=== PATIENT | male | born 1965 | race Caucasian/White ===

== ENCOUNTER 2018-01-17 07:55 | Day surgery (SDC) | payer BC ==
[2018-01-17 08:28] LABS: Absolute Lymphocytes (CBC) 1.5 K/uL (0.7-4.9); Absolute Monocytes 0.4 K/uL (0.1-1.3); Absolute Neutrophil 3.7 K/uL (1.8-8.0); Basophils % 1.4 % (0-1.3); Eosinophils % 5.2 % (0-4.4); Hematocrit 40.2 % (39.6-49.0); Lymphocytes % 24.9 % (15.3-44.8); MCH 29.8 pg (27.0-35.0); MCV 87.5 fL (80-100); Monocytes % 7.2 % (3.3-12.3); RBC Red Blood Cell Count 4.59 M/uL (4.33-5.43)
[2018-01-17 08:30] LABS: Potassium 4.3 mEq/L (3.6-5.0)
[2018-01-17] MEDS ORDERED: CIPROFLOXACIN 400mg IV 400 MG/200 ML BAG IV ONE (08:48)
[2018-01-17] MEDS ORDERED: NA CHLORIDE 0.9% 1,000 ML ONE (08:48)
[2018-01-17] MEDS ORDERED: PROPOFOL 200 MG/20 ML VIAL IV ONE (09:29)
[2018-01-17] MEDS ORDERED: ONDANSETRON 4 MG/2 ML VIAL ONE (09:30)
[2018-01-17] MEDS ORDERED: LIDOCAINE 2% MPF 5 ML VIAL ONE (09:30)
[2018-01-17] MEDS ORDERED: MIDAZOLAM HCL 2 MG/2 ML INJ ONE (09:30)
[2018-01-17] MEDS ORDERED: FENTANYL CITR 100 MCG/2 ML ONE (09:30)
--- NOTE | 2018-01-17 09:52 | EKG ---
Test Date: 2018-01-17 Test Time: 08:23:33 Manager Of Corporate: LUCY MEASUREMENT RESULTS: Intervals: Rate: 86 MA: 136 QRSD: 74 QT: 344 QTc: 411 [place]: P: 65 MA: 136 QRS: 40 T: 56 INTERPRETIVE STATEMENTS: Normal sinus rhythm Normal ECG No previous ECG available for comparison Electronically Signed On 01-17-18 09:51:32 CDT by Maverick Arias
--- NOTE | 2018-01-17 10:07 | P.BOP ---
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
--- NOTE | 2018-01-17 10:14 | RAD REPORT ---
EXAM DESCRIPTION: RAD - Chest Pa And Lat (2 Views) - 01/17/2018 8:21 am CLINICAL HISTORY: Chest pain, osteomyelitis. COMPARISON: None. FINDINGS: The lungs are clear. The heart is normal in size. No displaced fractures. IMPRESSION: No acute or concerning finding suspected.
--- NOTE | 2018-01-23 04:11 | DS ---
Date of Discharge: 01/17/2018 Diagnoses: Left second toe osteomyelitis, nonhealing diabetic ulcer. Disposition: Home. Activity: As tolerated. No heavy lifting. Followup: Follow up in my office in 1 week. Call for appointment at [phone]. The patient was expl ained importance also of the antibiotics treatment, diabetes control, glucose control, diet, and prop er shoes, he understood. DANE/CHINMAY Voice ID: [id number] Report ID: [id number]
--- NOTE | 2018-01-23 05:34 | OP ---
Date of Procedure: 01/17/2018 Surgeon: Jevon Ramírez MD Preoperative Diagnoses: Left second toe destructive osteomyelitis with nonhealing diabetic ulcer. 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 Procedure: Left second toe amputation. Estimated Blood Loss: Less than 5 cc. Specimen: Toe. Finding: As above. Demineralized bone, very friable. Anesthesia: General plus local. Indications: This is the case of a male, who comes to us with a left second toe destructive osteomye litis with a nonhealing diabetic ulcer in that region with infection. The patient has the option of long-term antibiotics, although he realized the bone is destroying. You can see the bone from the si te of the ulcer with destruction already coming from it. The patient wants the toe amputated even un derstanding options also of long-term antibiotics and wound care. He understood the benefits, altern atives, and risks which include, but are not limited to infection, bleeding, damage to adjacent struc tures, anesthesia complication, nonhealing wound, IA, and even . He also understands this may n ot relieve any symptoms. He might need more than one surgical intervention. He understood and qian d a consent. Description Of Procedure: The area of concern was marked by me and the patient in the holding room. The patient was brought to the operating room, placed in supine position. Anesthesia was done witho ut complication. Left second toe was prepped and draped in usual sterile fashion. Left foot was pre pped and draped in a sterile fashion. The amputation site was selected. Incision was made, carried down with the knife. The incision was carried down to the metatarsophalangeal joint. The toe was am putated. The tendon was pulled, cut and allowed to retract. Cartilage was excoriated. The area was profusely irrigated and then approximated with a mattress suture after profuse irrigation. Local an esthetic was applied in that area. The patient tolerated the procedure well. The patient was sent t o recovery in stable condition. DANE/CHINMAY Voice ID: [id number] Report ID: [id number]
== END 2018-01-17 11:38 | disposition home or self-care (01) ==
LOC: OR 07:55
PROVIDERS: ATTEND Surgery
PROC: 0Y6S0Z0 Detachment at Left 2nd Toe, Complete, Open Approach (ICD-10-PCS; principal; 2018-01-17 10:15)
DX: E11.69 Type 2 diabetes mellitus with other specified complication (principal); M86.8X7 Other osteomyelitis, ankle and foot; E11.621 Type 2 diabetes mellitus with foot ulcer; L97.529 Non-pressure chronic ulcer of other part of left foot with unspecified severity; I10 Essential (primary) hypertension; F17.220 Nicotine dependence, chewing tobacco, uncomplicated
CPT/HCPCS: 36415; 71046; 80048; 82962; 85025; 88305; 88311; 93005; J0744; J2250; J2405; J3010; J7030

== ENCOUNTER 2020-03-29 15:44 | Inpatient (IN) | payer BC ==
[2020-03-29] MEDS ORDERED: VANCOMYCIN/NS 1 gm 1 GM/250 ML BAG IV ONE (17:15)
--- NOTE | 2020-03-29 17:17 | RAD REPORT ---
EXAM DESCRIPTION: RAD - Foot Right 3 View - 03/29/2020 4:55 pm CLINICAL HISTORY: examin for osteo;Pain COMPARISON: No comparisons FINDINGS: No fracture, dislocation or periosteal reaction. Patient has moderately advanced degenerat ramesh change at the first metatarsal head. Valgus deformity is present. Mild tarsal metatarsal joint de generative changes are present. Moderate-sized plantar spur present. There are mild spurring changes at the Achilles attachment. Soft tissue swelling is present at the second toe. No air in the soft tissues confirmed. Second proxi mal phalanx head is relatively small. Early bone loss changes are not entirely excluded in the settin g of a soft tissue infection. . IMPRESSION: Second toe soft tissue swelling with questionable early bone loss changes in the second proximal phalanx head. Degenerative change at the first MTP joint and first metatarsal head. Plantar spur.
--- NOTE | 2020-03-29 17:20 | ER ---
Nurse's Notes [facility] Name: Anders Balderas Age: 54 yrs Sex: Male : 1965 Arrival Date: 03/29/2020 Time: 15:46 Bed 2 Private MD: Mikey Kline H Diagnosis: Cellulitis of right toe;Lymphangitis;Other sepsis;Osteomyelitis Presentation: 03/29 16:15 Chief complaint: Patient states: fever intermittent X 2 days, 2nd toe on right foot has iw ulcer on it , has gotten worse over past two days. Coronavirus screen: Proceed with normal triage. Patient denies a cough. Patient denies shortness of breath or difficulty breathing. Patient denies measured and/or subjective temperature greater than 100.4F prior to today's visit. Patient denies travel on a cruise ship or to a country the [facility] currently lists as an affected area. Patient denies contact with known and/or suspected case of COVID-19. Ebola Screen: Patient negative for fever greater than or equal to 101.5 degrees Fahrenheit, and additional compatible Ebola Virus Disease symptoms Patient denies exposure to infectious person. Patient denies travel to an Ebola-affected area in the 21 days before illness onset. No symptoms or risks identified at this time. Initial Sepsis Screen: Does the patient meet any 2 criteria? No. Patient's initial sepsis screen is negative. Does the patient have a suspected source of infection? No. Patient's initial sepsis screen is negative. Risk Assessment: Do you want to hurt yourself or someone else? Patient reports no desire to harm self or others. Onset of symptoms was March 26, 2020. 16:15 Method Of Arrival: Ambulatory iw 16:15 Acuity: CAYETANO 3 iw 16:21 Note had ibuprofen at 1400 today. iw Triage Assessment: 16:20 General: Appears in no apparent distress. comfortable, Behavior is cooperative, bp appropriate for age, anxious. Pain: Complains of pain in right foot. EENT: No deficits noted. Neuro: No deficits noted. Cardiovascular: No deficits noted. Respiratory: Reports. GI: No signs and/or symptoms were reported involving the gastrointestinal system. : No signs and/or symptoms were reported regarding the genitourinary system. Derm: No deficits noted. Wound noted Wound is R 2ND TOE NON-HEALING WOUND. Musculoskeletal: No signs and/or symptoms reported regarding the musculoskeletal system. Historical: - Allergies: 16:19 No Known Allergies; iw - Home Meds: 16:19 glyburide 5 mg Oral tab 1 tab once daily [Active]; metformin 500 mg Oral Tb24 2 times iw per day [Active]; losartan 50 mg oral tab 1 tab 2 times per day [Active]; Lovastatin Oral once daily [Active]; - PMHx: 16:19 Diabetes - NIDDM; Hyperlipidemia; Hypertension; bone cancer-right arm as child; iw - PSHx: 16:19 left toe amputation; right arm; iw - Immunization history:: Adult Immunizations Adult Immunizations not up to date. - Social history:: Smoking status: Patient denies any tobacco usage or history of. Smoking status: Patient reports use of chewing tobacco. Screenin:32 Abuse screen: Denies threats or abuse. Denies injuries from another. Nutritional bp screening: No deficits noted. Tuberculosis screening: No symptoms or risk factors identified. Fall Risk None identified. Exposure risk/Travel Screening: Recent exposure to Intervention for positive screen:. Assessment: 16:30 General: SEE TRIAGE NOTE. General: Behavior is calm, cooperative, appropriate for age, bp Smells of. 17:30 Reassessment: ADMIT INITIATED. PT REMAINS ST ON MONITOR. bp 18:27 Reassessment: ADMIT COMPLETE. PT GAGE WITH PCT. bp Vital Signs: 16:15 BP 108 / 93; Pulse 124; Resp 18 S; Temp 100.1(O); Pulse Ox 100% on R/A; Weight 91.17 iw kg; Height 5 ft. 8 in. (172.72 cm); Pain 0/10; 17:30 BP 123 / 94; Pulse 109; Resp 17; Pulse Ox 100% ; bp 18:25 BP 97 / 68; Pulse 101; Resp 16; Pulse Ox 94% ; bp 16:15 Body Mass Index 30.56 (91.17 kg, 172.72 cm) iw ED Course: 15:46 Patient arrived in ED. ag5 15:46 Mikey Kline DO is Private Physician. ag5 16:17 Triage completed. iw 16:19 Arm band placed on. iw 16:22 Cooper Araujo PA is PHCP. jr8 16:22 Sal Johnson MD is Attending Physician. jr8 16:24 Bird, German, RN is Primary Nurse. bp 16:32 Patient has correct armband on for positive identification. Placed in gown. Bed in low bp position. Call light in reach. Side rails up X2. 16:57 XRAY Foot RIGHT 3 View In Process Unspecified. EDMS 17:15 Inserted saline lock: 20 gauge in left forearm, using aseptic technique. Blood bp collected. 17:18 Jian Brooke MD is Hospitalizing Provider. 8 17:27 Warm blanket given. monitor technician on. Pulse ox on. NIBP on. 5 17:27 EKG done, by ED staff, reviewed by Cooper LARSON. [facility] 18:28 No provider procedures requiring assistance completed. Patient admitted, IV remains in bp place. Administered Medications: 17:15 Drug: Acetaminophen 1000 mg Route: PO; bp 18:28 Follow up: Response: Temperature is decreased bp 17:15 Drug: NS 0.9% (30 ml/kg) 30 ml/kg Route: IV; Rate: bolus; Site: left forearm; bp 18:29 Follow up: IV Status: Infusion continued upon admission bp 17:30 Drug: Cefepime 1 grams Route: IVPB; Rate: 200 ml/hr; Infused Over: 30 mins; Site: left bp forearm; 18:00 Follow up: IV Status: Completed infusion; IV Intake: 100ml bp 17:40 Drug: vancoMYCIN 1 grams Route: IVPB; Infused Over: 2 hrs; Site: left forearm; bp 18:28 Follow up: IV Status: Infusion continued upon admission bp Intake: 18:00 IV: 100ml; Total: 100ml. bp Outcome: 17:19 Decision to Hospitalize by Provider. jrKaren 18:27 Admitted to Med/surg accompanied by tech, via wheelchair, room 223, with chart, Report bp called to TORI GUERRA 18:27 Condition: stable 18:27 Instructed on the need for admit. 18:37 Patient left the ED. jl7 Signatures: Dispatcher [employer] EDMS Joyce King, RN Cooper Duarte PA PA jr8 Daniela Ramírez 5 Manuel Al RN RN jl7 German Pang RN RN bp Gaskin, Ajare 5 Corrections: (The following items were deleted from the chart) 16:20 16:15 BP 108 / 93; Pulse 124bpm; Resp 18bpm; Spontaneous; Pulse Ox 100% RA; Temp 98.9F; iw 91.17 kg; Height 5 ft. 8 in.; BMI: 30.5; Pain 0/10; iw
--- NOTE | 2020-03-29 17:20 | EDPHYS ---
Physician Documentation [facility] Name: Anders Balderas Age: 54 yrs Sex: Male : 1965 Arrival Date: 03/29/2020 Time: 15:46 Bed 2 Private MD: Mikey Kline H ED Physician Sal Johnson HPI: 03/29 16:54 This 54 yrs old Male presents to ER via Ambulatory with complaints of Wound jr8 Check, Fever. 17:14 Patient presents to ED for recheck of: cellulitis. The affected area is on the right jr8 foot. The patient has experienced a previous episode. The patient has not recently seen a physician. Patient stated that he is diabetic and has had problems with chronic non healing wounds. Stated that he has had one on right second digit for some time. Since this past has had increase in pain and now within past two days a lot of redness. Fevers today . Historical: - Allergies: 16:19 No Known Allergies; iw - Home Meds: 16:19 glyburide 5 mg Oral tab 1 tab once daily [Active]; metformin 500 mg Oral Tb24 2 times iw per day [Active]; losartan 50 mg oral tab 1 tab 2 times per day [Active]; Lovastatin Oral once daily [Active]; - PMHx: 16:19 Diabetes - NIDDM; Hyperlipidemia; Hypertension; bone cancer-right arm as child; iw - PSHx: 16:19 left toe amputation; right arm; iw - Immunization history:: Adult Immunizations Adult Immunizations not up to date. - Social history:: Smoking status: Patient denies any tobacco usage or history of. Smoking status: Patient reports use of chewing tobacco. ROS: 17:14 Eyes: Negative for injury, pain, redness, and discharge, ENT: Negative for injury, jr8 pain, and discharge, Neck: Negative for injury, pain, and swelling, Cardiovascular: Negative for chest pain, palpitations, and edema, Respiratory: Negative for shortness of breath, cough, wheezing, and pleuritic chest pain, Abdomen/GI: Negative for abdominal pain, nausea, vomiting, diarrhea, and constipation, Back: Negative for injury and pain, Neuro: Negative for headache, weakness, numbness, tingling, and seizure. 17:14 Constitutional: Positive for fever. 17:14 MS/extremity: Positive for erythema, pain, swelling, warmth, of the right foot. 17:14 Skin: Positive for cellulitis, of the right foot. Exam: 17:14 Eyes: Pupils equal round and reactive to light, extra-ocular motions intact. Lids and jr8 lashes normal. Conjunctiva and sclera are non-icteric and not injected. Cornea within normal limits. Periorbital areas with no swelling, redness, or edema. ENT: Nares patent. No nasal discharge, no septal abnormalities noted. Tympanic membranes are normal and external auditory canals are clear. Oropharynx with no redness, swelling, or masses, exudates, or evidence of obstruction, uvula midline. Mucous membranes moist. Neck: Trachea midline, no thyromegaly or masses palpated, and no cervical lymphadenopathy. Supple, full range of motion without nuchal rigidity, or vertebral point tenderness. No Meningismus. Cardiovascular: Tachycardia with a normal S1 and S2. No gallops, murmurs, or rubs. Normal PMI, no JVD. No pulse deficits. Respiratory: Lungs have equal breath sounds bilaterally, clear to auscultation and percussion. No rales, rhonchi or wheezes noted. No increased work of breathing, no retractions or nasal flaring. Abdomen/GI: Soft, non-tender, with normal bowel sounds. No distension or tympany. No guarding or rebound. No evidence of tenderness throughout. Back: No spinal tenderness. No costovertebral tenderness. Full range of motion. MS/ Extremity: Pulses equal, no cyanosis. Neurovascular intact. Full, normal range of motion. Neuro: Awake and alert, GCS 15, oriented to person, place, time, and situation. Cranial nerves II-XII grossly intact. Motor strength 5/5 in all extremities. Sensory grossly intact. Cerebellar exam normal. Normal gait. 17:14 Skin: Patient has prominent cellulitis to right 2nd digit with swelling and lymphangitis going up to distal thigh. Vital Signs: 16:15 BP 108 / 93; Pulse 124; Resp 18 S; Temp 100.1(O); Pulse Ox 100% on R/A; Weight 91.17 iw kg; Height 5 ft. 8 in. (172.72 cm); Pain 0/10; 17:30 BP 123 / 94; Pulse 109; Resp 17; Pulse Ox 100% ; bp 18:25 BP 97 / 68; Pulse 101; Resp 16; Pulse Ox 94% ; bp 16:15 Body Mass Index 30.56 (91.17 kg, 172.72 cm) iw MDM: 16:22 Patient medically screened. :14 Data reviewed: vital signs, nurses notes, lab test result(s), EKG, radiologic studies, [facility] plain films. Data interpreted: Pulse oximetry: on room air is 100 %. Interpretation: normal. Counseling: I had a detailed discussion with the patient and/or guardian regarding: the historical points, exam findings, and any diagnostic results supporting the discharge/admit diagnosis, lab results, radiology results, the need for further work-up and treatment in the hospital. Physician consultation: Jian Brooke MD was called at 17:18, was contacted at 17:18, regarding admission, and will see patient in ED. 03/29 16:33 Order name: Basic Metabolic Panel [facility] 03/29 16:33 Order name: Blood Culture Adult (2) [facility] 03/29 16:33 Order name: CBC with Diff 03/29 16:33 Order name: CPK [facility] 03/29 16:33 Order name: Lactate [facility] 03/29 16:33 Order name: LFT's [facility] 03/29 16:33 Order name: Lipase [facility] 03/29 16:33 Order name: Procalcitonin [facility] 03/29 16:33 Order name: Protime (+inr) [facility] 03/29 16:33 Order name: Ptt, Activated [facility] 03/29 16:33 Order name: Troponin (emerg Dept Use Only) [facility] 03/29 16:33 Order name: Urine Microscopic Only [facility] 03/29 16:33 Order name: XRAY Foot RIGHT 3 View; Complete Time: 17:19 03/29 17:34 Order name: Wound Culture [facility] 03/29 16:33 Order name: Accucheck; Complete Time: 17:09 03/29 16:33 Order name: Cardiac monitoring; Complete Time: 17:08 03/29 16:33 Order name: EKG - Nurse/Tech; Complete Time: 17:08 03/29 16:33 Order name: IV Saline Lock - Large Bore; Complete Time: 17:[address] [facility] 03/29 16:33 Order name: Labs collected and sent; Complete Time: 17:39 8 03/29 16:33 Order name: O2 Per Protocol; Complete Time: 17:08 8 03/29 16:33 Order name: O2 Sat Monitoring; Complete Time: 17:08 Administered Medications: 17:15 Drug: Acetaminophen 1000 mg Route: PO; bp 18:28 Follow up: Response: Temperature is decreased bp 17:15 Drug: NS 0.9% (30 ml/kg) 30 ml/kg Route: IV; Rate: bolus; Site: left forearm; bp 18:29 Follow up: IV Status: Infusion continued upon admission bp 17:30 Drug: Cefepime 1 grams Route: IVPB; Rate: 200 ml/hr; Infused Over: 30 mins; Site: left bp forearm; 18:00 Follow up: IV Status: Completed infusion; IV Intake: 100ml bp 17:40 Drug: vancoMYCIN 1 grams Route: IVPB; Infused Over: 2 hrs; Site: left forearm; bp 18:28 Follow up: IV Status: Infusion continued upon admission bp Disposition: 03/30 11:30 Co-signature as Attending Physician, Sal Johnson MD I agree with the assessment and elidia plan of care. Disposition: 03/29/20 17:19 Hospitalization ordered by Jian Brooke for Inpatient Admission. Preliminary diagnosis are Cellulitis of right toe, Lymphangitis, Other sepsis, Osteomyelitis. - Bed requested for Telemetry/MedSurg (Inpatient). - Status is Inpatient Admission. jl7 - Condition is Stable. - Problem is new. - Symptoms have improved. Signatures: Dispatcher [employer] EDSD Sal Johnson MD MD cha Williams, Irene, RN RN iw Roszak, Josh, PA PA jr8 Manuel Al RN RN jl7 Peltier, Brian, RN RN bp Botello, Elizabeth eb Corrections: (The following items were deleted from the chart) 03/29 17:33 17:19 Hospitalization Ordered by Jian Brooke MD for Inpatient Admission. Preliminary eb diagnosis is Cellulitis of right toe; Lymphangitis; Other sepsis; Osteomyelitis. Bed requested for Telemetry/MedSurg (Inpatient). Status is Inpatient Admission. Condition is Stable. Problem is new. Symptoms have improved. jr8 18:37 17:33 03/29/2020 17:19 Hospitalization Ordered by Jian Brooke MD for Inpatient jl7 Admission. Preliminary diagnosis is Cellulitis of right toe; Lymphangitis; Other sepsis; Osteomyelitis. Bed requested for Telemetry/MedSurg (Inpatient). Status is Inpatient Admission. Condition is Stable. Problem is new. Symptoms have improved. eb
[2020-03-29] MEDS ORDERED: ACETAMINOPHEN 500 MG TAB ONE (17:21)
[2020-03-29] MEDS ORDERED: NA CHLORIDE 0.9% 2,000 ML ONE (17:22)
[2020-03-29 18:17] LABS: Absolute Lymphocytes (CBC) 0.8 K/uL (0.7-4.9); Basophils % 0.8 % (0-1.3); Hematocrit 37.1 % (39.6-49.0); Lymphocytes % 15.5 % (15.3-44.8); MPV 7.8 fL (7.6-11.3); RBC Red Blood Cell Count 4.12 M/uL (4.33-5.43)
[2020-03-29 18:19] LABS: Protime INR 1.07
[2020-03-29 18:33] LABS: ALT/SGPT 34 U/L (12-78); AST/SGOT 24 U/L (15-37); Alkaline Phosphatase 68 U/L (45-117); BUN Blood Urea Nitrogen 31 mg/dL (7-18); Bicarbonate 22 mmol/L (21-32); Bilirubin Direct 0.2 mg/dL (0-0.2); Bilirubin Total 0.7 mg/dL (0.2-1.0); Creatine Phosphokinase 86 U/L (39-308); Glucose Level 244 mg/dL (74-106); Lipase 178 U/L (73-393); Potassium 4.2 mmol/L (3.5-5.1); Protein, Total 7.7 g/dL (6.4-8.2); Sodium Level 135 mmol/L (136-145); Troponin (Emerg Dept Use Only) < 0.02 ng/mL (0.0-0.045)
[2020-03-29] MEDS ORDERED: POLYETHYL GLY 3350 17 GM/DOSE PO PRN (18:33)
[2020-03-29] MEDS ORDERED: MORPHINE 2 MG/ML SYR IV PRN (18:33)
[2020-03-29] MEDS ORDERED: ONDANSETRON 4 MG/2 ML VIAL IV PRN (18:33)
[2020-03-29] MEDS ORDERED: HYDROCODONE/APAP 7.5/325 MG TAB PO PRN (18:33)
[2020-03-29] MEDS: NA CHLORIDE 0.9% 1,000 ML IV SCH (18:33)
[2020-03-29 19:27] VITALS: BMI 30.5
[2020-03-29] MEDS ORDERED: VANCOMYCIN/NS 1 gm 1 GM/250 ML BAG IVPB ONE (20:00)
[2020-03-29] MEDS: CEFEPIME/SWI 2gm 2 GM/20 ML SYR IVP SCH (20:18)
[2020-03-29] MEDS ORDERED: CEFEPIME 2 GM VIAL IV SCH (21:00)
[2020-03-29] MEDS ORDERED: VANCOMYCIN 1 GM/VIAL ONE (21:06)
[2020-03-29] MEDS: DOCUSATE NA 100 MG CAP PO SCH (21:29)
[2020-03-29] MEDS: INSULIN -REGULAR HUMAN 50 UNIT/0.5 ML ML SQ SCH (21:30)
[2020-03-29] MEDS ORDERED: NA CHLORIDE 0.9% 250 ML ONE (21:32)
--- NOTE | 2020-03-29 21:42 | HP ---
Date of Admission: 03/29/2020 Primary Care Physician: Dr. Kline. Chief Complaint: Redness swelling of the right second toe. Consultants: Dr. Ramírez, General Surgery. Dr. Fitzpatrick, Infectious Disease. History Of Present Illness: Patient is a 54-year-old male with past medical history of diabetes lele itus type 2, [id number], hypertension, hyperlipidemia, comes in with worsening redness, sw elling of his right foot and second toe. Patient denies any specific trauma or abrasion or laceratio n to this foot. States that it gets worse in the summer, has been ongoing for the last 3 days, worse today has had previous amputation on the other side couple of years ago. Also reports fever and chi lls. Denies any cough, shortness of breath. No chest pain. Patient came into the ER for further ev aluation. In the ER, his vital signs showed blood pressure 108/93, pulse was 124, temperature 100.1. Labs are still pending at this time. X-ray of the foot showed soft tissue swelling of the second t oe, questionable early bone loss changes in second proximal phalanx head and the patient was given IV vancomycin and then referred for admission. When seen in the ER, he was awake, alert, oriented x3. The patient's symptoms are constant, moderate, progressively worsening, no alleviating factors. Past Medical History: Diabetes mellitus type 2, non insulin requiring; hypertension; hyperlipidemia. Patient also had bone cancer at the age of 10 in his right arm. Surgical History: Right arm amputation due to bone cancer, left second digit amputation [address] Ramírez for osteomyelitis. Allergies: NO KNOWN DRUG ALLERGIES. Medications: List reviewed. Social History: Patient denies any tobacco use. Does drink occasionally 2-3 times a week. No illic it drug use. Family History: Father had diabetes. Mother had stroke. Review of Systems: Eleven point system reviewed, negative except as per HPI. Physical Examination: Vital Signs: Blood pressure 108/93, pulse 124, respirations 18, temperature 100.1, O2 100% on room a ir, BMI 30. General: Awake, alert, oriented x3, in some mild distress ill-appearing male, obese. HEENT: Normocephalic, atraumatic. PERRLA, EOMI. Conjunctivae anicteric. Neck: Supple. No JVD. Trachea midline. CV: S1, S2. Sinus tachycardia. Peripheral pulses present. Respiratory: Moving air well bilaterally. No wheezing or stridor. No use of accessory muscles. Gastrointestinal: Abdomen is soft, nontender, nondistended. Positive bowel sounds. No guarding or rigidity. Extremities: No clubbing, cyanosis. Patient has edema of the left foot. No calf tenderness. Musculoskeletal: Right arm amputee status post amputation. Skin: Right foot erythema and streaking on the dorsal aspect. Second digit is somewhat emaciated on the lateral aspect and has erythema and edema. No tenderness to palpation. Patient is not really a ble to feel well down this. Neuro: Cranial nerves 2 through 12 intact grossly. No focal neurological deficit. Speech is normal . Decreased sensation to light touch in lower extremities. Psych: Mood is okay. Affect is full. Insight and judgment are good. Laboratory Data: Pending at this time. Imaging Studies: Right foot x-ray shows second toe soft tissue swelling with questionable early bone loss changes in the second proximal phalanx, had degenerative change at the first MTP joint and firs t metatarsal head plantar spur, personally reviewed. Assessment: A 54-year-old male with 1.Acute cellulitis of the lower extremity including the foot. We will start on broad spectrum IV an tibiotics coverage for Pseudomonas and methicillin resistant Staphylococcus aureus. Patient is diabe tic. We will obtain blood cultures and wound cultures. X-ray shows some possible early bone loss. We will need to confirm with MRI regarding osteomyelitis. 2.Diabetic foot wound, second toe right foot. Dr. Ramírez, General Surgery been consulted. Jasmin roca was seen by him in his clinic previously for the other foot. Continue with IV antibiotics. Obtain cultures. 3.Diabetes mellitus, type 2, [id number] with hyperglycemia and neuropathy. We will rianna nue with sliding scale insulin and monitor blood glucose levels. We will check hemoglobin A1c. 4.Essential hypertension, stable. We will resume home medications as appropriate. 5.Mixed hyperlipidemia. We will continue statin. 6.Obesity, BMI 30, counseled. 7.Deep venous thrombosis prophylaxis with Lovenox. Plan: Admit patient to Med-Surg, place as inpatient. Length of stay greater than 2 midnights. We w ill consult Infectious Disease. If the patient has osteomyelitis, we will likely need 6 weeks of IV antibiotics. SA/MODL Voice ID: [id number]
[2020-03-30 01:10] LABS: Urine Appearance CLEAR; Urine Bilirubin NEGATIVE (NEG); Urine Blood NEGATIVE (NEG); Urine Color YELLOW; Urine Glucose 3+ (NEG); Urine Protein 1+ (NEG); Urine Specific Gravity >=1.030 (1.005-1.030); Urine Urobilinogen 0.2 mg/dL (0.2-1.0)
[2020-03-30 01:22] LABS: Urine Bacteria <20 /HPF (NONE SEEN); Urine Culture Reflex Order NOT NEEDED; Urine RBC <5 /HPF (NONE SEEN); Urine Urothelial Cells <5 /HPF (NONE SEEN)
[2020-03-30] MEDS: NA CHLORIDE 0.9% 1,000 ML IV SCH ×4 (01:55→21:38)
[2020-03-30 05:28] LABS: Absolute Lymphocytes (CBC) 0.9 K/uL (0.7-4.9); Basophils % 1.3 % (0-1.3); Hematocrit 33.4 % (39.6-49.0); Lymphocytes % 17.9 % (15.3-44.8); MPV 7.6 fL (7.6-11.3); RBC Red Blood Cell Count 3.78 M/uL (4.33-5.43)
[2020-03-30 05:49] LABS: Potassium 4.4 mmol/L (3.5-5.1)
[2020-03-30] MEDS: ACETAMINOPHEN 500 MG TAB PO PRN ×2 (06:18→14:49)
[2020-03-30] MEDS: LOSARTAN POTASSIUM 50 MG TABLET PO SCH ×2 (06:18→20:03)
[2020-03-30] MEDS: INSULIN -REGULAR HUMAN 50 UNIT/0.5 ML ML SQ SCH ×4 (07:30→20:03)
[2020-03-30] MEDS: DOCUSATE NA 100 MG CAP PO SCH ×2 (09:11→20:03)
[2020-03-30] MEDS: CEFEPIME/SWI 2gm 2 GM/20 ML SYR IVP SCH ×2 (09:11→20:02)
--- NOTE | 2020-03-30 11:04 | RAD REPORT ---
EXAM DESCRIPTION: MRIFoot Right Wo Cont03/30/2020 9:52 am CLINICAL HISTORY: Right foot pain COMPARISON: X-ray right foot March 29, 2020 TECHNIQUE: Axial, sagittal and coronal magnetic resonance imaging of the right foot was obtained. FINDINGS: Abnormal signal is present throughout most of the second proximal phalanx and second middl e phalanx consistent with osteomyelitis. No additional osteomyelitis seen. No soft tissue abscess noted IMPRESSION: Osteomyelitis involving the second proximal and second middle phalanx
--- NOTE | 2020-03-30 13:19 | CON ---
Date of Consultation: 03/30/2020 Diagnosis: Right second toe cellulitis, possible osteomyelitis. History Of Present Illness: This is a case of a 54-year-old patient, known by us since several years ago, we did an amputation of the opposite foot, now comes with a right foot second toe, not really r boo for it, he said he just followed a pimple and suddenly developed into this redness, swelling, a nd ulcers on the right second. He denies any trauma. He has history of diabetes and obesity. He de nies any dysuria, hematuria, hematochezia, or melena. Denies any recent traveling out of the country . Denies any family member sick at home. Denies any shortness of breath. Denies any chest pain. Review of Systems: Ten points otherwise unremarkable. Past Medical History: Diabetes, obesity. Past Surgical History: Include left second toe amputation for osteomyelitis. Habits: He does not smoke. He does not drink alcohol. Family History: Noncontributory. Physical Examination: General: Patient is awake, alert, in no distress. HEENT: Pupils anicteric. Neck: Supple. Chest: Clear. Abdomen: Soft and depressible. Rectal: Deferred. Extremities: Over the right second patient has a cellulitis, a small ulcer in the medial aspect of t he toe, redness all the way into the metatarsal region. Pulses are strong dorsalis pedis, posterior tibialis, popliteal. Neuro: Patient has neuropathies of the lower extremities. Laboratory Data: Blood work reviewed. X-rays also reviewed. MRI is still pending. Plan: Follow MRI, see if he has osteomyelitis. He already told us like last time if he has osteomye litis he does not want 6 weeks of antibiotics, he wants the toe amputated like he did before and this time I asked him not to make that decision yet until we have the results of the MRI so he can have i nformed consent. The benefits, alternatives, and risks of amputation anyway were discussed with the patient which include, but are not limited to infection, bleeding, damage to adjacent structures, ane sthesia complication, nonhealing wound, CA, and even . He also understands he may require wound care in that area. He may require further surgical intervention. He understood. Waiting for the M RI. We are going to keep him n.p.o. after midnight in case after he gets the results he still decide s to proceed with the amputation. DANE/CHINMAY Voice ID: [id number] Report ID: [id number]
--- NOTE | 2020-03-30 14:35 | P.CNS ---
Date of Consult: 03/30/20 Subjective: Patient is 54-year-old male who presents with a worsening erythema, and swelling to his right foot 2nd toe. Patient has history of diabetes mellitus and osteomyelitis s/p amputation of left foot 2nd toe. MRI of right foot shows osteomyelitis which I have been consulted for. Patient examined at bedside. Past medical/surgical history: Diabetes mellitus type 2, non insulin requiring; hypertension; hyperlipidemia. Patient also had bone cancer at the age of 10 in his right arm. 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 Ramírez for osteomyelitis. Social history: Dips tobacco everyday, occasional alcohol use Family History: Father with Diabetes, mother had a stroke Allergies: NKDA Active Medications Acetaminophen (Tylenol -Extra Strength) 500 mg PO Q6H PRN PRN Reason: TEMP > 100' F Stop: 04/28/20 18:34 Last Admin: 03/30/20 06:18 Dose: 500 mg Documented by: Hydrocodone Bitart/Acetaminophen ([place] 7.5/325 Mg) 1 tab PO Q4H PRN PRN Reason: Pain scale 5-7 (Moderate) Stop: 04/28/20 18:34 Docusate Sodium (Colace Cap) 100 mg PO BID REPLACED BY [facility] Stop: 04/28/20 21:01 Last Admin: 03/30/20 09:11 Dose: Not Given Documented by: Sodium Chloride (Ns 1000 Ml Ivbag) 1,000 mls @ 125 mls/hr IV .Q8H REPLACED BY [facility] Stop: 04/28/20 18:34 Last Admin: 03/30/20 12:32 Dose: 1,000 mls Documented by: Cefepime HCl (Maxipime 2 Gm/20 Ml Swi Ivp) 2 gm in 20 mls @ 400 mls/hr IVP Q12HR REPLACED BY [facility] Stop: 04/28/20 21:01 Last Admin: 03/30/20 09:11 Dose: 20 mls Documented by: Vancomycin HCl 1.75 gm/ Sodium (Chloride) 500 mls @ 250 mls/hr IVPB Q24H REPLACED BY [facility] Stop: 04/29/20 20:01 Insulin Human Regular (Novolin -R) 0 unit SQ ACHS MAGALI; Protocol Stop: 04/28/20 21:01 Last Admin: 03/30/20 12:33 Dose: 4 unit Documented by: Losartan Potassium (Cozaar) 50 mg PO BID REPLACED BY [facility] Stop: 04/29/20 07:01 Last Admin: 03/30/20 06:18 Dose: 50 mg Documented by: Morphine Sulfate (Morphine Sulfate) 2 mg IV Q4H PRN PRN Reason: Pain scale 8-10 (Severe) Stop: 04/28/20 18:34 Ondansetron HCl (Zofran) 4 mg IV Q4H PRN PRN Reason: NAUSEA / VOMITING Stop: 04/28/20 18:34 Polyethylene Glycol (Glycolax) 17 gm PO DAILY PRN PRN Reason: CONSTIPATION Stop: 04/28/20 18:34 Sodium Chloride (Normal Saline Flush) 10 ml IV BID REPLACED BY [facility] Stop: 04/28/20 21:01 Last Admin: 03/30/20 09:12 Dose: 10 ml Documented by: ROS: CV: Denies chest pain RESP: Denies shortness of breath, cough : Denies dysuria GI: Denies nausea, diarrhea Extremities: Reports right arm amputation at 10 years old due to bone cancer, left foot second toe amputation due to osteomyelitis 2 years ago Skin: reports worsening erythema and swelling to right foot 2nd toe Objective: Temp Pulse Resp BP Pulse Ox 98.5 F 108 H 17 147/83 H 97 03/30/20 12:00 03/30/20 12:00 03/30/20 12:00 03/30/20 12:00 03/30/20 12:00 Labs: Na 136, K 4.4, BUN 28, Creat 1.62, Pro reji 0.60, Hgb 11.9, Hct 33.4 Right foot xray 03/29: EXAM DESCRIPTION: RAD - Foot Right 3 View - 03/29/2020 4:55 pm CLINICAL HISTORY: examin for osteo;Pain COMPARISON: No comparisons FINDINGS: No fracture, dislocation or periosteal reaction. Patient has moderately advanced degenerative change at the first metatarsal head. Valgus deformity is present. Mild tarsal metatarsal joint degenerative changes are present. Moderate-sized plantar spur present. There are mild spurring changes at the Achilles attachment. Soft tissue swelling is present at the second toe. No air in the soft tissues confirmed. Second proximal phalanx head is relatively small. Early bone loss changes are not entirely excluded in the setting of a soft tissue infection. . IMPRESSION: Second toe soft tissue swelling with questionable early bone loss changes in the second proximal phalanx head. Degenerative change at the first MTP joint and first metatarsal head. Plantar spur. Right foot MRI 03/30: EXAM DESCRIPTION: MRIFoot Right Wo Cont03/30/2020 9:52 am CLINICAL HISTORY: Right foot pain COMPARISON: X-ray right foot March 29, 2020 TECHNIQUE: Axial, sagittal and coronal magnetic resonance imaging of the right foot was obtained. FINDINGS: Abnormal signal is present throughout most of the second proximal phalanx and second middle phalanx consistent with osteomyelitis. No additional osteomyelitis seen. No soft tissue abscess noted IMPRESSION: Osteomyelitis involving the second proximal and second middle phalanx ROS: General: Awake, alert, oriented CV: S1,S2 RESP: Good breath sounds throughout ABD: Round, firm, nontender, bowel sounds present Extremities: Right arm amputation, left foot second toe amputation, 2+ pedal pulses Skin: Erythematous streaks running up right lower extremity. Right foot second toe ulcer with swelling, erythema, and warmth Assessment and plan: Right foot second toe diabetic foot ulcer Osteomyelitis involving the right foot second proximal and second middle phalanx Cellulitis to RLE Diabetes mellitus, A1C 9.7 Protein calorie malnourished, Albumin 3.0 Currently on Maxipime day 2 and Vancomycin day 1 Patient agreeable to amputation Will reevaluate antibiotic therapy after surgery Will continue to monitor Thank you for consult Patient discussed with Dr. Fitzpatrick
--- NOTE | 2020-03-30 17:22 | P.PN ---
Subjective Date of Service: 03/30/20 Primary Care Provider: Dr. Kline Subjective: Improving Physical Examination - Vital Signs Temperature: 99.6 F Blood Pressure: 135/74 Pulse: 96 Respirations: 18 Pulse Ox (%): 95 - Physical Exam General: Alert, In no apparent distress, Oriented x3 HEENT: Atraumatic Neck: Supple Respiratory: Clear to auscultation bilaterally, Normal air movement Cardiovascular: Normal pulses, Regular rate/rhythm Musculoskeletal: Other (erythema and swelling to the right 2nd toe) - Studies Medications List Reviewed: Yes Assessment & Plan Discharge Plan: Home Plan to discharge in: 24 Hours Physician Review Additional Text: Impression: Right 2nd toe osteomyelitis DM Type 2 uncontrolled with Hyperglycemia Acute on chronic renal disease stage 3 Plan: MRI shows Osteomyelitis. He desires amputation instead of group home IV antibiotics. Will discuss with Surgery. ID recommended IV antibiotics. Will start Lantus for better DM controll. Will DC Metformin at this time. Will consult Nephrology for recommendations. Will adjust meds accordingly. Anticipate surgery today or tomorrow. Time Spent Managing Pts Care (In Minutes): 55
[2020-03-30] MEDS ORDERED: D50W 25 GM/50 ML SYRINGE/VIAL IV PRN (17:24)
[2020-03-30] MEDS ORDERED: GLUCAGON 1 MG/VIAL IM PRN (17:24)
[2020-03-30] MEDS: ENOXAPARIN 30 MG/0.3 ML SQ SCH (17:35)
[2020-03-30] MEDS: VANCOMYCIN 1.75 GM in NA CHLORIDE 0.9% 500 ML IVPB SCH (20:02)
[2020-03-30] MEDS: INSULIN GLARGINE 100 UNITS/ML SQ SCH (20:03)
--- NOTE | 2020-03-30 20:44 | P.CNS ---
Date of Consult: 03/30/20 Reason for Consult: MAGDIEL Requesting Physician: Misha Teague Primary Care Provider: Dr. Kline Chief Complaint: Right second toe pain with erythema History of Present Illness: 54 yo WM CKD, HTN, DM presents to the ER with 3 days of moderate, progressive right second toe pain with associated swelling and erythema concerning for an infection in the setting of uncontrolled DM. Denies regular use of NSAIDs but reports excessive ibuprofen prior to admission due to the pain. Denies urinary difficulties. DM II Dx 1999. Patient is a 54-year-old male with past medical history of diabetes mellitus type 2, [id number], hypertension, hyperlipidemia, comes in with worsening redness, swelling of his right foot and second toe. Patient denies any specific trauma or abrasion or laceration to this foot. States that it gets worse in the summer, has been ongoing for the last 3 days, worse today has had previous amputation on the other side couple of years ago. Also reports fever and chills. Denies any cough, shortness of breath. No chest pain. Patient came into the ER for further evaluation. In the ER, his vital signs showed blood pressure 108/93, pulse was 124, temperature 100.1. Labs are still pending at this time. X-ray of the foot showed soft tissue swelling of the second toe, questionable early bone loss changes in second proximal phalanx head and the patient was given IV vancomycin and then referred for admission. When seen in the ER, he was awake, alert, oriented x3. The patient's symptoms are constant, moderate, progressively worsening, no alleviating factors. 16:54 This 54 yrs old Male presents to ER via Ambulatory with complaints of Wound jr8 Check, Fever. 17:14 Patient presents to ED for recheck of: cellulitis. The affected area is on the right jr8 foot. The patient has experienced a previous episode. The patient has not recently seen a physician. Patient stated that he is diabetic and has had problems with chronic non healing wounds. Stated that he has had one on right second digit for some time. Since this past has had increase in pain and now within past two days a lot of redness. Fevers today . Allergies No Known Allergies Allergy (Verified 03/30/20 00:56) Home medications list reviewed: Yes Home Medications: Losartan Potassium [Cozaar] 50 mg PO BID 01/17/18 Metformin HCl 1 tab PO BID 01/17/18 glyBURIDE [Glyburide] 1 tab PO BID 01/17/18 Lovastatin 20 mg PO DAILY 03/29/20 Montelukast [Singulair*] 10 mg PO DAILY 03/29/20 - Past Medical/Surgical History Diabetic: Yes -: NIDDM -: HLD -: HTN -: Bone Cancer Righ arm -: right arm amputation -: left 5th digit toe amputation - Family History Father Medical History: Diabetes Mother Medical History: Diabetes - Social History Smoking Status: Unknown if ever smoked Alcohol use: No Place of Residence: Home Review of Systems 10-point ROS is otherwise unremarkable General: Malaise Integumentary: Lesions Physical Examination Temp Pulse Resp BP Pulse Ox 99.0 F 101 H 17 146/79 H 97 03/30/20 20:00 03/30/20 20:00 03/30/20 20:00 03/30/20 20:00 03/30/20 20:00 General: In no apparent distress, Cooperative HEENT: Atraumatic, Normocephalic Neck: Supple Respiratory: Clear to auscultation bilaterally Cardiovascular: No edema, Regular rate/rhythm Gastrointestinal: Soft and benign, Non-distended Musculoskeletal: No clubbing, No contractures Integumentary: No cyanosis, Skin lesion, Tenderness/swelling, Erythema, Warmth, Diabetic ulcer Neurological: Normal speech Blood work reviewed in the chart. Imagings Data: EXAM DESCRIPTION: MRIFoot Right Wo Cont03/30/2020 9:52 am CLINICAL HISTORY: Right foot pain COMPARISON: X-ray right foot March 29, 2020 TECHNIQUE: Axial, sagittal and coronal magnetic resonance imaging of the right foot was obtained. FINDINGS: Abnormal signal is present throughout most of the second proximal phalanx and second middle phalanx consistent with osteomyelitis. No additional osteomyelitis seen. No soft tissue abscess noted IMPRESSION: Osteomyelitis involving the second proximal and second middle phalanx Conclusions/Impression: A/ MAGDIEL in the setting of hypovolemia. Hyponatremia Hypocalcemia CKD III with proteinuria HTN with CKD. DM II with CKD. Anemia in chronic illness. P/ Continue current POC and Medications. Continue IVF. Continue abx. Monitor vanco level. Titrate insulin as needed to improve BG. Start Vitamin D. Follow up with surgery for right second toe amputation. No NSAIDs. AM labs. Daily weight. Thank you kindly for the consultation.
[2020-03-31 04:57] LABS: Absolute Lymphocytes (CBC) 1.3 K/uL (0.7-4.9); Hematocrit 29.2 % (39.6-49.0); Lymphocytes % 25.1 % (15.3-44.8); RBC Red Blood Cell Count 3.31 M/uL (4.33-5.43)
[2020-03-31 05:10] LABS: Magnesium 2.2 mg/dL (1.8-2.4); Phosphorus 2.5 mg/dL (2.5-4.9); Potassium 3.9 mmol/L (3.5-5.1)
[2020-03-31] MEDS: INSULIN -REGULAR HUMAN 50 UNIT/0.5 ML ML SQ SCH ×5 (07:30→21:01)
--- NOTE | 2020-03-31 08:31 | P.PN ---
Date of Service: 03/31/20 Subjective: Patient is 54-year-old male who presents with a worsening erythema, and swelling to his right foot 2nd toe. Patient has history of diabetes mellitus and osteomyelitis s/p amputation of left foot 2nd toe. MRI of right foot shows osteomyelitis which I have been consulted for. Patient examined at bedside. Denies nausea, fevers, diarrhea, and shortness of breath. Patient to have amputation of right foot second toe today. Objective: Temp Pulse Resp BP Pulse Ox 98.9 F 92 H 16 168/87 H 97 03/31/20 04:00 03/31/20 04:00 03/31/20 04:00 03/31/20 04:00 03/31/20 04:00 Labs: Na 139, K 3.9, BUN 19, Creat 1.27, Pro reji 0.60, Hgb 10.1, Hct 29.2, WBC 5.3 Right foot xray 03/29: EXAM DESCRIPTION: RAD - Foot Right 3 View - 03/29/2020 4:55 pm CLINICAL HISTORY: examin for osteo;Pain COMPARISON: No comparisons FINDINGS: No fracture, dislocation or periosteal reaction. Patient has moderately advanced degenerative change at the first metatarsal head. Valgus deformity is present. Mild tarsal metatarsal joint degenerative changes are present. Moderate-sized plantar spur present. There are mild spurring changes at the Achilles attachment. Soft tissue swelling is present at the second toe. No air in the soft tissues confirmed. Second proximal phalanx head is relatively small. Early bone loss changes are not entirely excluded in the setting of a soft tissue infection. . IMPRESSION: Second toe soft tissue swelling with questionable early bone loss changes in the second proximal phalanx head. Degenerative change at the first MTP joint and first metatarsal head. Plantar spur. Right foot MRI 03/30: EXAM DESCRIPTION: MRIFoot Right Wo Cont03/30/2020 9:52 am CLINICAL HISTORY: Right foot pain COMPARISON: X-ray right foot March 29, 2020 TECHNIQUE: Axial, sagittal and coronal magnetic resonance imaging of the right foot was obtained. FINDINGS: Abnormal signal is present throughout most of the second proximal phalanx and second middle phalanx consistent with osteomyelitis. No additional osteomyelitis seen. No soft tissue abscess noted IMPRESSION: Osteomyelitis involving the second proximal and second middle phalanx ROS: General: Awake, alert, oriented CV: S1,S2 RESP: Good breath sounds throughout ABD: Round, firm, nontender, bowel sounds present Extremities: Right arm amputation, left foot second toe amputation, 2+ pedal pulses Skin: Erythematous streak running up right lower extremity. Right foot second toe ulcer with swelling, erythema, and warmth Assessment and plan: Right foot second toe diabetic foot ulcer, surgical procedure today Osteomyelitis involving the right foot second proximal and second middle phalanx Cellulitis to RLE Diabetes mellitus, A1C 9.7 Protein calorie malnourished, Albumin 3.0 Currently on Maxipime day 3 and Vancomycin day 2, continue Wound culture shows 1+ gram negative rods and 4+ beta hemolytic strep, awaiting full report Will reevaluate antibiotic therapy after surgery and full wound culture report Will continue to monitor Patient discussed with Dr. Fitzpatrick
[2020-03-31] MEDS ORDERED: FENTANYL CITR 100 MCG/2 ML ONE (08:34)
[2020-03-31] MEDS ORDERED: propofoL 200 MG/20 ML VIAL IV ONE (08:34)
[2020-03-31] MEDS ORDERED: MIDAZOLAM HCL 2 MG/2 ML INJ ONE (08:34)
[2020-03-31] MEDS ORDERED: LIDOCAINE 2% MPF 5 ML VIAL ONE (08:34)
[2020-03-31] MEDS: LOSARTAN POTASSIUM 50 MG TABLET PO SCH ×2 (08:56→20:59)
[2020-03-31] MEDS: DOCUSATE NA 100 MG CAP PO SCH ×2 (08:56→21:00)
[2020-03-31] MEDS: VITAMIN D 5,000 UNIT CAP PO SCH (08:57)
[2020-03-31] MEDS: CEFEPIME/SWI 2gm 2 GM/20 ML SYR IVP SCH ×2 (08:57→21:04)
[2020-03-31] MEDS: CALCITROL 0.25 MCG CAP PO SCH (08:57)
[2020-03-31] MEDS: ATORVASTATIN 10 MG TAB PO SCH (08:57)
[2020-03-31] MEDS: MONTELUKAST 10 MG TAB PO SCH (08:57)
[2020-03-31] MEDS ORDERED: HOME MED 1 EA UNK (Lovastatin [Lovastatin] 20 MG) PO SCH (09:00)
[2020-03-31] MEDS ORDERED: NA CHLORIDE 0.9% 1,000 ML ONE (09:53)
[2020-03-31] MEDS ORDERED: dexAMETHasone 10 MG/ML VIAL ONE (10:16)
--- NOTE | 2020-03-31 12:08 | P.BOP ---
Preoperative diagnosis: osteomylitis, cellulitis right 2nd toe and foot Postoperative diagnosis: same Primary procedure: Right second toe amputation Estimated blood loss: <5cc Specimen: toe Findings: see dictation Anesthesia: General Drain(s): Wound drain Transferred to: Recovery Room Condition: Good
[2020-03-31] MEDS: NA CHLORIDE 0.9% 1,000 ML IV SCH (13:20)
--- NOTE | 2020-03-31 14:29 | P.PN ---
Subjective Date of Service: 03/31/20 Primary Care Provider: Dr. Kline Chief Complaint: Right second toe pain with erythema Subjective: Improving, Doing well Physical Examination - Vital Signs Temperature: 97.2 F Blood Pressure: 141/82 Pulse: 90 Respirations: 18 Pulse Ox (%): 97 - Physical Exam General: Alert, Cooperative HEENT: Atraumatic Neck: Supple Respiratory: Clear to auscultation bilaterally, Normal air movement Cardiovascular: Normal pulses, Regular rate/rhythm Gastrointestinal: Normal bowel sounds, Soft and benign, Non-distended Integumentary: Other (No significant change from yesterday to the right foot.) - Studies Medications List Reviewed: Yes Assessment & Plan Discharge Plan: Home Plan to discharge in: 24 Hours Physician Review Additional Text: Impression: Right 2nd toe osteomyelitis DM Type 2 uncontrolled with Hyperglycemia Acute on chronic renal disease stage 3 Plan: MRI showed osteomyelitis. Case discussed with surgery and infectious disease. Surgery discuss options of care. Patient desires amputation of the 2nd toe. Anticipate this will be done today. Continue with IV antibiotic therapy at this time. Diabetes seems to be better controlled with Lantus initiated. Patient will need a continue with Lantus. Will discuss further with nephrology. Anticipate improvement over the next 24 hr. Possible discharge as early as tomorrow. Time Spent Managing Pts Care (In Minutes): 55
[2020-03-31] MEDS: NACHLORIDE 0.45% 1,000 ML IV SCH (15:20)
[2020-03-31] MEDS: ENOXAPARIN 30 MG/0.3 ML SQ SCH (16:04)
[2020-03-31] MEDS ORDERED: GLUCAGON 1 MG/VIAL IM PRN (16:36)
[2020-03-31] MEDS ORDERED: D50W 25 GM/50 ML SYRINGE/VIAL IV PRN (16:36)
[2020-03-31] MEDS ORDERED: HEPARIN 500 UNIT/5 ML SYR IV ONE (19:20)
--- NOTE | 2020-03-31 19:29 | OP ---
Date of Procedure: 03/31/2020 Surgeon: Jevon Ramírez MD Preoperative Diagnosis: Osteomyelitis, cellulitis, nonhealing wound right second toe diabetic foot u lcer. Postoperative Diagnosis: Osteomyelitis, cellulitis, nonhealing wound right second toe diabetic foot ulcer. Procedure: Amputation of the right second toe. Anesthesia: General plus local. Indications: This is the case of a 54-year-old patient, who comes to us with severe infection of the right second toe and distal foot. We discovered the patient has osteomyelitis of that area. He francis s not want to treat that osteomyelitis with IV antibiotics. He wants to remove the toe. The same de cision he made several years ago for the opposite side. He understands the options of long-term anti biotics, he does not want to use that option, he wants the toe removed. The benefits, alternatives, and risks of toe removal and amputation were fully explained, which include, but not limited to infec tion, bleeding, damage to adjacent structures, nonhealing wound, NV, and even . He understands this may not relieve any symptoms, he might need more than one surgical intervention. He understands that not only the toe was infected, also distal foot. So even though I remove that toe, he still aj ve to do wound care and also take his antibiotics. He understood. Procedure In Detail: The patient was brought to the operating room, placed in supine position. Anes thesia was done without complication. A time-out was called. Right foot was prepped and draped in u sual sterile fashion. An incision was made in a kind of fishmouth technique on the proximal area of the toe. By the time we hold the toe, the bone is so destructive that the joint dislocated on its ow n. We went through the tendons, pulled them and let them retract. Hemostasis was obtained. Nerves and tendons were allowed to retract once again after transection with a sharp knife. The area was ir rigated. The connection between the metatarsophalangeal joint still looks intact, although the proxi mal joint was already coming off dislocated itself, so much destruction in the area. After that, we irrigated the area, we went through that toe region and explore the distal part of the foot. We did not see any pause, he still has an infection there. Loculations were explored and opened. Then, the area was left to close by secondary intention with the help of packing using Nu Gauze and iodoform s trip. Patient tolerated the procedure well. Cultures were sent to the pathologist. Patient was sen t to the recovery in stable condition. DANE/CHINMAY Voice ID: [id number] Report ID: [id number]
[2020-03-31] MEDS: VANCOMYCIN 1.75 GM in NA CHLORIDE 0.9% 500 ML IVPB SCH (20:58)
[2020-03-31] MEDS: INSULIN GLARGINE 100 UNITS/ML SQ SCH (21:02)
--- NOTE | 2020-03-31 22:18 | P.PN ---
Date of Service: 03/31/20 Vital Signs Temp Pulse Resp BP Pulse Ox 98.3 F 91 H 16 154/91 H 94 03/31/20 20:00 03/31/20 20:00 03/31/20 20:00 03/31/20 20:00 03/31/20 20:00 Medications Acetaminophen (Tylenol -Extra Strength) 500 mg PO Q6H PRN PRN Reason: TEMP > 100' F Stop: 04/28/20 18:34 Last Admin: 03/30/20 14:49 Dose: 500 mg Documented by: Hydrocodone Bitart/Acetaminophen (Hillman 7.5/325 Mg) 1 tab PO Q4H PRN PRN Reason: Pain scale 5-7 (Moderate) Stop: 04/28/20 18:34 Atorvastatin Calcium (Lipitor) 10 mg PO DAILY [facility] Stop: 04/30/20 09:01 Last Admin: 03/31/20 08:57 Dose: Not Given Documented by: Calcitriol (Rocaltrol) 0.5 mcg PO DAILY [facility] Stop: 04/30/20 09:01 Last Admin: 03/31/20 08:57 Dose: Not Given Documented by: Cholecalciferol (Vitamin D 5,000 Iu Cap) 5,000 unit PO DAILY [facility] Stop: 04/30/20 09:01 Last Admin: 03/31/20 08:57 Dose: Not Given Documented by: Dextrose (Dextrose 50% Syringe/Vial) 12.5 gm IV PRN PRN; Protocol PRN Reason: HYPOGLYCEMIA Stop: 04/30/20 16:37 Docusate Sodium (Colace Cap) 100 mg PO BID [facility] Stop: 04/28/20 21:01 Last Admin: 03/31/20 21:00 Dose: 100 mg Documented by: Enoxaparin Sodium (Lovenox 30 Mg Inj) 30 mg SQ DAILY 5 PM [facility] Stop: 04/29/20 18:01 Last Admin: 03/31/20 16:04 Dose: Not Given Documented by: Glucagon (Glucagen) 1 mg IM 1X PRN; Protocol PRN Reason: HYPOGLYCEMIA Stop: 04/30/20 16:37 Cefepime HCl (Maxipime 2 Gm/20 Ml Swi Ivp) 2 gm in 20 mls @ 400 mls/hr IVP Q12HR [facility] Stop: 04/28/20 21:01 Last Admin: 03/31/20 21:04 Dose: 20 mls Documented by: Vancomycin HCl 1.75 gm/ Sodium (Chloride) 500 mls @ 250 mls/hr IVPB Q24H [facility] Stop: 04/29/20 20:01 Last Admin: 03/31/20 20:58 Dose: 500 mls Documented by: Sodium Chloride (Sodium Chloride 0.45%) 1,000 mls @ 50 mls/hr IV .Q20H [facility] Stop: 04/30/20 15:01 Last Admin: 03/31/20 15:20 Dose: 1,000 mls Documented by: Insulin Glargine (Lantus) 10 units SQ BEDTIME [facility] Stop: 04/29/20 21:01 Last Admin: 03/31/20 21:02 Dose: 10 units Documented by: Insulin Human Regular (Novolin -R) 0 unit SQ ACHS [facility]; Protocol Stop: 04/30/20 21:01 Last Admin: 03/31/20 21:01 Dose: 13 unit Documented by: Losartan Potassium (Cozaar) 50 mg PO BID [facility] Stop: 04/29/20 07:01 Last Admin: 03/31/20 20:59 Dose: 50 mg Documented by: Montelukast Sodium (Singulair) 10 mg PO DAILY [facility] Stop: 04/30/20 09:01 Last Admin: 03/31/20 08:57 Dose: Not Given Documented by: Morphine Sulfate (Morphine Sulfate) 2 mg IV Q4H PRN PRN Reason: Pain scale 8-10 (Severe) Stop: 04/28/20 18:34 Ondansetron HCl (Zofran) 4 mg IV Q4H PRN PRN Reason: NAUSEA / VOMITING Stop: 04/28/20 18:34 Polyethylene Glycol (Glycolax) 17 gm PO DAILY PRN PRN Reason: CONSTIPATION Stop: 04/28/20 18:34 Sodium Chloride (Normal Saline Flush) 10 ml IV BID [facility] Stop: 04/28/20 21:01 Last Admin: 03/31/20 21:10 Dose: 10 ml Documented by: Assessment/ Plan: Nephrology Doing well. Plan for surgery today. CPS stable without CP or SOB. No acute events overnight. Vitals, medications, blood work and imaging reviewed. General: In no apparent distress, Cooperative HEENT: Atraumatic, Normocephalic Neck: Supple Respiratory: Clear to auscultation bilaterally Cardiovascular: No edema, Regular rate/rhythm Gastrointestinal: Soft and benign, Non-distended Musculoskeletal: No clubbing, No contractures Integumentary: No cyanosis, Skin lesion, Tenderness/swelling, Erythema, Warmth, Diabetic ulcer Neurological: Normal speech Blood work reviewed in the chart. Imagings Data: EXAM DESCRIPTION: MRIFoot Right Wo Cont03/30/2020 9:52 am CLINICAL HISTORY: Right foot pain COMPARISON: X-ray right foot March 29, 2020 TECHNIQUE: Axial, sagittal and coronal magnetic resonance imaging of the right foot was obtained. FINDINGS: Abnormal signal is present throughout most of the second proximal phalanx and second middle phalanx consistent with osteomyelitis. No additional osteomyelitis seen. No soft tissue abscess noted IMPRESSION: Osteomyelitis involving the second proximal and second middle phalanx Conclusions/Impression: A/ MAGDIEL in the setting of hypovolemia. Hyponatremia Hypocalcemia CKD III with proteinuria HTN with CKD. DM II with CKD. DM foot ulcer with osteomyelitis. Anemia in chronic illness. P/ Continue current POC and Medications. Continue IVF. Continue abx. Monitor vanco level. Titrate insulin as needed to improve BG. Follow up with surgery for right second toe amputation. No NSAIDs. AM labs. Daily weight.
[2020-04-01 05:48] LABS: Urine Appearance CLEAR; Urine Bilirubin NEGATIVE (NEG); Urine Blood 1+ (NEG); Urine Color YELLOW; Urine Glucose 3+ (NEG); Urine Protein 1+ (NEG); Urine Specific Gravity >=1.030 (1.005-1.030); Urine Urobilinogen 0.2 mg/dL (0.2-1.0); Urine pH 5.5 (5.0-7.0)
[2020-04-01 06:00] LABS: Absolute Lymphocytes (CBC) 0.9 K/uL (0.7-4.9); Basophils % 0.2 % (0-1.3); Hematocrit 30.3 % (39.6-49.0); Lymphocytes % 13.5 % (15.3-44.8); MPV 7.6 fL (7.6-11.3); RBC Red Blood Cell Count 3.45 M/uL (4.33-5.43)
[2020-04-01 06:01] LABS: Urine Bacteria <20 /HPF (NONE SEEN); Urine Culture Reflex Order NOT NEEDED; Urine RBC <5 /HPF (NONE SEEN)
[2020-04-01 06:26] LABS: Magnesium 2.5 mg/dL (1.8-2.4); Phosphorus 2.8 mg/dL (2.5-4.9); Potassium 4.6 mmol/L (3.5-5.1); Uric Acid 5.6 mg/dL (3.5-7.2)
[2020-04-01] MEDS: INSULIN -REGULAR HUMAN 50 UNIT/0.5 ML ML SQ SCH ×2 (08:52→11:28)
[2020-04-01] MEDS: DOCUSATE NA 100 MG CAP PO SCH (08:54)
[2020-04-01] MEDS: VITAMIN D 5,000 UNIT CAP PO SCH (08:54)
[2020-04-01] MEDS: ATORVASTATIN 10 MG TAB PO SCH (08:54)
[2020-04-01] MEDS: MONTELUKAST 10 MG TAB PO SCH (08:54)
[2020-04-01] MEDS: CALCITROL 0.25 MCG CAP PO SCH (08:54)
[2020-04-01] MEDS: LOSARTAN POTASSIUM 50 MG TABLET PO SCH (08:54)
[2020-04-01 08:59] VITALS: O2SAT 97
[2020-04-01] MEDS: CEFEPIME/SWI 2gm 2 GM/20 ML SYR IVP SCH (08:59)
[2020-04-01] MEDS ORDERED: INSULIN GLARGINE 100 UNITS/ML SQ SCH (09:00)
--- NOTE | 2020-04-01 09:40 | P.DS ---
Admission Date: 03/29/20 Discharge Date: 04/01/20 Primary Care Provider: Dr. Kline Disposition: ROUTINE DISCHARGE Discharge Condition: GOOD Reason for Admission: Right second toe pain with erythema Consultations: Surgery-Dr. Ramírez Nephrology-Dr. Mays Infectious disease-Dr. Fitzpatrick Procedures: MRI Foot: FINDINGS: Abnormal signal is present throughout most of the second proximal phalanx and second middle phalanx consistent with osteomyelitis. No additional osteomyelitis seen. No soft tissue abscess noted IMPRESSION: Osteomyelitis involving the second proximal and second middle phalanx Surgery: Date of Procedure: 03/31/2020 Surgeon: Jevon Ramírez MD Preoperative Diagnosis: Osteomyelitis, cellulitis, nonhealing wound right second toe diabetic foot ulcer. Postoperative Diagnosis: Osteomyelitis, cellulitis, nonhealing wound right second toe diabetic foot ulcer. Procedure: Amputation of the right second toe. Anesthesia: General plus local. Medical problem list: Right 2nd toe osteomyelitis/cellulitis/nonhealing wound/diabetic foot ulcer, status post the amputation of the right 2nd toe, wound culture positive for Pseudomonas and Streptococcus pyogenes DM Type 2 uncontrolled with Hyperglycemia Acute on chronic renal disease stage 3 Hypertension Hyperlipidemia Obesity, BMI 30.6 Brief History of Present Illness: 54-year-old male with history of diabetes, hypertension, hyperlipidemia and chronic renal disease stage III. Patient presented with worsening redness, swelling to the right 2nd toe. Patient was admitted for further evaluation and treatment. Patient with history of osteomyelitis of the left 2nd toe that required surgery. Hospital Course: Patient presented with right 2nd toe osteomyelitis/cellulitis/nonhealing wound/diabetic foot ulcer. Patient was evaluated by infectious disease and surgery. MRI showed osteomyelitis. Options were given including surgery verses long-term IV antibiotic therapy. Patient preferred amputation. Amputation was done. Patient tolerated the procedure well. Wound culture was positive for Pseudomonas and Streptococcus pyogenes. Pain well controlled. Patient stable for discharge. At discharge patient will continue with Levaquin 500 mg daily for 7 days. Patient will continue with current wound care as recommended by surgery. Patient will need a follow up [facility] to continue his care and management. Patient with diabetes mellitus type 2. Patient previously on metformin and glyburide. Hemoglobin A1c 9.7. Diabetes not well controlled. Initiation of insulin was recommended. Patient tolerated insulin. At discharge patient may continue with glyburide 5 mg 1 pill twice daily. Metformin has been discontinued due to his chronic renal disease. At discharge patient will also continue with Lantus 10 units subcu twice daily. Patient will also be given Humalog sliding scale. Recommendation is to maintain blood sugars less 140 fasting and less than 200 after meals. Recommend to increase Lantus by 1-2 units if blood sugar remains above 200. Further adjustment can be done by his PCP. Recommend follow up with PCP to further monitor and address. Diabetic control will be required due to his recent surgery and infection. Patient with acute on chronic renal disease stage III. Patient was seen by nephrology. Patient given IV fluids. Medications have been adjusted due to his chronic renal disease. Creatinine now at his baseline. Patient will no longer take metformin. Recommend no further use of nonsteroidal anti-inflammatories. Future medications will need to be renally dose. Recommend to recheck BMP in 1 week to monitor his progress. Recommend follow up with Nephrology in 2-4 weeks. Patient will continue with calcitriol 0.5 mcg daily and vitamin-D daily. Patient with hypertension. This has remained stable. Patient may continue with losartan 50 mg 1 pill twice daily. Recommend to maintain blood pressures less 150/80. Further adjustment can be done by his PCP or nephrology. Patient with hyperlipidemia. At discharge he will continue with lovastatin 20 mg daily. Vital Signs/Physical Exam: Temp Pulse Resp BP Pulse Ox 97 F 95 H 20 171/89 H 96 04/01/20 08:00 04/01/20 08:00 04/01/20 08:00 04/01/20 08:00 04/01/20 08:00 General: Alert, In no apparent distress, Oriented x3, Cooperative HEENT: Atraumatic Neck: Supple Respiratory: Clear to auscultation bilaterally, Normal air movement Cardiovascular: Normal pulses, Regular rate/rhythm Gastrointestinal: Normal bowel sounds, Soft and benign, Non-distended Integumentary: Other (Bandage to the right foot) Neurological: Normal speech, Normal strength at 5/5 x4 extr, Normal tone, Normal affect Laboratory Data at Discharge: WBC 6.6 K/uL (4.3-10.9) D 04/01/20 05:28 Hgb 10.5 g/dL (13.6-17.9) L 04/01/20 05:28 Hct 30.3 % (39.6-49.0) L 04/01/20 05:28 Plt Count 225 K/uL (152-406) D 04/01/20 05:28 PT 12.6 SECONDS (9.5-12.5) H 03/29/20 17:30 INR 1.07 03/29/20 17:30 APTT 26.1 SECONDS (24.3-36.9) 03/29/20 17:30 Sodium 137 mmol/L (136-145) 04/01/20 05:28 Potassium 4.6 mmol/L (3.5-5.1) 04/01/20 05:28 BUN 28 mg/dL (7-18) H 04/01/20 05:28 Creatinine 1.31 mg/dL (0.55-1.3) H 04/01/20 05:28 Glucose 265 mg/dL (74-106) H 04/01/20 05:28 Uric Acid 5.6 mg/dL (3.5-7.2) 04/01/20 05:28 Phosphorus 2.8 mg/dL (2.5-4.9) 04/01/20 05:28 Magnesium 2.5 mg/dL (1.8-2.4) H 04/01/20 05:28 Total Bilirubin 0.7 mg/dL (0.2-1.0) 03/29/20 17:30 AST 24 U/L (15-37) 03/29/20 17:30 ALT 34 U/L (12-78) 03/29/20 17:30 Alkaline Phosphatase 68 U/L (45-117) 03/29/20 17:30 Lipase 178 U/L (73-393) 03/29/20 17:30 Home Medications: Losartan Potassium [Cozaar*] 50 mg PO BID 01/17/18 glyBURIDE [Glyburide] 1 tab PO BID 01/17/18 Lovastatin 20 mg PO DAILY 03/29/20 Montelukast [Singulair*] 10 mg PO DAILY 03/29/20 Calcitriol [Rocaltrol] 0.5 mcg PO DAILY #30 capsule 04/01/20 Cholecalciferol (Vitamin D3) [Vitamin D 5,000 IU Cap*] 5,000 unit PO DAILY #30 cap 04/01/20 Insulin Glargine Human [Lantus*] 10 units SQ BID #1 bottle 04/01/20 Insulin Lispro [Humalog*] See Protocol SQ TIDWM #1 bottle 04/01/20 levoFLOXacin [Levaquin*] 500 mg PO DAILY #7 tab 04/01/20 New Medications: Insulin Lispro [Humalog*] See Protocol SQ TIDWM #1 bottle Insulin Glargine Human [Lantus*] 10 units SQ BID #1 bottle levoFLOXacin [Levaquin*] 500 mg PO DAILY #7 tab Calcitriol [Rocaltrol] 0.5 mcg PO DAILY #30 capsule Cholecalciferol (Vitamin D3) [Vitamin D 5,000 IU Cap*] 5,000 unit PO DAILY #30 cap Patient Discharge Instructions: 1. Patient will follow up with PCP in 1 week. 2. Patient presented with right 2nd toe osteomyelitis/cellulitis/nonhealing wound/diabetic foot ulcer. Patient was evaluated by infectious disease and surgery. MRI showed osteomyelitis. Options were given including surgery verses long-term IV antibiotic therapy. Patient preferred amputation. Amputation was done. Patient tolerated the procedure well. Wound culture was positive for Pseudomonas and Streptococcus pyogenes. Pain well controlled. Patient stable for discharge. At discharge patient will continue with Levaquin 500 mg daily for 7 days. Patient will continue with current wound care as recommended by surgery. Patient will need a follow up [facility] to continue his care and management. 3. Patient with diabetes mellitus type 2. Patient previously on metformin and glyburide. Hemoglobin A1c 9.7. Diabetes not well controlled. Initiation of insulin was recommended. Patient tolerated insulin. At discharge patient may continue with glyburide 5 mg 1 pill twice daily. Metformin has been discontinued due to his chronic renal disease. At discharge patient will also continue with Lantus 10 units subcu twice daily. Patient will also be given Humalog sliding scale. Recommendation is to maintain blood sugars less 140 fasting and less than 200 after meals. Recommend to increase Lantus by 1-2 units if blood sugar remains above 200. Further adjustment can be done by his PCP. Recommend follow up with PCP to further monitor and address. Diabetic control will be required due to his recent surgery and infection. 4. Patient with acute on chronic renal disease stage III. Patient was seen by nephrology. Patient given IV fluids. Medications have been adjusted due to his chronic renal disease. Creatinine now at his baseline. Patient will no longer take metformin. Recommend no further use of nonsteroidal anti-inflammatories. Future medications will need to be renally dose. Recommend to recheck BMP in 1 week to monitor his progress. Recommend follow up with Nephrology in 2-4 weeks. Patient will continue with calcitriol 0.5 mcg daily and vitamin-D daily. 5. Patient with hypertension. This has remained stable. Patient may continue with losartan 50 mg 1 pill twice daily. Recommend to maintain blood pressures less 150/80. Further adjustment can be done by his PCP or nephrology. 6. Patient with hyperlipidemia. At discharge he will continue with lovastatin 20 mg daily. 7. As per surgery:F/U at wound healing center next monday morning. Call for appt. 10/19" iodoform packing to foot wound daily. May clean wound with soap water. Diet: ADA Activity: Weight bearing as tolerated Time spent managing pt's care (in minutes): 55
[2020-04-01] MEDS: NACHLORIDE 0.45% 1,000 ML IV SCH (11:00)
--- NOTE | 2020-04-01 12:45 | PN ---
Date of Progress Note: 04/01/2020 Diagnosis: Status post amputation. History: Patient doing well. The patient has no complaints. No fever. Cultures are still pending. When he gets discharged, patient will be [facility]. DANE/CHINMAY Voice ID: [id number] Report ID: [id number]
--- NOTE | 2020-04-01 13:04 | P.PN ---
Date of Service: 04/01/20 Subjective: Patient is 54-year-old male who presents with a worsening erythema, and swelling to his right foot 2nd toe. Patient has history of diabetes mellitus and osteomyelitis s/p amputation of left foot 2nd toe. MRI of right foot shows osteomyelitis which I have been consulted for. Patient examined at bedside. Denies nausea, fevers, diarrhea, and shortness of breath. Patient is s/p right foot second toe amputation. Objective: Temp Pulse Resp BP Pulse Ox 97 F 95 H 20 171/89 H 96 04/01/20 08:00 04/01/20 08:00 04/01/20 08:00 04/01/20 08:00 04/01/20 08:00 Labs: Na 137, K 4.6, BUN 28, Creat 1.31, Pro reji 0.60, Hgb 10.5, Hct 30.3, WBC 6.6 Right foot xray 03/29: EXAM DESCRIPTION: RAD - Foot Right 3 View - 03/29/2020 4:55 pm CLINICAL HISTORY: examin for osteo;Pain COMPARISON: No comparisons FINDINGS: No fracture, dislocation or periosteal reaction. Patient has moder ately advanced degenerative change at the first metatarsal head. Valgus deformity is present. Mild tarsal metatarsal joint degenerative changes are present. Moderate-sized plantar spur present. There are mild spurring changes at the Achilles attachment. Soft tissue swelling is present at the second toe. No air in the soft tissues confirmed. Second proximal phalanx head is relatively small. Early bone loss changes are not entirely excluded in the setting of a soft tissue infection. . IMPRESSION: Second toe soft tissue swelling with questionable early bone loss changes in the second proximal phalanx head. Degenerative change at the first MTP joint and first metatarsal head. Plantar spur. Right foot MRI 03/30: EXAM DESCRIPTION: MRIFoot Right Wo Cont03/30/2020 9:52 am CLINICAL HISTORY: Right foot pain COMPARISON: X-ray right foot March 29, 2020 TECHNIQUE: Axial, sagittal and coronal magnetic resonance imaging of the right foot was obtained. FINDINGS: Abnormal signal is present throughout most of the second proximal phalanx and second middle phalanx consistent with osteomyelitis. No additional osteomyelitis seen. No soft tissue abscess noted IMPRESSION: Osteomyelitis involving the second proximal and second middle phalanx ROS: General: Awake, alert, oriented CV: S1,S2 RESP: Good breath sounds throughout ABD: Round, firm, nontender, bowel sounds present Extremities: Right arm amputation, left foot second toe amputation, 2+ pedal pulses Skin: Erythematous streak running up right lower extremity improving. Right foot with dressing CDI Assessment and plan: Right foot second toe diabetic foot ulcer, s/p amputation Osteomyelitis involving the right foot second proximal and second middle phalanx Cellulitis to RLE improving Diabetes mellitus, A1C 9.7 Protein calorie malnourished, Albumin 3.0 Wound culture shows 1+ gram negative rods and 4+ beta hemolytic strep Recommend to DC home on levaquin PO x2 weeks Educated the patient to keep leg elevated Patient to follow up with wound care center Will continue to monitor Patient discussed with Dr. Fitzpatrick
[2020-04-01 14:19] VITALS: BP 168/80; TEMP 97.2
[2020-04-02] MEDS ORDERED: levoFLOXacin 500 MG TAB PO SCH (09:00)
== END 2020-04-01 12:46 | disposition home or self-care (01) | DRG 617 ==
LOC: ER 15:44 → ERHOLD 17:17 → 2ND 18:25
PROVIDERS: ADMIT Family Medicine; ATTEND Family Medicine
PROC: 0Y6R0Z1 Detachment at Right 2nd Toe, High, Open Approach (ICD-10-PCS; principal; 2020-03-31 09:30)
DX: E11.69 Type 2 diabetes mellitus with other specified complication (principal); M86.8X8 Other osteomyelitis, other site; E87.1 Hypo-osmolality and hyponatremia; E44.1 Mild protein-calorie malnutrition; E11.621 Type 2 diabetes mellitus with foot ulcer; Z89.201 Acquired absence of right upper limb, unspecified level; Z85.830 Personal history of malignant neoplasm of bone; B96.5 Pseudomonas (aeruginosa) (mallei) (pseudomallei) as the cause of diseases classified elsewhere; B95.62 Methicillin resistant Staphylococcus aureus infection as the cause of diseases classified elsewhere; E11.65 Type 2 diabetes mellitus with hyperglycemia; E11.40 Type 2 diabetes mellitus with diabetic neuropathy, unspecified; E78.2 Mixed hyperlipidemia; E66.9 Obesity, unspecified; Z68.30 Body mass index [BMI] 30.0-30.9, adult; Z79.84 Long term (current) use of oral hypoglycemic drugs; Z79.899 Other long term (current) drug therapy; Z89.422 Acquired absence of other left toe(s); I12.9 Hypertensive chronic kidney disease with stage 1 through stage 4 chronic kidney disease, or unspecified chronic kidney disease; E11.22 Type 2 diabetes mellitus with diabetic chronic kidney disease; E86.1 Hypovolemia; N18.3 Chronic kidney disease, stage 3 (moderate); E83.51 Hypocalcemia; R80.9 Proteinuria, unspecified; D63.8 Anemia in other chronic diseases classified elsewhere; L97.519 Non-pressure chronic ulcer of other part of right foot with unspecified severity; L03.031 Cellulitis of right toe; N28.9 Disorder of kidney and ureter, unspecified; Z11.59 Encounter for screening for other viral diseases
CPT/HCPCS: 36415; 80048; 80076; 80202; 81001; 82550; 82565; 82947; 83036; 83605; 83690; 83735; 84100; 84145; 84484; 84550; 85025; 85610; 85730; 87040; 87070; 87075; 87077; 87186; 87205; 88305; 88311; 93005; 94760; 96365; 96367; 97116; 97161; 97760; 99285; J0692; J1100; J1642; J1650; J1815; J2250; J2704; J3010; J3370; J7030; J7040; U0002

== ENCOUNTER 2020-05-05 20:01 | Inpatient (IN) | payer BC ==
[2020-05-05] MEDS ORDERED: NA CHLORIDE 0.9% 1,000 ML ONE (20:53)
--- NOTE | 2020-05-05 20:56 | EDPHYS ---
Physician Documentation [facility] Name: Anders Balderas Age: 54 yrs Sex: Male : 1965 Arrival Date: 05/05/2020 Time: 20:04 Bed 16 Private MD: ED Physician Gerhard Jolley HPI: 05/05 20:41 This 54 yrs old Male presents to ER via Ambulatory with complaints of Toe pkl Injury. 20:41 The patient presents with Patient had amputation of his right [address] Darrell valadez about 1 month ago for diabetic ulcer. Seen by Dr. Ramírez this morning for infection at the amputation site. Patient said he had fever last night. Patient had fever of 103 this afternoon. Was told by Dr. Ramírez to come to ER to be admitted for IV antibiotic. Historical: - Allergies: 20:19 No Known Allergies; jd3 - Home Meds: 20:19 Lovastatin Oral once daily [Active]; losartan 50 mg Oral tab 1 tab 2 times per day jd3 [Active]; losartan Oral [Active]; Lantus Sub-Q [Active]; Novolog subcutaneous Sub-Q [Active]; - PMHx: 20:19 Diabetes - NIDDM; bone cancer-right arm as child; Hyperlipidemia; Hypertension; jd3 - PSHx: 20:19 left toe amputation; right arm; jd3 22:26 right toe amputation; ks7 - Immunization history:: Adult Immunizations up to date. - Social history:: Smoking status: Patient denies any tobacco usage or history of. ROS: 20:41 MS/extremity: Positive for erythema, swelling, of the amputation site right 2 nd pkl toe. 20:41 Eyes: Negative for injury, pain, redness, and discharge, ENT: Negative for injury, pain, and discharge, Neck: Negative for injury, pain, and swelling, Cardiovascular: Negative for chest pain, palpitations, and edema, Respiratory: Negative for shortness of breath, cough, wheezing, and pleuritic chest pain, Abdomen/GI: Negative for abdominal pain, nausea, vomiting, diarrhea, and constipation, Back: Negative for injury and pain, : Negative for injury, bleeding, discharge, and swelling, Skin: Negative for injury, rash, and discoloration, Neuro: Negative for headache, weakness, numbness, tingling, and seizure. Exam: 20:41 Head/Face: Normocephalic, atraumatic. Eyes: Pupils equal round and reactive to light, pkl extra-ocular motions intact. Lids and lashes normal. Conjunctiva and sclera are non-icteric and not injected. Cornea within normal limits. Periorbital areas with no swelling, redness, or edema. ENT: Nares patent. No nasal discharge, no septal abnormalities noted. Tympanic membranes are normal and external auditory canals are clear. Oropharynx with no redness, swelling, or masses, exudates, or evidence of obstruction, uvula midline. Mucous membranes moist. Neck: Trachea midline, no thyromegaly or masses palpated, and no cervical lymphadenopathy. Supple, full range of motion without nuchal rigidity, or vertebral point tenderness. No Meningismus. Chest/axilla: Normal chest wall appearance and motion. Nontender with no deformity. No lesions are appreciated. Cardiovascular: Regular rate and rhythm with a normal S1 and S2. No gallops, murmurs, or rubs. Normal PMI, no JVD. No pulse deficits. Respiratory: Lungs have equal breath sounds bilaterally, clear to auscultation and percussion. No rales, rhonchi or wheezes noted. No increased work of breathing, no retractions or nasal flaring. Abdomen/GI: Soft, non-tender, with normal bowel sounds. No distension or tympany. No guarding or rebound. No evidence of tenderness throughout. Back: No spinal tenderness. No costovertebral tenderness. Full range of motion. Neuro: Awake and alert, GCS 15, oriented to person, place, time, and situation. Cranial nerves II-XII grossly intact. Motor strength 5/5 in all extremities. Sensory grossly intact. Cerebellar exam normal. Normal gait. 20:41 Musculoskeletal/extremity: Extremities: grossly normal except: noted in the amputation site right 2 nd toe: erythema, swelling. Vital Signs: 20:17 BP 158 / 94; Pulse 126; Resp 17 S; Temp 99.9(TE); Pulse Ox 98% on R/A; Weight 90.26 kg jd3 (R); Height 5 ft. 8 in. (172.72 cm) (R); Pain 0/10; 20:29 BP 136 / 79; Pulse 120; Resp 18; Pulse Ox 96% ; Pain 0/10; ks7 21:37 BP 124 / 81; Pulse 112; Resp 18; Temp 100(O); Pulse Ox 99% on R/A; Pain 0/10; ks7 21:44 BP 124 / 81; Pulse 107; Resp 18; Pulse Ox 99% ; Pain 0/10; ks7 22:22 BP 165 / 98; Pulse 112; Resp 18; Temp 100(O); Pulse Ox 97% on R/A; Pain 0/10; ks7 23:03 Pulse 108; Resp 18; Temp 99.1(O); Pulse Ox 100% on R/A; Pain 0/10; ks7 23:26 BP 144 / 94; Pulse 106; Resp 18; Temp 99.1(O); Pulse Ox 99% ; Pain 0/10; ks7 20:17 Body Mass Index 30.26 (90.26 kg, 172.72 cm) jd3 MDM: 20:21 Patient medically screened. pkl 20:52 Data reviewed: vital signs, nurses notes. ED course: Talked to bk Fernández. pkl 05/05 20:40 Order name: CBC with Diff; Complete Time: 21:55 pkl 05/05 20:40 Order name: Chem 7; Complete Time: 21:55 pkl 05/05 20:40 Order name: Wound Culture pkl 05/05 20:40 Order name: Blood Culture Adult (2) pkl 05/05 20:40 Order name: Hemoglobin A1c pkl 05/05 21:24 Order name: COVID-19 lp1 05/05 20:40 Order name: Foot Right 2 View XRAY; Complete Time: 01:00 pkl Administered Medications: 21:15 Drug: NS 0.9% 1000 ml Route: IV; Rate: 125 ml/hr; Site: left forearm; ks7 21:44 Follow up: BP 124 / 81; Pulse 107 bpm; Resp 18 bpm; Pulse Ox 99% ; Pain 0/10 Adult ks7 Disposition: 05/05/20 20:55 Hospitalization ordered by Ck Simpson for Inpatient Admission. Preliminary diagnosis is Infected wound right foot. Diabetes. Fever. - Bed requested for Telemetry/MedSurg (Inpatient). - Status is Inpatient Admission. lp1 - Condition is Stable. - Problem is new. - Symptoms are unchanged. Signatures: Dispatcher [employer] EDMS Loulou Dodge RN RN mw Gerhard Jolley MD MD pkl Sussy Melvin RN RN lp1 Mihir Ingram RN RN jd3 Ilene Poole RN RN ks7 Corrections: (The following items were deleted from the chart) 21:50 20:55 Hospitalization Ordered by Ck Simpson for Inpatient Admission. Preliminary mw diagnosis is Infected wound right foot. Diabetes. Fever. Bed requested for Telemetry/MedSurg (Inpatient). Status is Inpatient Admission. Condition is Stable. Problem is new. Symptoms are unchanged. pkl 23:57 21:50 05/05/2020 20:55 Hospitalization Ordered by Ck Simpson for Inpatient lp1 Admission. Preliminary diagnosis is Infected wound right foot. Diabetes. Fever. Bed requested for Telemetry/MedSurg (Inpatient). Status is Inpatient Admission. Condition is Stable. Problem is new. Symptoms are unchanged. mw
--- NOTE | 2020-05-05 20:56 | ER ---
Nurse's Notes [facility] Name: Anders Balderas Age: 54 yrs Sex: Male : 1965 Arrival Date: 05/05/2020 Time: 20:04 Bed 16 Private MD: Diagnosis: Infected wound right foot. Diabetes. Fever Presentation: 05/05 20:15 Chief complaint: Patient states: "I have a wound on my right foot that has been getting jd3 worse. Dr. Ramírez told me if I started to run a fever as a result than I need to come to the hospital. I was running a fever today was 103, and I took Tylenol about and hour ago.". Coronavirus screen: Patient denies a cough. Patient denies shortness of breath or difficulty breathing. Patient reports a measured and/or subjective temperature greater than 100.4F. Patient denies travel on a cruise ship or to a country the [facility] currently lists as an affected area. Patient denies contact with known and/or suspected case of COVID-19. Proceed with normal triage. Ebola Screen: Patient negative for fever greater than or equal to 101.5 degrees Fahrenheit, and additional compatible Ebola Virus Disease symptoms. Initial Sepsis Screen: Does the patient meet any 2 criteria? HR > 90 bpm. No. Patient's initial sepsis screen is negative. Does the patient have a suspected source of infection? Yes: Skin breakdown/wound. Risk Assessment: Do you want to hurt yourself or someone else? Patient reports no desire to harm self or others. Onset of symptoms was May 05, 2020. 20:15 Method Of Arrival: Ambulatory jd3 20:15 Acuity: CAYETANO 3 jd3 Triage Assessment: 20:29 General: Appears in no apparent distress. uncomfortable, Behavior is calm, cooperative. ks7 Pain: Denies pain. Historical: - Allergies: 20:19 No Known Allergies; jd3 - Home Meds: 20:19 Lovastatin Oral once daily [Active]; losartan 50 mg Oral tab 1 tab 2 times per day jd3 [Active]; losartan Oral [Active]; Lantus Sub-Q [Active]; Novolog subcutaneous Sub-Q [Active]; - PMHx: 20:19 Diabetes - NIDDM; bone cancer-right arm as child; Hyperlipidemia; Hypertension; jd3 - PSHx: 20:19 left toe amputation; right arm; jd3 22:26 right toe amputation; ks7 - Immunization history:: Adult Immunizations up to date. - Social history:: Smoking status: Patient denies any tobacco usage or history of. Screenin:35 Abuse screen: Denies threats or abuse. Denies injuries from another. Nutritional ks7 screening: No deficits noted. Tuberculosis screening: No symptoms or risk factors identified. Fall Risk None identified. Assessment: 20:35 General: Reports fever for 12-24 hours, Pt states he talked to his PCP/surgeon. hx of R ks7 2nd toe amputation 1 month ago. pt recently had toe repacked by . MD advised pt to come to ED d/t fever and possible infection/sepsis. pt aaox4, denies pain. took tylenol [employer]. Derm: Reports increased redness and swelling with fever. 22:28 Reassessment: No changes from previously documented assessment. Patient denies pain at ks7 this time. 22:42 Reassessment: waiting for dispo. pt PCP Dr. Ramírez told pt he would not be going to a ks7 covid floor. pt states he does not want to be transferred to a covid floor. notified stonework supervisor who called House Sup who will call Dr. Ramírez. 22:59 Reassessment: house Sup at bedside explaining admit protocols to pt. pt still refusing ks7 to go to 4th floor. House Sup spoke with Dr. Ramírez who agrees pt can't go to a genera floor. 23:12 Reassessment: Vanco 1gm ordered by Dr. Ramírez. started in ED. ks7 23:35 Reassessment: waiting for transport to [facility]. ks7 Vital Signs: 20:17 BP 158 / 94; Pulse 126; Resp 17 S; Temp 99.9(TE); Pulse Ox 98% on R/A; Weight 90.26 kg jd3 (R); Height 5 ft. 8 in. (172.72 cm) (R); Pain 0/10; 20:29 BP 136 / 79; Pulse 120; Resp 18; Pulse Ox 96% ; Pain 0/10; ks7 21:37 BP 124 / 81; Pulse 112; Resp 18; Temp 100(O); Pulse Ox 99% on R/A; Pain 0/10; ks7 21:44 BP 124 / 81; Pulse 107; Resp 18; Pulse Ox 99% ; Pain 0/10; ks7 22:22 BP 165 / 98; Pulse 112; Resp 18; Temp 100(O); Pulse Ox 97% on R/A; Pain 0/10; ks7 23:03 Pulse 108; Resp 18; Temp 99.1(O); Pulse Ox 100% on R/A; Pain 0/10; ks7 23:26 BP 144 / 94; Pulse 106; Resp 18; Temp 99.1(O); Pulse Ox 99% ; Pain 0/10; ks7 20:17 Body Mass Index 30.26 (90.26 kg, 172.72 cm) jd3 ED Course: 20:04 Patient arrived in ED. cf2 20:17 Triage completed. jd3 20:18 Arm band placed on. jd3 20:21 Gerhard Jolley MD is Attending Physician. pkl 20:29 Ilene Poole, CHARLIE is Primary Nurse. ks7 20:35 ED physician to see patient. at bedside assessing pt. ks7 20:35 Patient has correct armband on for positive identification. Bed in low position. Call ks7 light in reach. Side rails up X2. 20:35 took down dressing so ED MD could assess wound. ks7 20:54 Ck Simpson is Hospitalizing Provider. pkl 21:13 Foot Right 2 View XRAY In Process Unspecified. EDMS 21:14 Resting quietly. ks7 21:14 Inserted saline lock: 20 gauge in left forearm, using aseptic technique. Blood ks7 collected. Missed attempt(s): 18 gauge in left wrist. blood drawn. 21:16 Hemoglobin A1c Sent. ks7 21:16 Blood Culture Adult (2) Sent. ks7 21:16 Wound Culture Sent. ks7 21:16 Chem 7 Sent. ks7 21:16 CBC with Diff Sent. ks7 21:41 Blood Culture Adult (2) Sent. ks7 21:41 Wound Culture Sent. ks7 21:41 Chem 7 Sent. ks7 22:23 Patient admitted, IV remains in place. ks7 Administered Medications: 21:15 Drug: NS 0.9% 1000 ml Route: IV; Rate: 125 ml/hr; Site: left forearm; ks7 21:44 Follow up: BP 124 / 81; Pulse 107 bpm; Resp 18 bpm; Pulse Ox 99% ; Pain 0/10 Adult ks7 Outcome: 20:55 Decision to Hospitalize by Provider. pkl 22:23 Condition: stable ks7 22:23 Admitted to Med/surg ks7 23:25 Admitted to Med/surg accompanied by monica, Report called to Selam Qiu RN. all ks7 questions answered 23:57 Patient left the ED. lp1 Signatures: Dispatcher [employer] EDMS Gerhard Jolley MD MD pkl Sussy Melvin RN RN lp1 Mihir Ingram RN RN andrad3 Phil Reyez 2 Ilene Poole RN RN ks7
[2020-05-05 21:31] LABS: Absolute Lymphocytes (CBC) 0.6 K/uL (0.7-4.9); Basophils % 0.5 % (0-1.3); Hematocrit 32.5 % (39.6-49.0); MPV 7.7 fL (7.6-11.3); RBC Red Blood Cell Count 3.76 M/uL (4.33-5.43)
[2020-05-05 21:48] LABS: Potassium 4.2 mmol/L (3.5-5.1)
--- NOTE | 2020-05-05 21:56 | RAD REPORT ---
EXAM DESCRIPTION: RAD - Foot Right 2 View - 05/05/2020 9:12 pm CLINICAL HISTORY: infected wound Fever, pain COMPARISON: Foot Right Wo Cont dated 03/30/2020; Foot Right 3 View dated 03/29/2020 FINDINGS: Previous second toe amputation noted. Small soft tissue wound is seen along the medial clifford ntar aspect of the great toe. No radiographic evidence of osteomyelitis. No soft tissue gas.
--- NOTE | 2020-05-05 22:56 | P.HP ---
Certification for Inpatient Patient admitted to: Inpatient With expected LOS: >2 Midnights Practitioner: I am a practitioner with admitting privileges, knowledge of patient current condition, hospital course, and medical plan of care. Services: Services provided to patient in accordance with Admission requirements found in Title 42 Section 412.3 of the Code of Federal Regulations Patient History Date of Service: 05/05/20 Reason for admission: Infected right toe amputation stump. History of Present Illness: 54-year-old gentleman with a history of diabetes mellitus type 2, history of osteomyelitis of the right second toe status post amputation presented emergency department with fever and chills. Patient was seen by Dr. Ramírez in the office who noted erythema and some swelling on the healing amputation stump. According to the patient, Dr. Ramírez open up the wound and pus came out. He has also developed streaks of erythema running up to the mid hassan suggesting ce llulitis versus lymphangitis. Patient was directed to the emergency department to be admitted for IV antibiotics. Patient at the moment does not meet criteria for sepsis. Allergies No Known Allergies Allergy (Verified 03/30/20 00:56) Home Medications: Losartan Potassium [Cozaar*] 50 mg PO BID 01/17/18 glyBURIDE [Glyburide] 1 tab PO BID 01/17/18 Lovastatin 20 mg PO DAILY 03/29/20 Montelukast [Singulair*] 10 mg PO DAILY 03/29/20 Calcitriol [Rocaltrol] 0.5 mcg PO DAILY #30 capsule 04/01/20 Cholecalciferol (Vitamin D3) [Vitamin D 5,000 IU Cap*] 5,000 unit PO DAILY #30 cap 04/01/20 Insulin Glargine Human [Lantus*] 10 units SQ BID #1 bottle 04/01/20 Insulin Lispro [Humalog*] See Protocol SQ TIDWM #1 bottle 04/01/20 Levofloxacin [Levaquin] 500 mg PO DAILY #14 tablet 04/01/20 - Past Medical/Surgical History Diabetic: Yes -: NIDDM -: HLD -: HTN -: Bone Cancer Righ arm -: right arm amputation -: left 5th digit toe amputation - Family History Father -: Diabetes Mother -: Diabetes - Social History Alcohol use: No CD- Drugs: No Place of Residence: Home Review of Systems Other: Except as documented, all other systems reviewed and negative. Physical Examination - Physical Exam General: Alert, In no apparent distress, Oriented x3 HEENT: Mucous membr. moist/pink, Sclerae nonicteric Neck: Supple, JVD not distended Respiratory: Clear to auscultation bilaterally, Normal air movement Cardiovascular: No edema, Normal pulses, Regular rate/rhythm, Normal S1 S2 Gastrointestinal: Normal bowel sounds, Soft and benign, Non-distended, No tenderness Musculoskeletal: Other (Right upper arm amputation, right 2nd toe amputation) Integumentary: Erythema (Streaks of erythema extending from the right foot to the mid hassan, erythema around right 2nd toe amputation stump.) Neurological: Normal speech, Normal strength at 5/5 x4 extr, Cranial nerves 3-12 intact - Studies Laboratory Data (last 24 hrs) 05/05/20 21:09: Sodium 137, Potassium 4.2, BUN 30 H, Creatinine 1.63 H, Glucose 192 H 05/05/20 21:09: WBC 7.0, Hgb 11.4 L, Hct 32.5 L, Plt Count 175 Assessment and Plan - Problems (Diagnosis) (1) Cellulitis of right foot Current Visit: Yes Status: Acute (2) Cellulitis of second toe of right foot Current Visit: Yes Status: Acute (3) Diabetes Current Visit: No Status: Acute (4) Chronic kidney disease, stage 3 Current Visit: Yes Status: Acute - Plan Admit to the medical floor. Start IV Rocephin and vancomycin. Consult to general surgery-Dr. Ramírez. Pain management as needed. Blood sugar management with Lantus insulin and insulin sliding scale. - Advance Directives Does patient have a Living Will: No Does patient have a Durable POA for Healthcare: No
[2020-05-05] MEDS ORDERED: GLUCAGON 1 MG/VIAL IM PRN (23:04)
[2020-05-05] MEDS ORDERED: VANCOMYCIN/NS 1 gm 1 GM/250 ML BAG IVPB SCH (23:04)
[2020-05-05] MEDS: NA CHLORIDE 0.9% 1,000 ML IV SCH (23:04)
[2020-05-05] MEDS ORDERED: ACETAMINOPHEN 500 MG TAB PO PRN (23:04)
[2020-05-05] MEDS ORDERED: ONDANSETRON 4 MG/2 ML VIAL IV PRN (23:04)
[2020-05-05] MEDS ORDERED: D50W 25 GM/50 ML SYRINGE/VIAL IV PRN (23:04)
[2020-05-05] MEDS ORDERED: NA CHLORIDE 0.9% 250 ML ONE (23:17)
[2020-05-05] MEDS ORDERED: VANCOMYCIN 1 GM/VIAL ONE (23:17)
[2020-05-06] MEDS: INSULIN GLARGINE 100 UNITS/ML SQ SCH ×3 (01:10→22:00)
[2020-05-06] MEDS: CEFTRIAXONE/SWI 1gm 1 GM/10 ML SYR IV SCH (01:11)
[2020-05-06 02:43] VITALS: O2SAT 98
[2020-05-06 06:00] LABS: Absolute Lymphocytes (CBC) 1.1 K/uL (0.7-4.9); Basophils % 0.7 % (0-1.3); Hematocrit 30.2 % (39.6-49.0); Lymphocytes % 15.9 % (15.3-44.8); RBC Red Blood Cell Count 3.48 M/uL (4.33-5.43)
[2020-05-06 06:01] LABS: Protime INR 1.19
[2020-05-06 06:09] LABS: Magnesium 1.9 mg/dL (1.8-2.4); Phosphorus 2.6 mg/dL (2.5-4.9); Potassium 3.9 mmol/L (3.5-5.1)
[2020-05-06] MEDS: NA CHLORIDE 0.9% 1,000 ML IV SCH ×2 (06:26→16:59)
--- NOTE | 2020-05-06 07:29 | P.PN ---
Subjective Date of Service: 05/06/20 Chief Complaint: Infected right toe amputation stump. Subjective: No new changes Patient has been afebrile. Blood sugars within acceptable range. He denies any pain. Physical Examination - Vital Signs Temperature: 98.2 F Blood Pressure: 150/75 Pulse: 108 Respirations: 18 Pulse Ox (%): 97 - Physical Exam General: Alert, In no apparent distress HEENT: Mucous membr. moist/pink Respiratory: Clear to auscultation bilaterally, Normal air movement Cardiovascular: No edema, Regular rate/rhythm, Normal S1 S2 Gastrointestinal: Normal bowel sounds, Soft and benign, No tenderness Musculoskeletal: Other (Right 2nd toe amputation) Integumentary: Other (Erythema around right 2nd toe amputation stump, streaks of erythema extending to the right mid hassan.) Neurological: Normal strength at 5/5 x4 extr, Cranial nerves 3-12 intact - Studies Laboratory Data (last 24 hrs) 05/05/20 21:09: Sodium 137, Potassium 4.2, BUN 30 H, Creatinine 1.63 H, Glucose 192 H 05/05/20 21:09: WBC 7.0, Hgb 11.4 L, Hct 32.5 L, Plt Count 175 Microbiology Data (last 24 hrs): 05/05/20 21:36 Nasopharnyx Coronavirus COVID-19 PCR - Final Assessment And Plan - Current Problems (Diagnosis) (1) Cellulitis of right foot Current Visit: Yes Status: Acute (2) Cellulitis of second toe of right foot Current Visit: Yes Status: Acute (3) Diabetes Current Visit: No Status: Acute (4) Chronic kidney disease, stage 3 Current Visit: Yes Status: Acute - Plan Continue current antibiotics. Patient to be seen by general surgery-Dr. Ramírez. Pain management as needed. Continue current insulin regimen for glucose management. Wound care.
[2020-05-06] MEDS: ENOXAPARIN 40 MG/0.4 ML SQ SCH (08:59)
[2020-05-06] MEDS: INSULIN -REGULAR HUMAN 50 UNIT/0.5 ML ML SQ SCH ×4 (08:59→21:01)
[2020-05-06] MEDS ORDERED: POTASSIUM CL SA 10 MEQ TAB PO ONE (09:00)
--- NOTE | 2020-05-06 09:43 | CON ---
Date of Consultation: 05/06/2020 Reason For Service: Cellulitis of the right leg. History Of Present Illness: This is the case of a 54-year-old patient with multiple medical problems including diabetes and peripheral vascular disease, who had an emergent amputation of the toe severa l weeks ago on the right foot due to osteomyelitis and cellulitis. The area was left open for second marcial intention. The patient has been doing dressing changes since then. When he came yesterday to [facility], we noticed some erythema over the another area of the extremity, which is in the right leg tibial region. He also claimed he had a fever. We advised him to be admitted to the [facility]. 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 This patient came with osteomyelitis, have to have an emergent amputation of the toe due to gangrenous changes and the wound left open to heal by secondary intention and with a purulent discharge coming from the area. The wound was not opened yesterday. He was left open during the surgery several weeks ago, so this is not a new infection of the toe area . It is an infection of the leg region. The rest of the toe seems to be intact. The patient has be en trying to do dressing changes. Obviously with all this Coronavirus going on, he has been distract ed by some of the issues. He also is trying to control his glucose too. Past Medical History: Include diabetes, peripheral vascular disease, hypertension, hyperlipidemia. Past Surgical History: Include previous arm amputation, previous toe amputation. Family History: Noncontributory. Social History: He does smoke. He does not drink alcohol. Review of Systems: No shortness of breath, no chest pain, but has history of fever. Ten points otherwise unremarkable. See the H and P. Physical Examination: General: The patient is awake, alert. HEENT: Pupils anicteric. Neck: Supple. Abdomen: Soft and depressible. Extremities: Right second toe area, the wound was probed. There was still some purulent discharge c oming from the area. The cavity was there after the toe was removed and this area has been packed. The packing was, as instructed to the patient, done properly, little bit deeper than he is doing. Al so, we noticed the patient to have on the right leg region, anterior tibial region, probably have at the anterior site probably a 10-12 cm area of increased temperature and erythema away from the area o f the amputation, but that is an entry site that may be just contributing to this leg area, the area of cellulitis. There is no fluctuance or crepitus in that area. Dorsalis pedis pulses bilaterally a re diminished chronically. Foot x-ray shows no soft tissue gas. Assessment: This is a 54-year-old patient who several weeks ago had an emergent amputation for an in fection, gangrene, osteomyelitis of the right foot. The patient received an emergent amputation of t hat toe, left the wound to be open. He has been doing dressing changes. He has been taken care of c are at another institution. [facility], noticed to have cellulitis of the right leg. I asked him to stay. He decided to go home, comes overnight to the ER, and he was admitted to the hospital. From the surgical standpoint, I took a look at the wound yesterday. Ther e is no need for any other amputation or any other treatment at this moment, but I believe he should receive attention to his cellulitis of the leg and also diabetes control. I believe the infectious d isease doctor should be consulted back and check the new cultures done from that area. We will see t he patient with you and give more recommendations as the case develops. DANE/CHINMAY Voice ID: [id number] Report ID: [id number]
[2020-05-06 13:12] LABS: Urine Appearance CLEAR; Urine Bilirubin NEGATIVE (NEG); Urine Blood 1+ (NEG); Urine Color YELLOW; Urine Glucose 2+ (NEG); Urine Microscopic Reflex ORDER UMIC; Urine Protein 2+ (NEG); Urine Specific Gravity 1.025 (1.005-1.030); Urine Urobilinogen 0.2 mg/dL (0.2-1.0); Urine pH 5.5 (5.0-7.0)
[2020-05-06 13:19] LABS: Urine Bacteria NONE SEEN /HPF (NONE SEEN)
[2020-05-06 13:20] LABS: Urine Culture Reflex Order NOT NEEDED
[2020-05-06] MEDS ORDERED: VANCOMYCIN 1.75 GM in NA CHLORIDE 0.9% 500 ML IVPB SCH (17:00)
[2020-05-06] MEDS: VANCOMYCIN 1.75 GM in NA CHLORIDE 0.9% 500 ML IVPB SCH (17:48)
[2020-05-06] MEDS ORDERED: HYDRALAZINE HCL 20 MG/ML VIAL IV PRN (22:10)
[2020-05-06] MEDS: LOSARTAN POTASSIUM 50 MG TABLET PO SCH (23:00)
[2020-05-07] MEDS ORDERED: VANCOMYCIN 1.5 GM in NA CHLORIDE 0.9% 500 ML IVPB SCH ×2
[2020-05-07] MEDS: NA CHLORIDE 0.9% 1,000 ML IV SCH ×2 (01:56→11:48)
[2020-05-07] MEDS: CEFTRIAXONE/SWI 1gm 1 GM/10 ML SYR IV SCH (01:56)
[2020-05-07 05:53] LABS: Absolute Lymphocytes (CBC) 1.3 K/uL (0.7-4.9); Basophils % 0.9 % (0-1.3); Hematocrit 28.7 % (39.6-49.0); Lymphocytes % 22.6 % (15.3-44.8); MPV 7.9 fL (7.6-11.3); RBC Red Blood Cell Count 3.33 M/uL (4.33-5.43)
[2020-05-07 06:09] LABS: Potassium 3.9 mmol/L (3.5-5.1)
[2020-05-07] MEDS ORDERED: HYDROCORTISONE 1 % CREAM 30GM TOP PRN (06:17)
[2020-05-07] MEDS ORDERED: POTASSIUM CL SA 10 MEQ TAB PO ONE (08:00)
--- NOTE | 2020-05-07 08:12 | P.PN ---
Subjective Date of Service: 05/07/20 Chief Complaint: Infected right toe amputation stump. Patient has been afebrile. Blood sugars within acceptable range. He reports pain in the right hassan. Physical Examination - Vital Signs Temperature: 97.7 F Blood Pressure: 148/83 Pulse: 87 Respirations: 18 Pulse Ox (%): 98 - Physical Exam General: Alert, In no apparent distress Respiratory: Clear to auscultation bilaterally, Normal air movement Cardiovascular: No edema, Regular rate/rhythm, Normal S1 S2 Gastrointestinal: Normal bowel sounds, Soft and benign, No tenderness Musculoskeletal: Erythema (Streak of erythema on the right hassan.), Other (Healing right 2nd toe amputation wound. Erythema around the wound has resolved.) - Studies Microbiology Data (last 24 hrs): 05/05/20 20:50 Wound - Right Foot Gram Stain - Final 05/05/20 21:36 Nasopharnyx Coronavirus COVID-19 PCR - Final Assessment And Plan - Current Problems (Diagnosis) (1) Cellulitis of right foot Current Visit: Yes Status: Acute (2) Cellulitis of second toe of right foot Current Visit: Yes Status: Acute (3) Diabetes Current Visit: No Status: Acute (4) Chronic kidney disease, stage 3 Current Visit: Yes Status: Acute - Plan Continue current IV antibiotics for 1 more day. Topical Hydrocortisone cream for itch on the leg ordered per patient request. Pain management as needed. Continue current insulin regimen for glucose management. Wound care.
[2020-05-07] MEDS: INSULIN GLARGINE 100 UNITS/ML SQ SCH ×2 (08:48→16:58)
[2020-05-07] MEDS: INSULIN -REGULAR HUMAN 50 UNIT/0.5 ML ML SQ SCH ×4 (08:49→20:20)
[2020-05-07] MEDS: MONTELUKAST 10 MG TAB PO SCH (08:49)
[2020-05-07] MEDS: ATORVASTATIN 10 MG TAB PO SCH (08:49)
[2020-05-07] MEDS: ENOXAPARIN 40 MG/0.4 ML SQ SCH (08:49)
[2020-05-07] MEDS: LOSARTAN POTASSIUM 50 MG TABLET PO SCH ×2 (08:49→20:20)
[2020-05-07] MEDS: VANCOMYCIN 1.75 GM in NA CHLORIDE 0.9% 500 ML IVPB SCH (11:49)
--- NOTE | 2020-05-07 15:07 | P.CNS ---
Date of Consult: 05/07/20 Subjective: Patient is a 54 year old male who was seen by Dr. Ramírez in the wound healing center and was admitted for cellulitis to right lower extremity which I have been consulted for. Patient examined at bedside. Patient was diagnosed with osteomyelitis to right second toe s/p amputation approximately one month ago. Wound cultures at that time grew Strep Pyogenes. Patient was sent home on Levaquin for total of [address] Ramírez in wound healing center on Saturday 05/05 where he had an I&D done and was admitted for red streaks running up the leg and fever. Past medical/surgical history: Diabetes mellitus, HLD, HTN, bone cancer right arm s/p amputation, left foot 2nd toe amputation Social history: Dips tobacco daily, denies alcohol use Family history: Father with diabetes, Mother had a stroke Allergies No Known Allergies Allergy (Verified 03/30/20 00:56) Active Medications Acetaminophen (Tylenol -Extra Strength) 500 mg PO Q4HP PRN PRN Reason: TEMP > 100' F Stop: 06/04/20 23:05 Atorvastatin Calcium (Lipitor) 10 mg PO DAILY MAGALI Stop: 06/06/20 09:01 Last Admin: 05/07/20 08:49 Dose: 10 mg Documented by: Dextrose (Dextrose 50% Syringe/Vial) 12.5 gm IV PRN PRN; Protocol PRN Reason: HYPOGLYCEMIA Stop: 06/04/20 23:05 Enoxaparin Sodium (Lovenox 40 Mg Inj) 40 mg SQ DAILY MAGALI Stop: 06/05/20 09:01 Last Admin: 05/07/20 08:49 Dose: 40 mg Documented by: Glucagon (Glucagen) 1 mg IM 1X PRN; Protocol PRN Reason: HYPOGLYCEMIA Stop: 06/04/20 23:05 Hydralazine HCl (Apresoline) 10 mg IV Q6HP PRN PRN Reason: FOR SBP>160 OR DBP>100 MMHG Stop: 06/05/20 22:11 Hydrocortisone Acetate (Hydrocortisone 1% Cream) 1 appl TOP TID PRN PRN Reason: ITCHING Stop: 06/06/20 06:18 Last Admin: 05/07/20 08:49 Dose: 1 appl Documented by: Sodium Chloride (Ns 1000 Ml Ivbag) 1,000 mls @ 100 mls/hr IV .Q10H MAGALI Stop: 06/04/20 23:05 Last Admin: 05/07/20 11:48 Dose: 1,000 mls Documented by: Ceftriaxone Sodium/Sodium Chloride (Rocephin 1 Gm/10 Ml Swi Ivp) 1 gm in 10 mls @ 20 mls/hr IV Q24H [facility]; Protocol Stop: 06/05/20 01:01 Last Admin: 05/07/20 01:56 Dose: 10 mls Documented by: Vancomycin HCl 1.75 gm/ Sodium (Chloride) 500 mls @ 250 mls/hr IVPB Q18H [facility] Stop: 06/05/20 18:01 Last Admin: 05/07/20 11:49 Dose: 500 mls Documented by: Insulin Glargine (Lantus) 10 units SQ BIDAC [facility] Stop: 06/05/20 22:01 Last Admin: 05/07/20 08:48 Dose: 10 units Documented by: Insulin Human Regular (Novolin -R) 0 unit SQ ACHS [facility]; Protocol Stop: 06/05/20 07:31 Last Admin: 05/07/20 11:48 Dose: 3 unit Documented by: Losartan Potassium (Cozaar) 50 mg PO BID [facility] Stop: 06/06/20 09:01 Last Admin: 05/07/20 08:49 Dose: 50 mg Documented by: Montelukast Sodium (Singulair) 10 mg PO DAILY [facility] Stop: 06/06/20 09:01 Last Admin: 05/07/20 08:49 Dose: 10 mg Documented by: Ondansetron HCl (Zofran) 4 mg IV Q6HP PRN PRN Reason: NAUSEA / VOMITING Stop: 06/04/20 23:05 Sodium Chloride (Normal Saline Flush) 10 ml IV BID [facility] Stop: 06/05/20 09:01 Last Admin: 05/07/20 08:49 Dose: Not Given Documented by: ROS: CV: denies chest pain RESP: denies shortness of breath and cough : denies dysuria GI: denies nausea and diarrhea Extremities: reports erythema to right lower extremity Objective: Temp Pulse Resp BP Pulse Ox 98.2 F 98 H 20 162/83 H 98 05/07/20 12:00 05/07/20 12:00 05/07/20 12:00 05/07/20 12:00 05/07/20 12:00 Labs: Na 141, K 3.9, BUN 16, Creat 1.07, procalcitonin 0.60, albumin 3.0, WBC 5 .7, Hgb 10.0, Hct 28.7 Foot xray 05/05: EXAM DESCRIPTION: RAD - Foot Right 2 View - 05/05/2020 9:12 pm CLINICAL HISTORY: infected wound Fever, pain COMPARISON: Foot Right Wo Cont dated 03/30/2020; Foot Right 3 View dated 03/29/2020 FINDINGS: Previous second toe amputation noted. Small soft tissue wound is seen along the medial plantar aspect of the great toe. No radiographic evidence of osteomyelitis. No soft tissue gas. ROS: General: Awake, alert, oriented CV: S1,S2 RESP: good breath sounds ABD: Bowel sounds present Extremities: 2+ pedal pulses Skin: Right lower extremity with erythematous streaks and warmth. Right second toe amputation site with maceration and small pinpoint hole s/p I&D Assessment and plan: Fever improved Cellulitis to right lower extremity Right foot second toe surgical site, recommend to apply silver alginate dressing daily Blood cultures negative Wound cultures show Beta hemolytic strep group A Rocephin and Vancomycin day 2 Upon discharge, recommend Augmentin 500mg PO q8hr for total of 2 weeks Diabetes mellitus, A1c 7.8, monitor glycemic control Protein calorie malnourished Educated the patient to keep leg elevated Will continue to monitor Thank you for consult Patient discussed with Dr. Fitzpatrick
[2020-05-08] MEDS: CEFTRIAXONE/SWI 1gm 1 GM/10 ML SYR IV SCH (00:07)
[2020-05-08] MEDS: NA CHLORIDE 0.9% 1,000 ML IV SCH (00:08)
[2020-05-08] MEDS: VANCOMYCIN 1.75 GM in NA CHLORIDE 0.9% 500 ML IVPB SCH (05:43)
--- NOTE | 2020-05-08 05:56 | P.PN ---
Date of Service: 05/08/20 Date of Consult: 05/07/20 Subjective: Patient is a 54 year old male who was seen by Dr. Ramírez in the wound healing center and was admitted for cellulitis to right lower extremity which I have been consulted for. Patient examined at bedside. Patient was diagnosed with osteomyelitis to right second toe s/p amputation approximately one month ago. Wound cultures at that time grew Strep Pyogenes. Patient was sent home on Levaquin for total of [address] Ramírez in wound healing center on Saturday 05/05 where he had an I&D done and was admitted for red streaks running up the leg and fever. Patient examined at bedside. Denies nausea, diarrhea and fevers. Patient has follow up appointment with Dr. Ramírez in the wound healing center on Saturday 05/12. Objective: Temp Pulse Resp BP Pulse Ox 97.9 F 99 H 16 156/93 H 94 05/08/20 04:00 05/08/20 04:00 05/08/20 04:00 05/08/20 04:00 05/08/20 04:00 Labs: Na 141, K 3.9, BUN 16, Creat 1.07, procalcitonin 0.60, albumin 3.0, WBC 5.7, Hgb 10.0, Hct 28.7 Foot xray 05/05: EXAM DESCRIPTION: RAD - Foot Right 2 View - 05/05/2020 9:12 pm CLINICAL HISTORY: infected wound Fever, pain COMPARISON: Foot Right Wo Cont dated 03/30/2020; Foot Right 3 View dated 03/29/2020 FINDINGS: Previous second toe amputation noted. Small soft tissue wound is seen along the medial plantar aspect of the great toe. No radiographic evidence of osteomyelitis. No soft tissue gas. ROS: General: Awake, alert, oriented CV: S1,S2 RESP: good breath sounds ABD: Bowel sounds present Extremities: 2+ pedal pulses Skin: Right lower extremity with erythematous streaks and warmth improving. Right second toe amputation site with dressing CDI Assessment and plan: Fever improved Cellulitis to right lower extremity improving Right foot second toe surgical site, continue to pack with iodoform daily Blood cultures negative Wound cultures show Beta hemolytic strep group A Rocephin and Vancomycin day 2 Upon discharge, recommend Augmentin 500mg PO q8hr for total of 2 weeks Diabetes mellitus, A1c 7.8, monitor glycemic control Protein calorie malnourished Educated the patient to keep leg elevated Will continue to monitor Patient discussed with Dr. Fitzpatrick
[2020-05-08] MEDS: MONTELUKAST 10 MG TAB PO SCH (08:18)
[2020-05-08] MEDS: ATORVASTATIN 10 MG TAB PO SCH (08:18)
[2020-05-08] MEDS: INSULIN GLARGINE 100 UNITS/ML SQ SCH (08:19)
[2020-05-08] MEDS: INSULIN -REGULAR HUMAN 50 UNIT/0.5 ML ML SQ SCH (08:19)
[2020-05-08] MEDS: LOSARTAN POTASSIUM 50 MG TABLET PO SCH (08:19)
[2020-05-08] MEDS: ENOXAPARIN 40 MG/0.4 ML SQ SCH (08:20)
--- NOTE | 2020-05-08 08:54 | P.DS ---
Admission Date: 05/05/20 Discharge Date: 05/08/20 Disposition: DC HOME/HOME HEALTH CARE Discharge Condition: FAIR Reason for Admission: Infected right toe amputation stump. - Problems (1) Cellulitis of right foot Current Visit: Yes Status: Acute (2) Cellulitis of second toe of right foot Current Visit: Yes Status: Acute (3) Diabetes Current Visit: No Status: Acute (4) Chronic kidney disease, stage 3 Current Visit: Yes Status: Acute Brief History of Present Illness: 54-year-old gentleman with a history of diabetes mellitus type 2, history of osteomyelitis of the right second toe status post amputation presented emergency department with fever and chills. Patient was seen by Dr. Ramírez in the office who noted erythema and some swelling on the healing amputation stump. According to the patient, Dr. Ramírez open up the wound and pus came out. He has also developed streaks of erythema running up to the mid hassan suggesting cellulitis versus lymphangitis. Patient was directed to the emergency department to be admitted for IV antibiotics. Patient at the moment does not meet criteria for sepsis. Hospital Course: Patient admitted to the medical floor and started on IV Rocephin and vancomycin. The patient was seen by Dr. Ramírez-general Surgery recommended to continue antibiotic treatment and no surgical intervention. His wound culture grew strep pyogenes and Staph aureus. Patient received 48 hr of IV antibiotic therapy. The erythema around the amputation wound in her leg significantly improved with antibiotics. Patient was seen by wound care, and the wound was packed and dressed. He was also seen by infectious disease recommended 2 weeks of Augmentin. Patient is also discharged with oral Bactrim to cover staph aureus. He will follow with wound care for wound dressing. Vital Signs/Physical Exam: Temp Pulse Resp BP Pulse Ox 97.9 F 99 H 16 156/93 H 94 05/08/20 04:00 05/08/20 04:00 05/08/20 04:00 05/08/20 04:00 05/08/20 04:00 General: Alert, In no apparent distress, Oriented x3 Respiratory: Clear to auscultation bilaterally, Normal air movement Cardiovascular: No edema, Regular rate/rhythm, Normal S1 S2 Gastrointestinal: Normal bowel sounds, Soft and benign, No tenderness Laboratory Data at Discharge: WBC 5.7 K/uL (4.3-10.9) D 05/07/20 05:35 Hgb 10.0 g/dL (13.6-17.9) L 05/07/20 05:35 Hct 28.7 % (39.6-49.0) L 05/07/20 05:35 Plt Count 159 K/uL (152-406) 05/07/20 05:35 PT 14.0 SECONDS (9.5-12.5) H 05/06/20 05:12 INR 1.19 05/06/20 05:12 Sodium 141 mmol/L (136-145) 05/08/20 05:45 Potassium 4.0 mmol/L (3.5-5.1) 05/08/20 05:45 BUN 14 mg/dL (7-18) 05/08/20 05:45 Creatinine 1.07 mg/dL (0.55-1.3) 05/08/20 05:45 Glucose 159 mg/dL (74-106) H 05/08/20 05:45 Phosphorus 2.6 mg/dL (2.5-4.9) 05/06/20 05:12 Magnesium 1.9 mg/dL (1.8-2.4) D 05/06/20 05:12 Home Medications: Losartan Potassium [Cozaar*] 50 mg PO BID 01/17/18 glyBURIDE [Glyburide] 1 tab PO BID 01/17/18 Lovastatin 20 mg PO DAILY 03/29/20 Montelukast [Singulair*] 10 mg PO DAILY 03/29/20 Insulin Glargine Human [Lantus*] 10 units SQ BID #1 bottle 04/01/20 Insulin Lispro [Humalog*] See Protocol SQ TIDWM #1 bottle 04/01/20 Amox/Clavulanate [Augmentin 875-125 Tab] 1 each PO BID #28 tab 05/08/20 Hydrocortisone Cream [Hydrocortisone 1% Cream*] 1 appl TOP TID PRN #1 tube 05/08/20 Smz./Tmp. [Bactrim Ds 800 MG/160 MG] 1 tab PO BID #28 tab 05/08/20 New Medications: Amox/Clavulanate [Augmentin 875-125 Tab] 1 each PO BID #28 tab Smz./Tmp. [Bactrim Ds 800 MG/160 MG] 1 tab PO BID #28 tab Hydrocortisone Cream [Hydrocortisone 1% Cream*] 1 appl TOP TID PRN #1 tube PRN Reason: Itching Patient Discharge Instructions: follow up with wound care. Diet: ADA Activity: Ad hiren Followup: Jevon Ramírez MD [ACTIVE - CAN ADMIT] - 1-2 Weeks Time spent managing pt's care (in minutes): 38
[2020-05-08 08:57] VITALS: BP 146/78; TEMP 97
[2020-05-08] MEDS ORDERED: VANCOMYCIN 1.75 GM in NA CHLORIDE 0.9% 500 ML IVPB SCH (18:00)
== END 2020-05-08 09:59 | disposition home or self-care (01) | DRG 603 ==
LOC: ER 20:01 → ERHOLD 22:00 → 4TH 23:27 → 2ND 05-06 02:18
PROVIDERS: ADMIT Internal Medicine; ATTEND Internal Medicine
DX: L03.115 Cellulitis of right lower limb (principal); E11.22 Type 2 diabetes mellitus with diabetic chronic kidney disease; B95.4 Other streptococcus as the cause of diseases classified elsewhere; I12.9 Hypertensive chronic kidney disease with stage 1 through stage 4 chronic kidney disease, or unspecified chronic kidney disease; E78.5 Hyperlipidemia, unspecified; N18.3 Chronic kidney disease, stage 3 (moderate); L03.031 Cellulitis of right toe; B95.0 Streptococcus, group A, as the cause of diseases classified elsewhere; R50.9 Fever, unspecified; Z68.30 Body mass index [BMI] 30.0-30.9, adult; Z20.828 Contact with and (suspected) exposure to other viral communicable diseases; Z89.421 Acquired absence of other right toe(s); Z79.4 Long term (current) use of insulin; Z79.899 Other long term (current) drug therapy; Z89.201 Acquired absence of right upper limb, unspecified level; Z85.830 Personal history of malignant neoplasm of bone
CPT/HCPCS: 36415; 80048; 80202; 81003; 81015; 82947; 83036; 83735; 84100; 85025; 85610; 87040; 87070; 87077; 87186; 87205; 99251; 99285; J0696; J1650; J1815; J3370; J7030; J7040; J7050; U0002

== ENCOUNTER 2020-11-14 15:54 | Emergency (ER) | payer BC, SELFPAY ==
--- OUTSIDE RECORDS SUMMARY | 2020-11-14 15:56 | XMS REPORT | Clinical Summary ---
:1965 Author Organization [facility] Address [address] [place] [address] Care Team Providers Name Role Phone Unavailable Primary Care Provider Unavailable Allergies Not on File Medications Not on file Active Problems Not on file Encounters Date Type Specialty Care Team Description 05/05/2020 Lab Requisition Lab after 11/14/2019 Social History Tobacco Use Types Packs/Day Years Used Date Never Assessed Sex Assigned at Date Recorded Not on file Last Filed Vital Signs Not on file Plan of Treatment Not on file Procedures Procedure Name Priority Date/Time Associated Diagnosis Comme nts SARS-COV2/RT-PCR Routine 05/05/2020 9:36 PM Resu lts for this ([facility]) CDT procedure are in the results section. after 11/14/2019 Results SARS-CoV2/RT-PCR ([facility]) (05/05/2020 9:36 PM CDT) SARS-COV2/RT-PCR Not Detected Not Detected, [facility] [employer] HAMMONDPinion.gg Negative, See [facility] external report MEDICAL CENTER for linked test SARS-COV-2 [facility] PERFORMING LAB [facility] [place] Specimen Other - Nasopharyngeal wall structure (b denisa structure) Narrative Performed At Negative results do not preclude SARS-CoV-2 [facility] infection and should not be used as the sole basis for patient management decisions. Negative results must be combined with clinical observations, patient history, and epidemiological information. A false negative result may occur if a specimen is improperly collected, transported or handled. The limit of detection for this assay is 250 copies/mL. This SARS CoV-2 test is a rapid, real-time RT-PCR test intended for the qualitative detection of nucleic acid from SARS-CoV-2 in a nasopharyngeal swab specimen collected from individuals suspected of COVID-19 by their healthcare provider. This test has not been Food and Drug Administration (FDA) cleared or approved and has been authorized by FDA under an Emergency Use Authorization (EUA). This EUA will be effective until the declaration that circumstances exist justifying the authorization of the emergency use of in vitro diagnostic tests for detection and/or diagnosis of COVID-19 is terminated under Section 564(b)(2) of the Act or the EUA is revoked under Section 564(g) of the Act. Fact Sheet for Healthcare Providers: https://www.Rankomat.pl/Documents/Xpert%20Xpre ss%20SARS%20CoV-2/Fact%20Sheets/3023802%20SAR S-COV-2%20HEALTHCARE%20PROVIDERS%20FACT%20SHEE T.pdf Fact Sheet for Healthcare Patients: https://www.Rankomat.pl/Documents/Xpert%20Xpre ss%20SARS%20CoV-2/Fact%20Sheets/987-3801%20SAR S-COV-2%20PATIENT%20FACT%20SHEET.pdf Performing Laboratory: [address] [place] [address] Performing Organization Address City/State/Zipcode Phone Number [facility] [address] [place] [phone] CENTER after 11/14/2019
--- OUTSIDE RECORDS SUMMARY | 2020-11-14 15:57 | XMS REPORT | Continuity of Care Document ---
:1965 Author Organization [facility] t Address [address] [place] [address] Care Team Providers Name Role Phone Unavailable Unavailable Unavailable Problems This patient has no known problems. Allergies, Adverse Reactions, Alerts This patient has no known allergies or adverse reactions. Social History Social Habit Start Date Stop Date Quantity Comments Source Sex Assigned At [facility] Medications This patient has no known medications. Procedures Procedure Date / Time Performed Performing Clinician Sourc e SARS-COV2/RT-PCR ([facility] 2020-05-05 21:36:00 [facility] Results Test Description Test Time Test Comments Results Result Comments Source SARS-CoV2/RT-PCR ([facility] & Ref Labs) 2020-05-06 00:50:00 Test Item Value Reference Range Interpretation Comme nts SARS-COV2/RT-PCR (test code = Not Detected Not Detected, 58062-7) Negative, See external report for linked test SARS-COV-2 PERFORMING LAB [facility] (test code = 33289-0) HIWOT (test code = HIWOT) Negative results do not preclude SARS-CoV-2 infection and should not be used as [...] of the Act. Fact Sheet for Healthcare Providers:https://www.[employer]/Documents/Xpert%20Xpress %20SARS%20CoV-2/Fact%20Sheets /302-3802%34ZOFH-DWM-5%20HEAL THCARE%20PROVIDERS%20FACT%20S HEET.pdf Fact Sheet for Healthcare Patients:https://www.RPO/Documents/Xpert%20Xpress% 20SARS%20CoV-2/Fact%20Sheets/ 302-3801%81CWYD-DMO-4%20PATIE NT%20FACT%20SHEET.pdf Performing Laboratory:[facility] [facility] [address], [place] [id number] [place], [place] [address]ARS-COV2/RT-PCR ([facility])2020-05-06 00:50:00 Test Item Value Reference Range Interpretation Comments SARS-COV2/RT-PCR (test Not Detected Not Detected, Negative, code = 2928086) See external report for linked test SARS-COV-[address] [facility] (test code = 9594470) Negative results do not preclude SARS-CoV-2 infection and should not be used as the sole basis for patient management decisions. Negative results must be combined with clinical observations, patient history, and epidemiological information. A false negative result may occur if a specimen is improperly collected, transported or handled.The limit of detection for this assay is 250 copies/mL.This SARS CoV-2 test is a rapid, real-time RT-PCR test intended for the qualitative detection of nucleic acid from SARS-CoV-2 in a nasopharyngeal swab specimen collected from individuals suspected of COVID-19 by their healthcare provider.This test has not been Food and Drug [...] is revoked under Section 564(g) of the Act.Fact Sheet for Healthcare Pro viders:https://www.[employer]/Documents/Xpert%20Xpress%20SARS%20CoV-2/Fact%20Sh eets/3023802%49DIBV-KMC-4%20HEALTHCARE%20PROVIDERS%20FACT%20SHEET.pdfFact Sheet for Healthcare Patients:https://www.[employer]/Documents/Xpert%20Xpress%20SARS%20CoV-2/Fact%20Sheets/3023801%20SARS-COV -2%20PATIENT%20FACT%20SHEET.pdfPerforming Laboratory:[facility] [place] [address]
--- NOTE | 2020-11-14 16:27 | ER ---
Nurse's Notes [facility] Name: Anders Balderas Age: 55 yrs Sex: Male : 1965 Arrival Date: 11/14/2020 Time: 15:58 Bed 5 Private MD: Mikey Kline H Diagnosis: Cellulitis and acute lymphangitis of other parts of limb-left foot Presentation: 11/14 16:05 Chief complaint: Patient states: wound to R foot x 4 months. Pt reports he is regularly ss seen and evaluated in wound healing center by Dr. Ramírez, the last time being Monday. Pt states that redness to R foot began yesterday. Coronavirus screen: Client denies travel out of the [place] in the last 14 days. Ebola Screen: Patient denies exposure to infectious person. Patient denies travel to an Ebola-affected area in the 21 days before illness onset. Initial Sepsis Screen: Does the patient meet any 2 criteria? No. Patient's initial sepsis screen is negative. Does the patient have a suspected source of infection? No. Patient's initial sepsis screen is negative. Risk Assessment: Do you want to hurt yourself or someone else? Patient reports no desire to harm self or others. Onset of symptoms was November 13, 2020. 16:05 Method Of Arrival: Ambulatory ss 16:05 Acuity: CAYETANO 3 ss Historical: - Allergies: 16:21 No Known Allergies; ss - PMHx: 16:21 bone cancer-right arm as child; Diabetes - NIDDM; Hyperlipidemia; Hypertension; ss - PSHx: 16:21 left toe amputation; right arm; right toe amputation; ss - Immunization history:: Adult Immunizations up to date. - Social history:: Smoking status: Patient denies any tobacco usage or history of. Patient/guardian denies using alcohol, street drugs, The patient lives with family. - Family history:: not pertinent. Screenin:13 Abuse screen: Denies threats or abuse. Denies injuries from another. Nutritional hb screening: No deficits noted. Tuberculosis screening: No symptoms or risk factors identified. Fall Risk None identified. Assessment: 16:20 General: Appears in no apparent distress. Behavior is calm, cooperative. Pain: Pain hb currently is 6 out of 10 on a pain scale. Neuro: Level of Consciousness is awake, alert, obeys commands, Oriented to person, place, time, situation. Cardiovascular: Capillary refill < 3 seconds Patient's skin is warm and dry. Respiratory: Respiratory effort is even, unlabored, Respiratory pattern is regular, symmetrical. GI: No signs and/or symptoms were reported involving the gastrointestinal system. : No signs and/or symptoms were reported regarding the genitourinary system. EENT: No signs and/or symptoms were reported regarding the EENT system. Derm: redness surrounding chronic wound on medial aspect of left foot noted. Musculoskeletal: No signs and/or symptoms reported regarding the musculoskeletal system. Vital Signs: 16:05 BP 169 / 105; Pulse 109; Resp 16; Temp 98.5(TE); Pulse Ox 99% on R/A; Weight 90.26 kg; ss Height 5 ft. 8 in. (172.72 cm); Pain 6/10; 16:05 Body Mass Index 30.26 (90.26 kg, 172.72 cm) ED Course: 15:58 Patient arrived in ED. mr 15:58 Mikey Kline DO is Private Physician. mr 16:06 Roshan Massey MD is Attending Physician. ma2 16:11 Salma Aguilar, CHARLIE is Primary Nurse. hb 16:13 Arm band placed on. hb 16:13 Patient has correct armband on for positive identification. Bed in low position. Call hb light in reach. Side rails up X 1. 16:20 Triage completed. ss 16:51 No provider procedures requiring assistance completed. Patient did not have IV access hb during this emergency room visit. Administered Medications: 16:33 Drug: Bactrim (160 mg-800 mg (DS) 1 tablet Route: PO; hb 16:47 Follow up: Response: Medication administered at discharge. hb 16:33 Drug: Ciprofloxacin 500 mg Route: PO; hb 16:47 Follow up: Response: Medication administered at discharge. hb Outcome: 16:27 Discharge ordered by . ma2 16:51 Discharged to home ambulatory. hb 16:51 Condition: stable 16:51 Discharge instructions given to patient, Instructed on discharge instructions, follow up and referral plans. medication usage, wound care, Demonstrated understanding of instructions, follow-up care, medications, wound care, Prescriptions given X 2. 16:52 Patient left the ED. hb Signatures: Terri JonesZayda hilton, RN RN Salma Aguilar RN RN Roshan Massey MD MD ma2 Corrections: (The following items were deleted from the chart) 16:51 16:20 Derm: Skin is pink, warm \T\ dry. hb hb
--- NOTE | 2020-11-14 16:27 | EDPHYS ---
Physician Documentation [facility] Name: Anders Balderas Age: 55 yrs Sex: Male : 1965 Arrival Date: 11/14/2020 Time: 15:58 Bed 5 Private MD: Mikey Kline H ED Physician Roshan Massey HPI: 11/14 16:24 This 55 yrs old Male presents to ER via Ambulatory with complaints of ma2 Infected sore. 16:24 Onset: The symptoms/episode began/occurred gradually, 3 day(s) ago. Associated signs ma2 and symptoms: Pertinent negatives: numbness, swelling, vomiting, warmth. Severity of symptoms: At their worst the symptoms were mild, in the emergency department the symptoms are unchanged. The patient has experienced similar episodes in the past. Historical: - Allergies: 16:21 No Known Allergies; ss - PMHx: 16:21 bone cancer-right arm as child; Diabetes - NIDDM; Hyperlipidemia; Hypertension; ss - PSHx: 16:21 left toe amputation; right arm; right toe amputation; ss - Immunization history:: Adult Immunizations up to date. - Social history:: Smoking status: Patient denies any tobacco usage or history of. Patient/guardian denies using alcohol, street drugs, The patient lives with family. - Family history:: not pertinent. ROS: 16:24 MS/extremity: Positive for erythema, Negative for contusion, decreased range of motion, ma2 swelling, tingling. 16:24 Constitutional: Negative for fever, chills, and weight loss. 16:24 All other systems are negative. Exam: 16:24 Constitutional: This is a well developed, well nourished patient who is awake, alert, ma2 and in no acute distress. Cardiovascular: Regular rate and rhythm with a normal S1 and S2. No gallops, murmurs, or rubs. Normal PMI, no JVD. No pulse deficits. Respiratory: Lungs have equal breath sounds bilaterally, clear to auscultation and percussion. No rales, rhonchi or wheezes noted. No increased work of breathing, no retractions or nasal flaring. Abdomen/GI: Soft, non-tender, with normal bowel sounds. No distension or tympany. No guarding or rebound. No evidence of tenderness throughout. Skin: Warm, dry with normal turgor. Normal color with no rashes, no lesions, and no evidence of cellulitis. MS/ Extremity: patient has infected left foot sore, induration is 1 inch around a dry small sore over medial aspect of left foot, n opuss or tenderness no fluctuence, no crepitations, there is warmth and redness, Pulses equal, no cyanosis. Neurovascular intact. Full, normal range of motion. Neuro: Awake and alert, GCS 15, oriented to person, place, time, and situation. Cranial nerves II-XII grossly intact. Motor strength 5/5 in all extremities. Sensory grossly intact. Cerebellar exam normal. Normal gait. Vital Signs: 16:05 BP 169 / 105; Pulse 109; Resp 16; Temp 98.5(TE); Pulse Ox 99% on R/A; Weight 90.26 kg; ss Height 5 ft. 8 in. (172.72 cm); Pain 6/10; 16:05 Body Mass Index 30.26 (90.26 kg, 172.72 cm) ss MDM: 16:06 Patient medically screened. ma2 16:24 Differential diagnosis: sprain, foreign body, arthritis, gout, cellulitis. Data ma2 reviewed: vital signs, nurses notes. Counseling: I had a detailed discussion with the patient and/or guardian regarding: the historical points, exam findings, and any diagnostic results supporting the discharge/admit diagnosis, the presence of at least one elevated blood pressure reading (>120/80) during this emergency department visit, the need for outpatient follow up. Response to treatment: the patient's symptoms have markedly improved after treatment. 11/14 16:48 Order name: Wound Care; Complete Time: 16:48 hb 11/14 16:48 Order name: Wound dressing; Complete Time: 16:48 hb Administered Medications: 16:33 Drug: Bactrim (160 mg-800 mg (DS) 1 tablet Route: PO; hb 16:47 Follow up: Response: Medication administered at discharge. hb 16:33 Drug: Ciprofloxacin 500 mg Route: PO; hb 16:47 Follow up: Response: Medication administered at discharge. hb Disposition: 11/14/20 16:27 Discharged to Home. Impression: Cellulitis and acute lymphangitis of other parts of limb - left foot. - Condition is Stable. - Discharge Instructions: Cellulitis, Adult. - Prescriptions for Cipro 500 mg Oral Tablet - take 1 tablet by ORAL route every 12 hours for 7 days; 14 tablet. Bactrim DS 800- 160 mg Oral Tablet - take 1 tablet by ORAL route every 12 hours for 3 days; 6 tablet. - Medication Reconciliation Form, Thank You Letter, Antibiotic Education, Prescription Opioid Use form. - Follow up: Private Physician; When: Tomorrow; Reason: Continuance of care. Signatures: Zayda Anand RN RN Salma Aguilar RN RN Roshan Massey MD MD ma2 Corrections: (The following items were deleted from the chart) 16:52 16:27 11/14/2020 16:27 Discharged to Home. Impression: Cellulitis and acute hb lymphangitis of other parts of limb - left foot. Condition is Stable. Forms are Medication Reconciliation Form, Thank You Letter, Antibiotic Education, Prescription Opioid Use. Follow up: Private Physician; When: Tomorrow; Reason: Continuance of care. ma2
[2020-11-14] MEDS ORDERED: SMZ./TMP. 800/160 MG TABLET ONE (16:48)
[2020-11-14] MEDS ORDERED: CIPROFLOXACIN HCL 500 MG TAB ONE (16:48)
== END 2020-11-14 16:52 | disposition home or self-care (01) ==
LOC: ER 15:54
DX: L03.116 Cellulitis of left lower limb (principal); E11.9 Type 2 diabetes mellitus without complications; E78.5 Hyperlipidemia, unspecified; I10 Essential (primary) hypertension; Z85.830 Personal history of malignant neoplasm of bone
CPT/HCPCS: 99283

== ENCOUNTER 2020-11-19 08:22 | Inpatient (IN) | payer BC, SELFPAY ==
--- OUTSIDE RECORDS SUMMARY | 2020-11-19 08:25 | XMS REPORT | Clinical Summary ---
:1965 Author Organization [facility] Address [address] [place] [address] Care Team Providers Name Role Phone Unavailable Primary Care Provider Unavailable Allergies Not on File Medications Not on file Active Problems Not on file Encounters Date Type Specialty Care Team Description 05/05/2020 Lab Requisition Lab after 11/19/2019 Social History Tobacco Use Types Packs/Day Years Used Date Never Assessed Sex Assigned at Date Recorded Not on file Last Filed Vital Signs Not on file Plan of Treatment Not on file Procedures Procedure Name Priority Date/Time Associated Diagnosis Comme nts SARS-COV2/RT-PCR Routine 05/05/2020 9:36 PM Resu lts for this ([facility]) CDT procedure are in the results section. after 11/19/2019 Results SARS-CoV2/RT-PCR ([facility]) (05/05/2020 9:36 PM CDT) SARS-COV2/RT-PCR Not Detected Not Detected, [facility] [employer] Negative, See [facility] external report MEDICAL CENTER for linked test SARS-COV-2 [facility]FORM[facility] LAB [facility] Specimen Other - Nasopharyngeal wall structure (b denisa structure) Narrative Performed At Negative results do not preclude SARS-CoV-2 [facility] infection and should not be used as [...] the Act. Fact Sheet for Healthcare Providers: https://www.[employer]/Documents/Xpert%20Xpre ss%20SARS%20CoV-2/Fact%20Sheets/3023802%20SAR S-COV-2%20HEALTHCARE%20PROVIDERS%20FACT%20SHEE T.pdf Fact Sheet for Healthcare Patients: https://www.[employer]/Documents/Xpert%20Xpre ss%20SARS%20CoV-2/Fact%20Sheets/290-3801%20SAR S-COV-2%20PATIENT%20FACT%20SHEET.pdf Performing Laboratory: [address] [place] [address] Performing Organization Address City/State/Zipcode Phone Number [facility] [address] [place] [phone] CENTER after 11/19/2019
--- OUTSIDE RECORDS SUMMARY | 2020-11-19 08:25 | XMS REPORT | Continuity of Care Document ---
:1965 Author Organization [facility] t Address [facility] [place] [address] Care Team Providers Name Role Phone Unavailable Unavailable Unavailable Problems This patient has no known problems. Allergies, Adverse Reactions, Alerts This patient has no known allergies or adverse reactions. Social History Social Habit Start Date Stop Date Quantity Comments Source Sex Assigned At [facility] Medications This patient has no known medications. Procedures Procedure Date / Time Performed Performing Clinician Sourc e SARS-COV2/RT-PCR ([facility] 2020-05-05 21:36:00 [facility] Results Test Description Test Time Test Comments Results Result Comments Source SARS-CoV2/RT-PCR ([facility] Ref Labs) 2020-05-06 00:50:00 Test Item Value Reference Range Interpretation Comme nts SARS-COV2/RT-PCR (test code = Not Detected Not Detected, 17272-1) Negative, See external report for linked test SARS-COV-2 PERFORMING LAB [facility] (test code = 43374-4) HIWOT (test code = HIWOT) Negative results [...] of the Act. Fact Sheet for Healthcare Providers:https://www.[employer]/Documents/Xpert%20Xpress %20SARS%20CoV-2/Fact%20Sheets /302-3802%94AKMK-GGP-1%20HEAL THCARE%20PROVIDERS%20FACT%20S HEET.pdf Fact Sheet for Healthcare Patients:https://www.[employer]/Documents/Xpert%20Xpress% 20SARS%20CoV-2/Fact%20Sheets/ 302-3801%13SRWC-USQ-9%20PATIE NT%20FACT%20SHEET.pdf Performing Laboratory:[facility] [place] [id number] [place], [place] [address]ARS-COV2/RT-PCR ([facility])2020-05-06 00:50:00 Test Item Value Reference Range Interpretation Comments SARS-COV2/RT-PCR (test Not Detected Not Detected, Negative, code = 6478502) See external report for linked test SARS-COV-2 PERFORMING LAB [facility] (test code = 8884693) Negative results do not preclude SARS-CoV-2 infection [...] of the Act.Fact Sheet for Healthcare Pro viders:https://www.[employer]/Documents/Xpert%20Xpress%20SARS%20CoV-2/Fact%20Sh eets/3023802%67NSDT-JCP-4%20HEALTHCARE%20PROVIDERS%20FACT%20SHEET.pdfFact Sheet for Healthcare Patients:https://www.[employer]/Documents/Xpert%20Xpress%20SARS%20CoV-2/Fact%20Sheets/3023801%20SARS-COV -2%20PATIENT%20FACT%20SHEET.pdfPerforming Laboratory:[facility] [place] [address]
[2020-11-19 09:53] LABS: Absolute Lymphocytes (CBC) 1.1 K/uL (0.7-4.9); Basophils % 1.1 % (0-1.3); Lymphocytes % 22.7 % (15.3-44.8); RBC Red Blood Cell Count 4.22 M/uL (4.33-5.43)
[2020-11-19] MEDS ORDERED: VANCOMYCIN/NS 1 gm 1 GM/250 ML BAG IV ONE (10:00)
--- NOTE | 2020-11-19 10:02 | ER ---
Nurse's Notes [facility] Name: Anders Balderas Age: 55 yrs Sex: Male : 1965 Arrival Date: 11/19/2020 Time: 08:26 Bed 14 Private MD: Mikey Kline H Diagnosis: Cellulitis of left toe;Personal history of diabetic foot ulcer;Unspecified open wound, left foot Presentation: 11/19 08:31 Chief complaint: Patient states: infected left foot since Monday, seen here on sv Monday and sent home with antibiotics. Today went to [facility] and they told him to come here to get seen. Coronavirus screen: Client denies travel out of the [place] in the last 14 days. At this time, the client does not indicate any symptoms associated with coronavirus-19. Ebola Screen: No symptoms or risks identified at this time. Risk Assessment: Do you want to hurt yourself or someone else? Patient reports no desire to harm self or others. Onset of symptoms was November 14, 2020. 08:31 Method Of Arrival: Ambulatory sv 08:31 Acuity: CAYETANO 2 sv 08:33 Initial Sepsis Screen: Does the patient meet any 2 criteria? No. Patient's initial sv sepsis screen is negative. Does the patient have a suspected source of infection? Yes: Skin breakdown/wound. Triage Assessment: 08:31 General: Appears in no apparent distress. comfortable, Behavior is calm, cooperative, sv appropriate for age. Neuro: Level of Consciousness is awake, alert, obeys commands, Oriented to person, place, time, situation, Gait is steady. Respiratory: Respiratory effort is even, unlabored. Historical: - Allergies: 08:33 No Known Allergies; sv - Home Meds: 15:46 Lantus Sub-Q 10 units twice a day [Active]; Novolog 100 unit/mL Sub-Q soln [Active]; tw2 lovastatin 20 mg oral tab 1 tab once daily [Active]; losartan 100 mg oral tab 0.5 tab twice day [Active]; hydrochlorothiazide 12.5 mg Oral tab 1 tab once daily [Active]; - PMHx: 08:33 bone cancer-right arm as child; Diabetes - NIDDM; Hyperlipidemia; Hypertension; sv - PSHx: 08:33 left toe amputation; right arm; right toe amputation; sv Screenin:17 Abuse screen: Denies threats or abuse. Nutritional screening: No deficits noted. tw2 Tuberculosis screening: No symptoms or risk factors identified. Fall Risk None identified. Assessment: 09:40 General: Appears in no apparent distress. well groomed, Behavior is calm, cooperative, tw2 appropriate for age. Pain: Denies pain. Neuro: Level of Consciousness is awake, alert, obeys commands, Oriented to person, place, time, situation. Cardiovascular: Capillary refill < 3 seconds Patient's skin is warm and dry. Respiratory: Airway is patent Respiratory effort is even, unlabored, Respiratory pattern is regular, agonal. GI: No signs and/or symptoms were reported involving the gastrointestinal system. Abdomen is round non-distended. Derm:. Musculoskeletal: Amputation of Other: pt states Right arm amputation happened at 10 years, pt also has 2nd toe amputation on LEFT foot, great toe on LEFT foot has nonhealing wound with redness and swelling noted to great toe joint. 10:52 Reassessment: Patient appears in no apparent distress at this time. No changes from tw2 previously documented assessment. Patient and/or family updated on plan of care and expected duration. Pain level reassessed. Patient is alert, oriented x 3, equal unlabored respirations, skin warm/dry/pink. providers Dr. Ramírez and Dr. Teague at bedside at this time. 11:46 Reassessment: Patient appears in no apparent distress at this time. No changes from tw2 previously documented assessment. Patient and/or family updated on plan of care and expected duration. Pain level reassessed. Patient is alert, oriented x 3, equal unlabored respirations, skin warm/dry/pink. 12:39 Reassessment: Patient appears in no apparent distress at this time. No changes from tw2 previously documented assessment. Patient and/or family updated on plan of care and expected duration. Pain level reassessed. Patient is alert, oriented x 3, equal unlabored respirations, skin warm/dry/pink. 13:40 Reassessment: Patient appears in no apparent distress at this time. No changes from tw2 previously documented assessment. Patient and/or family updated on plan of care and expected duration. Pain level reassessed. Patient is alert, oriented x 3, equal unlabored respirations, skin warm/dry/pink. 14:40 Reassessment: Patient appears in no apparent distress at this time. Patient and/or tw2 family updated on plan of care and expected duration. Pain level reassessed. Patient is alert, oriented x 3, equal unlabored respirations, skin warm/dry/pink. 14:45 Reassessment: pt transport to US and then MRI, not available for VS at this time. tw2 16:40 Reassessment: Patient appears in no apparent distress at this time. No changes from tw2 previously documented assessment. Patient and/or family updated on plan of care and expected duration. Pain level reassessed. Patient is alert, oriented x 3, equal unlabored respirations, skin warm/dry/pink. Vital Signs: 08:33 BP 173 / 101; Pulse 79; Resp 16; Temp 98.7; Pulse Ox 99% ; Weight 90.26 kg; Height 5 sv ft. 9 in. (175.26 cm); 10:52 BP 155 / 97; Pulse 83; Resp 17; Pulse Ox 98% on R/A; tw2 11:45 BP 160 / 84; Pulse 96; Resp 17; Pulse Ox 99% on Nebulizer Mask; tw2 12:38 BP 133 / 90; Pulse 102; Resp 18; Pulse Ox 95% on R/A; tw2 08:33 Body Mass Index 29.39 (90.26 kg, 175.26 cm) sv ED Course: 08:26 Patient arrived in ED. as 08:27 Mikey Kline DO is Private Physician. as 08:32 Triage completed. sv 08:33 Arm band placed on. sv 08:58 Bed in low position. Call light in reach. tw2 09:00 Ceci Saldivar, CHARLIE is Primary Nurse. tw2 09:07 Cooper Araujo PA is PHCP. jr8 09:07 Sal Johnson MD is Attending Physician. jr8 09:43 Initial lab(s) drawn, First set of blood cultures drawn. Inserted saline lock: 20 gauge kj1 in left antecubital area, using aseptic technique. Blood collected. 10:00 Misha Teague DO is Hospitalizing Provider. jr8 10:15 CBC with Diff Sent. sv 11:32 COVID-19 : Document "Date of Symptom Onset" if Symptomatic. Sent. sv 13:27 No provider procedures requiring assistance completed. Patient admitted, IV remains in tw2 place. 15:55 Report given to CHARLIE Muñiz on 2nd floor, pt in MRI at this time, pts belongings in ER room tw2 at this time. Administered Medications: 10:02 Drug: LevaQUIN 750 mg Volume: 150 ml; Route: IVPB; Infused Over: 90 mins; Site: left ll1 antecubital; 11:20 Follow up: Response: No adverse reaction; IV Status: Completed infusion; IV Intake: ll1 150ml 11:20 Drug: NS 0.9% 1000 ml Route: IV; Rate: 75 ml/hr; Site: left antecubital; ll1 11:22 Drug: D50W 25 ml Route: IVP; Site: left antecubital; tw2 11:24 Drug: Insulin Regular Human 10 units {Co-Signature: tw2 (Ceci Saldivar RN).} Route: IVP; ll1 Site: left antecubital; 11:40 Drug: Albuterol 2.5 mg Route: Inhalation; tw2 11:40 Drug: Albuterol 2.5 mg Route: Inhalation; tw2 11:40 Drug: Albuterol 2.5 mg Route: Inhalation; tw2 11:41 Drug: vancoMYCIN 1 grams Route: IVPB; Infused Over: 2 hrs; Site: left antecubital; 1 Intake: 11:20 IV: 150ml; Total: 150ml. ll1 Outcome: 10:01 Decision to Hospitalize by Provider. jr8 16:40 Patient left the ED. tw2 16:40 Admitted to Med/surg tw2 16:40 Condition: stable 16:40 Instructed on the need for admit. Signatures: Sylwia Mireles RN RN sv Martinez, Amelia as Roszak, Josh, PA PA jr8 Ceci Saldivar RN RN tw2 Itzel Guillaume kj1 Nando Carr RN RN 1 Ceci Saldivar RN tw2 Corrections: (The following items were deleted from the chart) 08:34 08:31 Acuity: CAYETANO 3 lisa gonzalez
--- NOTE | 2020-11-19 10:02 | EDPHYS ---
Physician Documentation [facility] Name: Anders Balderas Age: 55 yrs Sex: Male : 1965 Arrival Date: 11/19/2020 Time: 08:26 Bed 14 Private MD: Mikey Kline H ED Physician Sal Johnson HPI: 11/19 09:54 This 55 yrs old Male presents to ER via Ambulatory with complaints of Foot jr8 Infection- antibiotics not working. 09:54 The patient presents with pain, swelling. The complaints affect the left foot. Onset: jr8 The symptoms/episode began/occurred gradually, 5 day(s) ago. Modifying factors: The symptoms are alleviated by nothing, the symptoms are aggravated by nothing. Associated signs and symptoms: The patient has no apparent associated signs or symptoms. Severity of symptoms: At their worst the symptoms were moderate, in the emergency department the symptoms are unchanged. The patient has experienced a previous episode. The patient has been recently seen by a physician:. Patient has been dealing with chronic diabetic wound to left MTP 1st digit of foot for approximately 3 months. Recently this past week started to become infected. Was put on Bactrim and Cipro but continues to have swelling, redness, and now increased pain . Historical: - Allergies: 08:33 No Known Allergies; sv - Home Meds: 15:46 Lantus Sub-Q 10 units twice a day [Active]; Novolog 100 unit/mL Sub-Q soln [Active]; tw2 lovastatin 20 mg oral tab 1 tab once daily [Active]; losartan 100 mg oral tab 0.5 tab twice day [Active]; hydrochlorothiazide 12.5 mg Oral tab 1 tab once daily [Active]; - PMHx: 08:33 bone cancer-right arm as child; Diabetes - NIDDM; Hyperlipidemia; Hypertension; sv - PSHx: 08:33 left toe amputation; right arm; right toe amputation; sv ROS: 09:54 Constitutional: Negative for fever, chills, and weight loss. jr8 09:54 MS/extremity: Positive for erythema, pain, swelling, tenderness, warmth. 09:54 All other systems are negative. Exam: 09:54 Constitutional: This is a well developed, well nourished patient who is awake, alert, jr8 and in no acute distress. Cardiovascular: Regular rate and rhythm with a normal S1 and S2. No gallops, murmurs, or rubs. Normal PMI, no JVD. No pulse deficits. Respiratory: Lungs have equal breath sounds bilaterally, clear to auscultation and percussion. No rales, rhonchi or wheezes noted. No increased work of breathing, no retractions or nasal flaring. MS/ Extremity: Pulses equal, no cyanosis. Neurovascular intact. Full, normal range of motion. Right arm amputation above elbow noted Neuro: Awake and alert, GCS 15, oriented to person, place, time, and situation. Cranial nerves II-XII grossly intact. Motor strength 5/5 in all extremities. Sensory grossly intact. 09:54 Skin: Patient has swelling, erythema, surrounding 1st digit left foot. 2.5 x2.5 cm open diabetic wound with exudative discharge noted . Vital Signs: 08:33 BP 173 / 101; Pulse 79; Resp 16; Temp 98.7; Pulse Ox 99% ; Weight 90.26 kg; Height 5 sv ft. 9 in. (175.26 cm); 10:52 BP 155 / 97; Pulse 83; Resp 17; Pulse Ox 98% on R/A; tw2 11:45 BP 160 / 84; Pulse 96; Resp 17; Pulse Ox 99% on Nebulizer Mask; tw2 12:38 BP 133 / 90; Pulse 102; Resp 18; Pulse Ox 95% on R/A; tw2 08:33 Body Mass Index 29.39 (90.26 kg, 175.26 cm) sv MDM: 09:07 Patient medically screened. [facility] 10:00 Data reviewed: vital signs, nurses notes, lab test result(s), and as a result, I will [facility] admit patient. Data interpreted: Pulse oximetry: on room air is 99 %. Interpretation: normal. Counseling: I had a detailed discussion with the patient and/or guardian regarding: the historical points, exam findings, and any diagnostic results supporting the discharge/admit diagnosis, lab results, the need for further work-up and treatment in the hospital. 11/19 09:31 Order name: CBC with Diff [facility] 11/19 09:31 Order name: CMP; Complete Time: 10:39 [facility] 11/19 09:31 Order name: Blood Culture Adult (2) [facility] 11/19 09:31 Order name: Wound Culture 1 11/19 09:31 Order name: ESR; Complete Time: 10:39 kj1 11/19 09:31 Order name: CRP; Complete Time: 10:39 kj 11/19 09:57 Order name: CBC with Automated Diff; Complete Time: 10:39 EDMS 11/19 10:15 Order name: COVID-19 : Document "Date of Symptom Onset" if Symptomatic. sv 11/19 10:15 Order name: CORONAVIRUS EDOH 11/19 12:10 Order name: SARS-COV-2 RT PCR; Complete Time: 12:27 EDMS 11/19 14:04 Order name: Blood Culture EDOH 11/19 14:50 Order name: Hemoglobin A1c; Complete Time: 15:27 EDMS 11/19 15:18 Order name: Procalcitonin; Complete Time: 15:27 EDMS 11/19 15:38 Order name: US; Complete Time: 16:08 EDMS 11/19 09:22 Order name: IV; Complete Time: 09:49 8 11/19 16:29 Order name: MRI; Complete Time: 16:31 EDMS Administered Medications: 10:02 Drug: LevaQUIN 750 mg Volume: 150 ml; Route: IVPB; Infused Over: 90 mins; Site: left ll1 antecubital; 11:20 Follow up: Response: No adverse reaction; IV Status: Completed infusion; IV Intake: ll1 150ml 11:20 Drug: NS 0.9% 1000 ml Route: IV; Rate: 75 ml/hr; Site: left antecubital; ll1 11:22 Drug: D50W 25 ml Route: IVP; Site: left antecubital; tw2 11:24 Drug: Insulin Regular Human 10 units {Co-Signature: (Ceci Saldivar RN).} Route: IVP; ll1 Site: left antecubital; 11:40 Drug: Albuterol 2.5 mg Route: Inhalation; tw2 11:40 Drug: Albuterol 2.5 mg Route: Inhalation; tw2 11:40 Drug: Albuterol 2.5 mg Route: Inhalation; tw2 11:41 Drug: vancoMYCIN 1 grams Route: IVPB; Infused Over: 2 hrs; Site: left antecubital; ll1 Disposition: 11/20 05:57 Co-signature as Attending Physician, Sal Johnson MD I agree with the assessment and elidia plan of care. Disposition: 11/19/20 10:01 Hospitalization ordered by Misha Teague for Inpatient Admission. Preliminary diagnosis are Cellulitis of left toe, Personal history of diabetic foot ulcer, Unspecified open wound, left foot. - Bed requested for Telemetry/MedSurg (Inpatient). - Status is Inpatient Admission. tw2 - Condition is Stable. - Problem is new. - Symptoms are unchanged. Signatures: Dispatcher [employer] Sylwia Augustine RN Selam Flower RN Sal Tavarez MD MD cha Roszak, Josh, PA PA jr8 Ceci Saldivar RN RN tw2 Nando Carr RN RN ll1 Ceci Saldivar RN tw2 Corrections: (The following items were deleted from the chart) 11/19 13:58 10:01 Hospitalization Ordered by Misha Teague DO for Inpatient Admission. Preliminary sv diagnosis is Cellulitis of left toe; Personal history of diabetic foot ulcer; Unspecified open wound, left foot. Bed requested for Telemetry/MedSurg (Inpatient). Status is Inpatient Admission. Condition is Stable. Problem is new. Symptoms are unchanged. jr8 13:58 13:58 11/19/2020 10:01 Hospitalization Ordered by Misha Teague DO for Inpatient sv Admission. Preliminary diagnosis is Cellulitis of left toe; Personal history of diabetic foot ulcer; Unspecified open wound, left foot. Bed requested for [facility] ER HOLD. Status is Inpatient Admission. Condition is Stable. Problem is new. Symptoms are unchanged. sv 15:36 13:58 11/19/2020 10:01 Hospitalization Ordered by Misha Teague DO for Inpatient dw Admission. Preliminary diagnosis is Cellulitis of left toe; Personal history of diabetic foot ulcer; Unspecified open wound, left foot. Bed requested for [facility] ER HOLD. Status is Inpatient Admission. Condition is Stable. Problem is new. Symptoms are unchanged. sv 16:40 15:36 11/19/2020 10:01 Hospitalization Ordered by Misha Teague DO for Inpatient tw2 Admission. Preliminary diagnosis is Cellulitis of left toe; Personal history of diabetic foot ulcer; Unspecified open wound, left foot. Bed requested for Telemetry/MedSurg (Inpatient). Status is Inpatient Admission. Condition is Stable. Problem is new. Symptoms are unchanged. dw
[2020-11-19] MEDS ORDERED: Levofloxacin 750mg IV 750 MG/150 ML BAG IV ONE (10:08)
[2020-11-19 10:25] LABS: Albumin 2.9 g/dL (3.4-5.0); Bilirubin Total 0.3 mg/dL (0.2-1.0); C-Reactive Protein 87.5 mg/L (<3.00); Potassium 5.2 mmol/L (3.5-5.1); Protein, Total 7.8 g/dL (6.4-8.2)
[2020-11-19] MEDS ORDERED: ALBUTEROL 2.5 MG/3 ML NEB SOL ONE (11:33)
[2020-11-19] MEDS ORDERED: D50W 50 ML IV ONE (11:34)
[2020-11-19] MEDS ORDERED: NA CHLORIDE 0.9% 1,000 ML ONE (11:34)
[2020-11-19] MEDS ORDERED: INSULIN -REGULAR HUMAN 50 UNIT/0.5 ML ML ONE (11:34)
[2020-11-19] MEDS ORDERED: HYDROCODONE/APAP 7.5/325 MG TAB PO PRN (13:53)
[2020-11-19] MEDS: INSULIN -REGULAR HUMAN 50 UNIT/0.5 ML ML SQ SCH ×3 (13:53→20:20)
[2020-11-19] MEDS ORDERED: TRAMADOL HCL 50 MG TAB PO PRN (13:53)
[2020-11-19] MEDS ORDERED: GABAPENTIN 100 MG CAP PO PRN (13:53)
[2020-11-19] MEDS ORDERED: ONDANSETRON 4 MG/2 ML VIAL IV PRN (13:53)
[2020-11-19] MEDS: CEFEPIME/SWI 1gm 10 ML IV SCH (14:30)
[2020-11-19] MEDS ORDERED: VANCOMYCIN 500 MG in NA CHLORIDE 0.9% 100 ML IVPB ONE (15:00)
--- NOTE | 2020-11-19 15:36 | RAD REPORT ---
EXAM DESCRIPTION: US - Lower Extremity Arterial Bilat - 11/19/2020 3:13 pm CLINICAL HISTORY: evaluate for PAD Leg pain and swelling COMPARISON: No comparisons TECHNIQUE: Bilateral lower extremity arterial Doppler examination was performed with viviana ahumada FINDINGS: JERED measurements were not requested. Triphasic waveforms are seen throughout both lower extremity arterial systems to the level of the pop liteal arteries. Right posterior tibial artery and dorsalis pedis artery demonstrate triphasic flow. Left posterior tibial artery and dorsalis pedis artery demonstrates monophasic flow. No occlusions or near occlusion is identified. IMPRESSION: Moderate infrapopliteal peripheral vascular disease on the left is seen.
--- NOTE | 2020-11-19 16:27 | RAD REPORT ---
EXAM DESCRIPTION: MRI - Foot Left Wo Cont - 11/19/2020 4:10 pm CLINICAL HISTORY: Left 1st toe DM ulcer suspect osteomyelitis COMPARISON: Foot Left W/Wo Con dated 01/05/2018 FINDINGS: Hallux valgus deformity with metatarsus primus adductus noted. There is significant abnorm al signal involving the entire first metatarsal. The distal neck and head of the first metatarsal dem onstrates marked amorphous diminished T1 signal and elevated T2/IR signal. There is near complete sig nal abnormality also seen in the proximal phalanx of the great toe as well. The third metatarsal distal head and neck demonstrates abnormal signal and flattening with mild simil ar signal abnormality in the proximal phalanx of the third toe as well. No localized fluid collection seen. IMPRESSION: Advanced osteomyelitis is seen involving the first metatarsal and proximal phalanx of th e great toe. Findings are most severe at the level of the first metatarsal head. Flattening of the third metatarsal head with signal abnormality may be related to underlying AVN rath er than osteomyelitis.
[2020-11-19] MEDS: NA CHLORIDE 0.9% 1,000 ML IV SCH (17:00)
[2020-11-19 17:11] VITALS: BMI 29.3
--- NOTE | 2020-11-19 17:29 | P.HP ---
Certification for Inpatient Patient admitted to: Inpatient With expected LOS: >2 Midnights Patient will require the following post-hospital care: Other (Long-term acute care facility) Practitioner: I am a practitioner with admitting privileges, knowledge of patient current condition, hospital course, and medical plan of care. Services: Services provided to patient in accordance with Admission requirements found in Title 42 Section 412.3 of the Code of Federal Regulations Patient History Date of Service: 11/19/20 Primary Care Provider: Dr. Kline Reason for admission: Failed outpatient therapy History of Present Illness: 55-year-old male with history of diabetes mellitus type 2, hypertension, hyperlipidemia and peripheral vascular disease. Patient presents with diabetic ulcer to the left 1st metatarsal joint region of the foot. Patient has been treated by wound care-surgery Dr. Ramírez. He was apparently seen last week in given antibiotic therapy. No improvement noted. More drainage noted. Increased swelling, erythema. Patient came to the ER for further evaluation. In the ER patient was evaluated. White count 4.8, hemoglobin 12.1. Sodium 137, potassium 5.2. BUN of 32, creatinine 1.68 with a GFR 43. Glucose 210. CRP 87. MRI shows a advance osteomyelitis involving the 1st metatarsal and proximal phalanx of the great toe. Flattening of the 3rd metatarsal head with signal abnormality noted. Mild infrapopliteal peripheral vascular disease noted as well. Patient was started on antibiotic therapy. Patient was admitted for further evaluation and treatment. Patient has history of right 2nd toe amputation. Allergies No Known Allergies Allergy (Verified 03/30/20 00:56) Home medications list reviewed: Yes Home Medications: Losartan Potassium [Cozaar*] 50 mg PO BID 01/17/18 glyBURIDE [Glyburide] 1 tab PO BID 01/17/18 Lovastatin 20 mg PO DAILY 03/29/20 Montelukast [Singulair*] 10 mg PO DAILY 03/29/20 Insulin Glargine Human [Lantus*] 10 units SQ BID #1 bottle 04/01/20 Hydrochlorothiazide 50 mg PO DAILY 11/19/20 Insulin Aspart [Novolog Flexpen] See Protocol SQ ACHS 11/19/20 - Past Medical/Surgical History Has patient received pneumonia vaccine in the past: No Diabetic: Yes -: Diabetes mellitus type 2 -: Hyperlipidemia -: HTN -: Bone Cancer Right arm -: right arm amputation -: left 5th digit toe amputation Psychosocial/ Personal History: 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 - Family History Father -: Diabetes Mother -: Diabetes Notes: Alzheimers - Social History Smoking Status: Never smoker Alcohol use: Yes CD- Drugs: No Caffeine use: No Place of Residence: Home Review of Systems General: As per HPI Eyes: Unremarkable ENT: Unremarkable Respiratory: Unremarkable Cardiovascular: Unremarkable Gastrointestinal: Unremarkable Genitourinary: Unremarkable Musculoskeletal: Foot Pain, As per HPI Integumentary: As per HPI Neurological: Unremarkable Lymphatics: Unremarkable Physical Examination - Vital Signs Temperature: 97.9 F Blood Pressure: 166/94 Pulse: 88 Respirations: 19 Pulse Ox (%): 97 - Physical Exam General: Alert, In no apparent distress, Oriented x3, Cooperative HEENT: Atraumatic, Normocephalic Neck: Supple Respiratory: Clear to auscultation bilaterally, Normal air movement Cardiovascular: Normal pulses, Regular rate/rhythm Gastrointestinal: Normal bowel sounds, Soft and benign, Non-distended, No masses, No rebound, No guarding Integumentary: Other (Ulcer to the medial aspect of the distal metatarsal region of the 1st left toe. Erythema, swelling noted) Neurological: Normal speech, Normal strength at 5/5 x4 extr, Normal tone, Other (Patient with history of right upper extremity amputation. patient with history of right 2nd digit toe amputation) - Studies Laboratory Data (last 24 hrs) 11/19/20 09:43: Sodium 137, Potassium 5.2 H, BUN 32 H, Creatinine 1.68 H, Glucose 210 H, Total Bilirubin 0.3, AST 30, ALT 48, Alkaline Phosphatase 99 11/19/20 09:43: WBC 4.80, Hgb 12.1 L, Hct 36.0 L, Plt Count 279 Assessment and Plan - Plan Impression: Left 1st metatarsal/proximal phalanx great toe osteomyelitis with diabetic ulcer, failed outpatient therapy Diabetes mellitus type 2 with hyperglycemia Hypertension Hyperlipidemia Acute renal injury likely dehydration Plan: Left 1st metatarsal/proximal phalanx great toe osteomyelitis with diabetic ulcer, failed outpatient therapy: patient admitted for further evaluation and treatment. Case discussed with surgery who was present during the evaluation. Osteomyelitis noted. Surgery plans for surgical debridement tomorrow. Will consult infectious disease to evaluate patient. Patient would benefit with long-term acute care facility placement for long-term IV antibiotic therapy. This was discussed with the patient. Patient understands the importance of this. Await further recommendations from Infectious Disease and surgery tomorrow. Will consult social work coordinator to help with possible transfer to long- term acute care facility if patient agrees pre Diabetes mellitus type 2 with hyperglycemia: Will check A1c. Continue Accu- Cheks and sliding scale. Hypertension: Obtain and restart home medication. Will make adjustments accordingly. Hyperlipidemia: Continue home medication Acute renal injury likely dehydration: Will provide IV fluids. Will make adjustments to medication. Potassium slightly elevated. Will continue to asse ss. Discharge Plan: LTAC Plan to discharge in: Greater than 2 days - Advance Directives Does patient have a Living Will: No Does patient have a Durable POA for Healthcare: No - Code Status/Comfort Care Code Status Assessed: Yes (patient is full code) Time Spent Managing Pts Care (In Minutes): 55
[2020-11-19] MEDS: carvediloL 3.125 MG TAB PO SCH (17:54)
[2020-11-19] MEDS: LOSARTAN POTASSIUM 50 MG TABLET PO SCH (20:19)
[2020-11-19] MEDS: ATORVASTATIN 10 MG TAB PO SCH (20:20)
[2020-11-19] MEDS ORDERED: CEFEPIME 1 GM/VIAL IV SCH (21:00)
[2020-11-20] MEDS ORDERED: CEFEPIME/SWI 1gm 10 ML ONE (01:28)
[2020-11-20] MEDS: CEFEPIME/SWI 1gm 10 ML IV SCH ×2 (01:34→14:47)
[2020-11-20] MEDS: carvediloL 3.125 MG TAB PO SCH ×2 (05:24→17:49)
[2020-11-20 06:15] LABS: Absolute Lymphocytes (CBC) 1.3 K/uL (0.7-4.9); Basophils % 1.1 % (0-1.3); Lymphocytes % 22.5 % (15.3-44.8); RBC Red Blood Cell Count 3.99 M/uL (4.33-5.43)
[2020-11-20 06:37] LABS: Magnesium 2.2 mg/dL (1.8-2.4); Potassium 5.1 mmol/L (3.5-5.1); Thyroid Stimulating Hormone 2.81 uIU/mL (0.360-3.740)
[2020-11-20] MEDS: INSULIN -REGULAR HUMAN 50 UNIT/0.5 ML ML SQ SCH ×4 (07:30→21:00)
[2020-11-20] MEDS ORDERED: HOME MED 1 EA UNK (Lovastatin [Lovastatin] 20 MG Tablet) PO SCH (09:00)
[2020-11-20] MEDS: LOSARTAN POTASSIUM 50 MG TABLET PO SCH ×2 (09:45→21:10)
[2020-11-20] MEDS: MONTELUKAST 10 MG TAB PO SCH (09:46)
[2020-11-20] MEDS: FOLIC ACID 1 MG TABLET PO SCH (09:46)
[2020-11-20] MEDS: ASPIRIN EC 81 MG TAB PO SCH (09:46)
[2020-11-20] MEDS: NA CHLORIDE 0.9% 1,000 ML IV SCH (09:52)
--- NOTE | 2020-11-20 10:57 | CON ---
Date of Consultation: 11/19/2020 History Of Present Illness: This is the case of a 55-year-old patient with history of hypertension, history of peripheral vascular disease, history of diabetic ulcer, [facility]. In the last few days he noticed the area to be red. He has a cellulitis and osteomyelit is in that area before. He was seen in the ER several days ago, given p.o. antibiotics, but he notic ed the area was getting worse. He come to the hospital, went to the ER, diagnosed with cellulitis an d abscess and an infected diabetic ulcer of the left foot. The patient denies any trauma. He has be en trying to offload the area, he was also advised in the past many times to use his special shoes an d do not to put pressure in that region. He is doing the best he can. He denies any dysuria, hematu jami, hematochezia, or melena. Denies any recent traveling out of the country. Denies any family mem naastasiia sick at home. Denies any fever, shortness of breath. Review of Systems: Ten points otherwise unremarkable. See H and P. Allergies: NONE. Medications: Reviewed and include Cozaar, glyburide, Singulair, Lantus, hydrochlorothiazide. Social History: He does not smoke. He does not drink alcohol. Family History: Includes diabetes. Past Medical History: Diabetes, hyperlipidemia. 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 Multiple toe amputations. Physical Examination: General: The patient is awake and alert. HEENT: Pupils equal, reactive, anicteric. Neck: Supple. Chest: Clear. Abdomen: Soft and depressible. Extremities: Diminished peripheral pulses chronically. No cyanosis, but on the left metatarsal area patient has a diabetic ulcer with infection and cellulitis over the entire foot and also traveling i nto the second and third toe. There is fluctuance present. The ulcer is right at the metatarsal hea d of the first toe. Laboratory Data: WBC count of 4, hemoglobin of 12, potassium is 5.2. Plan: The patient will be admitted for IV antibiotics, ID consult. Diabetes control. We are going to take him to surgery. We are going to put him n.p.o. after midnight, so we can take him and do esha ridement of the necrotic diabetic ulcer with benefits, alternatives, and risks including, but not max ited to infection, bleeding, damage to adjacent structures, nonhealing wound, [place], and even . He understands this will require wound care. He has also an option to have an MRI if possible to rule out osteomyelitis which means long-term antibiotics. DANE/CHINMAY Voice ID: [id number] Report ID: [id number]
[2020-11-20] MEDS ORDERED: BUPIVACAINE 0.5% PF 10 ML VIAL ONE (11:57)
[2020-11-20] MEDS ORDERED: MIDAZOLAM HCL 2 MG/2 ML INJ ONE (12:54)
[2020-11-20] MEDS ORDERED: FENTANYL CITR 100 MCG/2 ML ONE (12:54)
[2020-11-20] MEDS ORDERED: LIDOCAINE 1% MPF 5 ML VIAL ONE (12:54)
[2020-11-20] MEDS ORDERED: propofoL 200 MG/20 ML VIAL IV ONE (12:54)
--- NOTE | 2020-11-20 12:58 | P.BOP ---
Preoperative diagnosis: left foot infected diabetic ulcer, abscess, cellulitis Postoperative diagnosis: same Primary procedure: excisional debridement Left foot infected diabetic ulcer with abscess drain Secondary procedure: 5.5 x 4 cm Estimated blood loss: <10cc Specimen: culture, pus Findings: abscess Anesthesia: General Complications: None Transferred to: Recovery Room Condition: Good
[2020-11-20] MEDS ORDERED: ONDANSETRON 4 MG/2 ML VIAL ONE (13:24)
[2020-11-20] MEDS: VANCOMYCIN 1.5 GM in NA CHLORIDE 0.9% 500 ML IVPB SCH (14:47)
--- NOTE | 2020-11-20 15:09 | OP ---
Date of Procedure: 11/20/2020 Surgeon: Jevon Ramírez MD Preoperative Diagnoses: Left foot infected diabetic ulcer abscess, cellulitis. Postoperative Diagnoses: Left foot infected diabetic ulcer abscess, cellulitis. Procedure: Excisional debridement of left foot infected diabetic ulcer with abscess, drainage. It i s about 5.5 x 4 cm. Findings: Abscess. The patient has deterioration of the bone at the head of the metatarsal region o n first that correlate with the MRI findings of osteomyelitis. The patient has an abscess that track ed from the medial side to the lateral side of the toe between first and second. Those cavities were explored. Loculations were opened. Indications: This is a case of a 55-year-old patient well known due to history of diabetes disease, multiple amputations, now with cellulitis of the left foot and infected diabetic ulcer. Found also t o have osteomyelitis. The cellulitis extends all the way up to about the third toe and including danika f . Two areas of fluctuance should be addressed with incision and drainage of an abscess. The patient understands several options that we have. We sure we can do the amputation, but at this moment, we do not know which level will be appropriate for him. Once we have the procedure studies done, and we see the circulation in his foot, then we can say not only that we can amputate the first , second or third metatarsal region, but we trying to figure out if it is going to heal properly. If we see no circulation in that area either, he cannot have that amputation and pretend that everythin g is going to heal well or he can address the issue with the vascular surgeon trying to bring circula tion in that area so his amputation then be done in a way that can heal or he might not even need amp utation at all. He is not happy with long-term antibiotics for osteomyelitis, but at this moment the indications are for that. We are going to take him today since we have purulent discharge in some a reas, clean the area and see the extent of the situation and then he is going to have to make the dec ision, but if we go and remove the first or second toe in this region, we will leave the area open, c losing that will be a contraindication. He want me to just clean and then he will make another decis ion over the weekend. The benefits, alternatives, and risks fully explained which include, but not l imited to infection, bleeding, damage to adjacent structures, anesthesia complication, nonhealing wou nd, MO and even . He also understands this may not relieve his symptoms. He might need more th an one surgical intervention. He understood, signed a consent. Procedure In Detail: The patient was brought to the operating room, placed in supine position. Anes thesia was done without complication. A time-out was called. Left foot was prepped and draped in us ual sterile fashion. We have a diabetic foot ulcer in the medial side on the head of metatarsal shantell on. When we opened that area, we have a melgoza of pus coming through that region. We see that this co nnect to the area between the first and second metatarsal region, so we have to make a counter incisi on, explore the cavity and noted the area of cellulitis and the area of the open wound is about 5.5 x 4 cm. All the loculations were explored, opened, the area was packed with Nu gauze quarter of an in . Hemostasis was obtained. Debridement was done of the necrotic tissue. Cultures were obtained. Hemostasis was obtained. Patient was covered with sterile dressings. The patient tolerated the pro cedure well. The patient on his way to Recovery in stable condition. DANE/CHINMAY Voice ID: [id number] Report ID: [id number]
[2020-11-20] MEDS ORDERED: GLUCAGON 1 MG/VIAL IM PRN (15:48)
--- NOTE | 2020-11-20 15:48 | P.PN ---
Subjective Date of Service: 11/20/20 Primary Care Provider: Dr. Kline Chief Complaint: Failed outpatient therapy Subjective: Other (Patient stable. Anticipating surgery today.) Physical Examination - Vital Signs Temperature: 98.0 F Blood Pressure: 145/87 Pulse: 88 Respirations: 18 Pulse Ox (%): 97 - Studies Microbiology Data (last 24 hrs): 11/19/20 09:35 Wound - Left Foot Gram Stain - Final Assessment & Plan Discharge Plan: Home Plan to discharge in: Greater than 2 days Physician Review Additional Text: Physical exam: Patient alert, cooperative without significant distress. Heart: Regular rate rhythm Lungs: Clear to auscultation Abdomen: Soft , nontender Extremities: No changes to left toe erythema, swelling. Impression: Left 1st metatarsal/proximal phalanx great toe osteomyelitis with diabetic ulcer, failed outpatient therapy Diabetes mellitus type 2 with hyperglycemia Hypertension Hyperlipidemia Acute renal injury likely dehydration Plan: Left 1st metatarsal/proximal phalanx great toe osteomyelitis with diabetic ulcer, failed outpatient therapy: Spoke with patient concerning surgery. Also spoke to surgery. Surgery plans for I and D of patient. Patient may require further amputation. Surgery would like cardiology evaluation for PVD pay for considering amputation as the patient does not want a go to a long-term acute care facility or desires long-term IV antibiotic therapy. Anticipate possible amputation of the left toe likely early next week after evaluation by Cardiology. Continue current care. Diabetes mellitus type 2 with hyperglycemia: A1c elevated. Will adjust medication accordingly for better control. Continue Accu-Cheks and sliding scale. Hypertension: Continue medication. Will make adjustments accordingly. Hyperlipidemia: Continue home medication Acute renal injury likely dehydration: Continue IV fluids. Will make adjustments to medication. Potassium slightly elevated. Will continue to assess. Time Spent Managing Pts Care (In Minutes): 55
[2020-11-20] MEDS ORDERED: D50W 25 GM/50 ML VIAL IV PRN (16:00)
[2020-11-20] MEDS: NACHLORIDE 0.45% 1,000 ML IV SCH (17:49)
[2020-11-20 17:56] LABS: Urine Appearance CLEAR; Urine Bilirubin NEGATIVE (NEG); Urine Blood 2+ (NEG); Urine Color YELLOW; Urine Glucose 1+ (NEG); Urine Protein 2+ (NEG); Urine Urobilinogen 0.2 mg/dL (0.2-1.0); Urine pH 5.5 (5.0-7.0)
[2020-11-20 18:00] LABS: Urine Microscopic Reflex ORDER UMIC
[2020-11-20 18:15] LABS: Urine Bacteria <20 /HPF (NONE SEEN); Urine Mucus SLIGHT /HPF (NONE SEEN)
[2020-11-20] MEDS: INSULIN GLARGINE 100 UNITS/ML SQ SCH (21:00)
[2020-11-20] MEDS: ATORVASTATIN 10 MG TAB PO SCH (21:10)
[2020-11-20] MEDS: ENOXAPARIN 40 MG/0.4 ML SQ SCH (21:11)
[2020-11-21] MEDS: CEFEPIME/SWI 1gm 10 ML IV SCH ×2 (02:13→13:30)
[2020-11-21] MEDS: carvediloL 3.125 MG TAB PO SCH (05:37)
[2020-11-21 06:55] LABS: Absolute Lymphocytes (CBC) 1.1 K/uL (0.7-4.9); Lymphocytes % 19.1 % (15.3-44.8); MPV 6.9 fL (7.6-11.3); RBC Red Blood Cell Count 3.92 M/uL (4.33-5.43)
[2020-11-21 07:11] LABS: Magnesium 2.2 mg/dL (1.8-2.4)
[2020-11-21] MEDS: INSULIN -REGULAR HUMAN 50 UNIT/0.5 ML ML SQ SCH ×4 (07:30→21:00)
[2020-11-21] MEDS: ASPIRIN EC 81 MG TAB PO SCH (09:19)
[2020-11-21] MEDS: ENOXAPARIN 40 MG/0.4 ML SQ SCH (09:19)
[2020-11-21] MEDS: FOLIC ACID 1 MG TABLET PO SCH (09:19)
[2020-11-21] MEDS: INSULIN GLARGINE 100 UNITS/ML SQ SCH ×2 (09:19→21:00)
[2020-11-21] MEDS: LOSARTAN POTASSIUM 50 MG TABLET PO SCH ×2 (09:19→21:02)
[2020-11-21] MEDS: MONTELUKAST 10 MG TAB PO SCH (09:19)
[2020-11-21] MEDS: NACHLORIDE 0.45% 1,000 ML IV SCH (09:22)
--- NOTE | 2020-11-21 16:02 | P.PN ---
Subjective Date of Service: 11/21/20 Primary Care Provider: Dr. Kline Chief Complaint: Failed outpatient therapy Subjective: Other (Patient stable. Pain seems to be under control.) Physical Examination - Vital Signs Temperature: 98.0 F Blood Pressure: 160/74 Pulse: 93 Respirations: 17 Pulse Ox (%): 97 - Studies Microbiology Data (last 24 hrs): 11/19/20 09:35 Wound - Left Foot Gram Stain - Final Assessment & Plan Discharge Plan: Home Plan to discharge in: Greater than 2 days Physician Review Additional Text: Physical exam: Patient alert, cooperative without significant distress. Heart: Regular rate rhythm Lungs: Clear to auscultation Abdomen: Soft , nontender Extremities: Bandages to the left toe noted. Pain seems to be controlled. Impression: Left 1st metatarsal/proximal phalanx great toe osteomyelitis with diabetic ulcer, failed outpatient therapy status post excisional debridement of left foot Diabetes mellitus type 2 with hyperglycemia Hypertension Hyperlipidemia Acute renal injury likely dehydration : Left foot infected diabetic ulcer abscess, cellulitis. Procedure: Excisional debridement of left foot infected diabetic ulcer with abscess, drainage. It is about 5.5 x 4 cm. Plan: Left 1st metatarsal/proximal phalanx great toe osteomyelitis with diabetic ulcer, failed outpatient therapy status post excisional debridement of left foot: Patient had excisional debridement of left foot yesterday by surgery. Continue with IV antibiotic therapy. Surgery plans for possible amputation early next week. Surgery wants cardiology evaluation of lower extremity to evaluate for vascular disease. Spoke with cardiology. Cardiology plans for intervention on Monday to further evaluate. Continue with pain control medication. Infectious Disease also consulted. Await recommendations. Anticipate evaluation by Cardiology on Monday then possible amputation later this week if amenable. Diabetes mellitus type 2 with hyperglycemia: A1c elevated. Continue to adjust medication accordingly for better control. Continue Accu-Cheks and sliding scale. Hypertension: Continue medication. Continue to make adjustments for better control. Hyperlipidemia: Continue home medication Acute renal injury likely dehydration: Continue IV fluids. Will make adjustments to medication. Potassium slightly elevated. Will continue to asses s. Time Spent Managing Pts Care (In Minutes): 55
[2020-11-21] MEDS: VANCOMYCIN 1.5 GM in NA CHLORIDE 0.9% 500 ML IVPB SCH (17:09)
[2020-11-21] MEDS: carvediloL 6.25 MG TAB PO SCH (17:20)
[2020-11-21] MEDS: ATORVASTATIN 10 MG TAB PO SCH (21:02)
[2020-11-22] MEDS: CEFEPIME/SWI 1gm 10 ML IV SCH ×2 (01:43→15:27)
[2020-11-22] MEDS: carvediloL 6.25 MG TAB PO SCH ×2 (05:27→17:17)
[2020-11-22 05:59] LABS: Absolute Lymphocytes (CBC) 1.3 K/uL (0.7-4.9); Basophils % 0.8 % (0-1.3); Hematocrit 32.2 % (39.6-49.0); Lymphocytes % 22.9 % (15.3-44.8); MPV 6.9 fL (7.6-11.3); RBC Red Blood Cell Count 3.83 M/uL (4.33-5.43)
[2020-11-22 06:34] LABS: Magnesium 1.9 mg/dL (1.8-2.4); Potassium 4.5 mmol/L (3.5-5.1)
[2020-11-22] MEDS: INSULIN -REGULAR HUMAN 50 UNIT/0.5 ML ML SQ SCH ×4 (07:30→20:20)
[2020-11-22] MEDS: NACHLORIDE 0.45% 1,000 ML IV SCH ×2 (08:00→10:26)
[2020-11-22] MEDS: LOSARTAN POTASSIUM 50 MG TABLET PO SCH ×2 (10:20→20:21)
[2020-11-22] MEDS: ASPIRIN EC 81 MG TAB PO SCH (10:20)
[2020-11-22] MEDS: FOLIC ACID 1 MG TABLET PO SCH (10:21)
[2020-11-22] MEDS: ENOXAPARIN 40 MG/0.4 ML SQ SCH (10:21)
[2020-11-22] MEDS: MONTELUKAST 10 MG TAB PO SCH (10:21)
[2020-11-22] MEDS: INSULIN GLARGINE 100 UNITS/ML SQ SCH ×2 (10:21→20:21)
--- NOTE | 2020-11-22 11:35 | PN ---
Date of Progress Note: 11/22/2020 Diagnosis: Left foot peripheral vascular disease and necrotic infected diabetic ulcer, osteomyelitis . Subjective: The patient is doing better. No shortness of breath. No chest pain. No fever. Review of Systems: Otherwise unremarkable. Physical Examination: Abdomen: Soft and depressible. Extremities: Over the left leg area, it looks better. The packings were removed and repacked today. No pus seen today. Swelling is coming down. Erythema is coming down. Laboratory Data: Culture of the area not available. Plan: Continue treatment by Infectious Disease and primary doctor. Tomorrow, the Cardiology Service will be going to trying to do more investigation on his blood supply to the lower extremity. At [facility] that will help us determine his plan of treatment either long-term antibiotics or amputation of th at digit or even amputation of the foot. He understands that. We are waiting for the results to see what kind of circulation we are working with. DANE/CHINMAY Voice ID: [id number] Report ID: [id number]
--- NOTE | 2020-11-22 11:56 | P.PN ---
Subjective Date of Service: 11/22/20 Primary Care Provider: Dr. Kline Chief Complaint: Failed outpatient therapy Subjective: Doing well Physical Examination - Vital Signs Temperature: 97.5 F Blood Pressure: 139/65 Pulse: 95 Respirations: 16 Pulse Ox (%): 96 - Studies Microbiology Data (last 24 hrs): 11/19/20 09:35 Wound - Left Foot Gram Stain - Final Assessment & Plan Discharge Plan: Home Plan to discharge in: Greater than 2 days Physician Review Additional Text: Initial chief complaint: Left great toe infection failed outpatient therapy Physical exam: Patient alert, cooperative without significant distress. Heart: Regular rate rhythm Lungs: Clear to auscultation Abdomen: Soft , nontender Extremities: Bandages to the left toe noted. Pain seems to be controlled. Impression: Left 1st metatarsal/proximal phalanx great toe osteomyelitis with diabetic ulcer, failed outpatient therapy status post excisional debridement of left foot Diabetes mellitus type 2 with hyperglycemia Hypertension Hyperlipidemia Acute renal injury likely dehydration Plan: Left 1st metatarsal/proximal phalanx great toe osteomyelitis with diabetic ulcer, failed outpatient therapy status post excisional debridement of left foot: Patient doing well postop excisional debridement of left foot. Spoke with cardiology yesterday. Cardiology plans for intervention to further evaluate circulation of the left lower extremity to determine if patient will be a candidate for amputation. Spoke with surgery about plan of care. Surgery awaits recommendations by Cardiology. Spoke with patient about the possibility of amputation and/or IV antibiotic therapy long-term. Patient would prefer amputation as opposed to long-term IV antibiotic therapy. Await findings from cardiology. Surgery to reassess again tomorrow. Continue current IV antibiotic therapy. Await Infectious Disease recommendations. I will turn the service over to the hospitalist team tomorrow. I will go plan of care with him. Diabetes mellitus type 2 with hyperglycemia: A1c elevated. Continue to adjust medication accordingly for better control. Continue Accu-Cheks and sliding scale. Hypertension: Continue medication. Continue to make adjustments for better control. Hyperlipidemia: Continue home medication Acute renal injury likely dehydration: Discontinue IV fluids. Will make adjustments to medication. Potassium slightly elevated. Will continue to assess. Time Spent Managing Pts Care (In Minutes): 55
[2020-11-22] MEDS: ACETAMINOPHEN 500 MG TAB PO PRN (12:17)
[2020-11-22] MEDS: VANCOMYCIN 1.5 GM in NA CHLORIDE 0.9% 500 ML IVPB SCH (15:27)
[2020-11-22] MEDS: ATORVASTATIN 10 MG TAB PO SCH (20:22)
[2020-11-23] MEDS: CEFEPIME/SWI 1gm 10 ML IV SCH ×2 (02:11→17:00)
[2020-11-23] MEDS: carvediloL 6.25 MG TAB PO SCH ×2 (05:56→17:56)
[2020-11-23 06:10] LABS: Magnesium 2.2 mg/dL (1.8-2.4); Potassium 4.6 mmol/L (3.5-5.1)
[2020-11-23] MEDS: INSULIN -REGULAR HUMAN 50 UNIT/0.5 ML ML SQ SCH ×4 (07:30→20:26)
[2020-11-23] MEDS: INSULIN GLARGINE 100 UNITS/ML SQ SCH ×2 (08:38→20:27)
[2020-11-23] MEDS: ASPIRIN EC 81 MG TAB PO SCH (08:39)
[2020-11-23] MEDS: FOLIC ACID 1 MG TABLET PO SCH (08:40)
[2020-11-23] MEDS: ENOXAPARIN 40 MG/0.4 ML SQ SCH (08:40)
[2020-11-23] MEDS: MONTELUKAST 10 MG TAB PO SCH (08:40)
[2020-11-23] MEDS: LOSARTAN POTASSIUM 50 MG TABLET PO SCH ×2 (08:40→20:26)
--- NOTE | 2020-11-23 10:57 | PN ---
Date of Progress Note: 11/23/2020 Diagnosis: Left foot diabetic ulcer infected with osteomyelitis. Subjective: The patient is doing better. Objective: Chest: Clear. Abdomen: Soft and depressible. Extremities: Erythema is improving. No purulent discharge. Dressings were changed yesterday and th e packing removed, and no purulent discharge today still same. Plan: Waiting for a vascular workup to see what the options will be for him. He was inclined to hav e an amputation of the metatarsal head, but we are concerned that he does not have enough blood suppl y there to heal properly and just basically exacerbate his conditions of an open wound and chance of infection. If he has any arterial supply issues, then he can be dealt with proximally, not only may avoid the amputation. He may probably even improve his condition without surgery. All this will be decided after the arterial workup is done. DANE/CHINMAY Voice ID: [id number] Report ID: [id number]
[2020-11-23] MEDS: ACETAMINOPHEN 500 MG TAB PO PRN (11:53)
[2020-11-23] MEDS ORDERED: HEPA 1000U/500MLS 2,000 UNIT/1,000 ML BAG IV ONE (11:54)
[2020-11-23] MEDS ORDERED: NA CHLORIDE 0.9% 500 ML ONE (14:38)
[2020-11-23] MEDS ORDERED: MIDAZOLAM HCL 2 MG/2 ML INJ ONE ×2 (14:41→15:08)
[2020-11-23] MEDS ORDERED: FENTANYL CITR 100 MCG/2 ML ONE (14:41)
[2020-11-23] MEDS ORDERED: HYDRALAZINE HCL 20 MG/ML VIAL ONE (15:26)
[2020-11-23] MEDS: VANCOMYCIN 1.75 GM in NA CHLORIDE 0.9% 500 ML IVPB SCH (17:02)
--- NOTE | 2020-11-23 18:54 | OP ---
Date of Procedure: 11/23/2020 Surgeon: ARTEM SNELL Procedure Performed: Distal aortogram with peripheral runoff. Indication: Nonhealing wound to the left foot with findings on ultrasound suggests of peripheral vas cular disease. Complications: None. Bleeding: Less than 10 mL. Description Of Procedure: After risks, benefits, and alternatives were explained, the patient agreed to the procedure and signed informed consent. We gave fentanyl and versed in incremental doses to achieve adequate mo derate sedation. Then accessed the right femoral artery using a micropuncture kit under fluoroscopy and ultrasound guidance and inserted a 6-Welsh [place] sheath without difficulties. Subsequently, we took a 6-Welsh pigtail catheter into the distal aorta and performed a distal aorta and runoff of peripheral angiogram. Then, we exchanged that catheter for a 6-Welsh JORGE LUIS catheter over the [place] e and selectively engaged the left common iliac and advanced the catheter into the left femoral arter y and then did selective injection of the left lower extremity and followed all the way through to th e foot. Findings: 1.Normal distal aorta. 2.Normal bilateral common iliacs and internal and external iliacs. 3.Normal femoral arteries. 4.Normal profunda arteries. 5.Normal SFA bilaterally without any significant disease. 6.Normal flow below the knee in the popliteal arteries and tibial arteries without significant steno sis and there is a normal flow all the way to the foot on the left and on the right without any signi ficant peripheral vascular disease found. Conclusion: Normal peripheral angiogram. No significant peripheral vascular disease. Plan: Medical management and wound care and diabetes control. SR/MODL Voice ID: [id number] Report ID: [id number]
[2020-11-23] MEDS: ATORVASTATIN 10 MG TAB PO SCH (20:26)
[2020-11-24] MEDS ORDERED: NITROGLYCERIN 0.4 MG/TAB SL PRN (01:02)
[2020-11-24] MEDS: CEFEPIME/SWI 1gm 10 ML IV SCH (02:00)
[2020-11-24] MEDS: carvediloL 6.25 MG TAB PO SCH ×2 (05:57→17:40)
[2020-11-24 06:13] LABS: Potassium 4.1 mmol/L (3.5-5.1)
[2020-11-24] MEDS: MONTELUKAST 10 MG TAB PO SCH (08:55)
[2020-11-24] MEDS: ASPIRIN EC 81 MG TAB PO SCH (08:56)
[2020-11-24] MEDS: FOLIC ACID 1 MG TABLET PO SCH (08:56)
[2020-11-24] MEDS: INSULIN -REGULAR HUMAN 50 UNIT/0.5 ML ML SQ SCH ×4 (08:56→21:18)
[2020-11-24] MEDS: LOSARTAN POTASSIUM 50 MG TABLET PO SCH ×2 (08:56→21:20)
[2020-11-24] MEDS: ENOXAPARIN 40 MG/0.4 ML SQ SCH (08:56)
[2020-11-24] MEDS: INSULIN GLARGINE 100 UNITS/ML SQ SCH ×2 (08:58→21:19)
--- NOTE | 2020-11-24 08:59 | P.PN ---
Subjective Date of Service: 11/23/20 Subjective: No new changes, No C/O voiced, Improving Review of Systems 10-point ROS is otherwise unremarkable Physical Examination - Vital Signs Temperature: 98.7 F Blood Pressure: 139/78 Pulse: 78 Respirations: 18 Pulse Ox (%): 94 - Physical Exam General: Alert, In no apparent distress, Oriented x3 Respiratory: Clear to auscultation bilaterally, Normal air movement Cardiovascular: Regular rate/rhythm, Normal S1 S2, No murmurs Gastrointestinal: Normal bowel sounds, Soft and benign, Non-distended, No tenderness Musculoskeletal: No clubbing, No swelling, No tenderness Neurological: Sensation intact, Cranial nerves 3-12 intact Lymphatics: No axilla or inguinal lymphadenopathy - Studies Microbiology Data (last 24 hrs): 11/19/20 09:35 Wound - Left Foot Gram Stain - Final 11/19/20 09:35 Wound - Left Foot Culture & Sensitivity - Final Meth Resistant Staph Aureus Medications List Reviewed: Yes Assessment & Plan - Problems (Diagnosis) (1) Diabetic ulcer of right foot Current Visit: No Status: Chronic Qualifiers: Diabetic foot ulcer location: toe (2) Chronic kidney disease, stage 3 Current Visit: No Status: Acute (3) Hx of osteomyelitis Current Visit: No Status: Acute (4) Hyperlipidemia Current Visit: No Status: Acute (5) Hypertension Current Visit: No Status: Acute - Plan 1. Continue with IV antibiotic 2. Continue with local wound care 3. Wound care consultation/surgical consultation appreciated 4. Cardiac workup to rule out significant peripheral arterial disease 5. Monitor CBC 6. Strict blood sugar monitoring 7. Pain control 8. GI and DVT prophylaxis Discharge Plan: Home Plan to discharge in: Greater than 2 days - Advance Directives Does patient have a Living Will: No Does patient have a Durable POA for Healthcare: No - Code Status/Comfort Care Code Status Assessed: Yes Code Status: Full Code Critical Care: No Time Spent Managing PTS Care (In Minutes): 35
--- NOTE | 2020-11-24 09:00 | P.PN ---
Date of Service: 11/24/20 Subjective Subjective: Patient with no new changes. Arteriogram with no significant abnormalities. Plan for surgery in the morning Review of Systems 10-point ROS is otherwise unremarkable Physical Examination - Vital Signs reviewed - Physical Exam General: Alert, In no apparent distress, Oriented x3 Respiratory: Clear to auscultation bilaterally, Normal air movement Cardiovascular: Regular rate/rhythm, Normal S1 S2, No murmurs Gastrointestinal: Normal bowel sounds, Soft and benign, Non-distended, No tenderness Musculoskeletal: No clubbing, No swelling, No tenderness; toe with skin breakdown and erythema; wound-clean, dry, and intact Neurological: Sensation intact, Cranial nerves 3-12 intact Lymphatics: No axilla or inguinal lymphadenopathy Assessment & Plan - Problems (Diagnosis) (1) Diabetic ulcer of right foot Current Visit: No Status: Chronic Qualifiers: Diabetic foot ulcer location: toe (2) Chronic kidney disease, stage 3 Current Visit: No Status: Acute (3) Hx of osteomyelitis Current Visit: No Status: Acute (4) Hyperlipidemia Current Visit: No Status: Acute (5) Hypertension Current Visit: No Status: Acute - Plan 1. Continue with IV antibiotic 2. Continue with local wound care 3. Wound care consultation/surgical consultation appreciated 4. Cardiac workup to rule out significant peripheral arterial disease 5. Monitor CBC 6. Strict blood sugar monitoring 7. Pain control 8. GI and DVT prophylaxis
[2020-11-24] MEDS: VANCOMYCIN 1.75 GM in NA CHLORIDE 0.9% 500 ML IVPB SCH (15:29)
--- NOTE | 2020-11-24 17:02 | P.CNS ---
Date of Consult: 11/24/20 Reason for Consult: left great toe diabetic foot ulcer Primary Care Provider: Dr. Kline Chief Complaint: Failed outpatient therapy History of Present Illness: The patient is a 55 year old male with a PMH of DM type 2, HTN, HLD, and PVD who presents to the hospital with a right great toe diabetic foot ulcer. The patient has been followed by Dr. Ramírez for the past three months. An MRI showed osteomyelitis involving the first metatarsal of the right foot. Wound cultures taken on 11/20 grew MRSA. Wound care and ID has been consulted to evaluate the wound and assess antibiotic coverage. Surgical debridement of the wound scheduled tomorrow to be performed by Dr. Ramírez. The patient is currently on vancomycin 1.75 gm q24 hr. He denies N/V/D, SOB, chest pain. He states he has some pain on the right foot but it is mild. The pain is worse during dressing changes and when cleaning the wound. 10 point ROS has been performed with pertinent positives and negatives listed above. Allergies No Known Allergies Allergy (Verified 03/30/20 00:56) Home Medications: Losartan Potassium [Cozaar*] 50 mg PO BID 01/17/18 glyBURIDE [Glyburide] 1 tab PO BID 01/17/18 Lovastatin 20 mg PO DAILY 03/29/20 Montelukast [Singulair*] 10 mg PO DAILY 03/29/20 Insulin Glargine Human [Lantus*] 10 units SQ BID #1 bottle 04/01/20 Hydrochlorothiazide 50 mg PO DAILY 11/19/20 Insulin Aspart [Novolog Flexpen] See Protocol SQ ACHS 11/19/20 - Past Medical/Surgical History Diabetic: Yes -: Diabetes mellitus type 2 -: Hyperlipidemia -: HTN -: Bone Cancer Right arm -: left second metatarsal amputation -: right arm amputation -: left 5th digit toe amputation Psychosocial/ Personal History: 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 - Family History Father Medical History: Diabetes Mother Medical History: Diabetes Notes: Alzheimers - Social History Smoking Status: Unknown if ever smoked Alcohol use: Yes CD- Drugs: No Caffeine use: No Place of Residence: Home Review of Systems 10-point ROS is otherwise unremarkable Physical Examination Temp Pulse Resp BP Pulse Ox 97.7 F 86 16 179/84 H 98 11/24/20 12:00 11/24/20 12:00 11/24/20 12:00 11/24/20 12:00 11/24/20 12:00 General: Alert, In no apparent distress, Oriented x3 HEENT: Atraumatic, Normocephalic, PERRLA Neck: Supple, 2+ carotid pulse no bruit, JVD not distended, No Thyromegaly Respiratory: Clear to auscultation bilaterally, Normal air movement Cardiovascular: No edema, Normal pulses, Regular rate/rhythm Capillary refill: <2 Seconds Gastrointestinal: Normal bowel sounds, Hypoactive, Soft and benign Integumentary: Diabetic ulcer (ulcer to medial and lateral aspect of right fist metatarsal ) Conclusions/Impression: Assessment: 1.diabetic foot ulcer of right first metatarsal with osteomyelitis 2. DM type 2 3. anemia 4. HTN 5. HLD plan: 1. Surgical debridement scheduled for tomorrow. Continue current antibiotic therapy. 2. sugar goal under 150 for proper wound healing -medical managment per primary team -continue to monitor CBC and BMP -continue to monitor for signs of infection Plan of care discussed with Dr. Fitzpatrick Thank you for consultation
[2020-11-24] MEDS: ATORVASTATIN 10 MG TAB PO SCH (21:00)
[2020-11-25 05:56] LABS: Absolute Lymphocytes (CBC) 1.4 K/uL (0.7-4.9); Basophils % 1.4 % (0-1.3); Hematocrit 32.4 % (39.6-49.0); Lymphocytes % 26.5 % (15.3-44.8); MPV 6.8 fL (7.6-11.3); RBC Red Blood Cell Count 3.89 M/uL (4.33-5.43)
[2020-11-25] MEDS: carvediloL 6.25 MG TAB PO SCH ×2 (05:56→17:42)
[2020-11-25 06:11] LABS: Protime INR 1.09
[2020-11-25 06:13] LABS: Magnesium 2.3 mg/dL (1.8-2.4); Phosphorus 3.7 mg/dL (2.5-4.9); Potassium 4.1 mmol/L (3.5-5.1)
[2020-11-25] MEDS: INSULIN -REGULAR HUMAN 50 UNIT/0.5 ML ML SQ SCH ×4 (07:30→21:13)
[2020-11-25] MEDS: FOLIC ACID 1 MG TABLET PO SCH (08:48)
[2020-11-25] MEDS: ASPIRIN EC 81 MG TAB PO SCH (08:48)
[2020-11-25] MEDS: ENOXAPARIN 40 MG/0.4 ML SQ SCH (08:48)
[2020-11-25] MEDS: INSULIN GLARGINE 100 UNITS/ML SQ SCH ×2 (08:48→21:14)
[2020-11-25] MEDS: LOSARTAN POTASSIUM 50 MG TABLET PO SCH ×2 (08:48→21:11)
[2020-11-25] MEDS: MONTELUKAST 10 MG TAB PO SCH (08:48)
[2020-11-25] MEDS ORDERED: NA CHLORIDE 0.9% 1,000 ML ONE (11:38)
[2020-11-25] MEDS ORDERED: BUPIVACAINE 0.5% PF 10 ML VIAL ONE (11:49)
[2020-11-25] MEDS ORDERED: propofoL 200 MG/20 ML VIAL IV ONE (12:36)
[2020-11-25] MEDS ORDERED: LIDOCAINE 2% MPF 5 ML VIAL ONE (12:37)
--- NOTE | 2020-11-25 13:22 | P.BOP ---
Preoperative diagnosis: left foot infected diabetic ulcer, destructive osteomyeleitis Postoperative diagnosis: same Primary procedure: Left first toe transmetatarsal amputation Estimated blood loss: <10cc Specimen: culture, pus Findings: destructive osteomyeleitis Anesthesia: General Complications: None Transferred to: Recovery Room Condition: Good
--- NOTE | 2020-11-25 14:39 | OP ---
Date of Procedure: 11/25/2020 Surgeon: Jevon Ramírez MD Preoperative Diagnoses: Left first toe and first metatarsal head destructive osteomyelitis, cellulit is, history of abscess, diabetes. Postoperative Diagnoses: Left first toe and first metatarsal head destructive osteomyelitis, celluli tis, history of abscess, diabetes. Procedure: Transmetatarsal amputation of the left first toe. Anesthesia: General plus local. Complications: None. Findings: A friable bone, especially of transmetatarsal head with evidence of an osteomyelitis. Indications: This is a case of a male, who comes to us with history of diabetic foot ulcer. At this time, the bone of the metatarsal region is exposed, developed destructive osteomyelitis. He had an I and D done about a week ago. His cellulitis of the foot improved, but his bone is still exposed an d evidence of metastatic not only by imaging, but also clinically. He does not want to keep that bon e. He wants the amputation of that and the first toe. After thinking for the last week, pros and co ns, he still has committed to have this bone removed. The benefits, alternatives, and risks of trans metatarsal amputation of left first toe fully explained, which include, but not limited to infection, bleeding, damage to adjacent structures, anesthesia complication, nonhealing wound, OK, and even gricel th. He also understands this may not relieve symptoms. He might need more than one surgical interve ntion. He understood and signed a consent. He understood he will require wound care after this is h ealed and he has to be careful controlling his diabetes and also his opposite foot, which we see evid ence of the same starting to happen. Recently, he has an arterial evaluation and it shows good circu lation over the area of the amputation, so he decided to do the amputation of that level. Procedure In Detail: The patient brought to the operating room and placed in supine position. Anest hesia was done without complication. A time-out was called. Left foot was prepped and draped in a s terile fashion. Incision was made to include not only the area of the necrotic ulcer, but also the p iece of bone involved. The incision was done in a way to include the metatarsal head and also the to e. Once we released the subcutaneous tissue, released the tendon, and obtained hemostasis, we procee ded to cut the bone fashion. It was done so the skin then recoil back to cover the area of the end of that piece left behind on the metatarsal bone. Hemostasis obtained. Irrigat ion was done. The area was covered wet-to-dry dressing. The patient tolerated the procedure well. The patient was sent to recovery in stable condition. The plan will be to use the wound VAC. Since the bone is removed, he might just opt now for p.o. antibiotics when he goes home and [facility]. DANE/CHINMAY Voice ID: [id number] Report ID: [id number]
[2020-11-25] MEDS: VANCOMYCIN 1.75 GM in NA CHLORIDE 0.9% 500 ML IVPB SCH (15:49)
--- NOTE | 2020-11-25 16:17 | P.PN ---
Subjective Date of Service: 11/25/20 Primary Care Provider: Dr. Kline Chief Complaint: Failed outpatient therapy Patient seen and examined s/p left metatarsal and tarsal amputation. Surgery went well with no complications. Foot is wrapped in kerlix. Patient is doing well and denies N/V/D, chest pain, SOB. Per Dr. Ramírez OR note, the plan is to place a wound VAC over the incision site and start the patient on PO antibiotics-IV not needed as bone with osteomyelitis has been removed. Review of Systems 10-point ROS is otherwise unremarkable Physical Examination - Vital Signs Temperature: 97.8 F Blood Pressure: 129/79 Pulse: 80 Respirations: 16 Pulse Ox (%): 95 - Physical Exam Other Physical/Emotional Findings: General: Alert, In no apparent distress, Oriented x3. HEENT: Atraumatic, Normocephalic, PERRLA. Neck: Supple, 2+ carotid pulse no bruit, JVD not distended, No Thyromegaly. Respiratory: Clear to auscultation bilaterally, Normal air movement. Cardiovascular: No edema, Normal pulses, Regular rate/rhythm. Capillary refill: <2 Seconds. Gastroin testinal: Normal bowel sounds, Hypoactive, Soft and benign. Integumentary: right foot 2nd tarsal amputation, wo callus present on medial aspect of right foot on wanda prominance, left foot 1st metatsral and tasral amputation. - Studies Microbiology Data (last 24 hrs): 11/19/20 10:00 Blood - Blood Aerobic Blood Culture - Final No growth in 5 days. 11/19/20 10:00 Blood - Blood Anaerobic Blood Culture - Final No growth in 5 days. Medications List Reviewed: Yes Assessment And Plan - Plan Conclusions/Impression: Assessment: 1.Left metatarsal and tarsal amputation s/p diabetic foot ulcer with osteomyelitis 2. two callus on wanda prominence of medial aspect of right foot 3. DM type 2 4. anemia 5. HTN 6. HLD plan: 1. Per Dr. Ramírez OR note, plan is to place wound VAC over incision site 2. [place] with Betadine and protect with foam. Wound on left foot began as callus-want to avoid greater wound formation on right foot. 3. sugar goal under 150 for proper wound healing -medical management per primary team -continue to monitor CBC and BMP -continue to monitor for signs of infection Plan of care discussed with Dr. Fitzpatrick Thank you for consultation Physician Review: Patient Assessed, Agree with Above Assessment and Plan
[2020-11-25] MEDS: ATORVASTATIN 10 MG TAB PO SCH (21:00)
[2020-11-26] MEDS: carvediloL 6.25 MG TAB PO SCH ×2 (05:27→16:58)
[2020-11-26] MEDS: INSULIN -REGULAR HUMAN 50 UNIT/0.5 ML ML SQ SCH ×4 (09:10→21:00)
[2020-11-26] MEDS: MONTELUKAST 10 MG TAB PO SCH (09:11)
[2020-11-26] MEDS: FOLIC ACID 1 MG TABLET PO SCH (09:11)
[2020-11-26] MEDS: ASPIRIN EC 81 MG TAB PO SCH (09:11)
[2020-11-26] MEDS: LOSARTAN POTASSIUM 50 MG TABLET PO SCH ×2 (09:11→22:00)
[2020-11-26] MEDS: ENOXAPARIN 40 MG/0.4 ML SQ SCH (09:11)
[2020-11-26] MEDS: INSULIN GLARGINE 100 UNITS/ML SQ SCH ×2 (09:12→22:02)
--- NOTE | 2020-11-26 11:55 | P.PN ---
Subjective Date of Service: 11/26/20 Primary Care Provider: Dr. Kline Chief Complaint: Failed outpatient therapy Patient seen and examined at bedside. No acute complaints. Review of Systems 10-point ROS is otherwise unremarkable Physical Examination - Vital Signs Temperature: 97.1 F Blood Pressure: 140/77 Pulse: 71 Respirations: 18 Pulse Ox (%): 97 - Physical Exam Other Physical/Emotional Findings: General: Alert, In no apparent distress, Oriented x3. HEENT: Atraumatic, Normocephalic, PERRLA. Neck: Supple, 2+ carotid pulse no bruit, JVD not distended, No Thyromegaly. Respiratory: Clear to auscultation bilaterally, Normal air movement. Cardiovascular: No edema, Normal pulses, Regular rate/rhythm. Capillary refill: <2 Seconds. Gastrointestinal: Normal bowel sounds, Hypoactive, Soft and benign. Integumentary: right foot 2nd tarsal amputation, with callus present on medial aspect of right foot on wanda prominance, left foot 1st metatsral and tasral amputation. - Studies Medications List Reviewed: Yes Assessment And Plan - Plan Conclusions/Impression: Assessment: 1.Left metatarsal and tarsal amputation s/p diabetic foot ulcer with osteomyelitis 2. two callus on wanda prominence of medial aspect of right foot 3. DM type 2 4. anemia 5. HTN 6. HLD plan: 1. Per Dr. Ramírez OR note, plan is to place wound VAC over incision site. Surgical dressing still in place at this time. 2. [place] with Betadine and protect with foam. Wound on left foot began as callus-want to avoid greater wound formation on right foot. 3. sugar goal under 150 for proper wound healing -medical management per primary team -continue to monitor CBC and BMP -continue to monitor for signs of infection Plan of care discussed with Dr. Fitzpatrick Thank you for consultation Physician Review: Patient Assessed, Agree with Above Assessment and Plan
[2020-11-26] MEDS: VANCOMYCIN 1.75 GM in NA CHLORIDE 0.9% 500 ML IVPB SCH (16:08)
--- NOTE | 2020-11-26 23:13 | PN ---
Date of Progress Note: 11/26/2020 Diagnosis: Left foot osteomyelitis, cellulitis, status post transmetatarsal amputation. The patient is doing well, but he has refused the wound VAC today and he refused wound care. At this moment, we come to the hospital to explained to him the importance of being compliance with treatmen t. If he does not allow dressing changes or if he does not allow the wound VAC, he may be compromise d in his care, which although is his life, he has to understand the consequence of that. I will be w ith him in any decision he want to make but may be not be the result he wants to. I discussed with eder mckeon few seconds ago and he is thinking he will allow dressing changes right now, although he is still deciding on the wound VAC. From the surgical standpoint, we will continue the service and the servic e by the primary doctor. He just has to follow up with [facility]. He did have to do wet-to-dry and a wound VAC, but the time he gets discharged, he has made the decision. It is i mperative that he continue dressing changes, control his diabetes and also offload the right foot bec ause the right foot is starting to show the same findings that the left-side did long time ago and he knows the result of not properly offloading that area with the shoes already prescribed for him. DANE/AAYUSHL Voice ID: [id number] Report ID: [id number]
[2020-11-27] MEDS: carvediloL 6.25 MG TAB PO SCH ×2 (05:46→17:06)
--- NOTE | 2020-11-27 08:33 | P.PN ---
Date of Service: 11/26/20 Subjective Subjective: Patient status post amputation. Per General surgery okay to discharge on oral antibiotics. Will arrange for discharge once wound VAC is placed Review of Systems 10-point ROS is otherwise unremarkable Physical Examination - Vital Signs reviewed - Physical Exam General: Alert, In no apparent distress, Oriented x3 Respiratory: Clear to auscultation bilaterally, Normal air movement Cardiovascular: Regular rate/rhythm, Normal S1 S2, No murmurs Gastrointestinal: Normal bowel sounds, Soft and benign, Non-distended, No tenderness Musculoskeletal: No clubbing, No swelling, No tenderness; toe with skin breakdown and erythema; wound-clean, dry, and intact Neurological: Sensation intact, Cranial nerves 3-12 intact Lymphatics: No axilla or inguinal lymphadenopathy Assessment & Plan - Problems (Diagnosis) (1) Diabetic ulcer of right foot Current Visit: No Status: Chronic Qualifiers: Diabetic foot ulcer location: toe (2) Chronic kidney disease, stage 3 Current Visit: No Status: Acute (3) Hx of osteomyelitis Current Visit: No Status: Acute (4) Hyperlipidemia Current Visit: No Status: Acute (5) Hypertension Current Visit: No Status: Acute - Plan 1. Continue with IV antibiotic 2. Continue with local wound care 3. Wound care consultation/surgical consultation appreciated 4. Cardiac workup to rule out significant peripheral arterial disease 5. Monitor CBC 6. Strict blood sugar monitoring 7. Pain control 8. GI and DVT prophylaxis Discharge Plan: Home Plan to discharge in: Greater than 2 days - Advance Directives Does patient have a Living Will: No Does patient have a Durable POA for Healthcare: No - Code Status/Comfort Care Code Status Assessed: Yes Code Status: Full Code Critical Care: No Time Spent Managing PTS Care (In Minutes): 35
--- NOTE | 2020-11-27 08:42 | P.PN ---
Date of Service: 11/25/20 Subjective Subjective: Patient go to the OR in the morning. Anticipate discharge home after surgery. Discuss with ID regarding oral antibiotic therapy verses IV antibiotic therapy Review of Systems 10-point ROS is otherwise unremarkable Physical Examination - Vital Signs reviewed - Physical Exam General: Alert, In no apparent distress, Oriented x3 Respiratory: Clear to auscultation bilaterally, Normal air movement Cardiovascular: Regular rate/rhythm, Normal S1 S2, No murmurs Gastrointestinal: Normal bowel sounds, Soft and benign, Non-distended, No tenderness Musculoskeletal: No clubbing, No swelling, No tenderness; toe with skin breakdown and erythema; wound-clean, dry, and intact Neurological: Sensation intact, Cranial nerves 3-12 intact Lymphatics: No axilla or inguinal lymphadenopathy Assessment & Plan - Problems (Diagnosis) (1) Diabetic ulcer of right foot Current Visit: No Status: Chronic Qualifiers: Diabetic foot ulcer location: toe (2) Chronic kidney disease, stage 3 Current Visit: No Status: Acute (3) Hx of osteomyelitis Current Visit: No Status: Acute (4) Hyperlipidemia Current Visit: No Status: Acute (5) Hypertension Current Visit: No Status: Acute - Plan Continue with plan of care as mentioned below: 1. Continue with IV antibiotic 2. Continue with local wound care 3. Wound care consultation/surgical/Cardiology/infectious disease consultation appreciated 4. Arteriogram unremarkable 5. Monitor CBC 6. Strict blood sugar monitoring 7. Pain control 8. GI and DVT prophylaxis
[2020-11-27] MEDS: LOSARTAN POTASSIUM 50 MG TABLET PO SCH ×2 (09:18→20:21)
[2020-11-27] MEDS: MONTELUKAST 10 MG TAB PO SCH (09:25)
[2020-11-27] MEDS: ASPIRIN EC 81 MG TAB PO SCH (09:25)
[2020-11-27] MEDS: FOLIC ACID 1 MG TABLET PO SCH (09:26)
[2020-11-27] MEDS: INSULIN -REGULAR HUMAN 50 UNIT/0.5 ML ML SQ SCH ×3 (09:26→17:07)
[2020-11-27] MEDS: ENOXAPARIN 40 MG/0.4 ML SQ SCH (09:26)
[2020-11-27] MEDS: INSULIN GLARGINE 100 UNITS/ML SQ SCH (09:27)
--- NOTE | 2020-11-27 10:47 | P.PN ---
Subjective Date of Service: 11/27/20 Primary Care Provider: Dr. Kline Chief Complaint: Failed outpatient therapy Subjective: No new changes, Doing well Patient seen and examined at bedside. No acute complaints. Review of Systems 10-point ROS is otherwise unremarkable Physical Examination - Vital Signs Temperature: 97.8 F Blood Pressure: 159/83 Pulse: 84 Respirations: 18 Pulse Ox (%): 96 - Physical Exam Other Physical/Emotional Findings: General: Alert, In no apparent distress, Oriented x3. HEENT: Atraumatic, Normocephalic, PERRLA. Neck: Supple, 2+ carotid pulse no bruit, JVD not distended, No Thyromegaly. Respiratory: Clear to auscultation bilaterally, Normal air movement. Cardiovascular: No edema, Normal pulses, Regular rate/rhythm. Capillary refill: <2 Seconds. Gastrointestinal: Normal bowel sounds, Hypoactive, Soft and benign. Integumentary: right foot 2nd tarsal amputation, with callus present on medial aspect of right foot on wanda prominance, left 1st transmetatarsal amputation- wound left open. - Studies Medications List Reviewed: Yes Assessment And Plan - Plan Conclusions/Impression: Assessment: 1.Left metatarsal and tarsal amputation s/p diabetic foot ulcer with osteomyelitis 2. two callus on wanda prominence of medial aspect of right foot 3. DM type 2 4. anemia 5. HTN 6. HLD plan: 1. Per Dr. Ramírez OR note, plan is to place wound VAC over incision site. Surgical dressing still in place at this time. 2. offload foot, file callus as needed. 3. sugar goal under 150 for proper wound healing -medical management per primary team -continue to monitor CBC and BMP -continue to monitor for signs of infection Plan of care discussed with Dr. Fitzpatrick Thank you for consultation Physician Review: Patient Assessed, Agree with Above Assessment and Plan
[2020-11-27] MEDS ORDERED: VANCOMYCIN 2 GM in NA CHLORIDE 0.9% 500 ML IVPB SCH (15:00)
[2020-11-27 17:42] VITALS: TEMP 97.8
[2020-11-27] MEDS ORDERED: glyBURIDE 2.5 MG TAB PO SCH (17:45)
[2020-11-27 18:35] VITALS: BP 180/62
[2020-11-27] MEDS ORDERED: cloNIDine HCL 0.1 MG TAB PO ONE (19:00)
[2020-11-27] MEDS ORDERED: clonazePAM 0.5 MG TAB PO ONE (19:48)
[2020-11-27 21:17] VITALS: O2SAT 98
[2020-11-28] MEDS ORDERED: hydroCHLOROthiazide 25 MG TAB PO SCH (09:00)
--- NOTE | 2020-12-24 14:11 | P.DS ---
Discharge Date: 11/27/20 Primary Care Provider: Dr. Kline Disposition: ROUTINE DISCHARGE Discharge Condition: GOOD Reason for Admission: Failed outpatient therapy Consultations: Cardiology General surgery Infectious Disease - Problems (1) Diabetic ulcer of right foot Status: Chronic Qualifiers: Diabetic foot ulcer location: toe (2) Chronic kidney disease, stage 3 Status: Acute (3) Hx of osteomyelitis Status: Acute (4) Hyperlipidemia Status: Acute (5) Hypertension Status: Acute Brief History of Present Illness: 55-year-old male with history of diabetes mellitus type 2, hypertension, hyperlipidemia and peripheral vascular disease. Patient presents with diabetic ulcer to the left 1st metatarsal joint region of the foot. Patient has been treated by wound care-surgery Dr. Ramírez. He was apparently seen last week in given antibiotic therapy. No improvement noted. More drainage noted. Increased swelling, erythema. Patient came to the ER for further evaluation. In the ER patient was evaluated. White count 4.8, hemoglobin 12.1. Sodium 137, potassium 5.2. BUN of 32, creatinine 1.68 with a GFR 43. Glucose 210. CRP 87. MRI shows a advance osteomyelitis involving the 1st metatarsal and proximal phalanx of the great toe. Flattening of the 3rd metatarsal head with signal abnormality noted. Mild infrapopliteal peripheral vascular disease noted as well. Patient was started on antibiotic therapy. Patient was admitted for further evaluation and treatment. Patient has history of right 2nd toe amputation. Hospital Course: Patient had an arteriogram which showed normal peripheral arteries. Patient had a amputation of the 1st toe and patient had a transmetatarsal amputation of the 1st digit as well. Patient is clinically doing well. At this time, patient is stable for discharge. Vital Signs/Physical Exam: Temp Pulse Resp BP Pulse Ox 97.8 F 84 18 180/62 H 97 11/27/20 16:00 11/27/20 18:35 11/27/20 16:00 11/27/20 18:35 11/27/20 16:00 General: Alert, In no apparent distress, Oriented x3 Other Physical/Emotional Findings: General: Alert, In no apparent distress, Oriented x3. HEENT: Atraumatic, Normocephalic, PERRLA. Neck: Supple, 2+ carotid pulse no bruit, JVD not distended, No Thyromegaly. Respiratory: Clear to auscultation bilaterally, Normal air movement. Cardiovascular: No edema, Normal pulses, Regular rate/rhythm. Capillary refill: <2 Seconds. Gastrointestinal: Normal bowel sounds, Hypoactive, Soft and benign. Integumentary: right foot 2nd tarsal amputation, with callus present on medial aspect of right foot on wanda prominance, left 1st transmetatarsal amputation-wound left open. Laboratory Data at Discharge: WBC 5.20 K/uL (4.3-10.9) 11/25/20 05:44 Hgb 11.4 g/dL (13.6-17.9) L 11/25/20 05:44 Hct 32.4 % (39.6-49.0) L 11/25/20 05:44 Plt Count 292 K/uL (152-406) 11/25/20 05:44 PT 12.6 SECONDS (9.5-12.5) H 11/25/20 05:44 INR 1.09 11/25/20 05:44 APTT 30.8 SECONDS (24.3-36.9) 11/25/20 05:44 Sodium 141 mmol/L (136-145) 11/25/20 05:44 Potassium 4.1 mmol/L (3.5-5.1) 11/25/20 05:44 BUN 19 mg/dL (7-18) H 11/25/20 05:44 Creatinine 1.41 mg/dL (0.55-1.3) H 11/25/20 05:44 Glucose 266 mg/dL (74-106) H 11/25/20 05:44 Phosphorus 3.7 mg/dL (2.5-4.9) 11/25/20 05:44 Magnesium 2.3 mg/dL (1.8-2.4) 11/25/20 05:44 Total Bilirubin 0.3 mg/dL (0.2-1.0) 11/19/20 09:43 AST 30 U/L (15-37) 11/19/20 09:43 ALT 48 U/L (12-78) 11/19/20 09:43 Alkaline Phosphatase 99 U/L (45-117) 11/19/20 09:43 Triglycerides 164 mg/dL (<150) H 11/20/20 05:51 Cholesterol 144 mg/dL (<200) 02/05/21 05:51 HDL Cholesterol 29 mg/dL (40-60) L 11/20/20 05:51 Cholesterol/HDL Ratio 4.97 11/20/20 05:51 Home Medications: Losartan Potassium [Cozaar*] 50 mg PO SEECOM 01/17/18 glyBURIDE [Glyburide] 1 tab PO BID 01/17/18 Lovastatin 20 mg PO BEDTIME 03/29/20 Montelukast [Singulair*] 10 mg PO DAILY 03/29/20 Insulin Glargine Human [Lantus*] 10 units SQ BID #1 bottle 04/01/20 Hydrochlorothiazide 50 mg PO DAILY 11/19/20 Insulin Aspart [Novolog Flexpen] See Protocol SQ ACHS 11/19/20 Losartan Potassium 100 mg PO SEECOM 11/24/20 Losartan Potassium [Cozaar*] 50 mg PO BID #60 tablet 11/27/20 Minocycline HCl 100 mg PO BID #14 capsule 11/27/20 New Medications: Losartan Potassium [Cozaar*] 50 mg PO BID #60 tablet Minocycline HCl 100 mg PO BID #14 capsule Physician Discharge Instructions: OK TO DC IV AND DC HOME FOLLOW-UP WITH PRIMARY CARE PROVIDER IN 1-2 WEEKS FOLLOW-UP WITH both surgery IN 1 WEEK RETURN TO THE ER IF symptoms worsen CALL or TEXT DR. GREEN AT [phone] IF ANY QUESTIONS REGARDING HOSPITAL STAY. PLEASE CALL THE FLOOR AT [phone] IF ANY MEDICATION OR NURSING QUESTIONS. Diet: ADA Activity: Fall precautions Followup: Mikey Kline DO, DO [Primary Care Provider] - Jevon Ramírez MD [ACTIVE - CAN ADMIT] - Stuart Ontiveros MD [ACTIVE - CAN ADMIT] - (2 weeks) Time spent managing pt's care (in minutes): 35
--- NOTE | 2020-12-31 19:03 | CON ---
Date of Consultation: 11/20/2020 Reason For Consultation: Possible peripheral vascular disease due to a nonhealing wound. History Of Present Illness: This is a 55-year-old male with diabetes, hypertension, dyslipidemia, pr esents with diabetic foot ulcer on the left foot. I was consulted to evaluate for possible presence of peripheral vascular disease as the wound is not healing. Denies having any chest pain, shortness of breath. No known history of coronary artery disease or peripheral vascular disease. Past Medical History: As outlined above in HPI. Medications: Refer to reconciliation sheet for detailed list. Allergies: ATORVASTATIN. Family History: No premature coronary artery disease or cancer. Social History: Does not smoke or drink. Does not use any drugs. Review of Systems: All systems reviewed and they were negative except what mentioned in the HPI. Physical Examination: Vital Signs: Reviewed. Head and Neck: Pupils are equal, reactive to light. Intact eye movements. No JVD. No cervical lym phadenopathy. Neck: Supple. Thyroid is not enlarged. Lungs: Clear to auscultation bilaterally. No rhonchi, rales, or crackles. No accessory muscle use. Heart: Regular rate and rhythm. No extra sounds. Abdomen: Soft, nontender. Bowel sounds positive. No organomegaly. No masses or hernia. No rigidi ty or rebound. Extremities: No clubbing or cyanosis. Intact pulses. Skin: No rash noted. Neurologic: Alert, awake, oriented x3. No acute focal deficits appreciated. Investigations: Labs were reviewed. Assessment And Plan: Nonhealing ulcer and wound of the left foot, possible peripheral vascular disea se. We will obtain an angiogram to further evaluate the lower extremity vasculature anatomy and gregorio t if indicated. Thank you for the consult. /CHINMAY Voice ID: [id number] Report ID: [id number]
== END 2020-11-27 21:35 | disposition home or self-care (01) | DRG 617 ==
LOC: ER 08:22 → ERHOLD 11:09 → 2ND 15:55
PROVIDERS: ADMIT Family Medicine; ATTEND Hospitalist
PROC: 0JBR0ZZ Excision of Left Foot Subcutaneous Tissue and Fascia, Open Approach (ICD-10-PCS; 2020-11-20)
PROC: B41D1ZZ Fluoroscopy of Aorta and Bilateral Lower Extremity Arteries using Low Osmolar Contrast (ICD-10-PCS; 2020-11-23)
PROC: 0Y6Q0Z1 Detachment at Left 1st Toe, High, Open Approach (ICD-10-PCS; principal; 2020-11-25 14:30)
DX: E11.69 Type 2 diabetes mellitus with other specified complication (principal); M86.8X8 Other osteomyelitis, other site; L03.116 Cellulitis of left lower limb; L02.612 Cutaneous abscess of left foot; E11.65 Type 2 diabetes mellitus with hyperglycemia; E11.51 Type 2 diabetes mellitus with diabetic peripheral angiopathy without gangrene; E11.621 Type 2 diabetes mellitus with foot ulcer; L97.529 Non-pressure chronic ulcer of other part of left foot with unspecified severity; E11.22 Type 2 diabetes mellitus with diabetic chronic kidney disease; N18.30 Chronic kidney disease, stage 3 unspecified; I12.9 Hypertensive chronic kidney disease with stage 1 through stage 4 chronic kidney disease, or unspecified chronic kidney disease; N17.9 Acute kidney failure, unspecified; M25.774 Osteophyte, right foot; D64.9 Anemia, unspecified; E78.5 Hyperlipidemia, unspecified; Z79.899 Other long term (current) drug therapy; Z85.830 Personal history of malignant neoplasm of bone; Z89.422 Acquired absence of other left toe(s); Z89.421 Acquired absence of other right toe(s); Z89.201 Acquired absence of right upper limb, unspecified level; Z20.822 Contact with and (suspected) exposure to COVID-19
CPT/HCPCS: 36200; 36415; 75630; 80048; 80053; 80061; 80202; 81003; 81015; 82947; 83036; 83605; 83735; 84100; 84145; 84439; 84443; 85025; 85610; 85652; 85730; 86140; 87040; 87070; 87075; 87077; 87186; 87205; 88305; 88311; 93925; 96365; 96375; 99285; C1760; C1887; C1893; J0360; J0692; J1644; J1650; J1815; J2250; J2405; J2704; J3010; J3370; J7030; J7040; U0003

== ENCOUNTER 2022-03-05 00:30 | Observation (INO) | payer OTHER ==
--- OUTSIDE RECORDS SUMMARY | 2022-03-05 00:34 | XMS REPORT | Continuity of Care Document ---
:1965 Author Organization [facility] t Address [address] [place] [address] Care Team Providers Name Role Phone Angie Olson Attending Clinician Unavailable Problems This patient has no known problems. Allergies, Adverse Reactions, Alerts This patient has no known allergies or adverse reactions. Medications This patient has no known medications. Procedures This patient has no known procedures. Encounters Start End Encounter Admission Attending Care Care Encounter Source Date/Time Date/Time Type Type Clinicians Facility Department ID 2022-01-03 Outpatient [facility], [facility] [place] [facility] [place] [id number] Common 14:02:04 [facility] 2022-03-02 2022-03-02 ambulatory [facility] [place] [facility] [place] [id number] Common 00:00:00 00:00:00 [facility] 2022-01-18 2022-01-18 ambulatory [facility] [id number] Common 00:00:00 00:00:00 [facility] 2022-01-03 2022-01-03 ambulatory [facility] [place] [facility] [place] [id number] Common 00:00:00 00:00:00 [facility] Results Test Description Test Time Test Comments Results Result Comments Source SARS-COV2/RT-PCR ([facility]) 2020-05-06 00:50:00 Test Item Value Reference Range Interpretation Comme nts SARS-COV2/RT-PCR (test code = 2510525) Not Detected Not Detec audrey, Negative, See external report for linked test SARS-COV-2 PERFORMING LAB (test code = [facility] [id number]) Negative results do not preclude SARS-CoV-2 infection [...] of the Act.Fact Sheet for Healthcare Pro viders:https://www.[employer].Support [employer] App/Documents/Xpert%20Xpress%20SARS%20CoV-2/Fact%20Sh eets/302-3802%30VGRS-BNV-4%20HEALTHCARE%20PROVIDERS%20FACT%20SHEET.pdfFact Sheet for Healthcare Patients:https://www.[employer]/Documents/Xpert%20Xpress%20SARS%20CoV-2/Fact%20Sheets/302-3801%20SARS-COV -2%20PATIENT%20FACT%20SHEET.pdfPerforming Laboratory:[facility] [place] [address]
--- NOTE | 2022-03-05 01:22 | ER ---
Nurse's Notes [facility] Name: Anders Balderas Age: 56 yrs Sex: Male : 1965 Arrival Date: 03/05/2022 Time: 00:35 Bed 20 Private MD: Diagnosis: Type 2 diabetes mellitus with hyperglycemia;Cellulitis and acute lymphangitis of other parts of limb-RIGHT LOWER EXTREMITY;Acute kidney failure, unspecified-ON CHRONIC Presentation: 03/05 00:58 Chief complaint: Patient states: "I have had cellulitis before, but my doctor wouldn't tw5 just call in antibiotics without me being seen first.". Coronavirus screen: Vaccine status: Patient reports being unvaccinated. Ebola Screen: Patient negative for fever greater than or equal to 101.5 degrees Fahrenheit, and additional compatible Ebola Virus Disease symptoms Patient denies exposure to infectious person. Patient denies travel to an Ebola-affected area in the 21 days before illness onset. Initial Sepsis Screen: Does the patient meet any 2 criteria? HR > 90 bpm. Does the patient have a suspected source of infection? Yes: Skin breakdown/wound. Risk Assessment: Do you want to hurt yourself or someone else? Patient reports no desire to harm self or others. Onset of symptoms is unknown. Care prior to arrival: Medication(s) given: Tylenol, 650 mg, at 3 PM. 00:58 Method Of Arrival: Ambulatory tw5 00:58 Acuity: CAYETANO 3 tw5 Triage Assessment: 01:00 General: Appears in no apparent distress. Behavior is calm, cooperative, appropriate tw5 for age. Pain: Denies pain. Historical: - Allergies: 01:00 No Known Allergies; tw5 - PMHx: 01:00 bone cancer-right arm as child; Diabetes - NIDDM; Hyperlipidemia; Hypertension; tw5 - PSHx: 01:00 amputation of toes; tw5 - Immunization history:: Flu vaccine is not up to date. - Social history:: Smoking status: Patient reports use of chewing tobacco. - Family history:: not pertinent. Screenin:01 Abuse screen: Denies threats or abuse. Denies injuries from another. Nutritional tw5 screening: No deficits noted. Tuberculosis screening: No symptoms or risk factors identified. Fall Risk No fall in past 12 months (0 pts). Assessment: 01:17 Reassessment: No changes from previously documented assessment. The pt was placed in manas the room \\T\\ 0110. 02:47 Reassessment: The pt is resting comfortably, with his at bedside. The lab called manas to say his glucose was 466. informed. The pt is adamant that he is not staying in the hospital and wants to leave after his abx have completed. I asked that he discuss this with the hospitalist when they come to see him. 03:33 Reassessment: The MD is discussing with the pt and his about staying. The pt manas remains pleasant, but adamant. Orders recv'd. 03:57 Reassessment: The pt's bed was exchanged to a hospital bed, that the house sup left manas outside their door. 04:25 Reassessment: informed that there is no Lantus, as well as, the charge, who helped manas me look. 04:53 Reassessment: Report was given to the "ER Hold" nurse. manas Vital Signs: 00:58 BP 155 / 93; Pulse 107; Resp 18; Temp 99.4; Pulse Ox 98% on R/A; Weight 92.08 kg; tw5 Height 5 ft. 9 in. (175.26 cm); Pain 0/10; 02:49 BP 160 / 96; Pulse 94; Resp 18; Temp 98.2; Pulse Ox 100% on R/A; manas 00:58 Body Mass Index 29.98 (92.08 kg, 175.26 cm) tw5 ED Course: 00:35 Patient arrived in ED. kz 01:00 Triage completed. tw5 01:00 Arm band placed on left wrist. tw5 01:01 Patient has correct armband on for positive identification. tw5 01:05 Sal Johnson MD is Attending Physician. elidia 01:17 Lyn Mckay, RN is Primary Nurse. manas 01:19 Ck Simpson is Hospitalizing Provider. elidia 01:37 EKG done, by ED staff, reviewed by Sal Johnson MD. mb7 01:40 Procalcitonin Sent. manas 01:40 Lactate Sent. manas 01:41 Blood Culture Adult (2) Sent. manas 01:41 SARS-COV-2 RT PCR (Document "Date of Onset" if Symptomatic) Sent. manas 01:41 Basic Metabolic Panel Sent. manas 01:41 CBC with Diff Sent. manas 01:42 LFT's Sent. manas 01:42 Magnesium Sent. manas 01:42 NT PRO-BNP Sent. manas 01:42 PT-INR Sent. manas 01:42 Troponin HS Sent. manas 01:43 Bed in low position. Call light in reach. Side rails up X 1. Door closed. Noise mb7 minimized. Warm blanket given. 01:43 COVID swab sent to lab. mb7 01:58 XRAY Chest (1 view) In Process Unspecified. EDMS 02:50 SARS-COV-2 RT PCR (Document "Date of Onset" if Symptomatic) Sent. manas 07:17 No provider procedures requiring assistance completed. IV discontinued, by maintenance technician 3rd shift ll1 RN prior to my arrival. Administered Medications: 02:04 Drug: Unasyn (ampicillin-sulbactam) 3 grams Route: IVPB; Infused Over: 30 mins; Site: manas left antecubital; 02:50 Follow up: Response: No adverse reaction; IV Status: Completed infusion; IV Intake: manas 100ml 02:04 Drug: NS 0.9% 1000 ml Route: IV; Rate: 1 bolus; Site: left antecubital; manas 07:34 Follow up: IV Status: Completed infusion; IV Intake: 1000ml ll1 02:04 Drug: NS 0.9% 1000 ml Route: IV; Rate: 125 ml/hr; Site: left antecubital; manas 07:33 Follow up: IV Status: Completed infusion; IV Intake: 125ml ll1 02:50 Drug: vancoMYCIN 1.5 grams Route: IVPB; Rate: calculated rate; Site: left antecubital; manas 07:34 Follow up: IV Status: Completed infusion; IV Intake: 250ml ll1 03:46 Not Given (not in the hospitall): LanTUS (insulin glargine) 25 units Sub-Q once manas 03:48 Drug: Insulin Regular Human 8 units {Co-Signature: tw5 (Valentina Andrews).} Route: IVP; manas Site: left antecubital; 07:33 Follow up: Response: No adverse reaction ll1 Medication: 07:18 VIS not applicable for this client. ll1 Intake: 02:50 IV: 100ml; Total: 100ml. manas 07:33 IV: 125ml; Total: 225ml. ll1 07:34 IV: 1000ml; Total: 1225ml. ll1 07:34 IV: 250ml; Total: 1475ml. 1 Outcome: 01:21 Decision to Hospitalize by Provider. elidia 07:17 Admitted to Tele Report called to ER HOLD ll1 07:17 Condition: stable 07:17 Instructed on the need for admit. 07:33 Patient left the ED. [facility] Signatures: Dispatcher [employer] EDSal Burnett MD MD cha Lewis, Lynsay, RN RN ll1 Wood, Tiffany 5 Terri Cardona [facility] Lyn Mckay RN RN bo Zapata, Kelly kz Tiffany Wood tw5
--- NOTE | 2022-03-05 01:22 | EDPHYS ---
Physician Documentation [facility] Name: Anders Balderas Age: 56 yrs Sex: Male : 1965 Arrival Date: 03/05/2022 Time: 00:35 Bed 20 Private MD: ONEL Physician Sal Johnson HPI: 03/05 01:13 This 56 yrs old Male presents to ER via Ambulatory with complaints of Leg elidia Pain. 01:13 The patient presents with decreased range of motion, pain, swelling, tenderness. The elidia complaints affect the lateral aspect of right calf, right calf, medial aspect of right thigh, medial aspect of right knee, medial aspect of right calf and right hassan. Context: The problem was sustained inside, resulted from an unknown cause. Onset: The symptoms/episode began/occurred 3 day(s) ago. Modifying factors: The symptoms are alleviated by elevating leg, remaining still, the symptoms are aggravated by movement, weight bearing. Associated signs and symptoms: Pertinent positives: calf tenderness, fever, warmth, of the right leg. Treatment prior to arrival includes: no previous treatment. Severity of symptoms: At their worst the symptoms were moderate, in the emergency department the symptoms are actually worse. The patient has experienced similar episodes in the past, several times. Historical: - Allergies: 01:00 No Known Allergies; tw5 - PMHx: 01:00 bone cancer-right arm as child; Diabetes - NIDDM; Hyperlipidemia; Hypertension; tw5 - PSHx: 01:00 amputation of toes; tw5 - Immunization history:: Flu vaccine is not up to date. - Social history:: Smoking status: Patient reports use of chewing tobacco. - Family history:: not pertinent. ROS: 01:13 Constitutional: Negative for fever, chills, and weight loss, Eyes: Negative for injury, elidia pain, redness, and discharge, ENT: Negative for injury, pain, and discharge, Neck: Negative for injury, pain, and swelling, Cardiovascular: Negative for chest pain, palpitations, and edema, Respiratory: Negative for shortness of breath, cough, wheezing, and pleuritic chest pain, Abdomen/GI: Negative for abdominal pain, nausea, vomiting, diarrhea, and constipation, Back: Negative for injury and pain, : Negative for injury, bleeding, discharge, and swelling, Skin: Negative for injury, rash, and discoloration, Neuro: Negative for headache, weakness, numbness, tingling, and seizure, Psych: Negative for depression, anxiety, suicide ideation, homicidal ideation, and hallucinations, Allergy/Immunology: Negative for hives, rash, and allergies, Endocrine: Negative for neck swelling, polydipsia, polyuria, polyphagia, and marked weight changes, Hematologic/Lymphatic: Negative for swollen nodes, abnormal bleeding, and unusual bruising. 01:13 MS/extremity: Positive for decreased range of motion, erythema, pain, swelling, tenderness, of the lateral aspect of right calf, right calf, medial aspect of right thigh, medial aspect of right calf and right hassan. Exam: 01:13 Constitutional: This is a well developed, well nourished patient who is awake, alert, elidia and in no acute distress. Head/Face: Normocephalic, atraumatic. Eyes: Pupils equal round and reactive to light, extra-ocular motions intact. Lids and lashes normal. Conjunctiva and sclera are non-icteric and not injected. Cornea within normal limits. Periorbital areas with no swelling, redness, or edema. ENT: Nares patent. No nasal discharge, no septal abnormalities noted. Tympanic membranes are normal and external auditory canals are clear. Oropharynx with no redness, swelling, or masses, exudates, or evidence of obstruction, uvula midline. Mucous membranes moist. Neck: Trachea midline, no thyromegaly or masses palpated, and no cervical lymphadenopathy. Supple, full range of motion without nuchal rigidity, or vertebral point tenderness. No Meningismus. Chest/axilla: Normal chest wall appearance and motion. Nontender with no deformity. No lesions are appreciated. Cardiovascular: Regular rate and rhythm with a normal S1 and S2. No gallops, murmurs, or rubs. Normal PMI, no JVD. No pulse deficits. Respiratory: Lungs have equal breath sounds bilaterally, clear to auscultation and percussion. No rales, rhonchi or wheezes noted. No increased work of breathing, no retractions or nasal flaring. Abdomen/GI: Soft, non-tender, with normal bowel sounds. No distension or tympany. No guarding or rebound. No evidence of tenderness throughout. Back: No spinal tenderness. No costovertebral tenderness. Full range of motion. Male : Normal genitalia with no discharge or lesions. Neuro: Awake and alert, GCS 15, oriented to person, place, time, and situation. Cranial nerves II-XII grossly intact. Motor strength 5/5 in all extremities. Sensory grossly intact. Cerebellar exam normal. Normal gait. Psych: Awake, alert, with orientation to person, place and time. Behavior, mood, and affect are within normal limits. 01:13 Skin: cellulitis, that is moderate, confluent, on the right leg. 01:37 ECG was reviewed by the Attending Physician. [facility] Vital Signs: 00:58 BP 155 / 93; Pulse 107; Resp 18; Temp 99.4; Pulse Ox 98% on R/A; Weight 92.08 kg; tw5 Height 5 ft. 9 in. (175.26 cm); Pain 0/10; 02:49 BP 160 / 96; Pulse 94; Resp 18; Temp 98.2; Pulse Ox 100% on R/A; manas 00:58 Body Mass Index 29.98 (92.08 kg, 175.26 cm) tw5 MDM: 01:05 Patient medically screened. [facility] 01:17 Differential diagnosis: abrasion, tendonitis. Data reviewed: vital signs, nurses notes, [facility] lab test result(s), EKG, radiologic studies. Data interpreted: Pulse oximetry: on room air is 98 %. Test interpretation: by ED physician or midlevel provider: ECG, plain radiologic studies. Counseling: I had a detailed discussion with the patient and/or guardian regarding: the historical points, exam findings, and any diagnostic results supporting the discharge/admit diagnosis, lab results, radiology results, the need for further work-up and treatment in the hospital. 03/05 01:12 Order name: Basic Metabolic Panel; Complete Time: 03: [facility] 03/05 01:12 Order name: CBC with Diff; Complete Time: 02:15 [facility] 03/05 01:12 Order name: LFT's; Complete Time: 03: [facility] 03/05 01:12 Order name: Magnesium; Complete Time: 03: [facility] 03/05 01:12 Order name: NT PRO-BNP; Complete Time: 03: [facility] 03/05 01:12 Order name: PT-INR; Complete Time: 02:20 [facility] 03/05 01:12 Order name: Troponin HS; Complete Time: 03: [facility] 03/05 01:12 Order name: XRAY Chest (1 view) [facility] 03/05 01:12 Order name: Blood Culture Adult (2) [facility] 03/05 01:12 Order name: Lactate; Complete Time: 03:21 [facility] 03/05 01:12 Order name: Procalcitonin; Complete Time: 03:21 [facility] 03/05 01:31 Order name: SARS-COV-2 RT PCR (Document "Date of Onset" if Symptomatic); Complete Time: [facility] 0303/05 03:40 Order name: US Extremity Venous Unilateral Ltd [facility] 03/05 01:12 Order name: EKG; Complete Time: 01:14 [facility] 03/05 01:12 Order name: Cardiac monitoring; Complete Time: :37 [facility] 03/05 01:12 Order name: EKG - Nurse/Tech; Complete Time: :37 [facility] 03/05 01:12 Order name: IV Saline Lock; Complete Time: :41 [facility] 03/05 01:12 Order name: Labs collected and sent; Complete Time: : [facility] 03/05 01:12 Order name: O2 Per Protocol; Complete Time: : [facility] 03/05 01:12 Order name: O2 Sat Monitoring; Complete Time: :41 [facility] EC:37 Rate is 98 beats/min. Rhythm is regular. QRS [place] is Normal. MT interval is normal. QRS elidia interval is normal. QT interval is normal. No Q waves. T waves are Normal. No ST changes noted. Clinical impression: NSR w/ Non-specific ST/T Changes and No evidence of ischemia. Interpreted by me. Reviewed by me. Administered Medications: 02:04 Drug: Unasyn (ampicillin-sulbactam) 3 grams Route: IVPB; Infused Over: 30 mins; Site: manas left antecubital; 02:50 Follow up: Response: No adverse reaction; IV Status: Completed infusion; IV Intake: manas 100ml 02:04 Drug: NS 0.9% 1000 ml Route: IV; Rate: 1 bolus; Site: left antecubital; manas 07:34 Follow up: IV Status: Completed infusion; IV Intake: 1000ml ll1 02:04 Drug: NS 0.9% 1000 ml Route: IV; Rate: 125 ml/hr; Site: left antecubital; manas 07:33 Follow up: IV Status: Completed infusion; IV Intake: 125ml ll1 02:50 Drug: vancoMYCIN 1.5 grams Route: IVPB; Rate: calculated rate; Site: left antecubital; manas 07:34 Follow up: IV Status: Completed infusion; IV Intake: 250ml ll1 03:46 Not Given (not in the hospitall): LanTUS (insulin glargine) 25 units Sub-Q once manas 03:48 Drug: Insulin Regular Human 8 units {Co-Signature: tw5 (Valentina Andrews).} Route: IVP; manas Site: left antecubital; 07:33 Follow up: Response: No adverse reaction ll1 Disposition Summary: 03/05/22 01:21 Hospitalization Ordered Provider: Ck Simpson cha Condition: Fair elidia Problem: new elidia Symptoms: have improved elidia Bed/Room Type: Standard elidia Hospitalization Status: Observation(03/05/22 03:37) elidia Location: [facility] ER HOLD(03/05/22 03:49) tw5 Room Assignment: ERHOLD-(03/05/22 03:49) tw5 Diagnosis - Type 2 diabetes mellitus with hyperglycemia elidia - Cellulitis and acute lymphangitis of other parts of limb - RIGHT LOWER EXTREMITY elidia - Acute kidney failure, unspecified - ON CHRONIC elidia Forms: - Medication Reconciliation Form elidia - SBAR form elidia Signatures: Dispatcher [employer] EDLoulou Castle RN RN Sal Tay MD MD cha Wood, Tiffany 5 Lyn Mckay RN RN bo Brown, Sophia, PA PA sb3 Nando Carr RN 1 Valentina Andrews tw5 Corrections: (The following items were deleted from the chart) 01:25 01:21 Telemetry/MedSurg (Inpatient) [facility] 01:25 01:21 elidia 03:37 01:21 Inpatient Admission elidia [facility] 03:37 01:25 [facility] ER HOLD [facility] 03:37 01:25 ERHOLD- [facility] 03:49 03:37 Telemetry/MedSurg (observation) [facility] tw5 03:49 03:37 [facility]5
[2022-03-05] MEDS ORDERED: AMPICILLIN/SULBACTAM 3GM/VIAL ONE (01:52)
[2022-03-05] MEDS ORDERED: NA CHLORIDE 0.9% 1,000 ML ONE (01:53)
[2022-03-05] MEDS ORDERED: VANCOMYCIN 500 MG/VIAL ONE (01:53)
[2022-03-05] MEDS ORDERED: NA CHLORIDE 0.9% 100 ML IV ONE (01:53)
[2022-03-05] MEDS ORDERED: NA CHLORIDE 0.9% 500 ML ONE (01:53)
[2022-03-05] MEDS ORDERED: VANCOMYCIN 1 GM/VIAL ONE (01:53)
[2022-03-05 02:10] LABS: Hematocrit 37.6 % (39.6-49.0); Lymphocytes % 12.7 % (15.3-44.8); MPV 7.4 fL (7.6-11.3); RBC Red Blood Cell Count 4.47 M/uL (4.33-5.43)
[2022-03-05 02:17] LABS: Protime INR 1.1
[2022-03-05 02:36] LABS: Albumin 2.7 g/dL (3.4-5.0); Bilirubin Direct 0.2 mg/dL (0-0.2); Bilirubin Total 0.6 mg/dL (0.2-1.0); Magnesium 2.5 mg/dL (1.8-2.4); Potassium 4.4 mmol/L (3.5-5.1); Protein, Total 7.7 g/dL (6.4-8.2)
--- NOTE | 2022-03-05 02:36 | P.HP ---
Certification for Inpatient Patient admitted to: Inpatient With expected LOS: <2 Midnights Patient will require the following post-hospital care: None Practitioner: I am a practitioner with admitting privileges, knowledge of patient current condition, hospital course, and medical plan of care. Services: Services provided to patient in accordance with Admission requirements found in Title 42 Section 412.3 of the Code of Federal Regulations Patient History Date of Service: 03/05/22 Primary Care Provider: Wesley Bruner atorvastatin [From Lipitor] Adverse Reaction (Verified 11/24/20 21:28) headache/muscle pain Home medications list reviewed: Yes Home Medications: glyBURIDE [Glyburide] 1 tab PO BID 01/17/18 Lovastatin 20 mg PO BEDTIME 03/29/20 Insulin Glargine Human [Lantus*] 10 units SQ BID #1 bottle 04/01/20 Insulin Aspart [Novolog Flexpen] See Protocol SQ ACHS 11/19/20 Amlodipine [Norvasc] 5 mg PO DAILY 01/19/22 Gabapentin 300 mg PO BID 01/19/22 hydroCHLOROthiazide [Hydrochlorothiazide] 12.5 mg PO DAILY 01/19/22 - Past Medical/Surgical History Diabetic: Yes -: Diabetes mellitus type 2 -: Hyperlipidemia -: HTN -: Bone Cancer Right arm -: right arm amputation -: left 5th digit toe amputation -: right 2nd toe amputation -: left 1st digit toe amputation Psychosocial/ Personal History: Patient lives at home with his . - Family History Father -: Diabetes Mother -: Diabetes Notes: Alzheimers - Social History Smoking Status: Current every day smoker (uses chewing tobacco) Alcohol use: Yes CD- Drugs: No Caffeine use: No Place of Residence: Home Review of Systems Musculoskeletal: Leg Pain Physical Examination - Physical Exam General: Alert, In no apparent distress, Oriented x3 HEENT: Atraumatic, PERRLA, Mucous membr. moist/pink, EOMI, Sclerae nonicteric Neck: Supple, 2+ carotid pulse no bruit, No LAD, Without JVD or thyroid abnormality Respiratory: Clear to auscultation bilaterally, Normal air movement Cardiovascular: Regular rate/rhythm, Normal S1 S2 Gastrointestinal: Normal bowel sounds, No tenderness Musculoskeletal: No tenderness Integumentary: No rashes Neurological: Normal gait, Normal speech, Normal strength at 5/5 x4 extr, Normal tone, Normal affect Lymphatics: No axilla or inguinal lymphadenopathy - Studies Laboratory Data (last 24 hrs) 03/05/22 01:30: PT 12.1, INR 1.10 03/05/22 01:30: WBC 8.1, Hgb 12.7 L, Hct 37.6 L, Plt Count 208 Assessment and Plan - Problems (Diagnosis) (1) Cellulitis of right lower extremity Current Visit: Yes Status: Acute (2) Hx of osteomyelitis Current Visit: No Status: Chronic (3) Hyperlipidemia Current Visit: Yes Status: Chronic Qualifiers: Hyperlipidemia type: mixed hyperlipidemia Qualified Code(s): E78.2 - Mixed hyperlipidemia (4) Hypertension Current Visit: Yes Status: Chronic Qualifiers: Hypertension type: primary hypertension Qualified Code(s): I10 - Essential (primary) hypertension (5) Diabetes Current Visit: Yes Status: Chronic Qualifiers: Diabetes mellitus type: type 2 Diabetes mellitus longterm insulin use: with longterm use Diabetes mellitus complication status: with skin complications Diabetes mellitus complication detail: with dermatitis Qualified Code(s): E11.620 - Type 2 diabetes mellitus with diabetic dermatitis; Z79.4 - detention (current) use of insulin Discharge Plan: Home Plan to discharge in: 48 Hours - Advance Directives Does patient have a Living Will: No Does patient have a Durable POA for Healthcare: No - Code Status/Comfort Care Code Status Assessed: Yes (Full) Critical Care: No Time Spent Managing Pts Care (In Minutes): 70
[2022-03-05] MEDS ORDERED: INSULIN -REGULAR HUMAN 50 UNIT/0.5 ML ML ONE (03:48)
--- NOTE | 2022-03-05 04:21 | P.HP ---
Certification for Inpatient Patient admitted to: Observation With expected LOS: <2 Midnights Patient will require the following post-hospital care: None Practitioner: I am a practitioner with admitting privileges, knowledge of patient current condition, hospital course, and medical plan of care. Services: Services provided to patient in accordance with Admission requirements found in Title 42 Section 412.3 of the Code of Federal Regulations Patient History Date of Service: 03/05/22 Primary Care Provider: Wesley Reason for admission: Cellulitus RLE History of Present Illness: Patient is a 56-year-old male with past medical history of uncontrolled type 2 diabetes insulin-dependent, hypertension, hyperlipidemia, history of osteomyelitis who presented to the ED with complaints of right lower extremity infection. He states that he noticed the leg starting to look infected about 2 days ago but his PCP would not call him in antibiotics without seeing him. He denies pain or loss of sensation. He states it is isolated to the hassan area. Labs significant for creatinine of 2.8, glucose 466, Na 129, procal 1.15. WBC and lactic acid WNL. VSS. He was started on vancomycin and Unasyn in the ED. Patient initially declined admission but agreed to observation. Will admit for continuation of IV antibiotics. Allergies atorvastatin [From Lipitor] Adverse Reaction (Verified 11/24/20 21:28) headache/muscle pain Home medications list reviewed: Yes Home Medications: glyBURIDE [Glyburide] 1 tab PO BID 01/17/18 Lovastatin 20 mg PO BEDTIME 03/29/20 Insulin Glargine Human [Lantus*] 10 units SQ BID #1 bottle 04/01/20 Insulin Aspart [Novolog Flexpen] See Protocol SQ ACHS 11/19/20 Amlodipine [Norvasc] 5 mg PO DAILY 01/19/22 Gabapentin 300 mg PO BID 01/19/22 hydroCHLOROthiazide [Hydrochlorothiazide] 12.5 mg PO DAILY 01/19/22 - Past Medical/Surgical History Diabetic: Yes -: Diabetes mellitus type 2 -: Hyperlipidemia -: HTN -: Bone Cancer Right arm -: right arm amputation -: 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 - Family History Father -: Diabetes Mother -: Diabetes Notes: Alzheimers - Social History Smoking Status: Current every day smoker (patient uses chewing tobacco) Alcohol use: Yes CD- Drugs: No Caffeine use: No Review of Systems Unremarkable Integumentary: As per HPI Physical Examination - Physical Exam General: Alert, In no apparent distress HEENT: Atraumatic, PERRLA, Mucous membr. moist/pink, EOMI, Sclerae nonicteric Neck: Supple, 2+ carotid pulse no bruit, No LAD, Without JVD or thyroid abnormality Respiratory: Clear to auscultation bilaterally, Normal air movement Cardiovascular: Regular rate/rhythm, Normal S1 S2 Gastrointestinal: Normal bowel sounds, No tenderness Musculoskeletal: No tenderness Integumentary: Erythema, Warmth, Other (cellulitus R hassan) Neurological: Normal gait, Normal speech, Normal tone, Sensation intact, Normal affect - Studies Laboratory Data (last 24 hrs) 03/05/22 01:30: PT 12.1, INR 1.10 03/05/22 01:30: WBC 8.1, Hgb 12.7 L, Hct 37.6 L, Plt Count 208 03/05/22 01:30: Sodium 129 L, Potassium 4.4, BUN 55 H, Creatinine 2.88 H, Glucose 466 H*, Magnesium 2.5 H, Total Bilirubin 0.6, AST 20, ALT 25, Alkaline Phosphatase 88 Assessment and Plan - Problems (Diagnosis) (1) Cellulitis of right lower extremity Current Visit: Yes Status: Acute (2) Hx of osteomyelitis Current Visit: No Status: Chronic (3) Hyperlipidemia Current Visit: Yes Status: Chronic Qualifiers: Hyperlipidemia type: mixed hyperlipidemia Qualified Code(s): E78.2 - Mixed hyperlipidemia (4) Hypertension Current Visit: Yes Status: Chronic Qualifiers: Hypertension type: primary hypertension Qualified Code(s): I10 - Essential (primary) hypertension (5) Diabetes Current Visit: Yes Status: Chronic Qualifiers: Diabetes mellitus type: type 2 Diabetes mellitus nursing home insulin use: with long term care administrator use Diabetes mellitus complication status: with skin complications Diabetes mellitus complication detail: with dermatitis Qualified Code(s): E11.620 - Type 2 diabetes mellitus with diabetic dermatitis; Z79.4 - [facility] (current) use of insulin - Plan -vancomycin and Unasyn started in the ED. Per chart review, patient has been put on Vanco and cefepime for his previous cellulitis infections. -Glucose was 466. Aggressive sliding scale insulin. Diabetic counseling ordered. A1c ordered for the morning -Creatinine elevated. Hold nephrotoxic drugs. -Patient has no other complaints at this time -Heparin for VTE prophylaxis Discharge Plan: Home Plan to discharge in: 24 Hours - Advance Directives Does patient have a Living Will: No Does patient have a Durable POA for Healthcare: No - Code Status/Comfort Care Code Status Assessed: Yes (Full) Critical Care: No Time Spent Managing Pts Care (In Minutes): 70
[2022-03-05] MEDS ORDERED: VANCOMYCIN 1 GM in NA CHLORIDE 0.9% 250 ML IVPB SCH (04:43)
[2022-03-05] MEDS ORDERED: ONDANSETRON 4 MG/2 ML VIAL IV PRN (04:43)
[2022-03-05] MEDS ORDERED: ACETAMINOPHEN 500 MG TAB PO PRN (04:43)
[2022-03-05] MEDS ORDERED: INSULIN GLARGINE 100 UNIT/ML SQ ONE (05:02)
[2022-03-05 05:31] VITALS: O2SAT 100; BMI 37.0
[2022-03-05 05:34] VITALS: BP 133/88; TEMP 97.3
[2022-03-05] MEDS ORDERED: INSULIN -REGULAR HUMAN 50 UNIT/0.5 ML ML SQ SCH (07:30)
[2022-03-05] MEDS ORDERED: CEFEPIME 1 GM in NA CHLORIDE 0.9% 100 ML IV SCH (09:00)
[2022-03-05] MEDS ORDERED: HEPARIN 5000 UNIT/ML 1 ML VIAL SQ SCH (09:00)
--- NOTE | 2022-03-05 11:06 | EKG ---
Test Date: 2022-03-05 Test Time: 01:31:33 Clinical Nutrition Manager: MB MEASUREMENT RESULTS: Intervals: Rate: 98 TN: 148 QRSD: 76 QT: 340 QTc: 434 Baker: P: 69 TN: 148 QRS: 2 T: 69 INTERPRETIVE STATEMENTS: Normal sinus rhythm Minimal voltage criteria for LVH, may be normal variant Borderline ECG Compared to ECG 03/29/2020 17:09:28 Left ventricular hypertrophy now present Sinus tachycardia no longer present Electronically Signed On 03-05-22 11:05:42 CDT by Lj Joe
--- NOTE | 2022-03-05 19:06 | P.DS ---
Admission Date: 03/05/22 Discharge Date: 03/05/22 Primary Care Provider: Wesley Disposition: AMA-LEFT AGAINST MEDICAL ADVIC Discharge Condition: FAIR Reason for Admission: Cellulitus RLE - Problems (1) Cellulitis of right lower extremity Status: Acute (2) Diabetes Status: Chronic Qualifiers: Diabetes mellitus type: type 2 Diabetes mellitus group home insulin use: with group home use Diabetes mellitus complication status: with skin complications Diabetes mellitus complication detail: with dermatitis Qualified Code(s): E11.620 - Type 2 diabetes mellitus with diabetic dermatitis; Z79.4 - [facility] (current) use of insulin Brief History of Present Illness: Patient is a 56-year-old male with past medical history of uncontrolled type 2 diabetes insulin-dependent, hypertension, hyperlipidemia, history of osteomyelitis who presented to the ED with complaints of right lower extremity infection. He states that he noticed the leg starting to look infected about 2 days ago but his PCP would not call him in antibiotics without seeing him. He denies pain or loss of sensation. He states it is isolated to the [place] area. Labs significant for creatinine of 2.8, glucose 466, Na 129, procal 1.15. WBC and lactic acid WNL. VSS. He was started on vancomycin and Unasyn in the ED. Patient initially declined admission but agreed to observation. Patient hospitalized for further management. Hospital Course: Patient hospitalized and started on IV antibiotics. I am told his vancomycin was dosed every 36 hours and patient was not happy about it. Per report, he declined hospitalization. Nursing staff informed me patient wanted to sign out AGAINST MEDICAL ADVICE. Patient informed to wait so I can assess him and have a discussion with him about the need for hospitalization for IV antibiotics. Patient will not wait and signed out AGAINST MEDICAL ADVICE. I called him at [phone] to discuss his plans after signing out AMA, I could not reach him so I left a message for him to call the hospital to discuss if I can be of any assistance. He did not call back. Vital Signs/Physical Exam: Temp Pulse Resp BP Pulse Ox 97.3 F 86 20 133/88 100 03/05/22 04:00 03/05/22 04:00 03/05/22 04:00 03/05/22 04:00 03/05/22 04:00 Laboratory Data at Discharge: WBC 8.1 K/uL (4.3-10.9) 03/05/22 01:30 Hgb 12.7 g/dL (13.6-17.9) L 03/05/22 01:30 Hct 37.6 % (39.6-49.0) L 03/05/22 01:30 Plt Count 208 K/uL (152-406) 03/05/22 01:30 PT 12.1 SECONDS (9.5-12.5) 03/05/22 01:30 INR 1.10 03/05/22 01:30 Sodium 129 mmol/L (136-145) L 03/05/22 01:30 Potassium 4.4 mmol/L (3.5-5.1) 03/05/22 01:30 BUN 55 mg/dL (7-18) H 03/05/22 01:30 Creatinine 2.88 mg/dL (0.55-1.3) H 03/05/22 01:30 Glucose 466 mg/dL (74-106) H* 03/05/22 01:30 Magnesium 2.5 mg/dL (1.8-2.4) H 03/05/22 01:30 Total Bilirubin 0.6 mg/dL (0.2-1.0) 03/05/22 01:30 AST 20 U/L (15-37) 03/05/22 01:30 ALT 25 U/L (12-78) 03/05/22 01:30 Alkaline Phosphatase 88 U/L (45-117) 03/05/22 01:30 Home Medications: glyBURIDE [Glyburide] 1 tab PO BID 01/17/18 Lovastatin 20 mg PO BEDTIME 03/29/20 Insulin Glargine Human [Lantus*] 10 units SQ BID #1 bottle 04/01/20 Insulin Aspart [Novolog Flexpen] See Protocol SQ ACHS 11/19/20 Amlodipine [Norvasc] 5 mg PO DAILY 01/19/22 Gabapentin 300 mg PO BID 01/19/22 hydroCHLOROthiazide [Hydrochlorothiazide] 12.5 mg PO DAILY 01/19/22 Followup: Thai Olson DO [Primary Care Provider] -
--- NOTE | 2022-03-06 22:16 | RAD REPORT ---
EXAM DESCRIPTION: Chest Single View CLINICAL HISTORY: COUGH COMPARISON: None. FINDINGS: Single frontal radiograph view of the chest. Due to temporary technical issues with the PACS/Fluency reporting system, reports are being signed by the in house radiologists without review as a courtesy to insure prompt reporting. The interpreting radiologist is fully responsible for the content of the report.
[2022-03-07] MEDS ORDERED: VANCOMYCIN 1.5 GM in NA CHLORIDE 0.9% 500 ML IVPB SCH (09:00)
== END 2022-03-05 07:10 | disposition left against medical advice (07) ==
LOC: ER 00:30 → ERHOLD 02:27 → INTOOBSV 02:27 → ERHOLD 02:38
PROVIDERS: ADMIT Internal Medicine; ATTEND Internal Medicine
DX: L03.115 Cellulitis of right lower limb (principal); E11.620 Type 2 diabetes mellitus with diabetic dermatitis; Z53.21 Procedure and treatment not carried out due to patient leaving prior to being seen by health care provider; E11.65 Type 2 diabetes mellitus with hyperglycemia; I10 Essential (primary) hypertension; E78.2 Mixed hyperlipidemia; Z20.822 Contact with and (suspected) exposure to COVID-19; F17.220 Nicotine dependence, chewing tobacco, uncomplicated; Z85.89 Personal history of malignant neoplasm of other organs and systems; Z79.4 Long term (current) use of insulin; Z79.899 Other long term (current) drug therapy; Z88.8 Allergy status to other drugs, medicaments and biological substances; Z89.201 Acquired absence of right upper limb, unspecified level; Z89.422 Acquired absence of other left toe(s); Z89.421 Acquired absence of other right toe(s); Z83.3 Family history of diabetes mellitus; Z82.0 Family history of epilepsy and other diseases of the nervous system
CPT/HCPCS: 36415; 71045; 80048; 80076; 83036; 83605; 83735; 83880; 84145; 84484; 85025; 85610; 87040; 93005; 96365; 96366; 96367; 96375; 99285; G0378; J0295; J1815; J3370; J7030; J7040; U0003

== ENCOUNTER 2022-03-07 12:44 | Emergency (ER) | payer OTHER ==
--- OUTSIDE RECORDS SUMMARY | 2022-03-07 12:47 | XMS REPORT | Continuity of Care Document ---
:1965 Author Organization [facility] t Address [address] [place] [address] Care Team Providers Name Role Phone Angie [...] Clinicians Facility Department ID 2022-01-03 Outpatient Olson, STLMLC STLC [id number] Common 14:02:04 [facility] 2022-03-04 2022-03-04 ambulatory STLMLC STLMLC [id number] Common 00:00:00 00:00:00 [facility] 2022-03-02 2022-03-02 ambulatory STLMLC STLMLC [id number] Common 00:00:00 00:00:00 [facility] 2022-01-18 2022-01-18 ambulatory STLMLC STLMLC [id number] Common 00:00:00 00:00:00 [facility] 2022-01-03 2022-01-03 ambulatory STLMLC STLMLC [id number] Common 00:00:00 00:00:00 [facility] Results Test Description Test Time Test Comments Results Result Comments Source SARS-COV2/RT-PCR ([facility]) 2020-05-06 00:50:00 Test Item Value Reference Range Interpretation Comme nts SARS-COV2/RT-PCR (test code = 6928280) Not Detected Not Detec audrey, Negative, See external report for linked test SARS-COV-2 PERFORMING LAB (test code = [facility] 6061568) Negative results do not preclude SARS-CoV-2 infection [...] of the Act.Fact Sheet for Healthcare Pro viders:https://www.Everyday.me.[employer]/Documents/Xpert%20Xpress%20SARS%20CoV-2/Fact%20Sh eets/3023802%45MQRR-XZP-8%20HEALTHCARE%20PROVIDERS%20FACT%20SHEET.pdfFact Sheet for Healthcare Patients:https://www.[employer]/Documents/Xpert%20Xpress%20SARS%20CoV-2/Fact%20Sheets/3023801%20SARS-COV -2%20PATIENT%20FACT%20SHEET.pdfPerforming Laboratory:[facility] [place] [address]
[2022-03-07 13:48] LABS: Absolute Lymphocytes (CBC) 1.3 K/uL (0.7-4.9); Hematocrit 37.4 % (39.6-49.0); Lymphocytes % 20.6 % (15.3-44.8); MPV 7.1 fL (7.6-11.3); RBC Red Blood Cell Count 4.43 M/uL (4.33-5.43)
[2022-03-07 13:59] LABS: Protime INR 1.06
[2022-03-07 14:03] LABS: Potassium 4.7 mmol/L (3.5-5.1)
--- NOTE | 2022-03-07 14:12 | RAD REPORT ---
EXAM DESCRIPTION: US - Extremity Venous Uni Ltd - 03/07/2022 2:02 pm CLINICAL HISTORY: SWELLING COMPARISON: None. TECHNIQUE: Real-time sonographic evaluation of the right lower extremity deep venous systems was per formed. FINDINGS: Normal compressibility, flow augmentation, phasic flow and spontaneous flow are identified in the right lower extremity common femoral, superficial femoral, popliteal and posterior tibial vei ns. No intraluminal filling defects seen. Small lymph nodes seen in the right groin. No suspicious so ft tissue finding identifiable. IMPRESSION: No DVT in the right lower extremity.
--- NOTE | 2022-03-07 17:23 | EDPHYS ---
Physician Documentation [facility] Name: Anders Balderas Age: 56 yrs Sex: Male : 1965 Arrival Date: 03/07/2022 Time: 12:51 Bed Treatment Private MD: [facility] ED Physician Art Gonzalez HPI: 03/07 14:38 This 56 yrs old Male presents to ER via Ambulatory with complaints of Leg Swelling, Leg cp Pain. 14:38 The patient presents with pain, that is acute, swelling, tenderness, erythema. cp 14:38 The complaints affect the right lower leg. The patient has been recently been admitted cp at [facility], for similar complaints, 2 days ago patient was admitted for cellulitis of right lower leg and IV antibiotics. Patient reports he left this hospital AMA and is not currently taking any prescribed antibiotics. Patient denies fever, chills. Historical: - PMHx: 13:45 bone cancer-right arm as child; Diabetes - NIDDM; Hyperlipidemia; Hypertension; iw - Immunization history:: Adult Immunizations unknown. - Social history:: Smoking status: unknown. ROS: 14:45 Constitutional: Negative for body aches, chills, fever, poor PO intake. cp 14:45 Eyes: Negative for injury, pain, redness, and discharge. cp 14:45 Cardiovascular: Negative for chest pain, palpitations. 14:45 Respiratory: Negative for cough, shortness of breath, wheezing. 14:45 Abdomen/GI: Negative for abdominal pain, nausea, vomiting, and diarrhea. 14:45 MS/extremity: Positive for erythema, pain, swelling, tenderness, of the right lower leg. 14:45 Neuro: Negative for altered mental status, headache, weakness. 14:45 All other systems are negative. Exam: 14:50 Constitutional: The patient appears in no acute distress, alert, awake, cp non-diaphoretic, non-toxic, well developed, well nourished. 14:50 Head/Face: Normocephalic, atraumatic. cp 14:50 Eyes: Periorbital structures: appear normal, Conjunctiva: normal, no exudate, no injection, Sclera: no appreciated abnormality, Lids and lashes: appear normal, bilaterally. 14:50 ENT: External ear(s): are unremarkable, Nose: is normal, Mouth: Lips: moist, Oral mucosa: moist, Posterior pharynx: Airway: no evidence of obstruction, patent. 14:50 Chest/axilla: Inspection: normal. 14:50 Cardiovascular: Rate: normal, Pulses: Pulses are 2+ in right dorsalis pedis artery. 14:50 Respiratory: the patient does not display signs of respiratory distress, Respirations: normal, no use of accessory muscles, no retractions, labored breathing, is not present, Breath sounds: are clear throughout, no decreased breath sounds. 14:50 Abdomen/GI: Exam negative for discomfort, distension, guarding, Inspection: abdomen appears normal. 14:50 Musculoskeletal/extremity: Extremities: noted in the right lower leg: erythema, swelling, tenderness. Vital Signs: 16:01 BP 156 / 87; Pulse 84; Resp 18; Pulse Ox 99% on R/A; ww 16:35 Temp 98.1(O); tw5 MDM: 15:36 Patient medically screened. 15:45 Data reviewed: vital signs, nurses notes, lab test result(s), radiologic studies, cp ultrasound. 15:45 Physician consultation: Abril Bergman MD was called at 15:45, was contacted at 15:45, regarding admission, patient's condition. 17:15 Physician consultation: Abril Bergman MD in the emergency department to see patient at 17:05, recommends discharge to home: vitals wnl, no elevated wbc, US negative for DVT. RX for oral antibiotics and recommend f/u with pcp. 03/07 13:37 Order name: CBC with Diff; Complete Time: 15:13 03/07 15:13 Interpretation: Normal except: WBC 6.2; HGB 12.5; HCT 37.4; PLT 259; MPV 7.1. 03/07 13:37 Order name: BMP; Complete Time: 15:13 03/07 15:13 Interpretation: Normal except: GLUC 333; BUN 39; CRE 2.23; GFR 34. 03/07 13:37 Order name: PT-INR; Complete Time: 15:13 03/07 13:37 Order name: US Extremity Venous Unilateral Ltd; Complete Time: 15:13 03/07 15:39 Interpretation: Report reviewed. 03/07 15:52 Order name: Vital Signs; Complete Time: 16:01 cp Administered Medications: No medications were administered Disposition: 18:24 Co-signature as Attending Physician, Art Gonzalez DO I was immediately available on-site ms3 in the Emergency Department for consultation in the care of the patient.. Disposition Summary: 03/07/22 17:23 Discharge Ordered Location: Home cp Problem: an ongoing problem cp Symptoms: have improved cp Condition: Stable cp Diagnosis - Cellulitis of right lower limb cp Followup: cp - With: Thai Olson DO - When: 48 Hours - Reason: Wound Recheck Followup: cp - With: Thai Olson DO - When: 48 Hours - Reason: Recheck today's complaints Discharge Instructions: - Discharge Summary Sheet cp - Cellulitis, Adult cp Forms: - Medication Reconciliation Form cp - Thank You Letter cp - Antibiotic Education cp - Prescription Opioid Use cp Prescriptions: - Doxycycline Hyclate 100 mg Oral Tablet - take 1 tablet by ORAL route every 12 hours; 20 tablet; Refills: 0, Product cp Selection Permitted - levofloxacin 500 mg Oral Tablet - take 1 tablet by ORAL route once daily for 10 days; 10 tablet; Refills: 0, cp Product Selection Permitted Signatures: Dispatcher [employer] Joyce Leavitt RN RN Sal Perry PA PA cp Art Gonzalez DO DO ms3 Kisha Andrews RN RN ww Corrections: (The following items were deleted from the chart) 03/08 16:32 05 15:20 Data reviewed: vital signs, nurses notes, lab test result(s), radiologic cp studies, ultrasound, cp
--- NOTE | 2022-03-07 17:23 | ER ---
Nurse's Notes [facility] Name: Anders Balderas Age: 56 yrs Sex: Male : 1965 Arrival Date: 03/07/2022 Time: 12:51 Bed Treatment Private MD: Thai Olson Diagnosis: Cellulitis of right lower limb Presentation: 03/07 13:44 Chief complaint: Patient states: cellulitis to RLE, was seen here and left AMA. iw Coronavirus screen: At this time, the client does not indicate any symptoms associated with coronavirus-19. Ebola Screen: Patient negative for fever greater than or equal to 101.5 degrees Fahrenheit, and additional compatible Ebola Virus Disease symptoms Patient denies exposure to infectious person. Patient denies travel to an Ebola-affected area in the 21 days before illness onset. No symptoms or risks identified at this time. Initial Sepsis Screen: Does the patient meet any 2 criteria? No. Patient's initial sepsis screen is negative. Does the patient have a suspected source of infection? No. Patient's initial sepsis screen is negative. Risk Assessment: Do you want to hurt yourself or someone else? Patient reports no desire to harm self or others. 13:44 Method Of Arrival: Ambulatory iw 13:44 Acuity: CAYETANO 3 iw Historical: - PMHx: 13:45 bone cancer-right arm as child; Diabetes - NIDDM; Hyperlipidemia; Hypertension; iw - Immunization history:: Adult Immunizations unknown. - Social history:: Smoking status: unknown. Screenin:01 Abuse screen: Denies threats or abuse. Nutritional screening: No deficits noted. ww Tuberculosis screening: No symptoms or risk factors identified. Fall Risk None identified. Assessment: 17:40 General: Appears in no apparent distress. Behavior is calm, cooperative. Neuro: Level ww of Consciousness is awake, alert, obeys commands, Oriented to person, place, time, situation, Speech is normal. Cardiovascular: Patient's skin is warm and dry. Respiratory: Airway is patent Respiratory effort is even, unlabored, Respiratory pattern is regular, symmetrical. Vital Signs: 16:01 BP 156 / 87; Pulse 84; Resp 18; Pulse Ox 99% on R/A; ww 16:35 Temp 98.1(O); tw5 ED Course: 12:51 Patient arrived in ED. am2 12:52 Thai Olson DO is Private Physician. am2 13:03 Sal Cao PA is PHCP. cp 13:03 Art Gonzalez DO is Attending Physician. cp 13:44 Initial lab(s) drawn, by me, sent to lab. Inserted saline lock: 22 gauge in left iw forearm, using aseptic technique. Blood collected. 13:45 Triage completed. iw 14:04 US Extremity Venous Unilateral Ltd In Process Unspecified. EDMS 17:22 Thai Olson DO is Referral Physician. cp 17:22 Referral Physician role handed off by Thai Olson DO cp 17:22 Thai Olson DO is Referral Physician. cp 17:40 No provider procedures requiring assistance completed. IV discontinued, intact, ww bleeding controlled, No redness/swelling at site. Pressure dressing applied. 17:40 Patient has correct armband on for positive identification. Bed in low position. Call ww light in reach. Side rails up X 1. Adult w/ patient. Administered Medications: No medications were administered Medication: 17:40 VIS not applicable for this client. ww Outcome: 17:23 Discharge ordered by MD. cp 17:40 Discharged to home ambulatory, with family. ww 17:40 Condition: stable 17:40 Discharge instructions given to patient, family, Instructed on discharge instructions, follow up and referral plans. medication usage, safety practices, Demonstrated understanding of instructions, follow-up care, medications, Prescriptions given X 2. 17:41 Patient left the ED. ww Signatures: Dispatcher [employer] Joyce Leavitt, RN CHARLIE Sal Cao PA PA cp Gisela Aguilar am2 Valentina Andrews tw5 Kisha Andrews RN RN blossom
[2022-03-07 18:11] VITALS: BP 156/87; O2SAT 99
[2022-03-07 18:12] VITALS: TEMP 98.1
== END 2022-03-07 17:41 | disposition home or self-care (01) ==
LOC: ER 12:44
DX: L03.115 Cellulitis of right lower limb (principal); E11.9 Type 2 diabetes mellitus without complications; I10 Essential (primary) hypertension; Z85.830 Personal history of malignant neoplasm of bone
CPT/HCPCS: 36415; 80048; 85025; 85610; 93971; 99284

== ENCOUNTER 2022-04-10 06:00 | Inpatient (IN) | payer OTHER ==
--- OUTSIDE RECORDS SUMMARY | 2022-04-10 06:04 | XMS REPORT | Continuity of Care Document ---
:1965 Author Organization [facility] t Address [address] [place] [address] Care Team Providers Name Role Phone Angie [...] Facility Department ID 2022-01-03 Outpatient Olson, STLMLC STLMLC [id number] Common 14:02:04 [facility] 2022-03-16 2022-03-16 ambulatory STLMLC STLMLC [id number] Common 00:00:00 00:00:00 [facility] 2022-03-04 2022-03-04 ambulatory STLMLC STLMLC [id number] Common 00:00:00 00:00:00 [facility] 2022-03-02 2022-03-02 ambulatory STLMLC STLMLC [id number] Common 00:00:00 00:00:00 [facility] 2022-01-18 2022-01-18 ambulatory STLMLC STLMLC [id number] Common 00:00:00 00:00:00 [facility] 2022-01-03 2022-01-03 ambulatory STLMLC STLMLC [id number] Common 00:00:00 00:00:00 [facility] Results Test Description Test Time Test Comments Results Result Comments Source SARS-COV2/RT-PCR ([facility]) 2020-05-06 00:50:00 Test Item Value Reference Range Interpretation Comme nts SARS-COV2/RT-PCR (test code = [id number]) Not Detected Not Detec audrey, Negative, See external report for linked test SARS-COV-2 PERFORMING LAB (test code = [facility] [id number]) Negative results do not preclude SARS-CoV-2 infection [...] of the Act.Fact Sheet for Healthcare Pro viders:https://www.[employer]ge[employer]/Documents/Xpert%20Xpress%20SARS%20CoV-2/Fact%20Sh eets/3023802%66YDQP-PSI-0%20HEALTHCARE%20PROVIDERS%20FACT%20SHEET.pdfFact Sheet for Healthcare Patients:https://www.[employer] id.[employer]/Documents/Xpert%20Xpress%20SARS%20CoV-2/Fact%20Sheets/3023801%20SARS-COV -2%20PATIENT%20FACT%20SHEET.pdfPerforming Laboratory:[facility] [place] [address]
[2022-04-10 06:20] LABS: Absolute Lymphocytes (CBC) 1.3 K/uL (0.7-4.9); Hematocrit 32.8 % (39.6-49.0); Lymphocytes % 22.2 % (15.3-44.8); MCV 85.6 fL (80-100); MPV 6.5 fL (7.6-11.3); RBC Red Blood Cell Count 3.83 M/uL (4.33-5.43)
[2022-04-10 06:26] LABS: Protime INR 1.1
[2022-04-10] MEDS ORDERED: LABETALOL 20 MG/4ML SYRINGE IV ONE (06:30)
[2022-04-10 06:32] LABS: Arterial Blood Carboxyhemoglob 1.2 % (0-1.5); Blood Gas Oxyhemoglobin 95.6 % (94-97); Blood O2 Saturation 98.1 % (92-98.5)
[2022-04-10 06:47] LABS: ALT/SGPT 25 U/L (12-78); AST/SGOT 18 U/L (15-37); Alkaline Phosphatase 73 U/L (45-117); BUN Blood Urea Nitrogen 30 mg/dL (7-18); Bicarbonate 25 mmol/L (21-32); Bilirubin Total 0.4 mg/dL (0.2-1.0); Glomerular Filtration Rate 36 ml/min (=/>90); Glucose Level 232 mg/dL (74-106); Magnesium 2.4 mg/dL (1.8-2.4); NT PRO-BNP 1049 pg/mL (<125); Potassium 5.1 mmol/L (3.5-5.1); Protein, Total 7.6 g/dL (6.4-8.2); Sodium Level 136 mmol/L (136-145)
[2022-04-10 06:51] LABS: Bilirubin Direct < 0.1 mg/dL (0-0.2)
[2022-04-10] MEDS ORDERED: FUROSEMIDE 20 MG/ 2ML VIAL ONE (07:05)
[2022-04-10] MEDS ORDERED: FUROSEMIDE 40 MG/4 ML VIAL ONE (07:07)
--- NOTE | 2022-04-10 07:10 | EDPHYS ---
Physician Documentation [facility] Name: Anders Balderas Age: 56 yrs Sex: Male : 1965 Arrival Date: 04/10/2022 Time: 06:03 Bed 3 Private MD: ED Physician Betito Sue HPI: 04/10 06:21 This 56 yrs old Male presents to ER via EMS with complaints of Shortness of breath. mh7 06:21 The patient has shortness of breath at rest, with light activity. Onset: The mh7 symptoms/episode began/occurred today. Duration: The symptoms are continuous, and are steadily getting worse. The patient's shortness of breath is aggravated by exertion, light activity, is alleviated by nothing. 06:21 Associated signs and symptoms: Pertinent negatives: chest pain, non-productive cough, mh7 productive cough, diaphoresis, dizziness, fever, hemoptysis, loss of consciousness, nausea, numbness in extremities, visual changes, vomiting. Severity of symptoms: At their worst the symptoms were moderate today, in the emergency department the symptoms have improved moderately. Historical: - Allergies: 06:05 No Known Allergies; lg3 - Home Meds: 06:05 sulfamethoxazole-trimethoprim Oral [Active]; hydrochlorothiazide 12.5 mg Oral tab 1 tab lg3 once daily [Active]; amlodipine 5 mg tab 1 tab once daily [Active]; gabapentin 300 mg oral cap 1 cap BID [Active]; lovastatin 20 mg Oral tab 1 tab once daily [Active]; Novolog 100 unit/mL Sub-Q soln [Active]; Lantus Sub-Q 10 units twice a day [Active]; losartan 100 mg Oral tab 0.5 tab twice day [Active]; - PMHx: 06:05 bone cancer-right arm as child; Diabetes - NIDDM; Hyperlipidemia; Hypertension; lg3 - PSHx: 06:05 amputation of toes; amputation of right arm; lg3 - Immunization history:: Adult Immunizations up to date, Client reports having NOT received the Covid vaccine. - Social history:: Smoking status: Patient denies any tobacco usage or history of. Patient/guardian denies using alcohol, street drugs. ROS: 06:21 Constitutional: Negative for fever, chills, and weight loss, Eyes: Negative for injury, mh7 pain, redness, and discharge, ENT: Negative for injury, pain, and discharge, Neck: Negative for injury, pain, and swelling, Cardiovascular: Negative for chest pain, palpitations, and edema, Abdomen/GI: Negative for abdominal pain, nausea, vomiting, diarrhea, and constipation, Back: Negative for injury and pain, : Negative for injury, bleeding, discharge, and swelling, MS/Extremity: Negative for injury and deformity, Skin: Negative for injury, rash, and discoloration, Neuro: Negative for headache, weakness, numbness, tingling, and seizure, Psych: Negative for depression, anxiety, suicide ideation, homicidal ideation, and hallucinations, Allergy/Immunology: Negative for hives, rash, and allergies, Endocrine: Negative for neck swelling, polydipsia, polyuria, polyphagia, and marked weight changes, Hematologic/Lymphatic: Negative for swollen nodes, abnormal bleeding, and unusual bruising. Exam: 06:21 Head/Face: Normocephalic, atraumatic. Eyes: Pupils equal round and reactive to light, mh7 extra-ocular motions intact. Lids and lashes normal. Conjunctiva and sclera are non-icteric and not injected. Cornea within normal limits. Periorbital areas with no swelling, redness, or edema. Neck: Trachea midline, no thyromegaly or masses palpated, and no cervical lymphadenopathy. Supple, full range of motion without nuchal rigidity, or vertebral point tenderness. No Meningismus. Chest/axilla: Normal chest wall appearance and motion. Nontender with no deformity. No lesions are appreciated. 06:21 Abdomen/GI: Soft, non-tender, with normal bowel sounds. No distension or tympany. No guarding or rebound. No evidence of tenderness throughout. Back: No spinal tenderness. No costovertebral tenderness. Full range of motion. Skin: Warm, dry with normal turgor. Normal color with no rashes, no lesions, and no evidence of cellulitis. MS/ Extremity: Pulses equal, no cyanosis. Neurovascular intact. Full, normal range of motion. Neuro: Awake and alert, GCS 15, oriented to person, place, time, and situation. Cranial nerves II-XII grossly intact. Motor strength 5/5 in all extremities. Sensory grossly intact. Cerebellar exam normal. Normal gait. Psych: Awake, alert, with orientation to person, place and time. Behavior, mood, and affect are within normal limits. 06:21 Constitutional: The patient appears in obvious distress, mildly distressed. 06:21 Cardiovascular: Rate: tachycardic, Rhythm: regular, Pulses: no pulse deficits are appreciated, Heart sounds: normal, normal S1and S2, Edema: is not appreciated, JVD: is not appreciated. 06:21 Respiratory: mild respiratory distress is noted, Respirations: prolonged exhalation, that is mild, Breath sounds: rhonchi, that are moderate, are scattered. Vital Signs: 06:03 BP 191 / 119; Pulse 107; Resp 18 S; Temp 98.3(O); Pulse Ox 100% on 50% Venturi mask; lg3 Weight 92.53 kg (R); Height 5 ft. 10 in. (177.80 cm) (R); Pain 0/10; 06:43 BP 148 / 94; Pulse 85; Resp 18 S; Pulse Ox 100% on 3 lpm NC; lg3 07:58 BP 164 / 96; Pulse 86; Resp 22; Pulse Ox 100% on NC; ww 08:53 BP 172 / 105; Pulse 81; Resp 18; Pulse Ox 100% on 2 lpm NC; ww 06:03 Body Mass Index 29.27 (92.53 kg, 177.80 cm) lg3 08:53 Dr. Armas informed of blood pressure, home medications addressed ww MDM: 07:05 Differential diagnosis: Anemia Anxiety Reaction asthma, Bronchitis CHF exacerbation, mh7 Chronic Obstructive Pulmonary Disease Myocardial Infarction pneumonia, Pneumothorax Psychogenic pulmonary edema, reactive airway disease. Data reviewed: vital signs, nurses notes, EMS record, old medical records, lab test result(s), cardiac enzymes, CBC, electrolytes, EKG, radiologic studies, plain films. Data interpreted: Pulse oximetry: on 3L(s) per nasal canula, is 100 %. Interpretation: acceptable. Counseling: I had a detailed discussion with the patient and/or guardian regarding: the historical points, exam findings, and any diagnostic results supporting the discharge/admit diagnosis, the presence of at least one elevated blood pressure reading (>120/80) during this emergency department visit, lab results, radiology results, the need for further work-up and treatment in the hospital. Response to treatment: the patient's symptoms have markedly improved after treatment. 07:09 Patient medically screened. [facility] 04/10 06:05 Order name: Basic Metabolic Panel; Complete Time: 06:53 [facility] 04/10 06:05 Order name: CBC with Diff; Complete Time: 06:53 [facility] 04/10 06:05 Order name: LFT's; Complete Time: 06:53 [facility] 04/10 06:05 Order name: Magnesium; Complete Time: 06:53 [facility] 04/10 06:05 Order name: NT PRO-BNP; Complete Time: 06:53 [facility] 04/10 06:05 Order name: PT-INR; Complete Time: 06:53 [facility] 04/10 06:05 Order name: Troponin HS; Complete Time: 06:53 [facility] 04/10 06:05 Order name: XRAY Chest (1 view) [facility] 04/10 06:05 Order name: COVID-19 SARS RT PCR (Document "Date of Onset" if Symptomatic) [facility] 04/10 06:05 Order name: Influenza Screen (a \\T\\ B); Complete Time: 06:55 [facility] 04/10 06:17 Order name: Arterial Blood Gas; Complete Time: 06:53 [facility] 04/10 08:43 Order name: Urine Dipstick-Ancillary [facility] 04/10 11:12 Order name: T4 Free [facility] 04/10 11:12 Order name: Thyroid Stimulating Hormone [facility] 04/10 06:05 Order name: EKG; Complete Time: 06:06 04/10 06:05 Order name: Cardiac monitoring; Complete Time: 06:13 [facility] 04/10 06:05 Order name: EKG - Nurse/Tech; Complete Time: 06:13 [facility] 04/10 06:05 Order name: IV Saline Lock; Complete Time: 06:13 [facility] 04/10 06:05 Order name: Labs collected and sent; Complete Time: 06:13 [facility] 04/10 06:05 Order name: O2 Per Protocol; Complete Time: 06:13 [facility] 04/10 06:05 Order name: O2 Sat Monitoring; Complete Time: 06:13 [facility] 04/10 06:05 Order name: Urine Dipstick-Ancillary (obtain specimen); Complete Time: 08:54 [facility] 04/10 09:42 Order name: CONS Physician Consult EDMS Administered Medications: 06:30 Drug: Labetalol 10 mg Route: IV; Rate: per protocol; Infused Over: 2 mins; Site: left lg3 antecubital; 07:37 Drug: Lasix (furosemide) 40 mg Route: IVP; Site: left antecubital; ww 09:41 Drug: amLODIPine 5 mg Route: PO; ww Disposition Summary: 04/10/22 07:09 Hospitalization Ordered Hospitalization Status: Inpatient Admission [facility] Provider: Devante Armas Location: Telemetry/MedSur (Inpatient) [facility] Condition: Stable [facility] Problem: new [facility] Symptoms: have improved [facility] Bed/Room Type: Standard [facility] Room Assignment: 210(04/10/22 11:27) dw Diagnosis - Unspecified combined systolic (congestive) and diastolic (congestive) heart failure [facility] - New Onset Forms: - Medication Reconciliation Form [facility] - SBAR form [facility] Signatures: Dispatcher [employer] Selam Lee RN RN dw Gibson, Lacie, RN RN lg3 Holmes, Maurice, MD MD Kisha Colindres RN RN ww Corrections: (The following items were deleted from the chart) 11:27 07:09 [facility] dw
--- NOTE | 2022-04-10 07:10 | ER ---
Nurse's Notes [facility] Name: Anders Balderas Age: 56 yrs Sex: Male : 1965 Arrival Date: 04/10/2022 Time: 06:03 Bed 3 Private MD: Diagnosis: Unspecified combined systolic (congestive) and diastolic (congestive) heart failure-New Onset Presentation: 04/10 06:03 Chief complaint: Patient states: shortness of breath starting tonight EMS states: EMS lg3 reports pt found in tripod position. O2 at 83% on room air. placed on 15L via Non-rebreather. bilateral wheezing noted on auscultation. EMS gave one albuterol and Atrovent treatment prior to arrival. Coronavirus screen: Client denies travel out of the [place] in the last 14 days. At this time, the client does not indicate any symptoms associated with coronavirus-19. Ebola Screen: No symptoms or risks identified at this time. Initial Sepsis Screen: Does the patient meet any 2 criteria? No. Patient's initial sepsis screen is negative. Does the patient have a suspected source of infection? No. Patient's initial sepsis screen is negative. Risk Assessment: Do you want to hurt yourself or someone else? Patient reports no desire to harm self or others. Onset of symptoms was April 10, 2022. 06:03 Method Of Arrival: EMS: [facility] 06:03 Acuity: CAYETANO 2 lg3 Triage Assessment: 06:05 General: Appears in no apparent distress. uncomfortable, Behavior is calm, cooperative. lg3 Pain: Denies pain. EENT: No deficits noted. No signs and/or symptoms were reported regarding the EENT system. Neuro: No deficits noted. Wilkins Agitation-Sedation Scale (RASS): 0 - Alert and Calm Level of Consciousness is awake, alert, obeys commands. Cardiovascular: Reports shortness of breath, Denies chest pain, Capillary refill < 3 seconds Clubbing of nail beds is absent JVD is absent Patient's skin is warm and dry. Respiratory: Reports shortness of breath at rest Airway is patent Trachea midline Respiratory effort is even, Respiratory pattern is regular, symmetrical, Breath sounds with wheezes. GI: Abdomen is round distended, Bowel sounds present X 4 quads. Reports constipation. : No deficits noted. No signs and/or symptoms were reported regarding the genitourinary system. Derm: No deficits noted. No signs and/or symptoms reported regarding the dermatologic system. Skin is intact, is healthy with good turgor, Skin is dry, Skin temperature is warm. Musculoskeletal: No signs and/or symptoms reported regarding the musculoskeletal system. Amputation of right arm above the elbow. Historical: - Allergies: 06:05 No Known Allergies; lg3 - Home Meds: 06:05 sulfamethoxazole-trimethoprim Oral [Active]; hydrochlorothiazide 12.5 mg Oral tab 1 tab lg3 once daily [Active]; amlodipine 5 mg tab 1 tab once daily [Active]; gabapentin 300 mg oral cap 1 cap BID [Active]; lovastatin 20 mg Oral tab 1 tab once daily [Active]; Novolog 100 unit/mL Sub-Q soln [Active]; Lantus Sub-Q 10 units twice a day [Active]; losartan 100 mg Oral tab 0.5 tab twice day [Active]; - PMHx: 06:05 bone cancer-right arm as child; Diabetes - NIDDM; Hyperlipidemia; Hypertension; lg3 - PSHx: 06:05 amputation of toes; amputation of right arm; lg3 - Immunization history:: Adult Immunizations up to date, Client reports having NOT received the Covid vaccine. - Social history:: Smoking status: Patient denies any tobacco usage or history of. Patient/guardian denies using alcohol, street drugs. Screenin:14 Abuse screen: Denies threats or abuse. Denies injuries from another. Nutritional as6 screening: No deficits noted. Tuberculosis screening: No symptoms or risk factors identified. Fall Risk None identified. Assessment: 06:12 General: see triage assessment . lg3 07:56 General: Appears in no apparent distress. Behavior is calm, cooperative. Neuro: Level ww of Consciousness is awake, alert, obeys commands, Oriented to person, place, time, situation, Moves all extremities. Speech is normal. Cardiovascular: Patient's skin is warm and dry. Rhythm is regular. Respiratory: Airway is patent Respiratory effort is even, Respiratory pattern is regular, Breath sounds with wheezes. GI: No signs and/or symptoms were reported involving the gastrointestinal system. : No signs and/or symptoms were reported regarding the genitourinary system. Derm: No signs and/or symptoms reported regarding the dermatologic system. Musculoskeletal: Amputation of dorsal aspect of right forearm, right wrist, right hand and right forearm. 08:53 Reassessment: Patient appears in no apparent distress at this time. No changes from ww previously documented assessment. Patient and/or family updated on plan of care and expected duration. Pain level reassessed. Patient is alert, oriented x 3, equal unlabored respirations, skin warm/dry/pink. spouse at bedside. 09:37 Reassessment: Verbal order to give his home dose of Amlodipine 5mg once by Dr. Pawel cerrato for blood pressure control. 10:30 Reassessment: Patient appears in no apparent distress at this time. No changes from ww previously documented assessment. Patient and/or family updated on plan of care and expected duration. Pain level reassessed. Patient is alert, oriented x 3, equal unlabored respirations, skin warm/dry/pink. 11:50 Reassessment: attempted to call report to Rika. Informed she is giving medication and blossom will call back. Komal Charge nurse notified. 11:50 Reassessment: Patient appears in no apparent distress at this time. No changes from ww previously documented assessment. Patient and/or family updated on plan of care and expected duration. Pain level reassessed. Patient is alert, oriented x 3, equal unlabored respirations, skin warm/dry/pink. 12:12 Reassessment: Report given to Amy. cerrato Vital Signs: 06:03 BP 191 / 119; Pulse 107; Resp 18 S; Temp 98.3(O); Pulse Ox 100% on 50% Venturi mask; lg3 Weight 92.53 kg (R); Height 5 ft. 10 in. (177.80 cm) (R); Pain 0/10; 06:43 BP 148 / 94; Pulse 85; Resp 18 S; Pulse Ox 100% on 3 lpm NC; lg3 07:58 BP 164 / 96; Pulse 86; Resp 22; Pulse Ox 100% on NC; ww 08:53 BP 172 / 105; Pulse 81; Resp 18; Pulse Ox 100% on 2 lpm NC; ww 06:03 Body Mass Index 29.27 (92.53 kg, 177.80 cm) lg3 08:53 Dr. Armas informed of blood pressure, home medications addressed ED Course: 06:03 Patient arrived in ED. lg3 06:03 Trinidad Felix CHARLIE is Primary Nurse. lg3 06:03 Betito Sue MD is Attending Physician. mh7 06:05 Triage completed. lg3 06:05 Arm band placed on left wrist. lg3 06:13 Influenza Screen (a \\T\\ B) Sent. as6 06:13 Troponin HS Sent. as6 06:13 PT-INR Sent. as6 06:13 NT PRO-BNP Sent. as6 06:13 Magnesium Sent. as6 06:13 LFT's Sent. as6 06:13 CBC with Diff Sent. as6 06:13 Basic Metabolic Panel Sent. as6 06:13 Maintain EMS IV. Dressing intact. Good blood return noted. Site clean \\T\\ dry. Gauge \\T\\ as 6 site: 18G LAC. 06:14 Bed in low position. Call light in reach. Side rails up X2. Client placed on continuous as6 cardiac and pulse oximetry monitoring. NIBP monitoring applied. 06:27 Influenza Screen (a \\T\\ B) Sent. lg3 06:27 COVID-19 SARS RT PCR (Document "Date of Onset" if Symptomatic) Sent. lg3 06:27 Basic Metabolic Panel Sent. lg3 06:28 LFT's Sent. lg3 06:28 Magnesium Sent. lg3 06:28 NT PRO-BNP Sent. lg3 06:28 Troponin HS Sent. lg3 06:40 Arterial Blood Gas Sent. lg3 06:44 XRAY Chest (1 view) In Process Unspecified. EDMS 07:08 Devante Armas MD is Hospitalizing Provider. 7 12:12 No provider procedures requiring assistance completed. Patient admitted, IV remains in ww place. Administered Medications: 06:30 Drug: Labetalol 10 mg Route: IV; Rate: per protocol; Infused Over: 2 mins; Site: left lg3 antecubital; 07:37 Drug: Lasix (furosemide) 40 mg Route: IVP; Site: left antecubital; ww 09:41 Drug: amLODIPine 5 mg Route: PO; ww Medication: 12:12 VIS not applicable for this client. ww Output: 08:54 Urine: 650ml (Voided); Total: 650ml. ww Outcome: 07:09 Decision to Hospitalize by Provider. 7 12:12 Admitted to Med/surg Report called to Rika cerrato 12:12 Condition: stable 12:12 Instructed on the need for admit. 12:13 Patient left the ED. ww Signatures: Dispatcher [employer] EDMS Trinidad Felix RN RN lg3 Betito Sue MD MD mh7 Tima Saleh RN RN as6 Kisha Andrews RN RN ww Corrections: (The following items were deleted from the chart) 06:14 06:03 Chief complaint: Patient states: shortness of breath starting tonight lg3 lg3 06:21 06:05 Respiratory: Reports shortness of breath at rest Airway is patent Trachea midline lg3 Respiratory effort is even, Respiratory pattern is regular, symmetrical, Breath sounds are clear bilaterally. lg3 06:38 06:05 Musculoskeletal: No deficits noted. No signs and/or symptoms reported regarding lg3 the musculoskeletal system. Circulation, motion, and sensation intact. Range of motion: intact in all extremities, lg3
--- NOTE | 2022-04-10 07:44 | RAD REPORT ---
EXAM DESCRIPTION: RAD - Chest Single View - 04/10/2022 6:42 am CLINICAL HISTORY: SOB COMPARISON: Portable 03/05/2022 TECHNIQUE: AP portable chest image was obtained 04/10/2022 6:42 am . FINDINGS: Lung volumes are low accentuating the baseline interstitial pattern. Cardiac silhouette is similar or only fractionally increased over the comparison. There is increased interstitial and scat tered alveolar opacities worse in the lower left lung field. Trachea is midline. No measurable pleural effusion and no pneumothorax. No acute bony abnormality seen. No acute aortic findings suspected. IMPRESSION: Nonspecific interstitial and alveolar opacification without cardiomegaly or vascular eng orgement. Early failure or volume overload would be considered. Asymmetrically prominent left base findings could reflect early pneumonia.
[2022-04-10 08:43] LABS: Urine Blood 2+ (Negative); Urine Glucose Negative (Negative); Urine Protein 3+ (Negative); Urine Specific Gravity 1.025 (1.005-1.030); Urine pH 5.5 (5.0-7.0)
[2022-04-10] MEDS ORDERED: AMLODIPINE 5 MG TAB ONE (09:45)
--- NOTE | 2022-04-10 09:46 | P.HP ---
Certification for Inpatient Patient admitted to: Inpatient With expected LOS: >2 Midnights Practitioner: I am a practitioner with admitting privileges, knowledge of patient current condition, hospital course, and medical plan of care. Services: Services provided to patient in accordance with Admission requirements found in Title 42 Section 412.3 of the Code of Federal Regulations Patient History Date of Service: 04/10/22 Reason for admission: new CHF / volume overload History of Present Illness: 56yo M, PMH: IDDM2, HTN, h/o osteosarcoma s/p RUE amputation, diabetic foot ulc ers Presents to ED due to progressively worsening shortness of breath. Began as dyspnea on exertion. Associated with orthopnea, lower extremity edema. Denies chest pressure/pain. Patient does not have history of CHF as far as he knows. No recent change in his chronic medications. Blood pressure has been normal at home according to the patient. He was recently seen by Dr. Ramírez for his bilateral diabetic foot ulcers in the wound clinic. He was treated 2 weeks ago for cellulitis with Bactrim twice daily. Reports some decreased UOP over the last week, Decrease PO intake as well. In the ED, he was noted be volume overloaded, concern for new/acute CHF exacerbation. EKG without acute ischemic changes, troponin negative. Allergies atorvastatin [From Lipitor] Adverse Reaction (Verified 11/24/20 21:28) headache/muscle pain Home Medications: glyBURIDE [Glyburide] 5 mg PO BID 01/17/18 Lovastatin 20 mg PO BEDTIME 03/29/20 Insulin Aspart [Novolog Flexpen] See Protocol SQ ACHS 11/19/20 Amlodipine [Norvasc] 5 mg PO DAILY 01/19/22 Gabapentin 300 mg PO BID 01/19/22 hydroCHLOROthiazide [Hydrochlorothiazide] 12.5 mg PO DAILY 01/19/22 Insulin Glargine Human [Lantus*] 22 units SQ BID 04/10/22 - Past Medical/Surgical History Diabetic: Yes -: Diabetes mellitus type 2 -: Hyperlipidemia -: HTN -: Bone Cancer Right arm -: left second metatarsal amputation -: right arm amputation -: 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 - Family History Father -: Heart disease, Diabetes Mother -: Diabetes Notes: Alzheimers - Social History Smoking Status: Never smoker Alcohol use: No CD- Drugs: No Caffeine use: Yes Place of Residence: Home Review of Systems 10-point ROS is otherwise unremarkable Physical Examination - Physical Exam General: Alert, Oriented x3, Mild distress HEENT: EOMI, Sclerae nonicteric Respiratory: Diminished, Crackles/rales, Other (on 3L NC) Cardiovascular: Regular rate/rhythm, Edema (1-2+ bilaterally to knees) Gastrointestinal: Soft and benign, Non-distended, No tenderness Musculoskeletal: No contractures, No erythema Integumentary: Diabetic ulcer (b/l feet) Neurological: Normal speech, Normal affect - Studies Laboratory Data (last 24 hrs) 04/10/22 06:10: PT 12.1, INR 1.10 04/10/22 06:10: WBC 6.0, Hgb 11.2 L, Hct 32.8 L, Plt Count 273 04/10/22 06:10: Sodium 136, Potassium 5.1, BUN 30 H, Creatinine 2.14 H, Glucose 232 H, Magnesium 2.4, Total Bilirubin 0.4, AST 18, ALT 25, Alkaline Phosphatase 73 Microbiology Data (last 24 hrs): 04/10/22 06:10 Nasopharnyx Influenza Type A Antigen Screen - Final 04/10/22 06:10 Nasopharnyx Influenza Type B Antigen Screen - Final Assessment and Plan - Advance Directives Does patient have a Living Will: No Does patient have a Durable POA for Healthcare: No Physician Review Additional Text: Problem List acute hypoxemic respiratory failure secondary to volume overload suspected new onset CHF CKD3 HTN IDDM2 h/o osteosarcoma as child, s/p RUE amputation Diabetic foot ulcers CXR with pulm edema 2+ pitting edema on legs bilaterally breathing more comfortably after lasix in ER continue lasix trop negative, EKG without ischemic changes monitor nuclear monitoring technician UOP cardiology consulted nephrology consulted patient finished up course of Bactrim for recent suspected wound infection, may have contributed urine studies ordered accucheks, sliding scale confirm home meds, restart as appropriate patient requesting Dr. Ramírez consult - sees weekly for diabetic foot ulcers VTE: lovenox Code: full Dispo: home, ~2 days Time Spent Managing Pts Care (In Minutes): 75
[2022-04-10] MEDS ORDERED: AMLODIPINE 5 MG TAB PO SCH ×2 (10:00→11:00)
[2022-04-10 10:37] VITALS: BMI 29.1
[2022-04-10 11:11] LABS: Thyroid Stimulating Hormone 4.61 uIU/mL (0.360-3.740)
--- NOTE | 2022-04-10 11:26 | P.CNS ---
Date of Consult: 04/10/22 Reason for Consult: CKD Requesting Physician: Devante Armas Primary Care Provider: Dr. Thai Olson Chief Complaint: Dyspnea History of Present Illness: 56 yo WM DM, HTN presented to the ER with 24 hours of moderate, progressive dyspnea with associated edema. He has known CKD since last year and has his first outpt appt with me on April 14, 2022. No NSAIDs. No difficulty with urination. 06:21 This 56 yrs old Male presents to ER via EMS with complaints of Shortness of breath. mh7 06:21 The patient has shortness of breath at rest, with light activity. Onset: The mh7 symptoms/episode began/occurred today. Duration: The symptoms are continuous, and are steadily getting worse. The patient's shortness of breath is aggravated by exertion, light activity, is alleviated by nothing. 06:21 Associated signs and symptoms: Pertinent negatives: chest pain, non- productive cough, mh7 productive cough, diaphoresis, dizziness, fever, hemoptysis, loss of consciousness, nausea, numbness in extremities, visual changes, vomiting. Severity of symptoms: At their worst the symptoms were moderate today, in the emergency department the symptoms have improved moderately. Allergies atorvastatin [From Lipitor] Adverse Reaction (Verified 11/24/20 21:28) headache/muscle pain Home medications list reviewed: Yes Home Medications: glyBURIDE [Glyburide] 5 mg PO BID 01/17/18 Lovastatin 20 mg PO BEDTIME 03/29/20 Insulin Aspart [Novolog Flexpen] See Protocol SQ ACHS 11/19/20 Amlodipine [Norvasc] 5 mg PO DAILY 01/19/22 Gabapentin 300 mg PO BID 01/19/22 hydroCHLOROthiazide [Hydrochlorothiazide] 12.5 mg PO DAILY 01/19/22 Insulin Glargine Human [Lantus*] 22 units SQ BID 04/10/22 - Past Medical/Surgical History Diabetic: Yes -: DM II with polyneuropathy -: Hyperlipidemia -: HTN -: Osteosarcoma Right arm -: CKD III/ Proteinuria followed by Dr. Mays -: right arm amputation -: left 5th digit toe amputation -: right 2nd toe amputation -: Left metatarsal amputatioin Psychosocial/ Personal History: Patient lives at home with his . - Family History Father Medical History: Diabetes Mother Medical History: Diabetes Notes: Alzheimers - Social History Smoking Status: Unknown if ever smoked Alcohol use: No CD- Drugs: No Caffeine use: Yes Place of Residence: Home Review of Systems 10-point ROS is otherwise unremarkable Respiratory: SOB with Excertion Cardiovascular: Edema Physical Examination General: Oriented x3, Cooperative HEENT: Atraumatic Neck: Supple Respiratory: Normal air movement, Diminished Cardiovascular: Regular rate/rhythm, Edema Gastrointestinal: Soft and benign, Non-distended Musculoskeletal: No clubbing, No contractures, Other Integumentary: No rashes Neurological: Normal speech Laboratory Data (last 24 hrs) 04/10/22 06:10: PT 12.1, INR 1.10 04/10/22 06:10: WBC 6.0, Hgb 11.2 L, Hct 32.8 L, Plt Count 273 04/10/22 06:10: Sodium 136, Potassium 5.1, BUN 30 H, Creatinine 2.14 H, Glucose 232 H, Magnesium 2.4, Total Bilirubin 0.4, AST 18, ALT 25, Alkaline Phosphatase 73 Imagings Data: EXAM DESCRIPTION: RAD - Chest Single View - 04/10/2022 6:42 am CLINICAL HISTORY: SOB COMPARISON: Portable 03/05/2022 TECHNIQUE: AP portable chest image was obtained 04/10/2022 6:42 am . FINDINGS: Lung volumes are low accentuating the baseline interstitial pattern. Cardiac silhouette is similar or only fractionally increased over the comparison. There is increased interstitial and scattered alveolar opacities worse in the lower left lung field. Trachea is midline. No measurable pleural effusion and no pneumothorax. No acute bony abnormality seen. No acute aortic findings suspected. IMPRESSION: Nonspecific interstitial and alveolar opacification without cardiomegaly or vascular engorgement Early failure or volume overload would be considered. Asymmetrically prominent left base findings could reflect early pneumonia. Conclusions/Impression: CKD III with proteinuria -No NSAIDs -Continue furosemide Hyperkalemia -Continue furosemide HTN with CKD/ CHF -Continue Metoprolol Diastolic CHF, A/C Pulmonary edema -Low sodium diet -Continue furosemide -Cardiology to evaluate; echocardiogram pending DM II with CKD & Polyneuropathy -RISS -Continue Gabapentin Anemia in chronic illness -Monitor H&H CKD MBD Hypocalcemia -Start Vitamin D3 Case reviewed with Dr. Armas Thank you kindly for the referral.
[2022-04-10] MEDS: INSULIN -REGULAR HUMAN 50 UNIT/0.5 ML ML SQ SCH ×3 (11:30→21:00)
[2022-04-10] MEDS: ENOXAPARIN 40 MG/0.4 ML SQ SCH (12:56)
[2022-04-10] MEDS ORDERED: FUROSEMIDE 40 MG/4 ML VIAL IV SCH (17:00)
[2022-04-10] MEDS: METOPROLOL TAR 25 MG TAB PO SCH (17:03)
--- NOTE | 2022-04-10 19:15 | EKG ---
Test Date: 2022-04-10 Test Time: 06:14:03 Refuse Collector: CORINNE MEASUREMENT RESULTS: Intervals: Rate: 100 NJ: 148 QRSD: 76 QT: 344 QTc: 443 Bruin: P: 62 NJ: 148 QRS: 19 T: 71 INTERPRETIVE STATEMENTS: Normal sinus rhythm Cannot rule out Anterior infarct, age undetermined Abnormal ECG Compared to ECG 03/05/2022 01:31:33 Myocardial infarct finding now present Left ventricular hypertrophy no longer present Electronically Signed On 04-10-22 19:14:59 CDT by Stuart Ontiveros
[2022-04-10] MEDS: ATORVASTATIN 40 MG TAB PO SCH (21:14)
[2022-04-10] MEDS: GABAPENTIN 300 MG CAP PO SCH (21:14)
--- NOTE | 2022-04-11 00:53 | CON ---
Date of Consultation: 04/10/2022 Reason For Consultation: Shortness of breath. History Of Present Illness: This is a 56-year-old male with no known cardiac history with diabetes, hypertension, dyslipidemia, right arm bone cancer status post amputation who presented with shortness of breath on minimal exertion and lower extremity edema. No orthopnea. No chest pain. No nausea, vomiting, or diarrhea. No other complaints. Past Medical History: As outlined above in the HPI. Medications: Refer to reconciliation sheet for detailed list. Allergies: ATORVASTATIN. Family History: No premature coronary artery disease or cancer. Social History: Does not smoke or drink. Does not use any drugs. Review of Systems: All systems reviewed and they were negative except for what is mentioned in HPI. Physical Examination: Vital Signs: Reviewed. Head And Neck: Pupils are equal, reactive to light. Intact eye movements. Neck: Positive JVD. No cervical lymphadenopathy. Neck supple. Thyroid is not enlarged. Lungs: Crackles in bases. No accessory muscle use or muscle retraction. Heart: Irregular. No extra sounds. Abdomen: Soft, nontender. Bowel sounds positive. No organomegaly. No masses or hernia. No rigidi ty or rebound. Extremities: No clubbing or cyanosis. Intact pulses. Skin: No rashes. Neurologic: Alert, awake, oriented x3. No acute focal deficits appreciated. Lymph Nodes: No cervical adenopathy. Investigations: His troponin is 62. Creatinine is 2.14. Assessment And Recommendations: 1.New onset acute congestive heart failure. First troponin is negative. Please trend 2 more sets a nd obtain echocardiogram and increase the Lasix to 80 mg IV q.12 hours due to elevated creatinine. F urther recommendation based on the echocardiogram. If ejection fraction is low, the patient will req uire coronary angiogram. 2.Hypertension. Blood pressure is on the high side. Continue home medications and increase the Las ix as recommended above. Monitor kidney function closely and hemodynamics. 3.Borderline elevated troponin. Trend 2 more sets and obtain echocardiogram and further recommendat ions will follow. If the ejection fraction is low, we will plan for coronary angiogram later this co heidi week. SR/MODL Voice ID: [id number] Report ID: [id number]
[2022-04-11] MEDS: METOPROLOL TAR 25 MG TAB PO SCH ×2 (06:02→17:45)
[2022-04-11 06:16] LABS: Absolute Lymphocytes (CBC) 1.4 K/uL (0.7-4.9); Hematocrit 31.6 % (39.6-49.0); Lymphocytes % 25.8 % (15.3-44.8); MCV 84.8 fL (80-100); MPV 6.6 fL (7.6-11.3); RBC Red Blood Cell Count 3.73 M/uL (4.33-5.43)
[2022-04-11 06:27] LABS: Bilirubin Total 0.4 mg/dL (0.2-1.0); Magnesium 2.3 mg/dL (1.8-2.4); Potassium 4.8 mmol/L (3.5-5.1); Protein, Total 7.3 g/dL (6.4-8.2)
--- NOTE | 2022-04-11 06:37 | P.PN ---
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 Ramírez consult - sees weekly for diabetic foot ulcers VTE: lovenox Code: full Dispo: home, ~1-2 days pending results and further diuresis Time Spent Managing Pts Care (In Minutes): 35
[2022-04-11] MEDS: INSULIN -REGULAR HUMAN 50 UNIT/0.5 ML ML SQ SCH ×4 (07:30→21:00)
[2022-04-11] MEDS: VITAMIN D 5,000 UNIT CAP PO SCH (09:00)
[2022-04-11] MEDS: ASPIRIN EC 81 MG TAB PO SCH (09:37)
[2022-04-11] MEDS: GABAPENTIN 300 MG CAP PO SCH ×2 (09:38→21:03)
[2022-04-11] MEDS: ENOXAPARIN 40 MG/0.4 ML SQ SCH (09:38)
[2022-04-11] MEDS: FUROSEMIDE 40 MG/4 ML VIAL IV SCH ×2 (09:38→17:45)
[2022-04-11 16:41] VITALS: O2SAT 94
--- NOTE | 2022-04-11 19:48 | P.PN ---
Date of Service: 04/11/22 Vital Signs Temp Pulse Resp BP Pulse Ox 97.8 F 91 H 18 142/79 H 94 04/11/22 15:30 04/11/22 17:45 04/11/22 15:30 04/11/22 17:45 04/11/22 15:30 Medications Aspirin (Aspirin Ec 81 Mg Tab) 81 mg PO DAILY [facility] Last Admin: 04/11/22 09:37 Dose: 81 mg Documented by: Atorvastatin Calcium (Atorvastatin 40 Mg Tab) 40 mg PO BEDTIME [facility] Last Admin: 04/10/22 21:14 Dose: 40 mg Documented by: Cholecalciferol (Vitamin D 5,000 Unit Cap) 5,000 unit PO DAILY [facility] Last Admin: 04/11/22 09:00 Dose: 5,000 unit Documented by: Enoxaparin Sodium (Enoxaparin 40 Mg/0.4 Ml) 40 mg SQ DAILY [facility] Last Admin: 04/11/22 09:38 Dose: 40 mg Documented by: Furosemide (Furosemide 40 Mg/4 Ml Vial) 80 mg IV BIDL [facility] Last Admin: 04/11/22 17:45 Dose: 80 mg Documented by: Gabapentin (Gabapentin 300 Mg Cap) 300 mg PO BID [facility] Last Admin: 04/11/22 09:38 Dose: 300 mg Documented by: Insulin Human Regular (Insulin -Regular Human 50 Unit/0.5 Ml Ml) 0 unit SQ [facility]; Protocol Last Admin: 04/11/22 16:30 Dose: 2 unit Documented by: Metoprolol Tartrate (Metoprolol Tar 25 Mg Tab) 25 mg PO BID 6AM 6PM [facility] Last Admin: 04/11/22 17:45 Dose: 25 mg Documented by: Sodium Chloride (Flush Normal Saline 10 Ml) 10 ml IV BID [facility] Last Admin: 04/11/22 09:00 Dose: 10 ml Documented by: Microbiology Results 04/10/22 06:10 Nasopharnyx Influenza Type A Antigen Screen - Final 04/10/22 06:10 Nasopharnyx Influenza Type B Antigen Screen - Final Assessment/ Plan: Nephrology No dyspnea No chest pain Feeling better No acute events overnight Vitals, medications, blood work and imaging reviewed in the chart. General: Oriented x3, Cooperative HEENT: Atraumatic Neck: Supple Respiratory: Normal air movement, Diminished Cardiovascular: Regular rate/rhythm, Edema 1+ Gastrointestinal: Soft and benign, Non-distended Musculoskeletal: No clubbing, No contractures, Other Integumentary: No rashes Neurological: Normal speech Laboratory Data (last 24 hrs) 04/10/22 06:10: PT 12.1, INR 1.10 04/10/22 06:10: WBC 6.0, Hgb 11.2 L, Hct 32.8 L, Plt Count 273 04/10/22 06:10: Sodium 136, Potassium 5.1, BUN 30 H, Creatinine 2.14 H, Glucose 232 H, Magnesium 2.4, Total Bilirubin 0.4, AST 18, ALT 25, Alkaline Phosphatase 73 Imagings Data: EXAM DESCRIPTION: RAD - Chest Single View - 04/10/2022 6:42 am CLINICAL HISTORY: SOB COMPARISON: Portable 03/05/2022 TECHNIQUE: AP portable chest image was obtained 04/10/2022 6:42 am . FINDINGS: Lung volumes are low accentuating the baseline interstitial pattern. Cardiac silhouette is similar or only fractionally increased over the comparison. There is increased interstitial and scattered alveolar opacities worse in the lower left lung field. Trachea is midline. No measurable pleural effusion and no pneumothorax. No acute bony abnormality seen. No acute aortic findings suspected. IMPRESSION: Nonspecific interstitial and alveolar opacification without cardiomegaly or vascular engorgement Early failure or volume overload would be considered. Asymmetrically prominent left base findings could reflect early pneumonia. Conclusions/Impression: CKD III with proteinuria -No NSAIDs -Continue furosemide Hyperkalemia -Continue furosemide HTN with CKD/ CHF -Continue Metoprolol Diastolic CHF, A/C Pulmonary edema -Low sodium diet -Continue furosemide -Cardiology to evaluate; echocardiogram pending DM II with CKD & Polyneuropathy -RISS -Continue Gabapentin Anemia in chronic illness -Monitor H&H CKD MBD Hypocalcemia -Continue Vitamin D3 Case reviewed with Dr. Armas
--- NOTE | 2022-04-11 19:55 | PN ---
Date of Progress Note: 04/11/2022 Subjective: Seen by bedside. The patient is getting better with diuresis. No chest pain. Review of Systems: No chest pain. Positive shortness of breath, orthopnea and lower extremity edema. No nausea, vomiti ng, diarrhea. No abdominal pain. No dysuria, polyuria, or urinary urgency. No skin rash. All othe r systems reviewed are negative. Physical Examination: Vital Signs: Reviewed. Head and Neck: Pupils are equal, reactive to light. Intact eye movements. No JVD. No cervical lym phadenopathy. Neck is supple. Thyroid is not enlarged. Lungs: Clear to auscultation bilaterally. No rhonchi, wheezing, or crackles. No accessory muscle u se. Heart: Regular rate and rhythm. No extra sounds. Abdomen: Soft, nontender. Bowel sounds positive. No organomegaly. No masses or hernia. No rigidi ty or rebound. Extremities: No clubbing or cyanosis. Intact pulses. Positive edema. Skin: No rash. Neurologic: Alert, awake, oriented x3. No acute focal deficits appreciated. Assessment And Recommendations: 1.On echo, his ejection fraction is normal with mild diastolic dysfunction. Does not explain his sy mptoms, so I recommend to obtain an exercise nuclear stress test to evaluate for any active coronary artery disease and if the stress test is negative, then this fluid retention is likely due to his kid beau disease. 2.Chronic kidney disease. Being followed by Nephrology. The patient is on Lasix 80 mg q.12 hours. Please monitor BUN creatinine carefully. 3.Hypertension. Blood pressure is getting better. SR/MODL Voice ID: [id number] Report ID: [id number]
[2022-04-11] MEDS: ATORVASTATIN 40 MG TAB PO SCH (21:03)
[2022-04-12 03:48] LABS: Absolute Lymphocytes (CBC) 1.6 K/uL (0.7-4.9); Hematocrit 33.7 % (39.6-49.0); Lymphocytes % 27.7 % (15.3-44.8); MCV 83.5 fL (80-100); MPV 6.7 fL (7.6-11.3); RBC Red Blood Cell Count 4.03 M/uL (4.33-5.43)
[2022-04-12 04:11] LABS: Albumin 3.2 g/dL (3.4-5.0); Bilirubin Total 0.3 mg/dL (0.2-1.0); Magnesium 2.1 mg/dL (1.8-2.4); Phosphorus 4.4 mg/dL (2.5-4.9); Potassium 4.5 mmol/L (3.5-5.1); Protein, Total 7.6 g/dL (6.4-8.2); Uric Acid 7.9 mg/dL (3.5-7.2)
[2022-04-12] MEDS: METOPROLOL TAR 25 MG TAB PO SCH (06:04)
[2022-04-12 06:53] LABS: Urine Appearance Clear (Clear); Urine Bilirubin Negative (Negative); Urine Blood 1+ (Negative); Urine Color Yellow (Yellow); Urine Glucose 1+ (Negative); Urine Protein 3+ (Negative); Urine Specific Gravity 1.025 (1.005-1.030); Urine Urobilinogen 0.2 mg/dL (0.2-1.0); Urine pH 5.5 (5.0-7.0)
[2022-04-12 06:54] LABS: Urine Bacteria NONE SEEN /HPF (NONE SEEN); Urine RBC <5 /HPF (NONE SEEN)
[2022-04-12 06:56] LABS: UR PROTEIN 256.1 mg/dL (<11.9); Urine Protein/Creatinine Ratio 2.23 ratio (<0.15)
--- NOTE | 2022-04-12 07:02 | ECHO ---
HEIGHT: 5 ft 10 in WEIGHT: 203 lb 0 oz DATE OF STUDY: 04/11/[address]: Devante Armas MD 2-DIMENSIONAL: YES M.MODE: YES DOPPLER: YES COLOR FLOW: YES TDS: YES PORTABLE: YES DEFINITY: BUBBLE STUDY: DIAGNOSIS: NEW CONGESTIVE HEART FAILURE CARDIAC HISTORY: CATHERIZATION: SURGERY: PROSTHETIC VALVE: PACEMAKER: MEASUREMENTS (cm) DIASTOLIC (NORMALS) SYSTOLIC (NORMALS) IVSd 1.2 (0.6-1.2) LA Diam 3.8 (1.9-4.0) LVEF 55-60% LVIDd 3.9 (3.5-5.7) LVIDs 2.5 (2.0-3.5) %FS 37% LVPWd 1.1 (0.6-1.2) Ao Diam 2.9 (2.0-3.7) 2 DIMENSIONAL ASSESSMENT: RIGHT ATRIUM: NORMAL LEFT ATRIUM: NORMAL RIGHT VENTRICLE: NORMAL LEFT VENTRICLE: NORMAL TRICUSPID VALVE: NORMAL MITRAL VALVE: NORMAL PULMONIC VALVE: NORMAL AORTIC VALVE: NORMAL PERICARDIAL EFFUSION: NONE AORTIC ROOT: NORMAL LEFT VENTRICULAR WALL MOTION: NORMAL DOPPLER/COLOR FLOW: TRACE TRICUSPID REGURGITATION COMMENTS: NORMAL LEFT VENTRICULAR EJECTION FRACTION 55-60%. NORMAL WALL MOTION. DIASTOLIC DYSFUNCTION. TECHNOLOGIST: ROSA IVY
--- NOTE | 2022-04-12 07:03 | RAD REPORT ---
EXAM DESCRIPTION: US - Renal Ultrasound-Complete - 04/12/2022 1:25 am CLINICAL HISTORY: CKD III COMPARISON: No comparisons FINDINGS: The right kidney measures 10.7 x 3.4 x 3.8 cm. The left kidney measures 11.2 x 6.4 x 4.9 cm. Cortical echogenicity is increased in each kidney. Slight thinning of the cortex noted in each ki dney, right greater than left. No hydronephrosis or suspicious renal mass. No bladder wall thickening or mass. No intraluminal stone or mass. IMPRESSION: No hydronephrosis or suspicious renal mass. Increased cortical echogenicity typical for medical renal disease. Both kidneys show slight cortical thinning.
[2022-04-12] MEDS: INSULIN -REGULAR HUMAN 50 UNIT/0.5 ML ML SQ SCH (07:30)
[2022-04-12] MEDS: ENOXAPARIN 40 MG/0.4 ML SQ SCH (08:27)
[2022-04-12] MEDS: FUROSEMIDE 40 MG/4 ML VIAL IV SCH ×2 (08:27→16:11)
[2022-04-12] MEDS: GABAPENTIN 300 MG CAP PO SCH ×2 (08:29→16:11)
[2022-04-12] MEDS: ASPIRIN EC 81 MG TAB PO SCH (08:29)
[2022-04-12] MEDS: VITAMIN D 5,000 UNIT CAP PO SCH (08:30)
[2022-04-12] MEDS ORDERED: REGADENOSON 0.4 MG/5 ML SYR IV ONE (10:41)
--- NOTE | 2022-04-12 13:10 | RAD REPORT ---
EXAM DESCRIPTION: NM - Rest Stress Cardiac Imaging - 04/12/2022 1:02 pm CLINICAL HISTORY: CP Chest pain. COMPARISON: No comparisons TECHNIQUE: The patient was administered approximately 10mCi of Tc 99m Sestamibi prior to resting SPE CT imaging of the heart. The patient was then administered approximately 30 mCi of Tc 99m Sestamibi f ollowing exercise or pharmacologic stress. Multiplanar SPECT images were reviewed. FINDINGS: No stress induced ischemic defect is seen to suggest stress induced ischemia. Significant fixed defect noted along the inferior wall suggesting scar tissue from prior infarct. The end diastolic volume is 132 ml, the end systolic volume is 90 ml, and the ejection fraction is 32 %. IMPRESSION: No stress induced ischemia. Probable significant area of scar tissue inferior wall from prior infarction.
--- NOTE | 2022-04-12 16:02 | P.DS ---
Admission Date: 04/10/22 Discharge Date: 04/12/22 Disposition: ROUTINE DISCHARGE Discharge Condition: FAIR Reason for Admission: new CHF / volume overload Brief History of Present Illness: 56yo M, PMH: IDDM2, HTN, h/o osteosarcoma s/p RUE amputation, diabetic foot ulcers presented to ED due to progressively worsening shortness of breath. Symptoms began as dyspnea on exertion. Associated with orthopnea, lower extremity edema. Denied chest pressure/pain. Patient does not have history of CHF as far as he knows. Blood pressure has been normal at home according to the patient. He was recently seen by Dr. Ramírez for his bilateral diabetic foot ulcers in the wound clinic. He was treated 2 weeks ago for cellulitis with Bactrim twice daily. He reported decreased UOP and decrease oral intake as well. In the ED, chest x-ray demonstrated volume overload with concern for new/acute CHF exacerbation. EKG without acute ischemic changes, troponin negative. Patient admitted for further management. Hospital Course: Diagnosis Acute hypoxemic respiratory failure secondary to volume overload CKD3 HTN IDDM2 h/o osteosarcoma as child, s/p RUE amputation Diabetic foot ulcers Patient admitted to the medical floor and started on IV Lasix for volume overload. Lasix titrated to 40 mg IV twice a day. He was seen in consultation by nephrology who assisted with management. trop negative, EKG without ischemic changes cardiology consulted - echo was normal with normal EF. Cardiology also recommended stress test which did not show any stress-induced ischemia.,. Patient was weaned off oxygen to room air which he tolerated even with ambulation. His lower extremity edema also resolved. Patient clinically improved. Vitals are stable. Urinalysis suggested significant proteinuria. Nephrology recommend losartan and hydrochlorothiazide. Amlodipine discontinued. Patient clinical condition has improved significantly and deemed stable for discharge. He will follow with nephrology-Dr. Mays for further assessment and medication adjustment as outpatient. Vital Signs/Physical Exam: Temp Pulse Resp BP Pulse Ox 97.6 F 80 16 103/64 94 04/12/22 12:00 04/12/22 12:00 04/12/22 12:00 04/12/22 12:00 04/12/22 12:00 General: Alert, In no apparent distress, Oriented x3 HEENT: Mucous membr. moist/pink Neck: JVD not distended Respiratory: Clear to auscultation bilaterally, Normal air movement Cardiovascular: No edema, Regular rate/rhythm, Normal S1 S2 Gastrointestinal: Normal bowel sounds, Soft and benign Musculoskeletal: No swelling Integumentary: No rashes Neurological: Normal strength at 5/5 x4 extr Laboratory Data at Discharge: WBC 5.6 K/uL (4.3-10.9) 04/12/22 03:05 Hgb 11.7 g/dL (13.6-17.9) L 04/12/22 03:05 Hct 33.7 % (39.6-49.0) L 04/12/22 03:05 Plt Count 283 K/uL (152-406) 04/12/22 03:05 PT 12.1 SECONDS (9.5-12.5) 04/10/22 06:10 INR 1.10 04/10/22 06:10 Sodium 135 mmol/L (136-145) L 04/12/22 03:05 Potassium 4.5 mmol/L (3.5-5.1) 04/12/22 03:05 BUN 38 mg/dL (7-18) H 04/12/22 03:05 Creatinine 2.19 mg/dL (0.55-1.3) H 04/12/22 03:05 Glucose 249 mg/dL (74-106) H 04/12/22 03:05 Uric Acid 7.9 mg/dL (3.5-7.2) H D 04/12/22 03:05 Phosphorus 4.4 mg/dL (2.5-4.9) 04/12/22 03:05 Magnesium 2.1 mg/dL (1.8-2.4) 04/12/22 03:05 Total Bilirubin 0.3 mg/dL (0.2-1.0) 04/12/22 03:05 AST 13 U/L (15-37) L 04/12/22 03:05 ALT 22 U/L (12-78) 04/12/22 03:05 Alkaline Phosphatase 72 U/L (45-117) 04/12/22 03:05 Triglycerides 209 mg/dL (<150) H 04/11/22 05:37 Cholesterol 143 mg/dL (<200) 04/11/22 05:37 HDL Cholesterol 28 mg/dL (40-60) L 04/11/22 05:37 Cholesterol/HDL Ratio 5.11 04/11/22 05:37 Home Medications: glyBURIDE [Glyburide] 5 mg PO BID 01/17/18 Lovastatin 20 mg PO BEDTIME 03/29/20 Insulin Aspart [Novolog Flexpen] See Protocol SQ ACHS 11/19/20 Gabapentin 300 mg PO BID 01/19/22 Insulin Glargine Human [Lantus*] 22 units SQ BID 04/10/22 Cholecalciferol (Vitamin D3) [Vitamin D 5,000 IU Cap*] 5,000 unit PO DAILY #30 cap 04/12/22 Furosemide [Lasix] 40 mg PO BIDL #60 tab 04/12/22 Losartan/Hydrochlorothiazide [Losartan-Hctz 100-25 mg Tab] 1 each PO DAILY #30 tablet 04/12/22 New Medications: Furosemide [Lasix] 40 mg PO BIDL #60 tab Losartan/Hydrochlorothiazide [Losartan-Hctz 100-25 mg Tab] 1 each PO DAILY #30 tablet Cholecalciferol (Vitamin D3) [Vitamin D 5,000 IU Cap*] 5,000 unit PO DAILY #30 cap Diet: ADA Activity: Ad hiren Followup: Tunde Mays DO [ACTIVE - CAN ADMIT] - 1 Week Unknown,U [Primary Care Provider] - Time spent managing pt's care (in minutes): 37
[2022-04-12 16:05] VITALS: BP 133/77; TEMP 97.5
--- NOTE | 2022-04-12 18:25 | P.PN ---
Date of Service: 04/12/22 Vital Signs Temp Pulse Resp BP Pulse Ox 97.5 F 89 16 133/77 96 04/12/22 16:00 04/12/22 16:11 04/12/22 16:00 04/12/22 16:11 04/12/22 16:00 Medications Aspirin (Aspirin Ec 81 Mg Tab) 81 mg PO DAILY [facility] Last Admin: 04/12/22 08:29 Dose: Not Given Documented by: Atorvastatin Calcium (Atorvastatin 40 Mg Tab) 40 mg PO BEDTIME [facility] Last Admin: 04/11/22 21:03 Dose: 40 mg Documented by: Cholecalciferol (Vitamin D 5,000 Unit Cap) 5,000 unit PO DAILY [facility] Last Admin: 04/12/22 08:30 Dose: Not Given Documented by: Enoxaparin Sodium (Enoxaparin 40 Mg/0.4 Ml) 40 mg SQ DAILY [facility] Last Admin: 04/12/22 08:27 Dose: 40 mg Documented by: Furosemide (Furosemide 40 Mg/4 Ml Vial) 80 mg IV BIDL [facility] Last Admin: 04/12/22 16:11 Dose: 80 mg Documented by: Gabapentin (Gabapentin 300 Mg Cap) 300 mg PO BID [facility] Last Admin: 04/12/22 16:11 Dose: 300 mg Documented by: Insulin Human Regular (Insulin -Regular Human 50 Unit/0.5 Ml Ml) 0 unit SQ [facility]; Protocol Last Admin: 04/12/22 07:30 Dose: Not Given Documented by: Metoprolol Tartrate (Metoprolol Tar 25 Mg Tab) 25 mg PO BID 6AM 6PM [facility] Last Admin: 04/12/22 06:04 Dose: 25 mg Documented by: Sodium Chloride (Flush Normal Saline 10 Ml) 10 ml IV BID [facility] Last Admin: 04/12/22 08:30 Dose: 10 ml Documented by: Microbiology Results 04/10/22 06:10 Nasopharnyx Influenza Type A Antigen Screen - Final 04/10/22 06:10 Nasopharnyx Influenza Type B Antigen Screen - Final Assessment/ Plan: Nephrology No dyspnea No chest pain Feeling better No acute events overnight Vitals, medications, blood work and imaging reviewed in the chart. General: Oriented x3, Cooperative HEENT: Atraumatic Neck: Supple Respiratory: Normal air movement, Diminished Cardiovascular: Regular rate/rhythm, Edema 1+ Gastrointestinal: Soft and benign, Non-distended Musculoskeletal: No clubbing, No contractures, Other Integumentary: No rashes Neurological: Normal speech Laboratory Data (last 24 hrs) 04/10/22 06:10: PT 12.1, INR 1.10 04/10/22 06:10: WBC 6.0, Hgb 11.2 L, Hct 32.8 L, Plt Count 273 04/10/22 06:10: Sodium 136, Potassium 5.1, BUN 30 H, Creatinine 2.14 H, Glucose 232 H, Magnesium 2.4, Total Bilirubin 0.4, AST 18, ALT 25, Alkaline Phosphatase 73 Imagings Data: EXAM DESCRIPTION: RAD - Chest Single View - 04/10/2022 6:42 am CLINICAL HISTORY: SOB COMPARISON: Portable 03/05/2022 TECHNIQUE: AP portable chest image was obtained 04/10/2022 6:42 am . FINDINGS: Lung volumes are low accentuating the baseline interstitial pattern. Cardiac silhouette is similar or only fractionally increased over the comparison. There is increased interstitial and scattered alveolar opacities worse in the lower left lung field. Trachea is midline. No measurable pleural effusion and no pneumothorax. No acute bony abnormality seen. No acute aortic findings suspected. IMPRESSION: Nonspecific interstitial and alveolar opacification without cardiomegaly or vascular engorgement Early failure or volume overload would be considered. Asymmetrically prominent left base findings could reflect early pneumonia. LEFT VENTRICULAR WALL MOTION: NORMAL DOPPLER/COLOR FLOW: TRACE TRICUSPID REGURGITATION COMMENTS: NORMAL LEFT VENTRICULAR EJECTION FRACTION 55-60%. NORMAL WALL MOTION. DIASTOLIC DYSFUNCTION. Conclusions/Impression: CKD III with proteinuria -No NSAIDs -Continue furosemide Hyperkalemia -Continue furosemide HTN with CKD/ CHF -Continue Metoprolol -Start Losartan HCTZ Diastolic CHF, A/C Pulmonary edema -Low sodium diet -Continue furosemide -Cardiology following DM II with CKD & Polyneuropathy -RISS -Continue Gabapentin Anemia in chronic illness -Monitor H&H CKD MBD Hypocalcemia -Continue Vitamin D3 Case reviewed with Dr. Simpson
--- NOTE | 2022-04-13 07:25 | TREADPHA ---
DX: ELEVATED TROPONIN Date of Study: 04/12/22 Ht: 5' 10 " Wt: 203 lb 0 oz Consulting Physician: ALIS MEDICATIONS: ASPIRIN, LIPITOR, LOVENOX, LASIX, NEURONTIN, NOVOLIN-R, LOPRESSOR HISTORY: 56 YEAR OLD MALE WITH COMPLAINTS OF HYPERTENSION WITH ELEVATED TROPONIN. HISTORY OF DIABETES MELLITUS, HYPERTENSION, CELLULITIS PHYSICIAL EXAMINATION: RESTING B.P.: 81 RESTING H.R.: 123/42 RESTING EKG: NORMAL SINUS RHYTHM PROTOCOL: LEXISCAN EXERCISE TIME: 3:30 B.P. AT PEAK STRESS: 137/42 IMPRESSION: LEXISCAN INJECTED. CARDIOLITE INJECTED - SEE NUCLEAR MEDICINE REPORT. NO SUPRA VENTRICULAR TACHYCARDIA, VENTRICULAR TACHYCARDIA, PREMATURE ATRIAL COMPLEXES NOTED. PATIENT DENIES CHEST PAIN.
[2022-04-14 17:41] LABS: Albumin, (SPE) 3.4 g/dL (3.8-4.8); Alpha-1-Globulins 0.4 g/dL (0.2-0.3); Alpha-2-Globulins 0.8 g/dL (0.5-0.9); Gamma Globulins 1.5 g/dL (0.8-1.7); INTERPRETATION REPORT
[2022-04-14 17:41] LABS: Albumin, (SPE) 3.4 g/dL (3.8-4.8); Alpha-1-Globulins 0.4 g/dL (0.2-0.3); Alpha-2-Globulins 0.8 g/dL (0.5-0.9); Gamma Globulins 1.5 g/dL (0.8-1.7); INTERPRETATION REPORT
[2022-04-16 11:23] LABS: Immunoglobulin A 506 mg/dL (47-310); Immunoglobulin G 1608 mg/dL (600-1640); Immunoglobulin M 79 mg/dL (50-300)
== END 2022-04-12 18:38 | disposition home or self-care (01) | DRG 291 ==
LOC: ER 06:00 → ERHOLD 09:39 → 2ND 12:03
PROVIDERS: ADMIT Hospitalist; ATTEND Hospitalist
DX: I13.0 Hypertensive heart and chronic kidney disease with heart failure and stage 1 through stage 4 chronic kidney disease, or unspecified chronic kidney disease (principal); J96.01 Acute respiratory failure with hypoxia; I50.33 Acute on chronic diastolic (congestive) heart failure; E11.22 Type 2 diabetes mellitus with diabetic chronic kidney disease; N18.30 Chronic kidney disease, stage 3 unspecified; E11.42 Type 2 diabetes mellitus with diabetic polyneuropathy; D63.8 Anemia in other chronic diseases classified elsewhere; E87.5 Hyperkalemia; E83.51 Hypocalcemia; E11.621 Type 2 diabetes mellitus with foot ulcer; L97.529 Non-pressure chronic ulcer of other part of left foot with unspecified severity; L97.519 Non-pressure chronic ulcer of other part of right foot with unspecified severity; Z85.830 Personal history of malignant neoplasm of bone; Z89.201 Acquired absence of right upper limb, unspecified level; Z79.82 Long term (current) use of aspirin; Z79.4 Long term (current) use of insulin; Z20.822 Contact with and (suspected) exposure to COVID-19
CPT/HCPCS: 36415; 71045; 76770; 78452; 80048; 80053; 80061; 80076; 81003; 81015; 82570; 82784; 82805; 82947; 83735; 83880; 84100; 84156; 84165; 84439; 84443; 84484; 84550; 85025; 85610; 86038; 86334; 86335; 87804; 93005; 93017; 93306; 94760; 96374; 96375; 99285; A9500; J1650; J1815; J1940; J2785; U0003

== ENCOUNTER 2022-09-16 11:08 | Inpatient (IN) | payer OTHER ==
--- OUTSIDE RECORDS SUMMARY | 2022-09-16 11:13 | XMS REPORT | Continuity of Care Document ---
:1965 Author Organization [facility] t Address [address] [place] [address] Care Team Providers Name Role Phone Thai Olson Attending Clinician Unavailable Problems Condition Condition Condition Status Onset Resolution Last Treating Co mments Source Name Details Category Date Date Treatment Clinician Date [id number] Type 2 [place] [id number] diabetes Spirit mellitus - [facility] with other diabetic [facility] kidney Medical complicati Center on [id number] Hypothyroi Problem Co mmon dism Spirit (acquired) - [facility] [id number] Non-pressu Problem Co mmon re chronic Spirit ulcer of - [facility]I other part of [facility] unspecifie Medica l d foot Center with unspecifie d severity [id number] Other Problem Common specified Spirit diabetes - CHI mellitus St with foot [facility] Medical [place] [id number] Subclinica Problem Com mon l Spirit hypothyroi - [facility]I dism [facility] [id number] Stage 3b Problem Comm on chronic Spirit kidney - [facility]I disease [facility] [id number] Type 2 Problem Commo n 07 diabetes Spirit mellitus - CHI with St diabetic [facility] chronic Medical kidney Center disease [id number] Chronic Problem Commo n systolic Spirit congestive - [facility] heart failure [facility] [id number] Erectile Problem Comm on dysfunctio Spirit n, - CHI unspecifie St d erectile kes dysfunctio Medica l n type Center [id number] Diabetic Problem Comm on polyneurop Spirit athy - CHI associated St with type [facility] 2 diabetes Medica l mellitus Center [id number] 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, St unspecifie [facility] Medical [place] [id number] Chewing Problem Common tobacco Spirit nicotine - [facility]I dependence [facility] complicati Medica l on Center [id number] Body mass Problem Com mon index Spirit [BMI] - CHI 32.0-32.9, [facility] [id number] Other Problem Common obesity Spirit due to - [facility]I excess [facility] [id number] 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 [facility] [id number] 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 St of second [facility] toe of Medical left foot Center [id number] Mixed Problem Common hyperlipid Spirit emia - CHI [facility] Foot Foot Problem Common ulcer, ulcer, Spirit left, with left, with - CHI unspecifie unspecifie St severity d [facility] [id number] Type 2 Problem Common diabetes Spirit mellitus - [facility]I with [facility] [id number] Cough Problem Common Spirit - [facility] [id number] Essential Problem Comm on (primary) Spirit hypertensi - CHI on [facility] [id number] Bronchitis Problem Com mon Spirit - CHI [facility] [id number] Abrasion Problem Com [facility] [id number] of left Spirit cornea, - [facility] initial [facility] Allergies, Adverse Reactions, Alerts This patient has no known allergies or adverse reactions. Social History Social Habit Start Date Stop Date Quantity Comments Source History of Tobacco Common Spirit - Use [facility] Sex Assigned At [birth year] [facility] 00:00:00 00:00:00 Medical Center Smoking Status Start Date Stop Date Source Never Smoker Common [facility] Medications Ordered Filled Start Stop Current Ordering Indication Dosage Frequency Signature Comments Components Source Medication Medication Date Date Medication? Clinician (SIG) Name Name Benzonatate Benzonatate 2021- No 1{capsu TID Benzonatat 200 MG 200 MG 06-02 le} e 200 MG 00:00: 00:00 00 :00 Losartan Losartan No 1{table QD Losartan Potassium-H Potassium-H 04-20 t} Potassium- CTZ 100-25 CTZ 100-25 00:00: HCTZ MG MG 00 100-25 MG Losartan Losartan 2-0 No 1{table QD Losartan Potassium-H Potassium-H 7-06 t} Potassium- CTZ 100-25 CTZ 100-25 00:00: HCTZ MG MG 00 100-25 MG NovoLOG NovoLOG 2-0 No TID NovoLOG FlexPen 100 FlexPen 100 4-05 FlexPen UNIT/ML UNIT/ML 00:00: 100 00 UNIT/ML Pen Harrold Pen Harrold 2021-0 No TID Pen 31G X 5 MM 31G X 5 MM 4-05 [place] 00:00: 31G X 5 MM 00 NovoLOG NovoLOG 2-0 No TID NovoLOG FlexPen 100 FlexPen 100 4-05 FlexPen UNIT/ML UNIT/ML 00:00: 100 00 UNIT/ML Pen Harro[place] Pen Harrold 2021-0 No TID Pen 31G X 5 MM 31G X 5 MM 4-05 [place] 00:00: 31G X 5 MM 00 NovoLOG NovoLOG 2-0 No TID NovoLOG FlexPen 100 FlexPen 100 4-05 FlexPen UNIT/ML UNIT/ML 00:00: 100 00 UNIT/ML Pen Harrold Pen Harrold 2021-0 No TID Pen 31G X 5 MM 31G X 5 MM 4-05 [place] 00:00: 31G X 5 MM 00 Pen Harrold Pen Harrold 2021-0 No TID Pen 31G X 5 MM 31G X 5 MM 4-05 [place] 00:00: 31G X 5 MM 00 NovoLOG NovoLOG 2-0 No TID NovoLOG FlexPen 100 FlexPen 100 4-05 FlexPen UNIT/ML UNIT/ML 00:00: 100 00 UNIT/ML NovoLOG NovoLOG 2-0 No TID NovoLOG FlexPen 100 FlexPen 100 4-05 FlexPen UNIT/ML UNIT/ML 00:00: 100 00 UNIT/ML Pen Harrold Pen Harrold 2021-0 No TID Pen 31G X 5 MM 31G X 5 MM 4-05 [place] 00:00: 31G X 5 MM 00 NovoLOG NovoLOG 2022-0 No TID NovoLOG FlexPen 100 FlexPen 100 4-05 FlexPen UNIT/ML UNIT/ML 00:00: 100 00 UNIT/ML Pen Harrold Pen Harrold 2021-0 No TID Pen 31G X 5 MM 31G X 5 MM 4-05 [place] 00:00: 31G X 5 MM 00 NovoLOG NovoLOG 2021-0 No TID NovoLOG FlexPen 100 FlexPen 100 4-05 FlexPen UNIT/ML UNIT/ML 00:00: 100 00 UNIT/ML Pen Harrold Pen Harrold 0 No TID Pen 31G X 5 MM 31G X 5 MM 4-05 [place] 00:00: 31G X 5 MM 00 NovoLOG NovoLOG 2021-0 No TID NovoLOG FlexPen 100 FlexPen 100 4-05 FlexPen UNIT/ML UNIT/ML 00:00: 100 00 UNIT/ML Pen Harrold Pen Harrold 0 No TID Pen 31G X 5 MM 31G X 5 MM 4-05 [place] 00:00: 31G X 5 MM 00 Polytrim Polytrim No 1{drop_ QID Polytrim 22288-8.1 93247-3.1 1-15 into_af 51422-5.1 UNIT/ML UNIT/ML 00:00: fected_ UNIT/ML 00 eye} Albuterol Albuterol No 2{puffs QID Albuterol Sulfate HFA Sulfate HFA 1-15 _as_nee Sulfate 108 (90 108 (90 00:00: ded} HFA 108 Base) Base) 00 (90 Base) MCG/ACT MCG/ACT MCG/ACT Polytrim Polytrim No 1{drop_ QID Polytrim 26775-7.1 02674-0.1 1-15 into_af 21650-2.1 UNIT/ML UNIT/ML 00:00: fected_ UNIT/ML 00 eye} Albuterol Albuterol No 2{puffs QID Albuterol Sulfate HFA Sulfate HFA 1-15 _as_nee Sulfate 108 (90 108 (90 00:00: ded} HFA 108 Base) Base) 00 (90 Base) MCG/ACT MCG/ACT MCG/ACT Polytrim Polytrim 2019 No 1{drop_ QID Polytrim 14571-7.1 23809-4.1 1-15 into_af 63904-6.1 UNIT/ML UNIT/ML 00:00: fected_ UNIT/ML 00 eye} Albuterol Albuterol No 2{puffs QID Albuterol Sulfate HFA Sulfate HFA 1-15 _as_nee Sulfate 108 (90 108 (90 00:00: ded} HFA 108 Base) Base) 00 (90 Base) MCG/ACT MCG/ACT MCG/ACT Polytrim Polytrim 2019 No 1{drop_ QID Polytrim 39084-9.1 00747-9.1 1-15 into_af 78994-0.1 UNIT/ML UNIT/ML 00:00: fected_ UNIT/ML 00 eye} Albuterol Albuterol No 2{puffs QID Albuterol Sulfate HFA Sulfate HFA 1-15 _as_nee Sulfate 108 (90 108 (90 00:00: ded} HFA 108 Base) Base) 00 (90 Base) MCG/ACT MCG/ACT MCG/ACT Polytrim Polytrim No 1{drop_ QID Polytrim 08995-1.1 13112-6.1 1-15 into_af 96957-1.1 UNIT/ML UNIT/ML 00:00: fected_ UNIT/ML 00 eye} Albuterol Albuterol No 2{puffs QID Albuterol Sulfate HFA Sulfate HFA 1-15 _as_nee Sulfate 108 (90 108 (90 00:00: ded} HFA 108 Base) Base) 00 (90 Base) MCG/ACT MCG/ACT MCG/ACT Polytrim Polytrim No 1{drop_ QID Polytrim 89793-3.1 82914-1.1 1-15 into_af 53086-5.1 UNIT/ML UNIT/ML 00:00: fected_ UNIT/ML 00 eye} Albuterol Albuterol No 2{puffs QID Albuterol Sulfate HFA Sulfate HFA 1-15 _as_nee Sulfate 108 (90 108 (90 00:00: ded} HFA 108 Base) Base) 00 (90 Base) MCG/ACT MCG/ACT MCG/ACT Albuterol Albuterol No 2{puffs QID Albuterol Sulfate HFA Sulfate HFA 1-15 _as_nee Sulfate 108 (90 108 (90 00:00: ded} HFA 108 Base) Base) 00 (90 Base) MCG/ACT MCG/ACT MCG/ACT Polytrim Polytrim 2019 No 1{drop_ QID Polytrim 53902-3.1 35392-2.1 1-15 into_af 02789-0.1 UNIT/ML UNIT/ML 00:00: fected_ UNIT/ML 00 eye} Polytrim Polytrim No 1{drop_ QID Polytrim 46284-1.1 11846-1.1 1-15 into_af 71942-8.1 UNIT/ML UNIT/ML 00:00: fected_ UNIT/ML 00 eye} Albuterol Albuterol No 2{puffs QID Albuterol Sulfate HFA Sulfate HFA 1-15 _as_nee Sulfate 108 (90 108 (90 00:00: ded} HFA 108 Base) Base) 00 (90 Base) MCG/ACT MCG/ACT MCG/ACT Polytrim Polytrim No 1{drop_ QID Polytrim 13014-8.1 58059-2.1 1-15 into_af 75338-8.1 UNIT/ML UNIT/ML 00:00: fected_ UNIT/ML 00 eye} Albuterol Albuterol No 2{puffs QID Albuterol Sulfate HFA Sulfate HFA 1-15 _as_nee Sulfate 108 (90 108 (90 00:00: ded} HFA 108 Base) Base) 00 (90 Base) MCG/ACT MCG/ACT MCG/ACT Polytrim Polytrim No 1{drop_ QID Polytrim 18337-1.1 97242-4.1 1-15 into_af 35960-5.1 UNIT/ML UNIT/ML 00:00: fected_ UNIT/ML 00 eye} Albuterol Albuterol No 2{puffs QID Albuterol Sulfate HFA Sulfate HFA 1-15 _as_nee Sulfate 108 (90 108 (90 00:00: ded} HFA 108 Base) Base) 00 (90 Base) MCG/ACT MCG/ACT MCG/ACT Lovastatin Lovastatin No QD Lovastatin 20 MG 20 MG 20 MG amLODIPine amLODIPine No amLODIPine Besylate 5 Besylate 5 Besylate 5 MG MG MG metFORMIN metFORMIN No metFORMIN HCl HCl HCl Lantus Lantus No BID Lantus SoloStar SoloStar SoloStar 100 UNIT/ML 100 UNIT/ML 100 UNIT/ML amLODIPine amLODIPine No 5{ml} QD amLODIPine Benzoate 1 Benzoate 1 Benzoate 1 MG/ML MG/ML MG/ML glyBURIDE 5 glyBURIDE 5 No 1{table BID glyBURIDE MG MG t_with_ 5 MG food} hydroCHLORO hydroCHLORO No 1{table QD hydroCHLOR thiazide thiazide t_in_th Othiazide 12.5 MG 12.5 MG e_morni 12.5 MG ng} Gabapentin Gabapentin No 1{capsu BID Gabapentin 300 MG 300 MG le} 300 MG Montelukast Montelukast No 1{table QD Montelukas Sodium 10 Sodium 10 t} t Sodium MG MG 10 MG Sildenafil Sildenafil No 1{table QD Sildenafil Citrate 50 Citrate 50 t_as_ne Citrate 50 MG MG eded} MG Lovastatin Lovastatin No QD Lovastatin 20 MG 20 MG 20 MG amLODIPine amLODIPine No amLODIPine Besylate 5 Besylate 5 Besylate 5 MG MG MG metFORMIN metFORMIN No metFORMIN HCl HCl HCl Lantus Lantus No BID Lantus SoloStar SoloStar SoloStar 100 UNIT/ML 100 UNIT/ML 100 UNIT/ML amLODIPine amLODIPine No 5{ml} QD amLODIPine Benzoate 1 Benzoate 1 Benzoate 1 MG/ML MG/ML MG/ML glyBURIDE 5 glyBURIDE 5 No 1{table BID glyBURIDE MG MG t_with_ 5 MG food} hydroCHLORO hydroCHLORO No 1{table QD hydroCHLOR thiazide thiazide t_in_th Othiazide 12.5 MG 12.5 MG e_morni 12.5 MG ng} Gabapentin Gabapentin No 1{capsu BID Gabapentin 300 MG 300 MG le} 300 MG Montelukast Montelukast No 1{table QD Montelukas Sodium 10 Sodium 10 t} t Sodium MG MG 10 MG Sildenafil Sildenafil No 1{table QD Sildenafil Citrate 50 Citrate 50 t_as_ne Citrate 50 MG MG eded} MG Lovastatin Lovastatin No QD Lovastatin 20 MG 20 MG 20 MG amLODIPine amLODIPine No amLODIPine Besylate 5 Besylate 5 Besylate 5 MG MG MG metFORMIN metFORMIN No metFORMIN HCl HCl HCl Lantus Lantus No BID Lantus SoloStar SoloStar SoloStar 100 UNIT/ML 100 UNIT/ML 100 UNIT/ML amLODIPine amLODIPine No 5{ml} QD amLODIPine Benzoate 1 Benzoate 1 Benzoate 1 MG/ML MG/ML MG/ML glyBURIDE 5 glyBURIDE 5 No 1{table BID glyBURIDE MG MG t_with_ 5 MG food} Lantus Lantus No BID Lantus SoloStar SoloStar SoloStar 100 UNIT/ML 100 UNIT/ML 100 UNIT/ML Sildenafil Sildenafil No 1{table QD Sildenafil Citrate 50 Citrate 50 t_as_ne Citrate 50 MG MG eded} MG metFORMIN metFORMIN No metFORMIN HCl HCl HCl amLODIPine amLODIPine No 5{ml} QD amLODIPine Benzoate 1 Benzoate 1 Benzoate 1 MG/ML MG/ML MG/ML amLODIPine amLODIPine No 1{table QD amLODIPine Besylate 5 Besylate 5 t} Besylate 5 MG MG MG Lovastatin Lovastatin No QD Lovastatin 20 MG 20 MG 20 MG Montelukast Montelukast No 1{table QD Montelukas Sodium 10 Sodium 10 t} t Sodium MG MG 10 MG Gabapentin Gabapentin No 1{capsu BID Gabapentin 300 MG 300 MG le} 300 MG amLODIPine amLODIPine No amLODIPine Besylate 5 Besylate 5 Besylate 5 MG MG MG hydroCHLORO hydroCHLORO No 1{table QD hydroCHLOR thiazide thiazide t_in_th Othiazide 12.5 MG 12.5 MG e_morni 12.5 MG ng} glyBURIDE 5 glyBURIDE 5 No glyBURIDE MG MG 5 MG amLODIPine amLODIPine No 1{table QD amLODIPine Besylate 5 Besylate 5 t} Besylate 5 MG MG MG Lovastatin Lovastatin No Lovastatin 20 MG 20 MG 20 MG Montelukast Montelukast No Montelukas Sodium 10 Sodium 10 t Sodium MG MG 10 MG Montelukast Montelukast No 1{table QD Montelukas Sodium 10 Sodium 10 t} t Sodium MG MG 10 MG Lantus Lantus No Lantus SoloStar SoloStar SoloStar 100 UNIT/ML 100 UNIT/ML 100 UNIT/ML Furosemide Furosemide No 1{table QD Furosemide 40 MG 40 MG t} 40 MG Lantus Lantus No BID Lantus SoloStar SoloStar SoloStar 100 UNIT/ML 100 UNIT/ML 100 UNIT/ML amLODIPine amLODIPine No 5{ml} QD amLODIPine Benzoate 1 Benzoate 1 Benzoate 1 MG/ML MG/ML MG/ML glyBURIDE 5 glyBURIDE 5 No 1{table BID glyBURIDE MG MG t_with_ 5 MG food} Lovastatin Lovastatin No QD Lovastatin 20 MG 20 MG 20 MG Gabapentin Gabapentin No 1{capsu BID Gabapentin 300 MG 300 MG le} 300 MG metFORMIN metFORMIN No metFORMIN HCl HCl HCl Sildenafil Sildenafil No 1{table QD Sildenafil Citrate 50 Citrate 50 t_as_ne Citrate 50 MG MG eded} MG amLODIPine amLODIPine No amLODIPine Besylate 5 Besylate 5 Besylate 5 MG MG MG glyBURIDE 5 glyBURIDE 5 No glyBURIDE MG MG 5 MG Lovastatin Lovastatin No Lovastatin 20 MG 20 MG 20 MG Montelukast Montelukast No Montelukas Sodium 10 Sodium 10 t Sodium MG MG 10 MG amLODIPine amLODIPine No 5{ml} QD amLODIPine Benzoate 1 Benzoate 1 Benzoate 1 MG/ML MG/ML MG/ML Lantus Lantus No Lantus SoloStar SoloStar SoloStar 100 UNIT/ML 100 UNIT/ML 100 UNIT/ML hydroCHLORO hydroCHLORO No hydroCHLOR thiazide thiazide Othiazide 12.5 MG 12.5 MG 12.5 MG Sildenafil Sildenafil No 1{table QD Sildenafil Citrate 50 Citrate 50 t_as_ne Citrate 50 MG MG eded} MG Gabapentin Gabapentin No Gabapentin 300 MG 300 MG 300 MG Furosemide Furosemide No 1{table QD Furosemide 40 MG 40 MG t} 40 MG metFORMIN metFORMIN No metFORMIN HCl HCl HCl Montelukast Montelukast No 1{table QD Montelukas Sodium 10 Sodium 10 t} t Sodium MG MG 10 MG glyBURIDE 5 glyBURIDE 5 No 1{table BID glyBURIDE MG MG t_with_ 5 MG food} amLODIPine amLODIPine No amLODIPine Besylate 5 Besylate 5 Besylate 5 MG MG MG Lantus Lantus No BID Lantus SoloStar SoloStar SoloStar 100 UNIT/ML 100 UNIT/ML 100 UNIT/ML Lovastatin Lovastatin No QD Lovastatin 20 MG 20 MG 20 MG Gabapentin Gabapentin No Gabapentin 300 MG 300 MG 300 MG Lovastatin Lovastatin No Lovastatin 20 MG 20 MG 20 MG Sildenafil Sildenafil No 1{table QD Sildenafil Citrate 50 Citrate 50 t_as_ne Citrate 50 MG MG eded} MG Furosemide Furosemide No 1{table QD Furosemide 40 MG 40 MG t} 40 MG amLODIPine amLODIPine No amLODIPine Besylate 5 Besylate 5 Besylate 5 MG MG MG Lovastatin Lovastatin No QD Lovastatin 20 MG 20 MG 20 MG amLODIPine amLODIPine No 1{table QD amLODIPine Besylate 5 Besylate 5 t} Besylate 5 MG MG MG glyBURIDE 5 glyBURIDE 5 No 1{table BID glyBURIDE MG MG t_with_ 5 MG food} glyBURIDE 5 glyBURIDE 5 No glyBURIDE MG MG 5 MG metFORMIN metFORMIN No metFORMIN HCl HCl HCl Lantus Lantus No BID Lantus SoloStar SoloStar SoloStar 100 UNIT/ML 100 UNIT/ML 100 UNIT/ML hydroCHLORO hydroCHLORO No hydroCHLOR thiazide thiazide Othiazide 12.5 MG 12.5 MG 12.5 MG Gabapentin Gabapentin No 1{capsu BID Gabapentin 300 MG 300 MG le} 300 MG amLODIPine amLODIPine No 5{ml} QD amLODIPine Benzoate 1 Benzoate 1 Benzoate 1 MG/ML MG/ML MG/ML Montelukast Montelukast No Montelukas Sodium 10 Sodium 10 t Sodium MG MG 10 MG Lantus Lantus No Lantus SoloStar SoloStar SoloStar 100 UNIT/ML 100 UNIT/ML 100 UNIT/ML Losartan Losartan No 1{table QD Losartan Potassium-H Potassium-H t} Potassium- CTZ 100-25 CTZ 100-25 HCTZ MG MG 100-25 MG Montelukast Montelukast No 1{table QD Montelukas Sodium 10 Sodium 10 t} t Sodium MG MG 10 MG amLODIPine amLODIPine No amLODIPine Besylate 5 Besylate 5 Besylate 5 MG MG MG BD Pen BD Pen No BD Pen Needle Mini Needle Mini Needle U/F 31G X 5 U/F 31G X 5 Mini U/F MM MM 31G X 5 MM Lantus Lantus No Lantus SoloStar SoloStar SoloStar 100 UNIT/ML 100 UNIT/ML 100 UNIT/ML NovoLOG NovoLOG No NovoLOG FlexPen 100 FlexPen 100 FlexPen UNIT/ML UNIT/ML 100 UNIT/ML hydroCHLORO hydroCHLORO No hydroCHLOR thiazide thiazide Othiazide 12.5 MG 12.5 MG 12.5 MG Gabapentin Gabapentin No 1{capsu BID Gabapentin 300 MG 300 MG le} 300 MG Gabapentin Gabapentin No Gabapentin 300 MG 300 MG 300 MG Furosemide Furosemide No 1{table QD Furosemide 40 MG 40 MG t} 40 MG Lantus Lantus No BID Lantus SoloStar SoloStar SoloStar 100 UNIT/ML 100 UNIT/ML 100 UNIT/ML amLODIPine amLODIPine No 1{table QD amLODIPine Besylate 5 Besylate 5 t} Besylate 5 MG MG MG amLODIPine amLODIPine No 5{ml} QD amLODIPine Benzoate 1 Benzoate 1 Benzoate 1 MG/ML MG/ML MG/ML metFORMIN metFORMIN No metFORMIN HCl HCl HCl Lovastatin Lovastatin No Lovastatin 20 MG 20 MG 20 MG Sildenafil Sildenafil No 1{table QD Sildenafil Citrate 50 Citrate 50 t_as_ne Citrate 50 MG MG eded} MG glyBURIDE 5 glyBURIDE 5 No glyBURIDE MG MG 5 MG Losartan Losartan No 1{table QD Losartan Potassium-H Potassium-H t} Potassium- CTZ 100-25 CTZ 100-25 HCTZ MG MG 100-25 MG Montelukast Montelukast No Montelukas Sodium 10 Sodium 10 t Sodium MG MG 10 MG amLODIPine amLODIPine No amLODIPine Besylate 5 Besylate 5 Besylate 5 MG MG MG BD Pen BD Pen No BD Pen Needle Mini Needle Mini Needle U/F 31G X 5 U/F 31G X 5 Mini U/F MM MM 31G X 5 MM Lantus Lantus No Lantus SoloStar SoloStar SoloStar 100 UNIT/ML 100 UNIT/ML 100 UNIT/ML NovoLOG NovoLOG No NovoLOG FlexPen 100 FlexPen 100 FlexPen UNIT/ML UNIT/ML 100 UNIT/ML hydroCHLORO hydroCHLORO No hydroCHLOR thiazide thiazide Othiazide 12.5 MG 12.5 MG 12.5 MG Gabapentin Gabapentin No 1{capsu BID Gabapentin 300 MG 300 MG le} 300 MG Gabapentin Gabapentin No Gabapentin 300 MG 300 MG 300 MG Furosemide Furosemide No 1{table QD Furosemide 40 MG 40 MG t} 40 MG Lantus Lantus No BID Lantus SoloStar SoloStar SoloStar 100 UNIT/ML 100 UNIT/ML 100 UNIT/ML amLODIPine amLODIPine No 1{table QD amLODIPine Besylate 5 Besylate 5 t} Besylate 5 MG MG MG amLODIPine amLODIPine No 5{ml} QD amLODIPine Benzoate 1 Benzoate 1 Benzoate 1 MG/ML MG/ML MG/ML metFORMIN metFORMIN No metFORMIN HCl HCl HCl Lovastatin Lovastatin No Lovastatin 20 MG 20 MG 20 MG Sildenafil Sildenafil No 1{table QD Sildenafil Citrate 50 Citrate 50 t_as_ne Citrate 50 MG MG eded} MG glyBURIDE 5 glyBURIDE 5 No glyBURIDE MG MG 5 MG Losartan Losartan No 1{table QD Losartan Potassium-H Potassium-H t} Potassium- CTZ 100-25 CTZ 100-25 HCTZ MG MG 100-25 MG Montelukast Montelukast No Montelukas Sodium 10 Sodium 10 t Sodium MG MG 10 MG glyBURIDE 5 glyBURIDE 5 No 1{table BID glyBURIDE MG MG t_with_ 5 MG food} hydroCHLORO hydroCHLORO No 1{table QD hydroCHLOR thiazide thiazide t_in_th Othiazide 12.5 MG 12.5 MG e_morni 12.5 MG ng} Gabapentin Gabapentin No 1{capsu BID Gabapentin 300 MG 300 MG le} 300 MG Montelukast Montelukast No 1{table QD Montelukas Sodium 10 Sodium 10 t} t Sodium MG MG 10 MG Sildenafil Sildenafil No 1{table QD Sildenafil Citrate 50 Citrate 50 t_as_ne Citrate 50 MG MG eded} MG Lovastatin Lovastatin No QD Lovastatin 20 MG 20 MG 20 MG amLODIPine amLODIPine No amLODIPine Besylate 5 Besylate 5 Besylate 5 MG MG MG metFORMIN metFORMIN No metFORMIN HCl HCl HCl Lantus Lantus No BID Lantus SoloStar SoloStar SoloStar 100 UNIT/ML 100 UNIT/ML 100 UNIT/ML amLODIPine amLODIPine No 5{ml} QD amLODIPine Benzoate 1 Benzoate 1 Benzoate 1 MG/ML MG/ML MG/ML glyBURIDE 5 glyBURIDE 5 No 1{table BID glyBURIDE MG MG t_with_ 5 MG food} hydroCHLORO hydroCHLORO No 1{table QD hydroCHLOR thiazide thiazide t_in_th Othiazide 12.5 MG 12.5 MG e_morni 12.5 MG ng} Gabapentin Gabapentin No 1{capsu BID Gabapentin 300 MG 300 MG le} 300 MG Montelukast Montelukast No 1{table QD Montelukas Sodium 10 Sodium 10 t} t Sodium MG MG 10 MG Sildenafil Sildenafil No 1{table QD Sildenafil Citrate 50 Citrate 50 t_as_ne Citrate 50 MG MG eded} MG Vital Signs Vital Name Observation Time Observation Value Comments Source height 2022-06-02 14:00:00 67 [in_i] Common S pirit [facility] weight 2022-06-02 14:00:00 208 [lb_av] Common S pirit - [facility] temperature 2022-06-02 14:00:00 97.9 [degF] Common S pirit - [facility] bmi 2022-06-02 14:00:00 32.57 kg/m2 [facility] blood pressure 2022-06-02 14:00:00 129 mm[Hg] Common [facility] - systolic [facility] blood pressure 2022-06-02 14:00:00 67 mm[Hg] Common Spirit - diastolic [facility] height 2022-04-20 14:30:00 67 [in_i] Common S [facility] weight 2022-04-20 14:30:00 212.5 [lb_av] [facility] temperature 2022-04-20 14:30:00 98.1 [degF] [facility] 2022-04-20 14:30:00 33.28 kg/m2 [facility] S [facility] oximetry 2022-04-20 14:30:00 96 % [facility] respiratory rate 2022-04-20 14:30:00 17 /min Comm on Spirit - [facility] blood pressure 2022-04-20 14:30:00 123 mm[Hg] Common [facility] - systolic [facility] blood pressure 2022-04-20 14:30:00 75 mm[Hg] Common [facility] - diastolic [facility] height 2022-03-16 11:20:00 67 [in_i] Common S pirit [facility] weight 2022-03-16 11:20:00 212.4 [lb_av] [facility] temperature 2022-03-16 11:20:00 98.0 [degF] [facility] bmi 2022-03-16 11:20:00 33.26 kg/m2 [facility] oximetry 2022-03-16 11:20:00 96 % [facility] respiratory rate 2022-03-16 11:20:00 17 /min Comm on [facility] blood pressure 2022-03-16 11:20:00 130 mm[Hg] Common [facility] - systolic [facility] blood pressure 2022-03-16 11:20:00 78 mm[Hg] Common [facility] - diastolic [facility] height 2022-01-03 13:30:00 67 [in_i] [facility] weight 2022-01-03 13:30:00 203.3 [lb_av] Common [facility] temperature 2022-01-03 13:30:00 98.1 [degF] [facility] bmi 2022-01-03 13:30:00 31.84 kg/m2 [facility] oximetry 2022-01-03 13:30:00 95 % [facility] respiratory rate 2022-01-03 13:30:00 17 /min Comm on [facility] blood pressure 2022-01-03 13:30:00 138 mm[Hg] Common [facility] - systolic [facility] blood pressure 2022-01-03 13:30:00 78 mm[Hg] Common [facility] diastolic [facility] Procedures This patient has no known procedures. Encounters Start End Encounter Admission Attending Care Care Encounter Source Date/Time Date/Time Type Type Clinicians Facility Department ID 2022-01-03 Outpatient Olson, STLMLC STLMLC [id number] Common 14:02:04 [facility] [id number] [facility] 2022-07-20 2022-07-20 (TEL) STLMLC STLMLC [id number] Co mmon 00:00:00 00:00:00 [facility] 2022-06-02 2022-06-02 OFFICE STLMLC STLMLC [id number] Co mmon 00:00:00 00:00:00 VISIT [facility] LEVEL 4 [facility] 2022-06-01 2022-06-01 (TEL) STLMLC STLMLC [id number] Co mmon 00:00:00 00:00:00 [facility] 2022-04-20 2022-04-20 OFFICE STLMLC STLMLC [id number] Co mmon 00:00:00 00:00:00 [facility] LEVEL 4 [facility] 2022-03-16 2022-03-16 OFFICE STLMLC STLMLC [id number] [facility] 00:00:00 00:00:00 [facility] LEVEL 5 [facility] 2022-03-04 2022-03-04 (TEL) STLMLC STLMLC [id number] [facility] 00:00:00 00:00:00 [facility] 2022-03-02 2022-03-02 (TEL) STLMLC STLMLC [id number] [facility] 00:00:00 00:00:00 [facility] 2022-01-18 2022-01-18 (TEL) STLMLC STLMLC [id number] [facility] 00:00:00 00:00:00 [facility] 2022-01-03 2022-01-03 OFFICE STLMLC STLMLC [id number] [facility] 00:00:00 00:00:00 VISIT [facility] PT LEVEL 4 [facility] Results Test Description Test Time Test Comments Results Result Comments Source SARS-COV2/RT-PCR ([facility]) 2020-05-06 00:50:00 Test Item Value Reference Range Interpretation Comme nts SARS-COV2/RT-PCR (test code = 3017538) Not Detected Not Detec audrey, Negative, See external report for linked test SARS-COV-2 PERFORMING LAB (test code = BSC [id number]) Negative results do not preclude SARS-CoV-2 infection [...] of the Act.Fact Sheet for Healthcare Pro viders:https://www.Unsilo/Documents/Xpert%20Xpress%20SARS%20CoV-2/Fact%20Sh eets/3023802%88XHEK-HKZ-3%20HEALTHCARE%20PROVIDERS%20FACT%20SHEET.pdfFact Sheet for Healthcare Patients:https://www.HealthLok/Documents/Xpert%20Xpress%20SARS%20CoV-2/Fact%20Sheets/3023801%20SARS-COV -2%20PATIENT%20FACT%20SHEET.pdfPerforming Laboratory:[facility] [place] [address]
[2022-09-16 11:32] LABS: Absolute Lymphocytes (CBC) 1.4 K/uL (0.7-4.9); Hematocrit 34.7 % (39.6-49.0); Lymphocytes % 18.9 % (15.3-44.8); MCV 89.1 fL (80-100); MPV 7.5 fL (7.6-11.3)
[2022-09-16 11:36] LABS: Protime INR 1.04
--- NOTE | 2022-09-16 11:51 | RAD REPORT ---
EXAM DESCRIPTION: RAD - Chest Single View - 09/16/2022 11:43 am CLINICAL HISTORY: near syncope COMPARISON: Chest Single View dated 04/10/2022; Chest Single View dated 03/05/2022; Chest Pa And Lat ( 2 Views) dated 01/17/2018 FINDINGS: Lines: None. Lungs: No evidence of edema or pneumonia. Pleural: No significant pleural effusions or pneumothorax. Cardiac: The heart size is within normal limits. Mediastinum: Within normal limits. Bones: No acute fractures. Other: None IMPRESSION: No acute cardiopulmonary disease.
[2022-09-16 12:08] LABS: Potassium 4.6 mmol/L (3.5-5.1); Troponin High Sensitivity 9023.5 pg/mL (<58.9)
--- NOTE | 2022-09-16 12:14 | EDPHYS ---
Physician Documentation [facility] Name: Anders Balderas Age: 57 yrs Sex: Male : 1965 Arrival Date: 09/16/2022 Time: 11:10 Bed 4 Private MD: ED Physician Eric Armas HPI: 09/16 11:25 This 57 yrs old Male presents to ER via EMS with complaints of syncope. rn 11:25 The patient has experienced syncope. Onset: The symptoms/episode began/occurred just rn prior to arrival. Duration: This was a single episode. Associated injury: The patient did not suffer any apparent associated injury. Associated signs and symptoms: Pertinent positives: dizziness, lightheadedness, Pertinent negatives: abdominal pain, chest pain. Current symptoms: Currently, the patient is not experiencing any symptoms. The patient has experienced a previous episode. The patient has not recently seen a physician. Pt reports at restaurant, felt dizzy and lightheaded, EMS reports syncope, patient reports didn't completely pass out. Not ill recently. Now feels much better. EMS reported abnormal ECG but no STEMI. Pt denies chest pain/sob/abd pain. Reports recent stress test and told was normal. . Historical: - Allergies: 12:20 No Known Allergies; vg1 - PMHx: 11:13 bone cancer-right arm as child; Diabetes - NIDDM; Hyperlipidemia; Hypertension; ss - PSHx: 11:13 amputation of right arm; amputation of toes; ss - Immunization history:: Client reports having NOT received the Covid vaccine. - Social history:: Smoking status: Patient denies any tobacco usage or history of. - Family history:: not pertinent. - Hospitalizations: : No recent hospitalization is reported. ROS: 11:25 Constitutional: Negative for fever, chills, and weight loss, Eyes: Negative for injury, rn pain, redness, and discharge, Neck: Negative for injury, pain, and swelling, Cardiovascular: Negative for chest pain, palpitations, and edema, Respiratory: Negative for shortness of breath, cough, wheezing, and pleuritic chest pain, Abdomen/GI: Negative for abdominal pain, nausea, vomiting, diarrhea, and constipation, Back: Negative for injury and pain, MS/Extremity: Negative for injury and deformity, Skin: Negative for injury, rash, and discoloration, Neuro: Negative for headache, weakness, numbness, tingling, and seizure. Exam: 11:25 Constitutional: This is a well developed, well nourished patient who is awake, alert, rn and in no acute distress. Head/Face: Normocephalic, atraumatic. Cardiovascular: Regular rate and rhythm. No pulse deficits. Respiratory: No increased work of breathing, no retractions or nasal flaring. Abdomen/GI: Soft, non-tender Skin: Warm, dry MS/ Extremity: Pulses equal, no cyanosis. Neuro: Awake and alert, GCS 15, oriented to person, place, time, and situation. Cranial nerves II-XII grossly intact. Motor strength 5/5 in all extremities (proximal right arm). Sensory grossly intact. Cerebellar exam normal. Normal gait. 11:47 ECG was reviewed by the Attending Physician. rn Vital Signs: 11:11 Pulse 95; Resp 16; Pulse Ox 100% on R/A; Pain 0/10; ss 11:23 BP 137 / 90; Pulse 93; Resp 19; Temp 98.4(O); Pulse Ox 100% ; Weight 92.99 kg; Height 5 vg1 ft. 8 in. (172.72 cm); Pain 0/10; 12:00 BP 142 / 87; Pulse 93; Resp 15; Pulse Ox 98% on R/A; vg1 13:00 BP 151 / 94; Pulse 98; Resp 16; Pulse Ox 100% on R/A; vg1 13:30 BP 155 / 91; Pulse 94; Resp 16; Pulse Ox 99% on R/A; vg1 11:23 Body Mass Index 31.17 (92.99 kg, 172.72 cm) vg1 MDM: 11:10 Patient medically screened. rn 12:11 Differential Diagnosis: cardiac arrhythmia, idiopathic syncope, vasovagal episode, rn myocardial infarction, CHF, chronic reanl disease. Data reviewed: vital signs, nurses notes, lab test result(s), EKG, radiologic studies, plain films, and as a result, I will admit patient. Counseling: I had a detailed discussion with the patient and/or guardian regarding: the historical points, exam findings, and any diagnostic results supporting the discharge/admit diagnosis, lab results, radiology results, the need for further work-up and treatment in the hospital. Response to treatment: the patient's condition has returned to base line, the patient is now symptom free, and as a result, I will admit patient. Admission orders: after a detailed discussion of the patient's condition and case, the admit orders are written by me. 12:30 ED course: Discussed case with Dr. Joe, who wants heparin infusion started and will rn check with r and d lab technician availability. . 09/16 11:10 Order name: Basic Metabolic Panel; Complete Time: 12:09 rn 09/16 11:10 Order name: CBC with Diff; Complete Time: 12:08 rn 09/16 11:10 Order name: NT PRO-BNP; Complete Time: 12:09 rn 09/16 11:10 Order name: PT-INR; Complete Time: 12:08 rn 09/16 11:10 Order name: Troponin HS; Complete Time: 12: rn 09/16 12:29 Order name: SARS RAPID ss 09/16 11:10 Order name: XRAY Chest (1 view); Complete Time: 12:08 rn 09/16 11:10 Order name: EKG; Complete Time: 11: rn 09/16 11:10 Order name: Cardiac monitoring; Complete Time: 11: rn 09/16 11:10 Order name: EKG - Nurse/Tech; Complete Time: 11: rn 09/16 12:41 Order name: Ptt, Activated vg1 09/16 11:10 Order name: IV Saline Lock; Complete Time: 11:12 rn 09/16 11:10 Order name: Labs collected and sent; Complete Time: 11:12 rn 09/16 11:10 Order name: O2 Per Protocol; Complete Time: 11: rn 09/16 11:10 Order name: O2 Sat Monitoring; Complete Time: 11:12 rn EC:47 Rate is 98 beats/min. Rhythm is regular. QRS [place] is Normal. [place] interval is normal. QRS rn interval is normal. QT interval is normal. No Q waves. T waves are Inverted in leads I, aVL. No ST changes noted. Clinical impression: NSR w/ Non-specific ST/T Changes. Interpreted by me. Reviewed by me. Administered Medications: 12:28 Not Given (Pt stated EMS gave aspirin in route; provider notified.): Aspirin Chewable vg1 Tablet 324 mg PO once; 81 mg tablets x 4 13:38 Not Given (pt taken to cath labb): Heparin ([place]-Bolus No thrombolytic) - HEParin 60 vg1 units/kg IVP once; Max 5000 units 13:38 Not Given (pt take to heart cathh): Heparin ([place] Drip) 12 units/kg/hr - (HEParin 99062 vg1 units, D5W 500 ml) IV at calculated rate Per protocol; Max initial rate 1000 units/hr Disposition Summary: 09/16/22 12:13 Hospitalization Ordered Hospitalization Status: Inpatient Admission rn Provider: Roshan Morton rn [facility] rn Condition: Stable rn Problem: new rn Symptoms: have improved rn Bed/Room Type: Standard rn Room Assignment: rn Diagnosis - Syncope rn - Subsequent non-ST elevation (NSTEMI) myocardial infarction rn Forms: - Medication Reconciliation Form rn - SBAR form rn Signatures: Dispatcher [employer] Eric Redding MD MD rn Smirch, Shelby, RN RN ss Garcia, Victoria RN RN vg1
--- NOTE | 2022-09-16 12:14 | ER ---
Nurse's Notes [facility] Name: Anders Balderas Age: 57 yrs Sex: Male : 1965 Arrival Date: 09/16/2022 Time: 11:10 Bed 4 Private MD: Diagnosis: Syncope;Subsequent non-ST elevation (NSTEMI) myocardial infarction Presentation: 09/16 11:11 Chief complaint: Patient states: At [employer] when patient experienced sudden onset of ss dizziness and not feeling well, that fell like he may pass out. Pt reports after drinking two glasses of water, he felt better. Pt has no complaints at this time. Denies CP. Coronavirus screen: Client denies travel out of the [place] in the last 14 days. Ebola Screen: Patient denies exposure to infectious person. Patient denies travel to an Ebola-affected area in the 21 days before illness onset. Initial Sepsis Screen: Does the patient meet any 2 criteria? No. Patient's initial sepsis screen is negative. Does the patient have a suspected source of infection? No. Patient's initial sepsis screen is negative. Risk Assessment: Do you want to hurt yourself or someone else? Patient reports no desire to harm self or others. Onset of symptoms was September 16, 2022. 11:11 Method Of Arrival: EMS: [facility] 11:11 Acuity: [place] 3 ss Historical: - Allergies: 12:20 No Known Allergies; vg1 - PMHx: 11:13 bone cancer-right arm as child; Diabetes - NIDDM; Hyperlipidemia; Hypertension; ss - PSHx: 11:13 amputation of right arm; amputation of toes; ss - Immunization history:: Client reports having NOT received the Covid vaccine. - Social history:: Smoking status: Patient denies any tobacco usage or history of. - Family history:: not pertinent. - Hospitalizations: : No recent hospitalization is reported. Screenin:25 Abuse screen: Denies threats or abuse. Nutritional screening: No deficits noted. vg1 Tuberculosis screening: No symptoms or risk factors identified. Fall Risk No fall in past 12 months (0 pts). No secondary diagnosis (0 pts). IV access (20 points). Ambulatory Aid- None/Bed Rest/Nurse Assist (0 pts). Gait- Normal/Bed Rest/Wheelchair (0 pts) Mental Status- Oriented to own ability (0 pts). Total Reeves Fall Scale indicates No Risk (0-24 pts). Assessment: 11:25 General: Appears in no apparent distress. comfortable, Behavior is calm, cooperative. vg1 Pain: Denies pain. Complains of pain in chest. Neuro: Level of Consciousness is awake, alert, obeys commands, Oriented to person, place, time, situation. Cardiovascular: Denies chest pain, Patient's skin is warm and dry. Respiratory: Airway is patent Respiratory effort is even, unlabored. GI: Abdomen is round non-distended, Patient currently denies nausea, vomiting. : No signs and/or symptoms were reported regarding the genitourinary system. EENT: No signs and/or symptoms were reported regarding the EENT system. Derm: Skin is pink, warm \T\ dry. Musculoskeletal: Amputation of right arm. Circulation, motion, and sensation intact. 12:25 Reassessment: Patient appears in no apparent distress at this time. No changes from vg1 previously documented assessment. Patient and/or family updated on plan of care and expected duration. Pain level reassessed. Patient is alert, oriented x 3, equal unlabored respirations, skin warm/dry/pink. 13:53 Reassessment: pt taken to rn cardiac cath. vg1 Vital Signs: 11:11 Pulse 95; Resp 16; Pulse Ox 100% on R/A; Pain 0/10; ss 11:23 BP 137 / 90; Pulse 93; Resp 19; Temp 98.4(O); Pulse Ox 100% ; Weight 92.99 kg; Height 5 vg1 ft. 8 in. (172.72 cm); Pain 0/10; 12:00 BP 142 / 87; Pulse 93; Resp 15; Pulse Ox 98% on R/A; vg1 13:00 BP 151 / 94; Pulse 98; Resp 16; Pulse Ox 100% on R/A; vg1 13:30 BP 155 / 91; Pulse 94; Resp 16; Pulse Ox 99% on R/A; vg1 11:23 Body Mass Index 31.17 (92.99 kg, 172.72 cm) vg1 ED Course: 11:10 Patient arrived in ED. ss 11:10 Eric Armas MD is Attending Physician. rn 11:11 Makenzie Webster RN is Primary Nurse. vg1 11:13 Triage completed. ss 11:25 Patient has correct armband on for positive identification. Placed in gown. Bed in low vg1 position. Call light in reach. Side rails up X2. Client placed on continuous cardiac and pulse oximetry monitoring. NIBP monitoring applied. 11:25 No provider procedures requiring assistance completed. Maintain EMS IV. Dressing vg1 intact. Good blood return noted. Site clean \T\ dry. Gauge \T\ site: 18 Left Forearm. 11:27 Arm band placed on. vg1 11:45 XRAY Chest (1 view) In Process Unspecified. EDMS 12:13 Roshan Morton MD is Hospitalizing Provider. rn Administered Medications: 12:28 Not Given (Pt stated EMS gave aspirin in route; provider notified.): Aspirin Chewable vg1 Tablet 324 mg PO once; 81 mg tablets x 4 13:38 Not Given (pt taken to cath labb): Heparin ([place]-Bolus No thrombolytic) - HEParin 60 vg1 units/kg IVP once; Max 5000 units 13:38 Not Given (pt take to heart cathh): Heparin ([place] Drip) 12 units/kg/hr - (HEParin 04620 vg1 units, D5W 500 ml) IV at calculated rate Per protocol; Max initial rate 1000 units/hr Medication: 11:25 VIS not applicable for this client. vg1 Outcome: 12:13 Decision to Hospitalize by Provider. rn 13:54 Patient left the ED. vg1 Signatures: Dispatcher [employer] EDMS Eric Armas MD MD rn Smirch, Shelby, RN RN ss Garcia, Victoria, RN RN vg1 Corrections: (The following items were deleted from the chart) 12:00 11:25 Musculoskeletal: Circulation, motion, and sensation intact. vg1 vg1
[2022-09-16] MEDS ORDERED: ASPIRIN 81 MG CHEWABLE TABLET ONE (12:26)
[2022-09-16 12:55] LABS: SARS-CoV-2 Antigen Rapid Res Negative (Negative)
[2022-09-16] MEDS ORDERED: HEPARIN 5000 UNIT/ML 1 ML VIAL ONE (13:27)
[2022-09-16] MEDS ORDERED: HEPARIN/D5W 25,000 UNIT/500 ML BAG IV ONE (13:28)
[2022-09-16] MEDS ORDERED: HEPA 1000U/500MLS 1,000 UNIT/500 ML BAG IV ONE (13:32)
[2022-09-16] MEDS ORDERED: NA CHLORIDE 0.9% 500 ML ONE (14:00)
[2022-09-16 14:03] VITALS: O2SAT 99
[2022-09-16] MEDS ORDERED: MIDAZOLAM HCL 2 MG/2 ML INJ ONE (14:08)
[2022-09-16] MEDS ORDERED: FENTANYL CITR 100 MCG/2 ML ONE (14:08)
[2022-09-16] MEDS ORDERED: ACETYLCYST 20% 4 ML VIAL IH ONE (14:09)
--- NOTE | 2022-09-16 14:13 | P.CNS ---
Date of Consult: 09/16/22 Reason for Consult: Non-STEMI Chief Complaint: Syncopal History of Present Illness: Patient is 57 years of age admitted the emergency room apparently he was having some lunch at [employer] and had a sudden onset of syncopal episode started profusely sweating eyes any chest pain admitted with a non-STEMI elevated troponins no prior history of coronary artery disease [place] any preceding episode of chest pain does have diabetes and chronic renal failure currently doing fine denies any chest pain very comfortable vital signs stable Allergies atorvastatin [From Lipitor] Adverse Reaction (Verified 11/24/20 21:28) headache/muscle pain Home Medications: glyBURIDE [Glyburide] 5 mg PO BID 01/17/18 Lovastatin 20 mg PO BEDTIME 03/29/20 Insulin Aspart [Novolog Flexpen] See Protocol SQ ACHS 11/19/20 Gabapentin 300 mg PO BID 01/19/22 Insulin Glargine Human [Lantus*] 22 units SQ BID 04/10/22 Cholecalciferol (Vitamin D3) [Vitamin D 5,000 IU Cap*] 5,000 unit PO DAILY #30 cap 04/12/22 Furosemide [Lasix] 40 mg PO BIDL #60 tab 04/12/22 Losartan/Hydrochlorothiazide [Losartan-Hctz 100-25 mg Tab] 1 each PO DAILY #30 tablet 04/12/22 - Past Medical/Surgical History Diabetic: Yes -: Diabetes mellitus type 2 -: Hyperlipidemia -: HTN -: Bone Cancer Right arm -: left second metatarsal amputation -: right arm amputation -: left 5th digit toe amputation -: right 2nd toe amputation -: Left metatarsal amputatioin Psychosocial/ Personal History: Patient lives at home with his . - Family History Father Medical History: Heart disease, Diabetes Mother Medical History: Diabetes Notes: Alzheimers - Social History Smoking Status: Unknown if ever smoked Alcohol use: No CD- Drugs: No Caffeine use: Yes Review of Systems 10-point ROS is otherwise unremarkable Physical Examination Temp Pulse Resp BP Pulse Ox 98.4 F 94 H 16 155/91 H 09/16/22 11:23 09/16/22 13:30 09/16/22 13:30 09/16/22 13:30 General: Alert, In no apparent distress, Oriented x3 Neck: Supple Respiratory: Clear to auscultation bilaterally Cardiovascular: No edema, Regular rate/rhythm Gastrointestinal: Normal bowel sounds, Soft and benign Musculoskeletal: No clubbing, No swelling Integumentary: No rashes, No breakdown Laboratory Data (last 24 hrs) 09/16/22 11:27: APTT 28.4 09/16/22 11:20: PT 11.4, INR 1.04 09/16/22 11:20: WBC 7.20, Hgb 12.1 L, Hct 34.7 L, Plt Count 200 09/16/22 11:20: Sodium 132 L, Potassium 4.6, BUN 55 H, Creatinine 3.54 H, Glucose 295 H - Problems (1) Non-ST elevated myocardial infarction (non-STEMI) Current Visit: Yes Status: Acute Plan: Patient is 57 years of age admitted with a syncopal attack and has troponin significantly elevated patient has an abnormal EKG T waves are inverted in leads I and aVL no ST changes noted/right now he is hemodynamically stable plan to start on IV heparin he was also given 1 dose of aspirin scheduled to undergo cardiac catheterization 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
[2022-09-16] MEDS ORDERED: ATORVASTATIN 10 MG TAB PO SCH (15:57)
[2022-09-16] MEDS ORDERED: ACETYLCYST 20% 800 MG/4 ML VIAL PO ONE (16:00)
[2022-09-16] MEDS ORDERED: GLUCAGON 1 MG/VIAL IM PRN (16:17)
[2022-09-16 16:35] VITALS: BMI 31.1
[2022-09-16] MEDS ORDERED: D10W 250 ML BAG IV PRN (16:42)
[2022-09-16] MEDS: METOPROLOL XL 25 MG TAB PO SCH (17:06)
[2022-09-16] MEDS: INSULIN -REGULAR HUMAN 50 UNIT/0.5 ML ML SQ SCH ×2 (17:06→22:10)
[2022-09-16] MEDS: HEPARIN/D5W 25,000 UNIT/500 ML BAG IV PRN (18:40)
[2022-09-16] MEDS: LOVASTATIN 20 MG PO SCH (21:00)
[2022-09-17 04:12] LABS: Potassium 4.6 mmol/L (3.5-5.1)
[2022-09-17] MEDS: METOPROLOL XL 25 MG TAB PO SCH ×2 (05:31→17:10)
[2022-09-17] MEDS: INSULIN -REGULAR HUMAN 50 UNIT/0.5 ML ML SQ SCH ×4 (08:56→20:15)
[2022-09-17] MEDS ORDERED: ASPIRIN EC 81 MG TAB PO SCH (09:00)
--- NOTE | 2022-09-17 17:08 | P.DS ---
Admission Date: 09/16/22 Discharge Date: 09/17/22 Disposition: TRANSFER TO [facility] Discharge Condition: FAIR Reason for Admission: Syncopal - Problems (1) Near syncope Current Visit: Yes Status: Acute (2) Coronary artery disease Current Visit: Yes Status: Acute (3) Non-ST elevated myocardial infarction (non-STEMI) Current Visit: Yes Status: Acute (4) Chronic kidney disease, stage 3 Current Visit: No Status: Acute (5) Diabetes Current Visit: No Status: Chronic Qualifiers: Diabetes mellitus type: type 2 Diabetes mellitus shelter insulin use: with shelter use Diabetes mellitus complication status: with skin comp lications Diabetes mellitus complication detail: with dermatitis Qualified Code(s): E11.620 - Type 2 diabetes mellitus with diabetic dermatitis; Z79.4 - care home (current) use of insulin (6) Hyperlipidemia Current Visit: No Status: Chronic Qualifiers: Hyperlipidemia type: mixed hyperlipidemia Qualified Code(s): E78.2 - Mixed hyperlipidemia (7) Hypertension Current Visit: No Status: Chronic Qualifiers: Hypertension type: primary hypertension Qualified Code(s): I10 - Essential (primary) hypertension Brief History of Present Illness: 57-year-old gentleman with a history of hypertension, diabetes and hyperlipidemia presented to the emergency department with a complaint of near syncopal episode and chest pain. Troponin markedly elevated. Creatinine elevated to 3.58. Patient seen by cardiology who recommended admission for cardiac cath. Patient started on heparin drip and admitted for further management. Hospital Course: Patient admitted to the medical floor, he underwent cardiac catheterization which according to cardiology noted three-vessel disease. CABG recommended. Transfer to [facility] initiated. Patient was kept on heparin drip postcardiac cath. Vitals have been stable, patient is currently asymptomatic. He has been accepted to transfer. His vitals are stable for transfer. Vital Signs/Physical Exam: Temp Pulse Resp BP Pulse Ox 97.4 F 90 17 130/71 96 09/17/22 04:00 09/17/22 05:31 09/17/22 04:00 09/17/22 05:31 09/17/22 04:00 General: Alert, In no apparent distress, Oriented x3 HEENT: Mucous membr. moist/pink Neck: Supple, JVD not distended Respiratory: Clear to auscultation bilaterally Cardiovascular: No edema, Regular rate/rhythm Gastrointestinal: Soft and benign, Non-distended, No tenderness Musculoskeletal: No swelling Integumentary: No rashes, No cyanosis Neurological: Normal strength at 5/5 x4 extr Laboratory Data at Discharge: WBC 7.20 K/uL (4.3-10.9) 09/16/22 11:20 Hgb 12.1 g/dL (13.6-17.9) L 09/16/22 11:20 Hct 34.7 % (39.6-49.0) L 09/16/22 11:20 Plt Count 200 K/uL (152-406) 09/16/22 11:20 PT 11.4 SECONDS (9.5-12.5) 09/16/22 11:20 INR 1.04 09/16/22 11:20 APTT 48.0 SECONDS (24.3-36.9) H 09/17/22 12:02 Sodium 134 mmol/L (136-145) L 09/17/22 03:26 Potassium 4.6 mmol/L (3.5-5.1) 09/17/22 03:26 BUN 59 mg/dL (7-18) H 09/17/22 03:26 Creatinine 3.58 mg/dL (0.55-1.3) H 09/17/22 03:26 Glucose 180 mg/dL (74-106) H 09/17/22 03:26 Triglycerides 390 mg/dL (<150) H 09/17/22 03:26 Cholesterol 175 mg/dL (<200) 09/17/22 03:26 HDL Cholesterol 33 mg/dL (40-60) L 09/17/22 03:26 Cholesterol/HDL Ratio 5.30 09/17/22 03:26 Home Medications: glyBURIDE [Glyburide] 5 mg PO BID 01/17/18 Lovastatin 20 mg PO BEDTIME 03/29/20 Insulin Aspart [Novolog Flexpen] See Protocol SQ ACHS 11/19/20 Gabapentin 300 mg PO BID 01/19/22 Insulin Glargine Human [Lantus*] 22 units SQ BID 04/10/22 Cholecalciferol (Vitamin D3) [Vitamin D 5,000 IU Cap*] 5,000 unit PO DAILY #30 cap 04/12/22 Losartan/Hydrochlorothiazide [Losartan-Hctz 100-25 mg Tab] 1 each PO DAILY #30 tablet 04/12/22 Furosemide [Lasix*] 40 mg PO DAILY 09/17/22 Insulin -Regular Human [Novolin -R*] See Protocol SQ ACHS ml 09/17/22 Metoprolol Succinate [Toprol Xl*] 25 mg PO BID 6AM 6PM tab 09/17/22 Followup: NONE,NONE [Primary Care Provider] - Time spent managing pt's care (in minutes): 32
[2022-09-17] MEDS: HEPARIN/D5W 25,000 UNIT/500 ML BAG IV PRN (17:21)
[2022-09-17] MEDS: LOVASTATIN 20 MG PO SCH (20:16)
[2022-09-17 20:53] VITALS: BP 156/92; TEMP 97.3
--- NOTE | 2022-09-19 07:35 | CON ---
Date of Consultation: 09/16/2022 The patient admitted on 09/16/[address] Simpson's service. I saw the patient on 09/16/2022. Reason For Consultation: [id number] myocardial infarction. History Of Present Illness: Mr. Balderas is a 57-year-old white male without any previous cardiac h istory. He recently had a stress test in the hospital showing what appears to be an inferior scar. No intervention was done at that time. He was eating in a restaurant and was found that he was noted to be syncopal, brought to the emergency room, was found to have a troponin of 9000. EKG showed non specific changes. Chest x-ray was negative. He was asymptomatic by the time we saw him. Past Medical History: Includes obesity, hypertension, diabetes, dyslipidemia. Family History: Positive for heart disease. Allergies: NONE. Review of Systems: Negative. Social History: Negative. Family History: Negative. Medications: Listed by Dr. Simpson. Physical Examination: Vital Signs: Stable, afebrile. HEENT: Negative. Neck: Supple with no bruit. Chest: Clear to auscultation and percussion. Cardiac: Revealed regular rhythm and rate. No murmurs, gallops, or rubs. Abdomen: Obese, but benign. Extremities: Revealed no clubbing, cyanosis, or edema. Diagnostic Data: As stated earlier. Impression And Plan: Syncope with elevated troponin. Shortly, the syncope could be cardiac in natur e either ventricular tachycardia or pauses. Nevertheless, I think he needs to go to the heart cathet erization lab today rather emergently to define his coronary anatomy. The patient understands the ri sk and the benefits of the procedure. He agrees to proceed. MARGARITA/MODL Voice ID: [id number] Report ID: [id number]
--- NOTE | 2022-09-19 13:56 | EKG ---
Test Date: 2022-09-16 Test Time: 11:07:21 Cutting Machine Offbearer: MEASUREMENT RESULTS: Intervals: Rate: 98 IN: 160 QRSD: 76 QT: 332 QTc: 423 [place]: P: 72 IN: 160 QRS: 15 T: 128 INTERPRETIVE STATEMENTS: Normal sinus rhythm Septal infarct, age undetermined ST & T wave abnormality, consider lateral ischemia Abnormal ECG Compared to ECG 04/10/2022 06:14:03 ST (T wave) deviation now present Possible ischemia now present Myocardial infarct finding still present Electronically Signed On 09-19-22 13:53:26 SEGREGATOR by Stuart Ontiveros
--- NOTE | 2022-09-19 17:36 | OP ---
Date of Procedure: 09/16/2022 Surgeon: Lj Joe MD Intelligence Applications: Ms. Mary Alice Turner. Procedures: Left heart catheterization, selective coronary arteriogram, and common femoral artery an giogram. Indication: [id number] myocardial infarction and syncope. Description Of Procedure: The patient was brought to the film [facility] on 09/16/2022 as an inpatient. He was prepped and draped in routine sterile fashion. He was given Versed and fentanyl for sedation. A 6-E[place]ian sheath was introduced in the right common femoral artery successfully using the Seldinger technique and 10 cc of Xylocaine. Aram catheter left and right were used to do the diagnostic cat heterization. He was found to have a normal left main. He had a stenosis in the ostium of the LAD t hat mostly he had about a 70% to 80% mid LAD stenosis that was very long with very small LAD runoff d istally with diffuse calcification. The circumflex had about a 50% proximal, 70%, maybe 50% distal s tenosis. It was a nondominant vessel, but nevertheless with gaze collaterals to the RCA. The RCA wa s completely occluded. The patient tolerated the procedure well. There were no complications. Bloo d loss was 5 cc. Total conscious sedation was 30 minutes. Final Diagnoses: Severe coronary artery disease. We will plan to get him transferred to [place] for a possible bypass surgery early next week. The case was discussed with the family with Dr. Tatiana mobley nd with Dr. Ramo Newell. MARGARITA/CHINMAY Voice ID: [id number] Report ID: [id number]
== END 2022-09-17 21:25 | disposition short-term general hospital (02) | DRG 282 ==
LOC: ER 11:08 → ERHOLD 13:51 → 4TH 15:40
PROVIDERS: ADMIT Internal Medicine Sleep Medicine; ATTEND Internal Medicine
PROC: 4A023N7 Measurement of Cardiac Sampling and Pressure, Left Heart, Percutaneous Approach (ICD-10-PCS; principal; 2022-09-16)
PROC: B2111ZZ Fluoroscopy of Multiple Coronary Arteries using Low Osmolar Contrast (ICD-10-PCS; 2022-09-16)
DX: I21.4 Non-ST elevation (NSTEMI) myocardial infarction (principal); I12.9 Hypertensive chronic kidney disease with stage 1 through stage 4 chronic kidney disease, or unspecified chronic kidney disease; N18.30 Chronic kidney disease, stage 3 unspecified; E11.22 Type 2 diabetes mellitus with diabetic chronic kidney disease; E11.620 Type 2 diabetes mellitus with diabetic dermatitis; E78.2 Mixed hyperlipidemia; I25.10 Atherosclerotic heart disease of native coronary artery without angina pectoris; Z88.8 Allergy status to other drugs, medicaments and biological substances; Z79.4 Long term (current) use of insulin; Z89.201 Acquired absence of right upper limb, unspecified level; Z89.422 Acquired absence of other left toe(s); Z89.421 Acquired absence of other right toe(s); Z85.830 Personal history of malignant neoplasm of bone; Z28.310 Unvaccinated for COVID-19; Z79.899 Other long term (current) drug therapy; Z20.822 Contact with and (suspected) exposure to COVID-19
CPT/HCPCS: 36415; 71045; 80048; 80061; 82947; 83880; 84484; 85025; 85610; 85730; 87811; 93005; 93454; 99283; C1760; C1893; G0269; J1644; J1815; J2250; J3010; J7040; J7608; Q9966

== ENCOUNTER 2022-10-04 04:34 | Inpatient (IN) | payer OTHER ==
--- OUTSIDE RECORDS SUMMARY | 2022-10-04 04:39 | XMS REPORT | Continuity of Care Document ---
:1965 Author Organization [facility] t Address [address] [place] [address] Care Team Providers Name Role Phone Thai Olson Attending Clinician Unavailable Zaynab Snell RN Attending Clinician Unavailable ARANZA CANELA V. Attending Clinician Unavailable Terrance Wolfe MD Attending Clinician Amie Martin MD Attending Clinician [phone] Filemon Slaughter MD Attending Clinician Aranza Canela MD, V. Attending Clinician Netta Galloway MD Attending Clinician TERRANCE WOLFE Attending Clinician Unavailable AMIE MARTIN Admitting Clinician Unavailable Payers Payer Name Policy Type Policy Number Effective Date Expiration Date S ource [place] [id number] 2021 00:00:00 Problems Condition Condition Condition Status Onset Resolution Last Treating Co mments Source Name Details Category Date Date Treatment Clinician Date Chronic Chronic Disease Active 2021-[address] [facility] systolic systolic 2-03 [facility] congestive congestive 00:00: Me dical heart heart 00 Center failure failure nursing home nursing home Disease Active 2021-[address] [facility] (current) (current) 2-03 [facility] s use of use of 00:00: Medical insulin insulin 00 Center Mixed Mixed Disease Active 2021-[address] hyperlipid hyperlipid 2-03 Aleida kes emia emia 00:00: Medical 00 Center Non-ST Non-ST Disease Active 2021-[address] elevated elevated 2 kes myocardial myocardial 00:00: Me dical infarction infarction 00 Ce nter (non-STEMI (non-STEMI ) ) Essential Essential Disease Active 2021-[address] (primary) (primary) 203 [facility] hypertensi hypertensi 00:00: Me dical on on 00 Center Stage 3b Stage 3b Disease Active 2021-10 [facility] kidney 00:[facility]: Medical disease disease 00 Center Hypothyroi Hypothyroi Disease Active 2021-[address] dism dism 11-18 [facility] (acquired) (acquired) 00:00: Me dical 00 Center Type 2 Type 2 Disease Active 2021-[address] [facility] diabetes diabetes 11-18 [facility] mellitus mellitus 00:00: Medica l with with 00 Center diabetic diabetic chronic chronic kidney kidney disease disease CAD, CAD, Disease Active 2021-[address] [facility] multiple multiple 11-18 [facility] vessel vessel 00:00: Medical 00 [place] [id number] Type 2 [place] [id number] diabetes Spirit mellitus - CHI with other St diabetic [facility] kidney Medical complicati Center on [id number] Non-pressu Problem Co mmon re chronic Spirit ulcer of - CHI other part St of [facility] unspecifie Medica l d foot Center with unspecifie d severity [id number] Other Problem Common specified Spirit diabetes - CHI mellitus St with foot [facility] ulcer Medical [place] [id number] Subclinica Problem Com mon l Spirit hypothyroi - CHI dism [facility] [id number] Type 2 Problem Commo n 07 diabetes Spirit mellitus - CHI with St diabetic [facility] chronic Medical kidney Center disease [id number] Erectile Problem Comm on dysfunctio Spirit n, - CHI unspecifie St d erectile kes dysfunctio Medica n type Center [id number] Diabetic Problem Comm on polyneurop Spirit athy - CHI associated St with type [facility] 2 diabetes Medica l mellitus Center [id number] 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, St unspecifie [facility]ukes d trigger Medical [place] [id number] Chewing Problem Common tobacco Spirit nicotine - CHI dependence St without [facility] complicati Medica on Center [id number] Body mass Problem Com mon index Spirit [BMI] - CHI 32.0-32.9, [facility] [id number] Other Problem Common obesity Spirit due to - CHI excess [facility] [id number] 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 St of second [facility] toe of Medical left foot Center Foot Foot Problem Common ulcer, ulcer, Spirit left, with left, with - CHI unspecifie unspecifie St d severity d severity [facility] [id number] Cough Problem Common Spirit - [facility] [id number] Bronchitis Problem Com mon Spirit - [facility]I [facility] [id number] Abrasion Problem Com mon [id number] of left Spirit cornea, - CHI initial [facility] Coronary Coronary Disease Resolve 2021-102022-09-17 2022-09-[address] artery artery d 11-18 00:00:00 22:53:18 [facility] disease disease 00:00: Medical 00 Center Allergies, Adverse Reactions, Alerts Allergy Allergy Status Severity Reaction(s) Onset Inactive Treating Comm ents Source Name Type Date Date Clinician ROSUVAST Allergy Active Other 2021-[address] [facility] ATIN 2-04 [facility] 00:00: Medical 00 Center Rosuvast Propensi Active Other (See 2021-[address] atin ty to Comments) 204 aches [facility] adverse 00:00: Medical reaction 00 Center s ATORVAST Allergy Active [facility] ATIN 2-09 [facility] 00:00: Medical 00 Center Atorvast Drug Active Other [facility] atin Allergy 2-09 reaction( [facility]ukes 00:00: s): Medical 00 headache/ Center muscle pain Family History Family Member Diagnosis Comments Start Date Stop Date Source Natural father Diabetes [facility] Natural father Heart disease [facility] Social History Social Habit Start Date Stop Date Quantity Comments Source History of Tobacco [facility] - Use [facility]Med Medical Center History SDVT 2022-09-18 2022-09-18 2 [facility] Transport Med 00:00:00 00:00:[address] History [facility] 2022-09-18 2022-09-[address] [facility] Housing Unable to 00:00:00 00:00:00 Medical Center Pay History [facility] 2022-09-18 2022-09-18 [address] [facility] [address] [facility] Housing Places 00:00:00 00:00:00 Medical Ce nter Lived History [facility] 2022-09-18 2022-09-18 1 [facility] [place] [facility] Homeless 00:00:00 00:00:00 Medical Center Last Year Tobacco use and 2022-09-17 2022-09-[address] Aleida kes exposure 00:00:00 00:00:00 Medical Center Sex Assigned At [address] [facility]ida kes 00:00:00 00:00:00 Medical Center Smoking Status Start Date Stop Date Source Former smoker 2022-09-17 00:00:00 2022-09-17 00:00:00 [facility] Never Smoker [facility] - [facility] Medications Ordered Filled Start Stop Current Ordering Indication Dosage Frequency Signature Comments Components Source Medication Medication Date Date Medication? Clinician (SIG) Name Name aspirin 81 2021-10- Yes 81mg QD Take [address] MG EC 11-22 tablet (81 [facility] tablet 00:00: 23:59 mg total) Medic al 00 :00 by mouth Center daily. cholecalcif 2021-10 Yes 5000U QD Take 5,[address] josé miguel 2- Units by [place] (VITAMIN 19:01: mouth Medical D3) 25 mcg 28 daily. Center (1,000 unit) tablet ticagrelor 2021-10 Yes 90mg Q.5D Take 1 [facility] t (BRILINTA) 11-21 tablet (90 Abad es 90 mg Tab 00:00: mg total) Med ical tablet 00 by mouth 2 Center (two) times daily. metoprolol 2021-10- Yes 25mg Q.5D Take [address] tartrate 11-21 tablet (25 Luke s (LOPRESSOR) 00:00: 23:59 mg total) Medical 25 MG 00 :00 by mouth 2 Center tablet (two) times daily. losartan 2021-10- Yes 100mg QD Take 1 [facility]I [facility] t (COZAAR) 11-21-05 tablet [facility] 100 MG 00:00: 23:59 (100 mg Medical tablet 00 :00 total) by Center mouth daily for 30 days. glyBURIDE 2021-10 Yes 5mg Q.5D Take [address] (DIABETA) 5 1-25 by mouth 2 Aleida kes MG tablet 00:00: (two) Medical 00 times Center daily. furosemide 2021-10- No 40mg QD Take [address] (LASIX) 40 - 12-06 by mouth Luke s MG tablet 00:00: 00:00 daily . Medi reji 00 :00 Center losartan-hy 2021-10- No 1{tbl} QD Take [address] droCHLOROth -21 1206 tablet by Aleida kes iazide 00:00: 00:00 mouth Medical (HYZAAR) 00 :00 daily. Center 100-25 mg per tablet lovastatin 2021-[address] [facility] (MEVACOR) 1-15 Tablet(s) [facility]ukes 20 MG 00:00: By Mouth Medical tablet 00 Every Center Evening montelukast 2021-10 No 10mg QD Take [address] (SINGULAIR) 1-15 1203 by mouth Abad es 10 mg 00:00: 00:00 daily. Medical tablet 00 :00 [place] Lantus 2021-10 Yes 22U Q.5D 22 Units 2 [facility] t Solostar 1-10 (two) [facility]ukes U-100 00:00: times Medical Insulin 100 00 daily . Cente r unit/mL (3 mL) In gabapentin 2021-10 Yes 300mg Q.5D Take [address] (NEURONTIN) 0-17 mg by [facility]ukes 300 MG 00:00: mouth 2 Medical capsule 00 (two) Center times daily. NovoLOG 2021-[address] [facility] Flexpen 0-11 9 Unit(s) [facility]ukes U-100 00:00: SUB-Q 3 Medical Insulin 100 00 Times Center unit/mL (3 Daily mL) InPn Benzonatate Benzonatate 2021- No 1{capsu TID Benzonatat 200 MG 200 MG 06-02 08 le} e 200 MG 00:00: 00:00 00 :00 Losartan Losartan No 1{table QD Losartan Potassium-H Potassium-H 7-06 t} Potassium- CTZ 100-25 CTZ 100-25 00:00: HCTZ MG MG 00 100-25 MG Losartan Losartan 2021-0 No 1{table QD Losartan Potassium-H Potassium-H 7-06 t} Potassium- CTZ 100-25 CTZ 100-25 00:00: HCTZ MG MG 00 100-25 MG NovoLOG NovoLOG 2-0 No TID NovoLOG FlexPen 100 FlexPen 100 4-05 FlexPen UNIT/ML UNIT/ML 00:00: 100 00 UNIT/ML Pen [place] Pen [place] 2021-0 No TID Pen 31G X 5 MM 31G X 5 MM 4-05 [place] 00:00: 31G X 5 MM 00 NovoLOG NovoLOG 2-0 No TID NovoLOG FlexPen 100 FlexPen 100 4-05 FlexPen UNIT/ML UNIT/ML 00:00: 100 00 UNIT/ML Pen [place] Pen [place] 2021-0 No TID Pen 31G X 5 MM 31G X 5 MM 4-05 [place] 00:00: 31G X 5 MM 00 NovoLOG NovoLOG 2-0 No TID NovoLOG FlexPen 100 FlexPen 100 4-05 FlexPen UNIT/ML UNIT/ML 00:00: 100 00 UNIT/ML Pen [place] Pen [place] 2021-0 No TID Pen 31G X 5 MM 31G X 5 MM 4-05 [place] 00:00: 31G X 5 MM 00 Pen [place] Pen [place] 2021-0 No TID Pen 31G X 5 MM 31G X 5 MM 4-05 [place] 00:00: 31G X 5 MM 00 NovoLOG NovoLOG 2022-0 No TID NovoLOG FlexPen 100 FlexPen 100 4-05 FlexPen UNIT/ML UNIT/ML 00:00: 100 00 UNIT/ML NovoLOG NovoLOG 2022-0 No TID NovoLOG FlexPen 100 FlexPen 100 4-05 FlexPen UNIT/ML UNIT/ML 00:00: 100 00 UNIT/ML Pen [place] Pen [place] 2021-0 No TID Pen 31G X 5 MM 31G X 5 MM 4-05 [place] 00:00: 31G X 5 MM 00 NovoLOG NovoLOG 2022-0 No TID NovoLOG FlexPen 100 FlexPen 100 4-05 FlexPen UNIT/ML UNIT/ML 00:00: 100 00 UNIT/ML Pen [place] Pen [place] 2021-0 No TID Pen 31G X 5 MM 31G X 5 MM 4-05 [place] 00:00: 31G X 5 MM 00 NovoLOG NovoLOG 2021-0 No TID NovoLOG FlexPen 100 FlexPen 100 4-05 FlexPen UNIT/ML UNIT/ML 00:00: 100 00 UNIT/ML Pen [place] Pen [place] 2021-0 No TID Pen 31G X 5 MM 31G X 5 MM 4-05 [place] 00:00: 31G X 5 MM 00 NovoLOG NovoLOG 2021-0 No TID NovoLOG FlexPen 100 FlexPen 100 4-05 FlexPen UNIT/ML UNIT/ML 00:00: 100 00 UNIT/ML Pen [place] Pen [place] 2021-0 No TID Pen 31G X 5 MM 31G X 5 MM 4-05 [place] 00:00: 31G X 5 MM 00 Polytrim Polytrim No 1{drop_ QID Polytrim 61749-2.1 56293-1.1 1-15 into_af 53454-2.1 UNIT/ML UNIT/ML 00:00: fected_ UNIT/ML 00 eye} Albuterol Albuterol No 2{puffs QID Albuterol Sulfate HFA Sulfate HFA 1-15 _as_nee Sulfate 108 (90 108 (90 00:00: ded} HFA 108 Base) Base) 00 (90 Base) MCG/ACT MCG/ACT MCG/ACT Polytrim Polytrim No 1{drop_ QID Polytrim 83638-9.1 70278-7.1 1-15 into_af 54955-3.1 UNIT/ML UNIT/ML 00:00: fected_ UNIT/ML 00 eye} Albuterol Albuterol No 2{puffs QID Albuterol Sulfate HFA Sulfate HFA 1-15 _as_nee Sulfate 108 (90 108 (90 00:00: ded} HFA 108 Base) Base) 00 (90 Base) MCG/ACT MCG/ACT MCG/ACT Polytrim Polytrim No 1{drop_ QID Polytrim 83814-0.1 95293-3.1 1-15 into_af 37825-4.1 UNIT/ML UNIT/ML 00:00: fected_ UNIT/ML 00 eye} Albuterol Albuterol No 2{puffs QID Albuterol Sulfate HFA Sulfate HFA 1-15 _as_nee Sulfate 108 (90 108 (90 00:00: ded} HFA 108 Base) Base) 00 (90 Base) MCG/ACT MCG/ACT MCG/ACT Polytrim Polytrim No 1{drop_ QID Polytrim 82966-1.1 88258-2.1 1-15 into_af 23195-6.1 UNIT/ML UNIT/ML 00:00: fected_ UNIT/ML 00 eye} Albuterol Albuterol No 2{puffs QID Albuterol Sulfate HFA Sulfate HFA 1-15 _as_nee Sulfate 108 (90 108 (90 00:00: ded} HFA 108 Base) Base) 00 (90 Base) MCG/ACT MCG/ACT MCG/ACT Polytrim Polytrim No 1{drop_ QID Polytrim 36912-9.1 22829-1.1 1-15 into_af 26378-2.1 UNIT/ML UNIT/ML 00:00: fected_ UNIT/ML 00 eye} Albuterol Albuterol No 2{puffs QID Albuterol Sulfate HFA Sulfate HFA 1-15 _as_nee Sulfate 108 (90 108 (90 00:00: ded} HFA 108 Base) Base) 00 (90 Base) MCG/ACT MCG/ACT MCG/ACT Polytrim Polytrim No 1{drop_ QID Polytrim 95414-2.1 97658-6.1 1-15 into_af 08292-2.1 UNIT/ML UNIT/ML 00:00: fected_ UNIT/ML 00 eye} [...] MCG/ACT Polytrim Polytrim No 1{drop_ QID Polytrim 78382-7.1 53420-0.1 1-15 into_af 47676-4.1 UNIT/ML UNIT/ML 00:00: fected_ UNIT/ML 00 eye} Polytrim Polytrim No 1{drop_ QID Polytrim 08134-7.1 95794-0.1 1-15 into_af 39180-5.1 UNIT/ML UNIT/ML 00:00: fected_ UNIT/ML 00 eye} Albuterol Albuterol No 2{puffs QID Albuterol Sulfate HFA Sulfate HFA 1-15 _as_nee Sulfate 108 (90 108 (90 00:00: ded} HFA 108 Base) Base) 00 (90 Base) MCG/ACT MCG/ACT MCG/ACT Polytrim Polytrim No 1{drop_ QID Polytrim 27079-2.1 44278-2.1 1-15 into_af 80290-1.1 UNIT/ML UNIT/ML 00:00: fected_ UNIT/ML 00 eye} Albuterol Albuterol No 2{puffs QID Albuterol Sulfate HFA Sulfate HFA 1-15 _as_nee Sulfate 108 (90 108 (90 00:00: ded} HFA 108 Base) Base) 00 (90 Base) MCG/ACT MCG/ACT MCG/ACT Polytrim Polytrim No 1{drop_ QID Polytrim 26068-1.1 46104-8.1 1-15 into_af 03965-0.1 UNIT/ML UNIT/ML 00:00: fected_ UNIT/ML 00 eye} [...] Name Observation Time Observation Value Comments Source HEIGHT 2022-09-17 22:45:00 175.3 cm WEIGHT 2022-09-17 22:45:00 97.387 kg HEIGHT 2022-09-17 22:45:00 175.3 cm WEIGHT 2022-09-17 22:45:00 97.387 kg HEIGHT 2022-09-17 22:45:00 175.3 cm WEIGHT 2022-09-17 22:45:00 97.387 kg height 2022-06-02 14:00:00 67 [in_i] [facility] weight 2022-06-02 14:00:00 208 [lb_av] Common S pirit [facility] temperature 2022-06-02 14:00:00 97.9 [degF] Common [facility] bmi 2022-06-02 14:00:00 32.57 kg/m2 [facility] blood pressure 2022-06-02 14:00:00 129 mm[Hg] Common [facility] - systolic [facility] blood pressure 2022-06-02 14:00:00 67 mm[Hg] [facility] - diastolic [facility] height 2022-04-20 14:30:00 67 [in_i] [facility] weight 2022-04-20 14:30:00 212.5 [lb_av] [facility] temperature 2022-04-20 14:30:00 98.1 [degF] [facility] bmi 2022-04-20 14:30:00 33.28 kg/m2 [facility] oximetry 2022-04-20 14:30:00 96 % [facility] respiratory rate 2022-04-20 14:30:00 17 /min Comm on Spirit [facility] blood pressure 2022-04-20 14:30:00 123 mm[Hg] [facility] - systolic [facility] blood pressure 2022-04-20 14:30:00 75 mm[Hg] [facility] - diastolic [facility] height 2022-03-16 11:20:00 67 [in_i] [facility] weight 2022-03-16 11:20:00 212.4 [lb_av] Common [facility] temperature 2022-03-16 11:20:00 98.0 [degF] Common S [facility] bmi 2022-03-16 11:20:00 33.26 kg/m2 Common S [facility] oximetry 2022-03-16 11:20:00 96 % Common S [facility] respiratory rate 2022-03-16 11:20:00 17 /min Comm on [facility] blood pressure 2022-03-16 11:20:00 130 mm[Hg] Common [facility] - systolic [facility] blood pressure 2022-03-16 11:20:00 78 mm[Hg] Common [facility] - diastolic [facility] height 2022-01-03 13:30:00 67 [in_i] [facility] weight 2022-01-03 13:30:00 203.3 [lb_av] [facility] temperature 2022-01-03 13:30:00 98.1 [degF] Common [facility] bmi 2022-01-03 13:30:00 31.84 kg/m2 [facility] S [facility] oximetry 2022-01-03 13:30:00 95 % [facility] S [facility] respiratory rate 2022-01-03 13:30:00 17 /min Comm on [facility] blood pressure 2022-01-03 13:30:00 138 mm[Hg] Common [facility] - systolic [facility] blood pressure 2022-01-03 13:30:00 78 mm[Hg] Common [facility] - diastolic [facility] Systolic blood 2022-09-20 17:30:00 143 mm[Hg] [facility] Diastolic blood 2022-09-20 17:30:00 78 mm[Hg] [facility] Heart rate 2022-09-20 17:00:00 83 /min [facility] Oxygen saturation in 2022-09-20 13:15:00 99 /min [facility] Arterial blood by Medical Ce nter Pulse oximetry Body temperature 2022-09-20 09:30:00 36.28 Melinda [facility] Respiratory rate 2022-09-20 09:30:00 20 /min [facility] Body height 2022-09-17 22:45:00 175.3 cm [facility] Body weight 2022-09-17 22:45:00 97.387 kg [facility] BMI 2022-09-17 22:45:00 31.71 kg/m2 [facility] Procedures Procedure Date / Time Performing Clinician Source Performed POCT-ACT 2022-09-20 12:40:00 [place] [facility] POCT-ACT 2022-09-20 11:38:00 [facility] POCT-GLUCOSE METER 2022-09-20 10:27:00 Hilton [facility] Zahida [facility] POCT-GLUCOSE METER 2022-09-20 09:03:00 [place] [facility] POCT-ACT 2022-09-20 08:36:00 [facility] POCT-ACT 2022-09-20 08:06:00 Filemon Slaughter [facility] ANGIOGRAM, CORONARY, WITH 2022-09-20 07:34:[address] [facility] LEFT HEART CATHETERIZATION Medic al Center ABORH, MANUAL 2022-09-20 05:34:00 Sherlyn Callaway [facility] TYPE AND SCREEN, AUTOMATED 2022-09-20 03:53:00 Netta Galloway [facility] CBC (HEMOGRAM ONLY) 2022-09-20 03:53:00 [facility] BASIC METABOLIC PANEL 2022-09-20 03:53:[address] [facility] MAGNESIUM 2022-09-20 03:53:00 Wayne Amie [facility] APTT 2022-09-19 20:52:00 [facility] POCT-GLUCOSE METER 2022-09-19 [facility] 2022-09-19 17:23[facility] 2D ECHO W/ DOPPLER 2022-09-19 13:13:27 [facility] (CW/PW/COLOR) [facility] APTT 2022-09-19 12:59:00 [facility] POCT-GLUCOSE METER 2022-09-19 12:03[facility] PO[facility]SE METER 2022-09-19 08:26:[facility] PLATELET AGGREGATION: 2022-09-19 04:40:00 Netta Galloway [facility] BASIC METABOLIC PANEL 2022-09-19 04:40:00 [facility] MAGNESIUM 2022-09-19 04:40:00 [facility] APTT 2022-09-19 04:40:00 [facility] URINALYSIS W/ MICROSCOPIC 2022-09-18 22:36:00 [facility] CREATININE, RANDOM URINE 2022-09-18 22:36:00 [facility] PROTEIN, RANDOM URINE 2022-09-18 22:36:00 [facility] SODIUM, RANDOM URINE 2022-09-18 22:36:00 [facility] UREA NITROGEN, RANDOM 2022-09-18 22:36:00 [facility] POCT-GLUCOSE METER 2022-09-18 21:38:00 [facility] APTT 2022-09-18 21:23:00 [facility] POCT-GLUCOSE METER 2022-09-18 17:19:00 Filemon Slaughter [facility] APTT 2022-09-18 14:18:00 [facility] POCT-GLUCOSE METER 2022-09-18 11:38:00 [facility] CAROTID DOPPLER BILATERAL 2022-09-18 09:29:00 Netta Galloway CH, I [facility] POCT-GLUCOSE METER 2022-09-18 08:13[facility] CHEST 1 VIEW PORTABLE / 2022-09-18 07:46:00 Amie Martin [facility] BEDSIDE [facility] CBC (HEMOGRAM ONLY) 2022-09-18 05:59:00 [facility] BASIC METABOLIC PANEL 2022-09-18 05:59:00 [facility] PHOSPHORUS 2022-09-18 05:59:00 [facility] MAGNESIUM 2022-09-18 05:59:00 [facility] LIPID PANEL 2022-09-18 05:59:00 [facility] HEMOGLOBIN A1C 2022-09-18 05:59:00 [facility] B-TYPE NATRIURETIC FACTOR 2022-09-18 05:59:00 Amie Martin [facility] (BNP) [facility] APTT 2022-09-18 05:59:00 Wayne Amie [facility] ECG 12-LEAD 2022-09-18 00:06:01 [facility] ECG 12-LEAD 2022-09-18 00:06:01 Unknown, Hl7 Doctor [facility] SARS-COV2/RT-PCR ([facility] & 2022-09-17 23:19:00 Amie Martin [facility] REF LABS) [facility] PLATELET COUNT 2022-09-17 23:19:00 Amie Martin [facility] APTT 2022-09-17 23:17:00 Amie Martin [facility] CARDIAC CATH REPORT - SCAN 2022-09-17 00:00:[address] [facility] [facility] Plan of Care Planned Activity Planned Date Details Comments Source Future Scheduled 2025-09-18 Lipid panel (procedure) [facility] Test 00:00:00 [code = 83077594] Medical Ce nter Future Scheduled 2023-09-[address] [facility] Test 00:00:00 Counseling and Medical Cente r Screening (12+) [code = Tobacco Cessation Counseling and Screening (12+)] Future Scheduled 2022-09-[address] [facility] Test 00:00:00 measurement (procedure) [facility] [code = 63778509] Future Scheduled 2022-06-16 INFLUENZA VACCINE (#1) [facility] 00:00:00 [code = INFLUENZA Medical Ce nter VACCINE (#1)] Future Scheduled 2021-10-[address] [facility] Test 00:00:00 (12+) [code = Medical Center DEPRESSION SCREENING (12+)] Future Scheduled 2017 SHINGLES VACCINES ([address] [facility] Test 00:00:00 2) [code = SHINGLES [facility] VACCINES (1 of 2)] Future Scheduled 1986 DTAP/TDAP/TD VACCINES [facility] Test 00:00:00 (1 - Tdap) [code = Medical C enter DTAP/TDAP/TD VACCINES (1 - Tdap)] Future Scheduled 1985 HEPATITIS C SCREENING [facility] Test 00:00:00 [code = HEPATITIS C Medical Center SCREENING] Future Scheduled 1977 DIABETIC EYE EXAM [code [facility] Test 00:00:00 = DIABETIC EYE EXAM] Medical Center Future Scheduled [address] [facility] Test 00:00:00 examination Medical Center (regime/therapy) [code = 619751361] Future Scheduled 1977 Urine screening for [facility] Test 00:00:00 protein (procedure) [facility] [code = 331922856] Future Scheduled [address] [facility] Test 00:00:00 0-64 YRS (1 - PCV) Medical C enter [code = PNEUMOCOCCAL VACCINE 0-64 YRS (1 - PCV)] Future Scheduled 1967 COVID-19 VACCINE (#1) [facility] Test 00:00:00 [code = COVID-[address] VACCINE (#1)] Future Scheduled 1967 CT Colonography (combo) [facility] Test 00:00:00 [code = CT Colonography [facility] Center (combo)] Future Scheduled 1967 Screening for malignant [facility] Test 00:00:00 neoplasm of colon Medical Ce nter (procedure) [code = 689771707] Future Scheduled 1967 Screening for malignant [facility] Test 00:00:00 neoplasm of colon Medical Ce nter (procedure) [code = 202538401] Future Scheduled 1967 Screening for malignant [facility] Test 00:00:00 neoplasm of colon Medical Ce nter (procedure) [code = 389947586] Future Scheduled 1967 Screening for malignant [facility] Test 00:00:00 neoplasm of colon Medical Ce nter (procedure) [code = 290417695] Future Scheduled 1965 Sigmoidoscopy [code = [facility] Test 00:00:00 Sigmoidoscopy] Medical Cente r Encounters Start End Encounter Admission Attending Care Care Encounter Source Date/Time Date/Time Type Type Clinicians Facility Department ID 2022-01-03 Outpatient [facility] [id number] Common 14:02:04 [facility]ly [facility] - [facility] 2022-09-21 2022-09-[address] [facility] [id number] 00:[facility]00 00:00:00 marlene Worthy [facility] 2022-09-17 2022-09-20 Inpatient UR [place], [facility] Cardiology [id number] [facility] 22:25:00 19:01:00 JAMESONRIDGELEY 2022-09-17 2022-09-20 [facility] Terrance Wolfe [facility] [id number] [facility] 22:25:00 19:01:[address] [facility]22-09-[address] [facility] [id number] 07:35:00 09:32:00 [facility] 2022-09-18 2022-09-18 Outpatient [facility] [id number] [facility] 00:00:00 23:59:00 Sushant gomez of Medicin e 2022-09-18 2022-09-[address] [facility] [id number] 00:00:00 00:00:00 [facility] 2022-07-20 2022-07-20 (TEL) STLMLC STLMLC [id number] Co mmon 00:00:00 00:00:00 [facility] 2022-06-02 2022-06-02 OFFICE STLMLC STLMLC [id number] Co mmon 00:00:00 00:00:00 VISIT Spirit ESTAB PT - CHI LEVEL 4 [facility] 2022-06-01 2022-06-01 (TEL) STLMLC STLMLC [id number] Co mmon 00:00:00 00:00:00 [facility] 2022-04-20 2022-04-20 OFFICE STLMLC STLMLC [id number] Co mmon 00:00:00 00:00:00 VISIT Spirit ESTAB PT - CHI LEVEL 4 [facility] 2022-03-16 2022-03-16 OFFICE STLMLC STLMLC [id number] Co mmon 00:00:00 00:00:00 VISIT Spirit ESTAB PT - CHI LEVEL 5 [facility] 2022-03-04 2022-03-04 (TEL) STLMLC STLMLC [id number] Co mmon 00:00:00 00:00:00 [facility] 2022-03-02 2022-03-02 (TEL) STLMLC STLMLC [id number] Co mmon 00:00:00 00:00:00 [facility] 2022-01-18 2022-01-18 (TEL) STLMLC STLMLC [id number] Co mmon 00:00:00 00:00:00 Spirit - [facility] 2022-01-03 2022-01-[address] [facility] [facility] [id number] Co mmon 00:00:00 00:00:00 VISIT NEW Spir it PT LEVEL 4 - [facility] Results Test Description Test Time Test Comments Results Result Comments Source POC ACTIVATED CLOTTING TIME 2022-09-20 12:54:08 Test Item Value Reference Range Interpretation Comme nts Activated Clotting Time (test 149 sec : 74-137 seconds, Baseline: TESTED AT code = 3184-9) [address], [address]: Plant Sciences Professor/Techni jamil ID = [id number] for Colomer, Samant aj [facility][id number] 12:54:08 Test Item Value Reference Range Interpretation Comments ACTIVATED CLOTTING TIME 149 sec : 74 -137 seconds, (BEAKER) (test code = Baseli ne: TESTED AT 441) [address], [address]: Plant Sciences Professor/Techni jamil ID = [id number] for Co lomer, Tami [id number] 11:55:33 Test Item Value Reference Range Interpretation Comments ACTIVATED CLOTTING TIME 167 sec : 74 -137 seconds, (BEAKER) (test code = Baseli ne: TESTED AT 441) [address], [address]: Plant Sciences Professor/Techni jamil ID = [id number] for Co lomer, Tami POC-Glucose [id number] 10:38:53 Test Item Value Reference Range Interpretation Comments POC-Glucose Meter (test 257 mg/dL 70-110 H : TE STED AT [facility] code = 1538) [address] [place] [address], [address]: Plant Sciences Professor/Techni jamil ID = [id number] for Colomer, Samant aj Lab Interpretation (test Abnormal code = 42990-5) [facility] [id number] 10:38:53 Test Item Value Reference Range Interpretation Comments POC-GLUCOSE METER 257 mg/dL 70-110 H : TESTED [place] T [place] [address] (BEAKER) (test code = [facility], 1538) [address]: Plant Sciences Professor/Techni jamil ID = [id number] for Tami Melgoza POCT-GLUCOSE [id number] 09:15:47 Test Item Value Reference Range Interpretation Comments POC-GLUCOSE METER 272 mg/dL 70-110 H : Notified RN/MD: (BEAKER) (test code = TESTED AT [place] [address] 1538) [facility], [address]: Plant Sciences Professor/Techni jamil ID = [id number] for MISA ROUSE [id number] 08:55:56 Test Item Value Reference Range Interpretation Comments ACTIVATED CLOTTING TIME 271 sec : 74 -137 seconds, (BEAKER) (test code = Baseli ne: TESTED AT 441) [address], [address]: Plant Sciences Professor/Techni jamil ID = [id number] for Dav rnes (contract), Andrade valdez [id number] 08:26:39 Test Item Value Reference Range Interpretation Comments ACTIVATED CLOTTING TIME 312 sec : 74 -137 seconds, (BEAKER) (test code = Baseli ne: TESTED AT 441) [address], [address]: Plant Sciences Professor/Techni jamil ID = [id number] for Dav rnes (contract), Andrade pending sale to [facility] BASIC METABOLIC [id number] 04:46:30 Test Item Value Reference Range Interpretation Comments SODIUM (BEAKER) 134 meq/L 136-145 L (test code = 381) POTASSIUM 5.1 meq/L 3.5-5.1 Specimen slight ly (BEAKER) (test hemolyzed code = 379) CHLORIDE (BEAKER) 102 meq/L 98-107 (test code = 382) CO2 (BEAKER) 23 meq/L 22-29 (test code = 355) BLOOD UREA 53 mg/dL 7-21 H NITROGEN (BEAKER) (test code = 354) CREATININE 2.66 mg/dL 0.57-1.25 H Specimen slight ly (BEAKER) (test hemolyzed code = 358) GLUCOSE RANDOM 308 mg/dL 70-105 H (BEAKER) (test code = 652) CALCIUM (BEAKER) 9.6 mg/dL 8.4-10.2 (test code = 697) EGFR (BEAKER) 28 Interpretatio n of eGFR (test code = mL/min/1.73 values Stage De scription 1092) sq m Result G1 Daily l or high >=90 G2 Mildly decreased 60-89 G3a Mildl y to moderately 45-5 9 G3b Moderately to s everely 30-44 G4 Severl y decreased 15-29 G5 Kidney failure <15Reported eGF R is based on the CKD-EPI 2020 equation that d oes not use a race coefficientEsti mated GFR is not as accur ate as Creatinine Kimberly stephanie in predicting glom erular filtration rate . Estimated GFR is not appl icable for dialysis patien ts Plant Sciences Professor ID - [id number] 04:46:01 Test Item Value Reference Range Interpretation Comments MAGNESIUM (BEAKER) 2.5 mg/dL 1.6-2.6 Specimen slightly (test code = 627) hemolyzed Plant Sciences Professor ID - MARCOCBC (HEMOGRAM ONLY)2022-09-20 04:40:32 Test Item Value Reference Range Interpretation Comments WHITE BLOOD CELL COUNT (BEAKER) 5.7 K/ L 3.5-10.5 (test code = 775) RED BLOOD CELL COUNT (BEAKER) 3.82 M/ L 4.63-6.08 L (test code = 761) HEMOGLOBIN (BEAKER) (test code = 11.7 GM/DL 13.7-17.5 L 410) HEMATOCRIT (BEAKER) (test code = 33.8 % 40.1-51.0 L 411) MEAN CORPUSCULAR VOLUME (BEAKER) 89 fL 79-92 (test code = 753) MEAN CORPUSCULAR HEMOGLOBIN 30.6 pg 25.7-32.2 (BEAKER) (test code = 751) MEAN CORPUSCULAR HEMOGLOBIN CONC 34.6 GM/DL 32.3-36.5 (BEAKER) (test code = 752) RED CELL DISTRIBUTION WIDTH 12.9 % 11.6-14.4 (BEAKER) (test code = 412) PLATELET COUNT (BEAKER) (test 222 K/CU MM 150-450 code = 756) MEAN PLATELET VOLUME (BEAKER) 9.4 fL 9.4-12.4 (test code = 754) NUCLEATED RED BLOOD CELLS 0 /100 WBC 0-0 (BEAKER) (test code = 413) [id number] 21:29:16 Test Item Value Reference Range Interpretation Comments PARTIAL THROMBOPLASTIN TIME 61.0 seconds 22.5-36.0 H (BEAKER) (test code = 760) POCT-GLUCOSE [id number] 20:26:05 Test Item Value Reference Range Interpretation Comments POC-GLUCOSE METER 252 mg/dL 70-110 H : TESTED A T [facility] 6720 (BEAKER) (test code = [facility], 1538) [address]: Plant Sciences Professor/Techni jamil ID = [id number] for Rory Cox POCT-GLUCOSE [id number] 17:34:48 Test Item Value Reference Range Interpretation Comments POC-GLUCOSE METER 197 mg/dL 70-110 H : TESTED A T [facility] 6720 (BEAKER) (test code = [facility] Janee [facility], 1538) [address]: Plant Sciences Professor/Techni jamil ID = [id number] for OR CULLEN LUCERO PLATELET AGGREGATION: FUNCTION [id number] 16:26:46 Test Item Value Reference Range Interpretation Comments [id number] Sherlyn Callaway MD (BEAKER) (test code = (electronic 2622) signature) PLATELET COUNT AGG 223 K/CU MM 150-450 (BEAKER) (test code = 2656) ADP (BEAKER) (test code 70 % 62-100 = 6924) PLATELET RICH 162 k/cu mm 200-300 L PLASMA(BEAKER) (test code = 2134) PLATELET FUNCTION SCREEN Normal aggregation INTERPRETATION (BEAKER) results with ADP. No (test code = 4655) evidence of platelet dysfunction or P2Y12 inhibitor effect. Platelet Function Screen results may be falsely low with platelet counts<75,000/cu mm.Plant Sciences Professor ID- [id number] Echo W/Doppler(CW/PW/Color)2022-09-19 16:11:13Ejection [facility] ECHO HEARTLAB MKCKESSON [facility] 13:23:19 Test Item Value Reference Range Interpretation Comments PARTIAL THROMBOPLASTIN TIME 61.4 seconds 22.5-36.0 H (BEAKER) (test code = 760) POCT-GLUCOSE [id number] 12:18:14 Test Item Value Reference Range Interpretation Comments POC-GLUCOSE METER 227 mg/dL 70-110 H : TESTED A T [facility] 6720 (BEAKER) (test code = [facility], 1538) [address]: Plant Sciences Professor/Techni jamil ID = [id number] for OR CULLEN LUCERO POCT-GLUCOSE [id number] 08:38:34 Test Item Value Reference Range Interpretation Comments POC-GLUCOSE METER 207 mg/dL 70-110 H : TESTED A T [facility] 6720 (BEAKER) (test code = [facility], 1538) [address]: Plant Sciences Professor/Techni jamil ID = [id number] for OR CULLEN LUCERO BASIC METABOLIC [id number] 06:04:27 Test Item Value Reference Range Interpretation Comments SODIUM (BEAKER) 135 meq/L 136-145 L (test code = 381) POTASSIUM 5.4 meq/L 3.5-5.1 H (BEAKER) (test code = 379) CHLORIDE (BEAKER) 104 meq/L 98-107 (test code = 382) CO2 (BEAKER) 22 meq/L 22-29 (test code = 355) BLOOD UREA 52 mg/dL 7-21 H NITROGEN (BEAKER) (test code = 354) CREATININE 3.02 mg/dL 0.57-1.25 H (BEAKER) (test code = 358) GLUCOSE RANDOM 247 mg/dL 70-105 H (BEAKER) (test code = 652) CALCIUM (BEAKER) 9.5 mg/dL 8.4-10.2 (test code = 697) EGFR (BEAKER) 24 Interpretatio n of eGFR (test code = mL/min/1.73 values Stage De scription 1092) sq m Result G1 Daily l or high >=90 G2 Mildly decreased 60-89 G3a Mildl y to moderately 45-5 9 G3b Moderately to s everely 30-44 G4 Severl y decreased 15-29 G5 Kidney failure <15Reported eGF R is based on the CKD-EPI 1 equation that d oes not use a race coefficientEsti mated GFR is not as accur ate as Creatinine Kimberly brown in predicting glom erular filtration rate . Estimated GFR is not appl icable for dialysis patien ts Plant Sciences Professor ID - BETH [id number] 06:03:28 Test Item Value Reference Range Interpretation Comments MAGNESIUM (BEAKER) (test code = 2.5 mg/dL 1.6-2.6 627) Plant Sciences Professor ID - BETH [id number] 05:28:31 Test Item Value Reference Range Interpretation Comments PARTIAL THROMBOPLASTIN TIME 40.6 seconds 22.5-36.0 H (BEAKER) (test code = 760) Urinalysis w/[id number] 23:42:55 Test Item Value Reference Range Interpretation Comments Color, UA (test code Light Yellow = 5778-6) Clarity, UA (test Clear code = 5767-9) Specific [place], UA 1.017 1.001-1.035 (test code = 5811-5) pH, UA (test code = 6.5 5.0-8.0 5803-2) Protein, UA (test 70 mg/dL Negative A code = 12724-1) Glucose, UA (test >1000 mg/dL Negative A code = 365) Ketones, UA (test Negative Negative code = 2514-8) Bilirubin, UA (test Negative Negative code = 90963-5) Blood, UA (test code Trace Negative A = 38426-4) Nitrite, UA (test Negative Negative code = 5802-4) Leukocytes, UA (test Negative Negative code = 5799-2) Urobilinogen, UA 0.2 0.2-1.0 (test code = 26068-8) RBC, UA (test code = 1 See_Comment [Autom ated 43515-6) message] The system which generated this result transmit audrey reference range : /HPF. The reference range was not used to interpret this result as normal/abnormal . WBC, UA (test code = <1 See_Comment [Autom ated 5821-4) message] The system which generated this result transmit audrey reference range : /HPF. The reference range was not used to interpret this result as normal/abnormal . Hyaline Casts, UA 3 See_Comment [Automate d (test code = 39239-2) messag e] The system which generated this result transmit audrey reference range : /LPF. The reference range was not used to interpret this result as normal/abnormal . Specimen Source (test Urine, Clean code = 2795) Catch HIWOT (test code = HIWOT) Plant Sciences Professor ID - [auto]Plant Sciences Professor ID - tech Lab Interpretation Abnormal (test code = 89785-5) [facility]/ [id number] 23:42:55 Test Item Value Reference Range Interpretation Comments COLOR (BEAKER) (test code Light Yellow = 470) CLARITY (BEAKER) (test Clear code = 469) SPECIFIC GRAVITY UA 1.017 1.001-1.035 (BEAKER) (test code = 468) PH UA (BEAKER) (test code 6.5 5.0-8.0 = 467) PROTEIN UA (BEAKER) (test 70 mg/dL Negative A code = 464) GLUCOSE UA (BEAKER) (test >1000 mg/dL Negative A code = 365) KETONES UA (BEAKER) (test Negative Negative code = 371) BILIRUBIN UA (BEAKER) Negative Negative (test code = 462) BLOOD UA (BEAKER) (test Trace Negative A code = 461) NITRITE UA (BEAKER) (test Negative Negative code = 465) LEUKOCYTE ESTERASE UA Negative Negative (BEAKER) (test code = 466) UROBILINOGEN UA (BEAKER) 0.2 0.2-1.0 (test code = 463) RBC UA (BEAKER) (test code 1 /HPF = 519) WBC UA (BEAKER) (test code < /HPF = 520) HYALINE CASTS (BEAKER) 3 /LPF (test code = 514) SOURCE(BEAKER) (test code Urine, Clean Catch = 2795) Plant Sciences Professor ID - [auto]Plant Sciences Professor ID - techProtein, random [id number] 23:31:54 Test Item Value Reference Range Interpretation Comments Protein, Urine (test code 81 mg/dL 0-14 H = 2888-6) HIWOT (test code = HIWOT) Plant Sciences Professor ID - ROB Lab Interpretation (test Abnormal code = 03860-5) [facility] [id number] 23:31:54 Test Item Value Reference Range Interpretation Comments Sodium Urine (test 84 meq/L code = 2955-3) HIWOT (test code = Reference Range: No HIWOT) NormalsOperator ID - ROB [facility] Nitrogen, random [id number] 23:31:54 Test Item Value Reference Range Interpretation Comments Urea Nitrogen, Ur 723 mg/dL (test code = 3095-7) HIWOT (test code = Reference Range: No HIWOT) NormalsOperator ID - ROB [facility] CenterPROTEIN, RANDOM [id number] 23:31:54 Test Item Value Reference Range Interpretation Comments PROTEIN, URINE (BEAKER) (test code = 81 mg/dL 0-14 H 1569) Plant Sciences Professor ID - JOSEDIUM, RANDOM [id number] 23:31:54 Test Item Value Reference Range Interpretation Comments SODIUM URINE (BEAKER) (test code = 84 meq/L 243) Reference Range: No NormalsOperator ID - EMMANUELUREA NITROGEN, RANDOM URINE 2022-09-18 23:31:54 Test Item Value Reference Range Interpretation Comments UREA NITROGEN URINE (BEAKER) (test 723 mg/dL code = 538) Reference Range: No NormalsOperator ID - EMMANUELCreatinine, random urine 2022-09-18 23:31:53 Test Item Value Reference Range Interpretation Comments Creatinine, Ur 115.7 mg/dL (test code = 2161-8) HIWOT (test code = Reference Range: No HIWOT) NormalsOperator ID - ROB [facility]OM [id number] 23:31:53 Test Item Value Reference Range Interpretation Comments CREATININE URINE (BEAKER) (test 115.7 mg/dL code = 375) Reference Range: No NormalsOperator ID - EMMANUELPOCT-GLUCOSE [id number] 21:59:09 Test Item Value Reference Range Interpretation Comments POC-GLUCOSE METER 302 mg/dL 70-110 H : TESTED A T [facility] 6720 ([facility]) (test code = [facility] [employer] [facility], 1538) [address]: Plant Sciences Professor/Techni jamil ID = [id number] for DOUG AREVALO JAILENE [id number] 21:52:05 Test Item Value Reference Range Interpretation Comments PARTIAL THROMBOPLASTIN TIME 36.6 seconds 22.5-36.0 H ([facility]) (test code = 760) Carotid doppler [id number] 21:45:33Ejection FractionSLEH ECHO HEARTLAB MKCKESSON [facility] CenterPOCT-GLUCOSE [id number] 17:31:07 Test Item Value Reference Range Interpretation Comments POC-GLUCOSE METER 217 mg/dL 70-110 H : TESTED A T [facility] 6720 ([facility]) (test code = [facility], 1538) [address]: Plant Sciences Professor/Techni jamil ID = [id number] for ALIZA PHIPPS [id number] 14:52:36 Test Item Value Reference Range Interpretation Comments PARTIAL THROMBOPLASTIN TIME 83.6 seconds 22.5-36.0 H (JUANI) (test code = 760) POCT-GLUCOSE [id number] 11:49:47 Test Item Value Reference Range Interpretation Comments POC-GLUCOSE METER 239 mg/dL 70-110 H : TESTED A T [facility] 6720 (JUANI) (test code = [facility], 1538) [address]: Plant Sciences Professor/Techni jamil ID = [id number] for ALIZA PHIPPS HEMOGLOBIN [id number] 09:44:44 Test Item Value Reference Range Interpretation Comments HEMOGLOBIN A1C 9.5 % See_Comment H [Automated m essage] ELECTROPHORESIS (JUANI) The system which (test code = 3811) generated this result transmitted ref erence range: <=5.6%. The reference range was not used to int erpret this result as normal/abnormal . "The A1c is measured using a NGSP-certified method. HbA1c value equal to or greater than 6.5% as thediagnosis cutoff for diabetes. An HbA1c value of 5.7- 6.4% indicates increased risk for diabetes (prediabetes)."Plant Sciences Professor ID - ADMPOCT- GLUCOSE [id number] 08:24:28 Test Item Value Reference Range Interpretation Comments POC-GLUCOSE METER 184 mg/dL 70-110 H : TESTED A T [facility] 6720 (JUANI) (test code = [facility], 153) [address]: Plant Sciences Professor/Techni jamil ID = [id number] for ALIZA PHIPPS RAD, CHEST, 1 VIEW, NON [id number] 08:08:00Reason for exam:->NSTEMIShould this be performed at the bedside?->Yes [facility] SERVICES[facility]: MARIBELL CARTER : 1965 Sex: MFINALREPORT AP view of the chest dated 09/18/2022 CLINICAL INFORMATION: NSTEMI Comment: Heart is normal in size. Pulmonary vasculature is unremarkable. Lungs are clear. No pulmonary infiltrate or pleural effusion is present. Impression: No active cardiopulmonary disease. Signed: Syeda Campbell MDReport Verified Date/Time: 09/18/2022 08:08:26 BASIC METABOLIC [id number] 07:10:25 Test Item Value Reference Range Interpretation Comments SODIUM (BEAKER) 136 meq/L 136-145 (test code = 381) POTASSIUM 4.9 meq/L 3.5-5.1 (BEAKER) (test code = 379) CHLORIDE (BEAKER) 100 meq/L 98-107 (test code = 382) CO2 (BEAKER) 30 meq/L 22-29 H (test code = 355) BLOOD UREA 55 mg/dL 7-21 H NITROGEN (BEAKER) (test code = 354) CREATININE 3.39 mg/dL 0.57-1.25 H (BEAKER) (test code = 358) GLUCOSE RANDOM 206 mg/dL 70-105 H (BEAKER) (test code = 652) CALCIUM (BEAKER) 9.4 mg/dL 8.4-10.2 (test code = 697) EGFR (BEAKER) 21 Interpretati on of eGFR (test code = mL/min/1.73 values Stage De scription 1092) sq m Result G1 Daily l or high >=90 G2 Mildly decreased 60-89 G3a Mildl y to moderately 45-5 9 G3b Moderately to s everely 30-44 G4 Severl y decreased 15-29 G5 Kidney failure <15Reported eGF R is based on the CKD-EPI 2020 equation that d oes not use a race coefficientEsti mated GFR is not as accur ate as Creatinine Kimberly brown in predicting glom erular filtration rate . Estimated GFR is not appl icable for dialysis patien ts Plant Sciences Professor ID Ginna CAMPOS [id number] 07:02:15 Test Item Value Reference Range Interpretation Comments PHOSPHORUS (BEAKER) (test code = 3.7 mg/dL 2.3-4.7 604) Plant Sciences Professor ID Ginna CAMPOS WLIPID [id number] 07:02:15 Test Item Value Reference Range Interpretation Comments TRIGLYCERIDES (BEAKER) (test code = 395 mg/dL 540) CHOLESTEROL (BEAKER) (test code = 175 mg/dL 631) HDL CHOLESTEROL (BEAKER) (test code 28 mg/dL = 976) LDL CHOLESTEROL CALCULATED (BEAKER) 68 mg/dL (test code = 633) Triglyceride Reference Range: Low Risk <150 Borderline 150-199 High Risk 200- 499 Very High Risk >=500Cholesterol Reference Range: Low Risk <200 Borderline 200-239 High Risk >240HDL Cholesterol Reference Range: Low Risk >=60 High Risk <40LDL Cholesterol Reference Range: Optimal <100 Near Optimal 100-129 Borderline 130-159 High 160-189 Very High >=190 Plant Sciences Professor ID Ginna CAMPOS [id number] 07:02:14 Test Item Value Reference Range Interpretation Comments MAGNESIUM (BEAKER) (test code = 2.5 mg/dL 1.6-2.6 627) Plant Sciences Professor ID Ginna CAMPOS WB-TYPE NATRIURETIC FACTOR (BNP)2022-09-18 06:58:12 Test Item Value Reference Range Interpretation Comments B-TYPE NATRIURETIC PEPTIDE (BEAKER) 278 pg/mL 0-100 H (test code = 700) Plant Sciences Professor ID Ginna CAMPOS WCBC (HEMOGRAM ONLY)2022-09-18 06:40:07 Test Item Value Reference Range Interpretation Comments WHITE BLOOD CELL COUNT (BEAKER) 5.3 K/ L 3.5-10.5 (test code = 775) RED BLOOD CELL COUNT (BEAKER) 3.87 M/ L 4.63-6.08 L (test code = 761) HEMOGLOBIN (BEAKER) (test code = 12.0 GM/DL 13.7-17.5 L 410) HEMATOCRIT (BEAKER) (test code = 35.0 % 40.1-51.0 L 411) MEAN CORPUSCULAR VOLUME (BEAKER) 90 fL 79-92 (test code = 753) MEAN CORPUSCULAR HEMOGLOBIN 31.0 pg 25.7-32.2 (BEAKER) (test code = 751) MEAN CORPUSCULAR HEMOGLOBIN CONC 34.3 GM/DL 32.3-36.5 (BEAKER) (test code = 752) RED CELL DISTRIBUTION WIDTH 13.1 % 11.6-14.4 (BEAKER) (test code = 412) PLATELET COUNT (BEAKER) (test 190 K/CU MM 150-450 code = 756) MEAN PLATELET VOLUME (BEAKER) 9.7 fL 9.4-12.4 (test code = 754) NUCLEATED RED BLOOD CELLS 0 /100 WBC 0-0 (BEAKER) (test code = 413) [id number] 06:38:51 Test Item Value Reference Range Interpretation Comments PARTIAL THROMBOPLASTIN TIME 36.4 seconds 22.5-36.0 H (BEAKER) (test code = 760) PLATELET [id number] 01:08:39 Test Item Value Reference Range Interpretation Comments PLATELET COUNT (BEAKER) (test 218 K/CU MM 150-450 code = 756) SARS-CoV2/RT-PCR (Asymptomatic ONLY)2022-09-18 00:57:49 Test Item Value Reference Interpretation Comments Range SARS-COV2/RT-PCR Negative Negative The SARS-Co V-2 (test code = target nucleic 61092-8) acids are not detected in thi s specimen. Negat ramesh results do not preclude SARS-C oV-2 infection and should not be u sed as the sole bas is for patient management decisions. Nega tive results must be combined with clinical observations, patient history , and epidemiolog ical information. A false negative result may occu r if a specimen is improperly collected, transported or handled. This S ARS CoV-2 test is a rapid, real-zac e RT-PCR test intended for th e qualitative detection of nucleic acid fr om SARS-CoV-2 in a nasopharyngeal swab specimen colle audrey from individual s suspected of COVID-19 by the ir healthcare provider. HIWOT (test code = This test has been HIWOT) authorized by FDA under an EUA for use by authorized laboratories. This test is only authorized for the duration of the declaration that circumstances exist justifying the authorization of emergency use of in vitro diagnostic tests for detection and/or diagnosis of COVID-19 under Section 564(b)(1) of the Federal Food, Drug and Cosmetic Act, 21 U.S.C. 360bbb-3(b)(1), unless the authorization is terminated or revoked sooner. Fact Sheet for Healthcare Providers: https://www.[employer]/Documents/Xp ert%20Xpress%20SAR S%20CoV-2/Fact%20S heets/302-3802%20S ARS-COV-2%20HEALTH CARE%20PROVIDERS%2 0FACT%20SHEET.pdf Fact Sheet for Healthcare Patients: https://www.[employer]/Documents/Xp ert%20Xpress%20SAR S%20CoV-2/Fact%20S heets/302-3801%20S ARS-COV-2%20PATIEN T%20FACT%20SHEET.p df Lab Interpretation Normal (test code = 70022-6) [facility])2022-09-18 00:57:49 Test Item Value Reference Range Interpretation Comments SARS-COV2/RT-PCR Negative Negative The SARS-Co V-2 target (test code = nucleic acids a re not 2804558) detected in thi s specimen. Negative result s do not preclude SARS-C oV-2 infection and s hould not be used as the loy e basis for patient managem ent decisions. Nega tive results must be combine d with clinical observ ations, patient history , and epidemiological information. A false negativ e result may occur if a spec imen is improperly rodney ected, transported or handled. This SARS CoV-2 test is a rapid, real-time RT-PC R test intended for th e qualitative detection of nu cleic acid from SARS-CoV-2 in a nasopharyngeal swab specimen collected from individuals suspected of CO VID-19 by their healthcar e provider. This test has been authorized by FDA under an EUA for use by authorized laboratories. This test is only authorized for the duration of the declaration that circumstances exist justifying the authorization of emergency use of in vitro diagnostic tests for detection and/or diagnosis of COVID-19 under Section 564(b)(1) of the Federal Food, Drug and Cosmetic Act, 21 U.S.C. 360bbb-3(b)(1), unless the authorization is terminated or revoked sooner. Fact Sheet for Healthcare Providers: https://www.[employer] m/Documents/Xpert%20Xpress%20SARS%20CoV-2/Fact%20Sheets/302-3802%03ROVO-WUZ-5%20 HEALTHCARE%20PROVIDERS%20FACT%20SHEET.pdf Fact Sheet for Healthcare Patients: https://www.[employer]/Documents/Xpert%20Xp ress%20SARS%20CoV-2/Fact%20Sheets/302-3801%34JBRN-TLL-5%20PATIENT%20FACT%20SHEET .wsvEBKB1277-34-14 23:38:25 Test Item Value Reference Range Interpretation Comments PARTIAL THROMBOPLASTIN TIME 30.5 seconds 22.5-36.0 (BEAKER) (test code = 760) SARS-COV2/RT-PCR ([facility])2020-05-06 00:50:00 Test Item Value Reference Range Interpretation Comments SARS-COV2/RT-PCR (test Not Detected Not Detected, Negative, code = 1233705) See external report for linked test SARS-COV-2 PERFORMING LAB [facility] (test code = 7845273) Negative results do not preclude SARS-CoV-2 infection [...] of the Act.Fact Sheet for Healthcare Pro viders:https://www.[employer]/Documents/Xpert%20Xpress%20SARS%20CoV-2/Fact%20Sh eets/302-3802%15OSVH-LOM-9%20HEALTHCARE%20PROVIDERS%20FACT%20SHEET.pdfFact Sheet for Healthcare Patients:https://www.[employer]/Documents/Xpert%20Xpress%20SARS%20CoV-2/Fact%20Sheets/3023801%20SARS-COV -2%20PATIENT%20FACT%20SHEET.pdfPerforming Laboratory:[facility] [place] [address]
[2022-10-04] MEDS ORDERED: NITROGLYCERIN 1 GM PKT TD ONE (04:53)
[2022-10-04] MEDS ORDERED: FUROSEMIDE 20 MG/ 2ML VIAL ONE (05:06)
[2022-10-04] MEDS ORDERED: FUROSEMIDE 40 MG/4 ML VIAL ONE (05:06)
[2022-10-04 05:12] LABS: Hematocrit 38.9 % (39.6-49.0); MCV 90.6 fL (80-100)
[2022-10-04 05:13] LABS: Absolute Lymphocytes (CBC) 1.3 K/uL (0.7-4.9); Lymphocytes % 15.3 % (15.3-44.8); MPV 7.4 fL (7.6-11.3)
[2022-10-04 05:16] LABS: Protime INR 1.01
[2022-10-04 05:28] LABS: Albumin 3.8 g/dL (3.4-5.0); Bilirubin Direct 0.1 mg/dL (0-0.2); Bilirubin Total 0.5 mg/dL (0.2-1.0); Potassium 4.7 mmol/L (3.5-5.1); Protein, Total 8.4 g/dL (6.4-8.2)
[2022-10-04 05:29] LABS: Troponin High Sensitivity 406.6 pg/mL (<58.9)
--- NOTE | 2022-10-04 05:41 | EDPHYS ---
Physician Documentation [facility] Name: Anders Balderas Age: 57 yrs Sex: Male : 1965 Arrival Date: 10/04/2022 Time: 04:35 Bed 3 Private MD: ED Physician Eric Armas HPI: 10/04 04:53 This 57 yrs old Male presents to ER via EMS with complaints of sob. rn 04:53 The patient has shortness of breath at rest, with light activity. Onset: The rn symptoms/episode began/occurred 2 day(s) ago. Duration: The symptoms are continuous, but are steadily getting better, are intermittent. The patient's shortness of breath is aggravated by light activity, is alleviated by sitting up. Associated signs and symptoms: Pertinent positives: non-productive cough, Pertinent negatives: chest pain, fever, hemoptysis, loss of consciousness. Severity of symptoms: At their worst the symptoms were moderate in the emergency department the symptoms have improved. The patient has not experienced similar symptoms in the past. The patient has been recently been admitted at [facility]. Pt reports received 2 cardiac stents 2 weeks ago, taken off his lasix, + increased sob over last 2 days. No chest pain. Took 2 doses of lasix himself and feels a little better. . Historical: - Allergies: 04:37 No Known Allergies; aa9 - PMHx: 04:37 bone cancer-right arm as child; Diabetes - NIDDM; Hyperlipidemia; Hypertension; aa9 - PSHx: 04:37 amputation of right arm; amputation of toes; 2 stents; aa9 - Immunization history:: Client reports having NOT received the Covid vaccine. - Social history:: Smoking status: Patient denies any tobacco usage or history of. - Family history:: not pertinent. - Hospitalizations: : No recent hospitalization is reported. ROS: 04:53 Constitutional: Negative for fever, chills, and weight loss, Eyes: Negative for injury, rn pain, redness, and discharge, Neck: Negative for injury, pain, and swelling, Cardiovascular: Negative for chest pain, palpitations, and edema, Respiratory: + sob Abdomen/GI: Negative for abdominal pain, nausea, vomiting, diarrhea, and constipation, Back: Negative for injury and pain, MS/Extremity: Negative for injury and deformity, Skin: Negative for injury, rash, and discoloration, Neuro: Negative for headache, weakness, numbness, tingling, and seizure. Exam: 04:46 ECG was reviewed by the Attending Physician. rn 04:53 Constitutional: This is a well developed, well nourished patient who is awake, alert, rn and in no acute distress. Head/Face: Normocephalic, atraumatic. Cardiovascular: Tachycardic, regular. No pulse deficits. Respiratory: + mild tachypnea, diminished breath sounds at bases Abdomen/GI: soft, non-tender Skin: Warm, dry MS/ Extremity: Pulses equal, no cyanosis. No edema Neuro: Awake and alert, GCS 15 Vital Signs: 04:36 BP 183 / 110; Pulse 120; Resp 25; Temp 98.9(O); Pulse Ox 96% on 2 lpm NC; Weight 97.07 aa9 kg (R); Height 5 ft. 9 in. (175.26 cm) (R); Pain 0/10; 04:49 BP 178 / 111; Pulse 114; Resp 21; Pulse Ox 97% on 2 lpm NC; aa9 04:53 BP 167 / 108; Pulse 112; Resp 20 S; Pulse Ox 95% on 2 lpm NC; aa9 05:36 BP 158 / 104; Pulse 113; Resp 19; Pulse Ox 97% 2 lpm ; jb4 07:58 BP 113 / 91; Pulse 99; Resp 19 S; Pulse Ox 98% on 2 lpm NC; kc6 04:36 Body Mass Index 31.60 (97.07 kg, 175.26 cm) aa9 MDM: 04:35 Patient medically screened. rn 05:39 Differential diagnosis: CHF exacerbation, Myocardial Infarction pneumonia, Pneumothorax rn pulmonary edema. Data reviewed: vital signs, nurses notes, lab test result(s), EKG, radiologic studies, plain films, and as a result, I will admit patient. Counseling: I had a detailed discussion with the patient and/or guardian regarding: the historical points, exam findings, and any diagnostic results supporting the discharge/admit diagnosis, lab results, radiology results, the need for further work-up and treatment in the hospital. Response to treatment: the patient's symptoms have mildly improved after treatment, and as a result, I will admit patient. Admission orders: after a detailed discussion of the patient's condition and case, the admit orders are written by me. 10/04 04:35 Order name: BMP; Complete Time: 05:33 rn 10/04 04:35 Order name: Blood Culture Adult (2) rn 10/04 04:35 Order name: CBC with Diff; Complete Time: 05:22 rn 10/04 04:35 Order name: Hepatic Function; Complete Time: 05:33 rn 10/04 04:35 Order name: NT PRO-BNP; Complete Time: 05:33 rn 10/04 04:35 Order name: PT-INR; Complete Time: 05:22 rn 10/04 04:35 Order name: Ptt, Activated; Complete Time: 05:22 rn 10/04 04:35 Order name: Troponin HS; Complete Time: 05:33 rn 10/04 04:35 Order name: XRAY CXR (1 view) 10/04 04:48 Order name: COVID-19/FLU A+B; Complete Time: 05:55 rn 10/04 04:48 Order name: BIPAP 10/04 07:16 Order name: Troponin High Sensitivity EDMD 10/04 07:16 Order name: Troponin High Sensitivity EDMS 10/04 07:16 Order name: Troponin High Sensitivity EDMS 10/04 04:35 Order name: EKG; Complete Time: 04:36 rn 10/04 04:35 Order name: Cardiac monitoring; Complete Time: 04:41 rn 10/04 04:35 Order name: EKG - Nurse/Tech; Complete Time: 04:41 rn 10/04 04:35 Order name: IV Saline Lock; Complete Time: 05:00 rn 10/04 04:35 Order name: Labs collected and sent; Complete Time: 05:00 rn 10/04 04:35 Order name: O2 Per Protocol; Complete Time: 04:41 rn 10/04 04:35 Order name: O2 Sat Monitoring; Complete Time: 04:41 rn 10/04 07:16 Order name: Echo with Doppler EDMS EC:46 Rate is 116 beats/min. Rhythm is regular. QRS [place] is Normal. UT interval is normal. rn QRS interval is normal. QT interval is normal. No Q waves. T waves are Inverted in leads V4, V5, V6. No ST changes noted. Clinical impression: Sinus tachycardia. Interpreted by me. Reviewed by me. Administered Medications: 05:00 Drug: Nitro-Bid (nitroglycerin) Ointment 2 % 1 inches Route: Transdermal; Site: jb4 anterior chest wall; 07:59 Follow up: Response: No adverse reaction kc6 05:15 Drug: Lasix (furosemide) 60 mg Route: IVP; Site: left forearm; jb4 07:58 Follow up: Response: No adverse reaction kc6 05:43 Drug: Aspirin Chewable Tablet 324 mg Route: PO; jb4 07:58 Follow up: Response: No adverse reaction kc6 Disposition Summary: 10/04/22 05:41 Hospitalization Ordered Hospitalization Status: Observation rn Provider: Roger Almazan rn Location: Telemetry/MedSurg (observation) rn Condition: Stable rn Problem: an acute exacerbation rn Symptoms: have improved rn Bed/Room Type: Standard rn Room Assignment: 208(10/04/22 08:04) dw Diagnosis - Unspecified combined systolic (congestive) and diastolic (congestive) heart failure rn - with acute exacerbation - Acute pulmonary edema rn - Dyspnea, unspecified rn Forms: - Medication Reconciliation Form rn - SBAR form rn Signatures: Dispatcher [employer] Selam Lee RN RN dw Eric Armas MD MD rn Bryson, James RN RN jb4 Samanta Goncalves RN RN aa9 Margy Vigil RN kc6 Corrections: (The following items were deleted from the chart) 08:04 05:41 rn sugar
--- NOTE | 2022-10-04 05:41 | ER ---
Nurse's Notes [facility] Name: Anders Balderas Age: 57 yrs Sex: Male : 1965 Arrival Date: 10/04/2022 Time: 04:35 Bed 3 Private MD: Diagnosis: Unspecified combined systolic (congestive) and diastolic (congestive) heart failure-with acute exacerbation;Acute pulmonary edema;Dyspnea, unspecified Presentation: 10/04 04:36 Chief complaint: EMS states: Toned out for SOB, pt states he had a heart attack last aa9 week. Coronavirus screen: Vaccine status: Patient reports being unvaccinated. Ebola Screen: No symptoms or risks identified at this time. Initial Sepsis Screen: Does the patient meet any 2 criteria? No. Patient's initial sepsis screen is negative. Does the patient have a suspected source of infection? No. Patient's initial sepsis screen is negative. Risk Assessment: Do you want to hurt yourself or someone else? Patient reports no desire to harm self or others. Onset of symptoms was October 04, 2022. 04:36 Method Of Arrival: EMS: [facility] aa9 04:36 Acuity: CAYETANO 3 aa9 Triage Assessment: 04:39 General: Appears uncomfortable, Behavior is calm, cooperative, appropriate for age, pt aa9 c/o SOB, placed on NC \T\ 2 lpm. Pain: Denies pain. Neuro: Level of Consciousness is awake, alert, obeys commands, Oriented to person, place, time, situation. Cardiovascular: Rhythm is sinus tachycardia Parent/caregiver reports patient has had shortness of breath. Respiratory: Airway is patent Respiratory effort is even, unlabored, Parent/caregiver reports the patient having shortness of breath. GI: No signs and/or symptoms were reported involving the gastrointestinal system. : No deficits noted. Derm: Skin is intact, is healthy with good turgor, Skin is dry, Skin is pale, Skin temperature is cool. Musculoskeletal: No signs and/or symptoms reported regarding the musculoskeletal system. Historical: - Allergies: 04:37 No Known Allergies; aa9 - PMHx: 04:37 bone cancer-right arm as child; Diabetes - NIDDM; Hyperlipidemia; Hypertension; aa9 - PSHx: 04:37 amputation of right arm; amputation of toes; 2 stents; aa9 - Immunization history:: Client reports having NOT received the Covid vaccine. - Social history:: Smoking status: Patient denies any tobacco usage or history of. - Family history:: not pertinent. - Hospitalizations: : No recent hospitalization is reported. Screenin:40 Abuse screen: Denies threats or abuse. Denies injuries from another. Nutritional aa9 screening: No deficits noted. Tuberculosis screening: No symptoms or risk factors identified. Fall Risk No fall in past 12 months (0 pts). No secondary diagnosis (0 pts). No IV (0 pts). Ambulatory Aid- None/Bed Rest/Nurse Assist (0 pts). Gait- Normal/Bed Rest/Wheelchair (0 pts) Mental Status- Oriented to own ability (0 pts). Total Reeves Fall Scale indicates No Risk (0-24 pts). 07:55 [facility] ED Fall Risk Assessment (Adult) History of falling in the last 3 months, kc6 including since admission No falls in past 3 months (0 pts) Confusion or Disorientation No (0 pts) Intoxicated or Sedated No (0 pts) Impaired Gait No (0 pts) Mobility Assist Device Used No (0 pt) Altered Elimination No (0 pt) Score/Fall Risk Level 0 - 2 = Low Risk. Assessment: 04:35 General: Appears in no apparent distress. uncomfortable, Behavior is calm, cooperative, jb4 appropriate for age. Pain: Denies pain. Neuro: Level of Consciousness is awake, alert, obeys commands, Oriented to person, place, time, situation. Cardiovascular: Patient's skin is warm and dry. Respiratory: Airway is patent Respiratory effort is even, labored, Respiratory pattern is regular, symmetrical, Breath sounds with crackles bilaterally. Breath sounds with wheezes bilaterally. GI: No signs and/or symptoms were reported involving the gastrointestinal system. : No signs and/or symptoms were reported regarding the genitourinary system. EENT: No signs and/or symptoms were reported regarding the EENT system. Derm: Skin is intact, Skin is pink, warm \T\ dry. Musculoskeletal: Circulation, motion, and sensation intact. Range of motion: intact in all extremities. 05:20 Reassessment: Patient appears in no apparent distress at this time. Patient and/or jb4 family updated on plan of care and expected duration. Pain level reassessed. Patient is alert, oriented x 3, equal unlabored respirations, skin warm/dry/pink. 06:04 Reassessment: Patient appears in no apparent distress at this time. Patient and/or jb4 family updated on plan of care and expected duration. Pain level reassessed. Patient is alert, oriented x 3, equal unlabored respirations, skin warm/dry/pink. Pt given reclining chair per request. 07:04 Reassessment: Patient appears in no apparent distress at this time. No changes from kc6 previously documented assessment. Patient and/or family updated on plan of care and expected duration. Pain level reassessed. Patient is alert, oriented x 3, equal unlabored respirations, skin warm/dry/pink. please see [facility] for further charting. 08:12 Reassessment: attempted to call report to second floor, nurse is discharging a patient kc6 and will call me back. Vital Signs: 04:36 BP 183 / 110; Pulse 120; Resp 25; Temp 98.9(O); Pulse Ox 96% on 2 lpm NC; Weight 97.07 aa9 kg (R); Height 5 ft. 9 in. (175.26 cm) (R); Pain 0/10; 04:49 BP 178 / 111; Pulse 114; Resp 21; Pulse Ox 97% on 2 lpm NC; aa9 04:53 BP 167 / 108; Pulse 112; Resp 20 S; Pulse Ox 95% on 2 lpm NC; aa9 05:36 BP 158 / 104; Pulse 113; Resp 19; Pulse Ox 97% 2 lpm ; jb4 07:58 BP 113 / 91; Pulse 99; Resp 19 S; Pulse Ox 98% on 2 lpm NC; kc6 04:36 Body Mass Index 31.60 (97.07 kg, 175.26 cm) aa9 ED Course: 04:35 Patient arrived in ED. sb4 04:35 Eric Armas MD is Attending Physician. rn 04:37 Triage completed. aa9 04:38 Arm band placed on. aa9 04:48 XRAY CXR (1 view) In Process Unspecified. EDMS 04:59 Initial lab(s) drawn, by me, sent to lab. Inserted saline lock: 18 gauge in left jb4 forearm, using aseptic technique. Blood collected. 05:00 Earl Chavarria, RN is Primary Nurse. jb4 05:00 BMP Sent. jb4 05:00 CBC with Diff Sent. jb4 05:00 Hepatic Function Sent. jb4 05:00 NT PRO-BNP Sent. jb4 05:01 PT-INR Sent. jb4 05:01 Ptt, Activated Sent. jb4 05:01 Troponin HS Sent. jb4 05:01 COVID-19/FLU A+B Sent. jb4 05:41 Roger Almazan MD is Hospitalizing Provider. rn 07:22 Patient has correct armband on for positive identification. Placed in gown. Bed in low kc6 position. Call light in reach. Side rails up X2. 07:55 No provider procedures requiring assistance completed. Patient admitted, IV remains in kc6 place. Administered Medications: 05:00 Drug: Nitro-Bid (nitroglycerin) Ointment 2 % 1 inches Route: Transdermal; Site: jb4 anterior chest wall; 07:59 Follow up: Response: No adverse reaction kc6 05:15 Drug: Lasix (furosemide) 60 mg Route: IVP; Site: left forearm; jb4 07:58 Follow up: Response: No adverse reaction kc6 05:43 Drug: Aspirin Chewable Tablet 324 mg Route: PO; jb4 07:58 Follow up: Response: No adverse reaction kc6 Medication: 04:40 VIS not applicable for this client. aa9 Output: 06:06 Urine: 600ml (Voided); Total: 600ml. jb4 Outcome: 05:41 Decision to Hospitalize by Provider. rn 07:55 Condition: stable kc6 07:55 Instructed on the need for admit. 08:43 Admitted to Med/surg family with patient, via wheelchair, room 208, with oxygen, Report kc6 called to CHARLIE Ji 08:52 Patient left the ED. iw Signatures: Dispatcher [employer] EDMS Joyce King RN RN iw Nieto, Roman, MD MD rn Bryson, James, RN RN jb4 Avalos, Aylin, RN RN aa9 Campbell, Kaitlyn, RN RN kc6 Liana Sanders, RIOS PABenita sb4 Corrections: (The following items were deleted from the chart) 04:41 04:39 General: Appears uncomfortable, Behavior is calm, cooperative, appropriate for aa9 age, aa9 05:02 04:35 Respiratory: Airway is patent Respiratory effort is even, unlabored, Respiratory jb4 pattern is regular, symmetrical, Breath sounds with crackles bilaterally. Breath sounds with wheezes bilaterally. jbMarques : 07:55 Instructed on the need for admit, kcMicaela kcMicaela 07:55 Admitted to Med/surg accompanied by tech, via stretcher, with chart, víctor kc6
[2022-10-04] MEDS ORDERED: ASPIRIN 81 MG CHEWABLE TABLET ONE (05:43)
[2022-10-04 05:50] LABS: SARS-COV-2 RT PCR NEGATIVE (NEGATIVE)
[2022-10-04] MEDS ORDERED: ASPIRIN 81 MG CHEWABLE TABLET PO ONE (07:14)
[2022-10-04] MEDS ORDERED: LABETALOL 20 MG/4ML SYRINGE IV PRN (08:36)
[2022-10-04] MEDS ORDERED: ONDANSETRON 4 MG/2 ML VIAL IV PRN (08:40)
--- NOTE | 2022-10-04 08:45 | P.HP ---
Certification for Inpatient Patient admitted to: Observation With expected LOS: <2 Midnights Patient will require the following post-hospital care: None Practitioner: I am a practitioner with admitting privileges, knowledge of patient current condition, hospital course, and medical plan of care. Services: Services provided to patient in accordance with Admission requirements found in Title 42 Section 412.3 of the Code of Federal Regulations <Bhupendra Davila - Last Filed: 10/04/22 19:12> Patient History Date of Service: 10/04/22 Reason for admission: SOB History of Present Illness: Patient is a 57-year-old male with a past medical history significant for DM 2, HLD, hypertension, bone cancer as a child who presents with complaint of shortness of breath onset yesterday. Patient reported associated signs and symptoms of diaphoresis, bilateral lower extremity edema and elevated heart rate. Patient reported that he was taking of Lasix 2 weeks ago due to his poor kidney functions. Patient also reports right great toe ulcer and he has been following up with wound care clinic for wound care. Patient denies any other signs or symptoms. Symptoms are aggravated by exertion and relieved by nothing. Patient decided to present to the hospital due to worsening symptoms. - Past Medical/Surgical History Diabetic: Yes -: Diabetes mellitus type 2 -: Hyperlipidemia -: HTN -: Bone Cancer Right arm -: left second metatarsal amputation -: right arm amputation -: left 5th digit toe amputation -: right 2nd toe amputation -: Left metatarsal amputatioin Psychosocial/ Personal History: Patient lives at home with his . - Family History Father -: Heart disease, Diabetes Mother -: Diabetes Notes: Alzheimers - Social History Smoking Status: Unknown if ever smoked Alcohol use: Yes CD- Drugs: No Caffeine use: Yes Place of Residence: Home <Bhupendra Davila - Last Filed: 10/04/22 19:12> Date of Service: 10/05/22 <Roger Almazan - Last Filed: 10/05/22 19:56> Allergies atorvastatin [From Lipitor] Adverse Reaction (Verified 11/24/20 21:28) headache/muscle pain Home Medications: glyBURIDE [Glyburide] 5 mg PO BID 01/17/18 Lovastatin 20 mg PO BEDTIME 03/29/20 Insulin Aspart [Novolog Flexpen] See Protocol SQ ACHS 11/19/20 Gabapentin 300 mg PO BID 01/19/22 Insulin Glargine Human [Lantus*] 22 units SQ BID 04/10/22 Cholecalciferol (Vitamin D3) [Vitamin D 5,000 IU Cap*] 5,000 unit PO DAILY #30 cap 04/12/22 Losartan/Hydrochlorothiazide [Losartan-Hctz 100-25 mg Tab] 1 each PO DAILY #30 tablet 04/12/22 Furosemide [Lasix*] 40 mg PO DAILY 09/17/22 Insulin -Regular Human [Novolin -R*] See Protocol SQ ACHS ml 09/17/22 Metoprolol Succinate [Toprol Xl*] 25 mg PO BID 6AM 6PM tab 09/17/22 Review of Systems General: Sweats Eyes: Unremarkable ENT: Unremarkable Respiratory: Shortness of Breath, SOB with Excertion Cardiovascular: Edema, Other (Tachycardia ) Gastrointestinal: Unremarkable Genitourinary: Unremarkable Musculoskeletal: Pedal edema Integumentary: Other (foot ulcer ) Neurological: Unremarkable Lymphatics: Unremarkable <Bhupendra Davila - Last Filed: 10/04/22 19:12> Physical Examination - Physical Exam General: Alert, In no apparent distress, Oriented x3, Cooperative HEENT: Atraumatic, PERRLA, Mucous membr. moist/pink, EOMI, Sclerae nonicteric Neck: Supple, 2+ carotid pulse no bruit, No LAD, Without JVD or thyroid abnormality Respiratory: Normal air movement, Diminished Cardiovascular: Normal S1 S2, Edema, Abnormal pulses Capillary refill: <2 Seconds Gastrointestinal: Normal bowel sounds, Non-distended, No tenderness Musculoskeletal: No clubbing, No contractures Integumentary: Skin breakdown, Diabetic ulcer Neurological: Normal speech, Normal tone, Normal affect Lymphatics: No axilla or inguinal lymphadenopathy - Studies Laboratory Data (last 24 hrs) 10/04/22 04:36: PT 11.1, INR 1.01, APTT 32.2 10/04/22 04:36: WBC 8.40, Hgb 13.1 L, Hct 38.9 L, Plt Count 268 10/04/22 04:36: Sodium 138, Potassium 4.7, BUN 34 H, Creatinine 1.95 H, Glucose 258 H, Total Bilirubin 0.5, AST 20, ALT 29, Alkaline Phosphatase 78 <Bhupendra Davila - Last Filed: 10/04/22 19:12> - Studies Laboratory Data (last 24 hrs) 10/05/22 08:45: APTT 54.5 H 10/05/22 04:12: APTT 40.7 H 10/05/22 04:12: Sodium 140, Potassium 4.1, BUN 39 H, Creatinine 2.03 H, Glucose 133 H 10/05/22 04:12: WBC 4.70, Hgb 10.4 L D, Hct 29.2 L, Plt Count 208 10/04/22 23:15: APTT 31.0 <Roger Almazan Last Filed: 10/05/22 19:56> Assessment and Plan - Plan --Elevated troponin. Cardiology consulted. We will continue to trend troponin levels. Telemetry to monitor for any significant arrhythmia. Patient started on heparin drip. Echocardiogram pending to assess cardiac structures and funct ions. Will await further recommendation from special delivery messenger. --DM2 with neuropathy. BS monitor with sliding scale insulin. Continue Lantus. Continue gabapentin for his neuropathy. --Hyperlipidemia. Continue home medication --History of Bone cancer. As a child. Status post right upper arm amputation. Continue supportive care. -- Hypertension. Poorly controlled. Continue home medications and labetalol as needed. --MAGDIEL on CKD 3B. Nephrology consulted. Further management per nephrology. --Elevated BNP. Echocardiogram pending. Chief Pilot on board. Patient placed on diuresis with Lasix. Will await further recommendation from special delivery messenger. --Right lower extremity wound. Abrasion\skin tear noted on right lower extremity. Continue supportive care. --Right great toe diabetic ulcer. No drainage from Ulcer. Patient follow-up with wound care clinic for management outpatient. --Class I obesity. Likely secondary to excess calories intake. Patient counseled on weight reduction, diet and excise therapy. --DVT prophylaxis with heparin drip. Discharge Plan: Home Plan to discharge in: 48 Hours - Advance Directives Does patient have a Living Will: No Does patient have a Durable POA for Healthcare: No - Code Status/Comfort Care Code Status Assessed: Yes Physician Review: Patient Assessed, Agree with Above Assessment and Plan Critical Care: No <Bhupendra Davila - Last Filed: 10/04/22 19:12> Physician Review: Patient Assessed, Agree with Above Assessment and Plan <Roger Almazan - Last Filed: 10/05/22 19:56>
[2022-10-04 09:21] VITALS: BMI 31.6
[2022-10-04] MEDS: ASPIRIN 81 MG CHEWABLE TABLET PO SCH (09:54)
[2022-10-04] MEDS: INSULIN GLARGINE 100 UNIT/ML SQ SCH ×2 (09:54→21:26)
[2022-10-04] MEDS: GABAPENTIN 300 MG CAP PO SCH ×2 (09:54→21:25)
[2022-10-04] MEDS: HEPARIN/D5W 25,000 UNIT/500 ML BAG IV SCH (09:55)
[2022-10-04 10:20] LABS: Protime INR 1.1
[2022-10-04 10:22] LABS: Magnesium 1.9 mg/dL (1.6-2.4); Phosphorus 3.3 mg/dL (2.5-4.9)
[2022-10-04] MEDS: INSULIN -REGULAR HUMAN 50 UNIT/0.5 ML ML SQ SCH ×3 (12:12→21:26)
--- NOTE | 2022-10-04 13:06 | RAD REPORT ---
EXAM DESCRIPTION: RAD - Chest Single View - 10/04/2022 4:46 am CLINICAL HISTORY: The patient is 57 years old and is Male; DYSPNEA TECHNIQUE: Frontal view of the chest. COMPARISON: Chest radiograph March 05, 2022 FINDINGS: LUNGS: Mild diffuse groundglass opacities are noted throughout the lungs. PLEURAL SPACE: Unremarkable. No pneumothorax. HEART: Cardiac silhouette is enlarged. MEDIASTINUM: Unremarkable. BONES/JOINTS: Unremarkable. UPPER ABDOMEN: Unremarkable as visualized. IMPRESSION: Mild diffuse groundglass opacities are noted throughout the lungs. Findings suggest an infectious versus edematous process. Electronically signed by: Cely Brand MD 10/04/2022 5:08 AM BOWLING BALL GRADER Due to temporary technical issues with the PACS/Fluency reporting system, reports are being signed by the in house radiologists without review as a courtesy to insure prompt reporting. The interpreting radiologist is fully responsible for the content of the report.
--- NOTE | 2022-10-04 15:15 | EKG ---
Test Date: 2022-10-04 Test Time: 04:36:11 Marzipan Molder: MEASUREMENT RESULTS: Intervals: Rate: 116 ND: 146 QRSD: 90 QT: 330 QTc: 458 [place]: P: 62 ND: 146 QRS: 19 T: 138 INTERPRETIVE STATEMENTS: Sinus tachycardia ST & T wave abnormality, consider lateral ischemia Abnormal ECG Compared to ECG 09/16/2022 11:07:21 Sinus rhythm no longer present Myocardial infarct finding no longer present ST (T wave) deviation still present Possible ischemia still present Electronically Signed On 10-04-22 15:14:30 ARMATURE WINDER REPAIRER by Stuart Ontiveros
[2022-10-04] MEDS: FUROSEMIDE 40 MG/4 ML VIAL IV SCH ×2 (16:52→17:00)
[2022-10-04] MEDS: METOPROLOL XL 25 MG TAB PO SCH (16:52)
[2022-10-04] MEDS ORDERED: CLOPIDOGREL 75 MG TABLET PO ONE (18:30)
--- NOTE | 2022-10-04 18:31 | CON ---
Date of Consultation: 10/04/2022 Reason For Consultation: Shortness of breath. History Of Present Illness: This is a 57-year-old male with history of diabetes; dyslipidemia; hyper tension; coronary artery disease, status post cardiac stents placement recently in [place]; diastolic congestive heart failure; and chronic kidney disease, presented with shortness of breath, lower extr emity edema. No orthopnea. No chest pain. No nausea, vomiting, diarrhea. No dysuria, polyuria, or urinary urgency and he denies having any diaphoresis. No other complaints. Past Medical History: As outlined above in the HPI. Medications: Refer reconciliation sheet for detailed list. Allergies: HE IS ALLERGIC TO ATORVASTATIN. Family History: No premature coronary artery disease or cancer. Social History: He does not smoke. Drinks . Does not use any drugs. Review of Systems: All systems reviewed are negative except mentioned in HPI. Physical Examination: Vital Signs: Reviewed. Head and Neck: Pupils are equal, reactive to light. Intact eye movements. Positive JVD. No cervic al lymphadenopathy. Neck is supple. Thyroid is not enlarged. Lungs: Crackles at both lung bases half the way up. No accessory muscle use or muscle retraction. Heart: Regular rate and rhythm. Slightly tachycardic. Abdomen: Soft, nontender. Bowel sounds positive. No organomegaly. No masses or hernia. No rigidi ty or rebound. Extremities: 2+ pitting edema. No clubbing, cyanosis. Intact pulses. Skin: No rashes. Neurologic: Alert, awake, oriented x3. No acute focal deficits appreciated. Investigations: BUN 34, creatinine 1.95, and troponin peaked at 1276. The chest x-ray, CHF findings . Assessment/recommendations: 1.Acute on chronic diastolic heart failure exacerbation. Echo was done today and ejection fraction is normal. Recommend IV diuresis, Lasix 60 mg IV q.12 hours. Monitor BUN, creatinine, electrolytes. 2.Elevated troponin. This could be demand versus non-ST elevation myocardial infarction. However, patient does not have any chest pain. Continue heparin drip and baby aspirin and trend troponin. On ce the congestive heart failure condition has completely resolved. I recommend a Lexiscan nuclear st ress test to further evaluate the need for coronary angiogram as he had recent coronary angiogram wit h stents placement in [place]. SR/MODL Voice ID: [id number] Report ID: [id number]
[2022-10-04] MEDS: HOME MED 1 EA UNK (Lovastatin [Lovastatin] 20 MG Tablet) PO SCH (21:00)
--- NOTE | 2022-10-04 21:36 | RAD REPORT ---
EXAM DESCRIPTION: CT - Thorax Wo Con CLINICAL HISTORY: Chest pain R O PNA COMPARISON: No comparisons FINDINGS: Mild atelectasis is present in both lung bases. Small bilateral pleural effusions. No pneu mothorax. No axillary, mediastinal or hilar adenopathy. No concerning bony finding. No gross upper abdominal finding. All CT scans are performed using dose optimization technique as appropriate and may include automated exposure control or mA/KV adjustment according to patient size. IMPRESSION: Small bilateral pleural effusions.
--- NOTE | 2022-10-04 21:39 | P.CNS ---
Date of Consult: 10/04/22 Reason for Consult: MAGDIEL/ CKD Requesting Physician: Roger Almazan Chief Complaint: SOB History of Present Illness: Patient is a 57-year-old male with a past medical history significant for DM 2, HLD, hypertension, bone cancer as a child who presents with complaint of shortness of breath onset yesterday. Patient reported associated signs and symptoms of diaphoresis, bilateral lower extremity edema and elevated heart rate. Patient reported that he was taking of Lasix 2 weeks ago due to his poor kidney functions. Patient also reports right great toe ulcer and he has been following up with wound care clinic for wound care. Patient denies any other signs or symptoms. Symptoms are aggravated by exertion and relieved by nothing. Patient decided to present to the hospital due to worsening symptoms. [facility] 04:53 This 57 yrs old Male presents to ER via EMS with complaints of sob. rn 04:53 The patient has shortness of breath at rest, with light activity. Onset: The rn symptoms/episode began/occurred 2 day(s) ago. Duration: The symptoms are continuous, but are steadily getting better, are intermittent. The patient's shortness of breath is aggravated by light activity, is alleviated by sitting up. Associated signs and symptoms: Pertinent positives: non-productive cough, Pertinent negatives: chest pain, fever, hemoptysis, loss of consciousness. Severity of symptoms: At their worst the symptoms were moderate in the emergency department the symptoms have improved. The patient has not experienced similar symptoms in the past. The patient has been recently been admitted at [facility]. Pt reports received 2 cardiac stents 2 weeks ago, taken off his lasix, + increased sob over last 2 days. No chest pain. Took 2 doses of lasix himself and feels a little better. He reports being taken off his diuretics two weeks ago after getting two cardiac stents placed. He gained weight and developed dyspnea. Allergies atorvastatin [From Lipitor] Adverse Reaction (Verified 11/24/20 21:28) headache/muscle pain Home medications list reviewed: Yes Home Medications: glyBURIDE [Glyburide] 5 mg PO BID 01/17/18 Lovastatin 20 mg PO BEDTIME 03/29/20 Insulin Aspart [Novolog Flexpen] See Protocol SQ ACHS 11/19/20 Gabapentin 300 mg PO BID 01/19/22 Insulin Glargine Human [Lantus*] 22 units SQ BID 04/10/22 Cholecalciferol (Vitamin D3) [Vitamin D 5,000 IU Cap*] 5,000 unit PO DAILY #30 cap 04/12/22 Losartan/Hydrochlorothiazide [Losartan-Hctz 100-25 mg Tab] 1 each PO DAILY #30 tablet 04/12/22 Furosemide [Lasix*] 40 mg PO DAILY 09/17/22 Insulin -Regular Human [Novolin -R*] See Protocol SQ ACHS ml 09/17/22 Metoprolol Succinate [Toprol Xl*] 25 mg PO BID 6AM 6PM tab 09/17/22 - Past Medical/Surgical History Diabetic: Yes -: Diabetes mellitus type 2 -: Hyperlipidemia -: HTN -: CKD III (Dr. Mays) -: Left second metatarsal amputation -: Bone Cancer Right arm -: right arm amputation -: left 5th digit toe amputation -: right 2nd toe amputation -: Left metatarsal amputatioin Psychosocial/ Personal History: Patient lives at home with his . - Family History Father Medical History: Heart disease, Diabetes Mother Medical History: Diabetes Notes: Alzheimers - Social History Smoking Status: Unknown if ever smoked Alcohol use: Yes CD- Drugs: No Caffeine use: Yes Place of Residence: Home Review of Systems Respiratory: SOB with Excertion Cardiovascular: Edema Physical Examination Temp Pulse Resp BP Pulse Ox 98.2 F 97 H 18 149/89 H 98 10/04/22 20:00 10/04/22 20:00 10/04/22 20:00 10/04/22 20:00 10/04/22 20:00 General: In no apparent distress, Oriented x3, Cooperative HEENT: Atraumatic Neck: Supple Respiratory: Clear to auscultation bilaterally Cardiovascular: Regular rate/rhythm, Edema Gastrointestinal: Soft and benign, Non-distended Musculoskeletal: No clubbing, No contractures Integumentary: No rashes, No cyanosis Neurological: Normal speech Laboratory Data (last 24 hrs) 10/04/22 04:36: PT 11.1, INR 1.01, APTT 32.2 10/04/22 04:36: WBC 8.40, Hgb 13.1 L, Hct 38.9 L, Plt Count 268 10/04/22 04:36: Sodium 138, Potassium 4.7, BUN 34 H, Creatinine 1.95 H, Glucose 258 H, Total Bilirubin 0.5, AST 20, ALT 29, Alkaline Phosphatase 78 Imagings Data: [facility] EXAM DESCRIPTION: RAD - Chest Single View - 10/04/2022 4:46 am CLINICAL HISTORY: The patient is 57 years old and is Male; DYSPNEA TECHNIQUE: Frontal view of the chest. COMPARISON: Chest radiograph March 05, 2022 FINDINGS: LUNGS: Mild diffuse groundglass opacities are noted throughout the lungs. PLEURAL SPACE: Unremarkable. No pneumothorax. HEART: Cardiac silhouette is enlarged. MEDIASTINUM: Unremarkable. BONES/JOINTS: Unremarkable. UPPER ABDOMEN: Unremarkable as visualized. IMPRESSION: Mild diffuse groundglass opacities are noted throughout the lungs. Findings suggest an infectious versus edematous process. [facility] LEFT VENTRICULAR WALL MOTION: NORMAL DOPPLER/COLOR FLOW: TRACE TRICUSPID REGURGITATION COMMENTS: NORMAL LEFT VENTRICULAR EJECTION FRACTION 55- Conclusions/Impression: CKD IIIb with proteinuria -No NSAIDs -Continue diuresis HTN with CKD/ CHF -Continue Metoprolol -Restart Losartan HCTZ Diastolic CHF, A/C -Continue Lasix DM II with Polyneuropathy & CKD -Continue Gabapentin -Continue Lantus -RISS Case reviewed with Dr. Almazan Thank you kindly for the consultation
[2022-10-05 04:41] LABS: Absolute Lymphocytes (CBC) 1.6 K/uL (0.7-4.9); Hematocrit 29.2 % (39.6-49.0); Lymphocytes % 34.7 % (15.3-44.8); MPV 7.4 fL (7.6-11.3); RBC Red Blood Cell Count 3.29 M/uL (4.33-5.43)
[2022-10-05 05:03] LABS: Potassium 4.1 mmol/L (3.5-5.1)
[2022-10-05] MEDS: METOPROLOL XL 25 MG TAB PO SCH ×2 (05:25→16:35)
--- NOTE | 2022-10-05 07:01 | ECHO ---
HEIGHT: 5 ft 9 in WEIGHT: 214 lb 12.8 oz DATE OF STUDY: 10/04/[address]: Roger Almazan MD 2-DIMENSIONAL: YES M.MODE: YES DOPPLER: YES COLOR FLOW: YES TDS: PORTABLE: YES DEFINITY: BUBBLE STUDY: DIAGNOSIS: CONGESTIVE HEART FAILURE CARDIAC HISTORY: CATHERIZATION: YES SURGERY: NO PROSTHETIC VALVE: NO PACEMAKER: NO MEASUREMENTS (cm) DIASTOLIC (NORMALS) SYSTOLIC (NORMALS) IVSd 1.2 (0.6-1.2) LA Diam 3.3 (1.9-4.0) LVEF 57% LVIDd 3.8 (3.5-5.7) LVIDs 2.7 (2.0-3.5) %FS 30% LVPWd 1.2 (0.6-1.2) Ao Diam 2.9 (2.0-3.7) 2 DIMENSIONAL ASSESSMENT: RIGHT ATRIUM: NORMAL LEFT ATRIUM: NORMAL RIGHT VENTRICLE: NORMAL LEFT VENTRICLE: NORMAL TRICUSPID VALVE: MILD TRICUSPID REGURGITATION MITRAL VALVE: MILD MITRAL REGURGITATION PULMONIC VALVE: NORMAL AORTIC VALVE: NORMAL PERICARDIAL EFFUSION: NONE AORTIC ROOT: NORMAL LEFT VENTRICULAR WALL MOTION: NORMAL DOPPLER/COLOR FLOW: SEE BELOW COMMENTS: 1. NORMAL LEFT VENTRICULAR EJECTION FRACTION 55-60% 2. NORMAL WALL MOTION 3. MILD MITRAL REGURGITATION TECHNOLOGIST: ANN MARIE SÁNCHEZ
[2022-10-05] MEDS: INSULIN -REGULAR HUMAN 50 UNIT/0.5 ML ML SQ SCH ×4 (07:30→20:58)
[2022-10-05] MEDS ORDERED: INFLUENZA VACCINE (for 6+ mo) 0.5 ML DOSE IMVAC ONE (08:00)
[2022-10-05] MEDS: INSULIN GLARGINE 100 UNIT/ML SQ SCH ×2 (09:00→20:58)
[2022-10-05] MEDS: HEPARIN/D5W 25,000 UNIT/500 ML BAG IV SCH (09:00)
[2022-10-05] MEDS: GABAPENTIN 300 MG CAP PO SCH ×2 (09:01→20:57)
[2022-10-05] MEDS: CLOPIDOGREL 75 MG TABLET PO SCH (09:01)
[2022-10-05] MEDS: ASPIRIN 81 MG CHEWABLE TABLET PO SCH (09:01)
[2022-10-05] MEDS: FUROSEMIDE 40 MG/4 ML VIAL IV SCH ×2 (09:01→16:36)
[2022-10-05] MEDS: LOSARTAN/HCTZ 50-12.5 PO SCH (09:02)
[2022-10-05 10:12] LABS: Specific Gravity 1.016 (1.005-1.030); Urine Bacteria None Seen /HPF (<20); Urine Bilirubin NEGATIVE (Negative); Urine Blood Trace (Negative); Urine Clarity Clear (Clear); Urine Color Light-Yellow (Yellow); Urine Glucose 1+ (Negative); Urine Mucus Slight /HPF (None Seen); Urine Protein 2+ (Negative); Urine RBC <5 /HPF (None Seen); Urine Urobilinogen Normal (Normal); Urine pH 5.5 (5.0-7.0)
--- NOTE | 2022-10-05 10:36 | P.PN ---
Nephrology note: (S) Pt reports improvement in dyspnea and peripheral edema with diuresis, no reports of CP, remains on heparin gtt (O) Vitals reviewed in the EMR General: NAD HEENT: Atraumatic, sclera anicteric Neck: Supple Respiratory: b/l air entry, mildly diminished at bases Cardiovascular: Regular rate/rhythm mostly, peripheral edema improved Gastrointestinal: Soft and benign, Non-distended Musculoskeletal: No clubbing, No contractures, rt arm amputation Integumentary: No rashes, No cyanosis Neurological: Normal speech, awake, alert, responsive Laboratory Data (last 24 hrs) Reviewed Conclusions/Impression: Recent Stage II MAGDIEL at the start of the mo, prior MAGDIEL episode(s), underlying CKD IIIb with proteinuria -Monitor closely with lasix diuresis, ARB resumed at lower dose. HTN with CKD/ CHF -BP currently acceptable, target BP < 130/80 Diastolic CHF, A/C -Transition Lasix to PO by tmrw Troponin leak/NSTEMI -Pending Cardiology reccs Juan Hussein MD, DALLIN
--- NOTE | 2022-10-05 20:01 | P.PN ---
Subjective Date of Service: 10/05/22 Chief Complaint: SOB No acute events overnight. He reports that his shortness of breath has improved significantly. He continues to experience orthopnea and mild lower extremity edema. He denies any current chest pain or palpitations. Review of Systems 10-point ROS is otherwise unremarkable Cardiovascular: Orthopnea, Edema Musculoskeletal: Other (s/p right upper extremity amputation) Physical Examination - Vital Signs Temperature: 97.6 F Blood Pressure: 130/74 Pulse: 92 Respirations: 16 Pulse Ox (%): 97 - Physical Exam General: Alert, In no apparent distress HEENT: Atraumatic, Mucous membr. moist/pink, EOMI, Sclerae nonicteric Neck: JVD not distended Respiratory: Crackles/rales (bibasilar rales) Cardiovascular: Normal pulses, Regular rate/rhythm, No gallops, No rubs, No murmurs, Edema (1+ BLE) Gastrointestinal: Normal bowel sounds, Soft and benign, Non-distended, No tenderness, No rebound, No guarding Musculoskeletal: Other (s/p right upper extremity amputation) Integumentary: No rashes, Diabetic ulcer Neurological: Normal speech, Cranial nerves 3-12 intact, Normal affect - Studies Laboratory Data (last 24 hrs) 10/05/22 08:45: APTT 54.5 H 10/05/22 04:12: APTT 40.7 H 10/05/22 04:12: Sodium 140, Potassium 4.1, BUN 39 H, Creatinine 2.03 H, Glucose 133 H 10/05/22 04:12: WBC 4.70, Hgb 10.4 L D, Hct 29.2 L, Plt Count 208 10/04/22 23:15: APTT 31.0 Assessment And Plan - Plan # Acute on Chronic Decompensated Diastolic Congestive Heart Failure with Preserved Ejection Fraction - Consult Cardiology - recommendations appreciated - Diuresis with IV furosemide for today - Chest x-ray = "mild diffuse groundglass opacities are noted throughout the lungs. Findings suggest an infectious versus edematous process. " - CT chest = "small bilateral pleural effusions." - Transthoracic echocardiogram = "1. normal left ventricular ejection fraction 55-60% 2. normal wall motion 3. mild mitral regurgitation." - Continue home metoprolol, losartan-hydrochlorothiazide - Daily weights - Strict I/O - Cardiac diet, 1.5 L fluid restriction, 2 g Na restriction # Suspect Type II Non-ST Segment Elevation Myocardial Infarction secondary to above # Coronary Artery Disease s/p recent PCI (~2 weeks ago at OSH) # Hypertension # Hyperlipidemia - Evaluation thus far: - EKG: without reported STEMI criteria, trend - Serial troponin: 406.6 -> 1201.4 -> 1276.4 -> 1390.1 -> 1168.9 - Transthoracic echocardiogram = "1. normal left ventricular ejection fraction 55-60% 2. normal wall motion 3. mild mitral regurgitation." - Chest x-ray = "mild diffuse groundglass opacities are noted throughout the lungs. Findings suggest an infectious versus edematous process." - Management plan: - Consult Cardiology and spoke with Dr. Ontiveros - recommendations appreciated - Continue aspirin, lovastatin, clopidogrel, metoprolol, losartan- hydrochlorothiazide, and a heparin drip # Type II Diabetes Mellitus complicated Right Great Toe Diabetic Foot Ulcer and Diabetic Neuropathy - Continue home insulin glargine + gabapentin - Wound care consulted # Chronic Kidney Disease Stage III - Creatinine = 1.95 -> 2.03 (near baseline) - Urinalysis = 1+ glucose, trace blood, 2+ protein - Monitor creatinine and urine output - If worsening, obtain renal ultrasound - Renally dose medications # History of Right Upper Extremity Bone Cancer s/p Amputation Roger Almazan M.D.
--- NOTE | 2022-10-05 20:02 | PN ---
Date of Progress Note: 10/05/2022 Subjective: Seen at bedside, doing clinically well, improved. He is urinating and his breathing is better. Review of Systems: No chest pain. Shortness of breath with improvement. No dysuria, polyuria, or urinary urgency. No skin rash. All other systems reviewed and they are negative. Physical Examination: Vital Signs: Reviewed. Head And Neck: Pupils are equal and reactive to light. Intact eye movements. No JVD. No cervical lymphadenopathy. Neck is supple. Thyroid is not enlarged. Lungs: Clear to auscultation bilaterally. No rhonchi, wheezing, or crackles. No accessory muscle u se. Heart: Regular rate and rhythm. No extra sounds. Abdomen: Soft, nontender. Bowel sounds positive. No organomegaly. No masses or hernia. No rigidi ty or rebound. Extremities: No clubbing or cyanosis. Positive edema with improvement. Neurologic: Alert, awake, and oriented x3. No acute focal deficits appreciated. Investigations: BUN 39, creatinine 2.0. Assessment/recommendation: 1.Jrkjc-[id number] diastolic heart failure exacerbation with improvement. Continue diuretics for on e more day and then switch to oral and adjust further as needed. 2.Elevated troponin. This is demand ischemia. Patient does not have any chest pain, and no acute E KG changes. Status post recent stent placement. Continue dual antiplatelet therapy, Plavix and baby aspirin. 3.Chronic kidney disease. This is stable. SR/MODL Voice ID: [id number] Report ID: [id number]
[2022-10-05] MEDS: HOME MED 1 EA UNK (Lovastatin [Lovastatin] 20 MG Tablet) PO SCH (20:59)
[2022-10-06] MEDS: HEPARIN/D5W 25,000 UNIT/500 ML BAG IV SCH (01:28)
[2022-10-06 02:21] LABS: Magnesium 2.1 mg/dL (1.6-2.4); Potassium 4.1 mmol/L (3.5-5.1)
[2022-10-06] MEDS: METOPROLOL XL 25 MG TAB PO SCH (06:10)
[2022-10-06] MEDS: INSULIN GLARGINE 100 UNIT/ML SQ SCH (08:49)
[2022-10-06] MEDS: INSULIN -REGULAR HUMAN 50 UNIT/0.5 ML ML SQ SCH ×3 (08:49→16:08)
[2022-10-06] MEDS: CLOPIDOGREL 75 MG TABLET PO SCH (08:50)
[2022-10-06] MEDS: ASPIRIN 81 MG CHEWABLE TABLET PO SCH (08:50)
[2022-10-06] MEDS: GABAPENTIN 300 MG CAP PO SCH (08:50)
[2022-10-06] MEDS: FUROSEMIDE 40 MG/4 ML VIAL IV SCH (08:51)
[2022-10-06] MEDS: LOSARTAN/HCTZ 50-12.5 PO SCH (08:51)
[2022-10-06 10:15] VITALS: O2SAT 97
[2022-10-06 12:37] VITALS: TEMP 97.1
--- NOTE | 2022-10-06 13:45 | P.DS ---
Admission Date: 10/05/22 Discharge Date: 10/06/22 Disposition: ROUTINE DISCHARGE Discharge Condition: GOOD Reason for Admission: SOB Consultations: 1. Cardiology 2. Nephrology Hospital Course: DIAGNOSES: # Acute on Chronic Decompensated Diastolic Congestive Heart Failure with Preserved Ejection Fraction # Suspect Type II Non-ST Segment Elevation Myocardial Infarction secondary to a andrés # Coronary Artery Disease s/p recent PCI (~2 weeks ago at OSH) # Hypertension # Hyperlipidemia # Type II Diabetes Mellitus complicated Right Great Toe Diabetic Foot Ulcer and Diabetic Neuropathy # Chronic Kidney Disease Stage III # History of Right Upper Extremity Bone Cancer s/p Amputation HOSPITAL COURSE: Mr. Anders Balderas is a pleasant 57-year-old male with a past medical history significant for chronic diastolic congestive heart failure, coronary artery disease s/p PCI, hypertension, hyperlipidemia, type 2 diabetes mellitus complicated by diabetic foot ulcer and diabetic neuropathy, chronic kidney disease stage III, and history of right upper extremity bone cancer s/p amputation who was admitted to the [facility] on 10/04/2022 for shortness of breath. He was admitted to the Medicine service. Upon further evaluation, he was found to have an acute on chronic decompensated diastolic congestive heart failure exacerbation. Additionally, he was found to have a non-ST segment elevation myocardial infarction. Cardiology was consulted and he was evaluated by Dr. Ontiveros. He was treated with IV diuretics, and over the course of his hospitalization, his symptoms improved significantly. In regards to his elevated troponin, Dr. Ontiveros felt that this was secondary to demand ischemia, which can be evaluated as an outpatient. This morning, Mr. Balderas stated that he would like to be discharged home as he is currently not having any symptoms and he would like to make it home today to prepare his home for the freeze weather in the area. Dr. Ontiveros has cleared him for discharge home with an outpatient cardiac stress test. I have discussed his case with his project construction assistant manager, Dr. Mays, who has also cleared him for discharge home with his home regimen of diuretics. On 10/06/2022, he was seen on morning rounds and deemed medically stable for discharge. He was discharged with instructions to schedule follow-up appointments with his PCP, with Cardiology (Dr. Ontiveros), and with Nephrology (Dr. Mays). He and his family members were given the opportunity to ask questions and reported no further questions. Furthermore, all questions were answered to the best of my ability. A copy of this discharge summary will be sent to the above providers to facilitate continuity of care. Today, I personally spent 25 minutes on his case, of which greater than 50% of the time was spent in patient education, counseling, and coordination of care as described above. - Physical Exam General: Alert, In no apparent distress HEENT: Atraumatic, Mucous membr. moist/pink, EOMI, Sclerae nonicteric Neck: JVD not distended Respiratory: Clear to auscultation bilaterally, without wheezes, rhonchi, or rales Cardiovascular: Normal pulses, Regular rate/rhythm, No gallops, No rubs, No murmurs, Edema (trace BLE) Gastrointestinal: Normal bowel sounds, Soft and benign, Non-distended, No tenderness, No rebound, No guarding Musculoskeletal: Other (s/p right upper extremity amputation) Integumentary: No rashes, Diabetic ulcer Neurological: Normal speech, Cranial nerves 3-12 intact, Normal affect Vital Signs/Physical Exam: Temp Pulse Resp BP Pulse Ox 97.1 F 93 H 19 153/78 H 100 10/06/22 12:00 10/06/22 12:00 10/06/22 12:00 10/06/22 12:00 10/06/22 12:00 Laboratory Data at Discharge: WBC 4.70 K/uL (4.3-10.9) 10/05/22 04:12 Hgb 10.4 g/dL (13.6-17.9) L D 10/05/22 04:12 Hct 29.2 % (39.6-49.0) L 10/05/22 04:12 Plt Count 208 K/uL (152-406) 10/05/22 04:12 PT 12.1 SECONDS (9.5-12.5) 10/04/22 09:29 INR 1.10 10/04/22 09:29 APTT 65.2 SECONDS (24.3-36.9) H 10/06/22 06:58 Sodium 137 mmol/L (136-145) 10/06/22 01:58 Potassium 4.1 mmol/L (3.5-5.1) 10/06/22 01:58 BUN 40 mg/dL (7-18) H 10/06/22 01:58 Creatinine 2.20 mg/dL (0.70-1.30) H 10/06/22 01:58 Glucose 240 mg/dL (74-106) H 10/06/22 01:58 Phosphorus 3.3 mg/dL (2.5-4.9) 10/04/22 09:29 Magnesium 2.1 mg/dL (1.6-2.4) 10/06/22 01:58 Total Bilirubin 0.5 mg/dL (0.2-1.0) 10/04/22 04:36 AST 20 U/L (15-37) 10/04/22 04:36 ALT 29 U/L (16-61) 10/04/22 04:36 Alkaline Phosphatase 78 U/L (45-117) 10/04/22 04:36 Home Medications: RX: glyBURIDE [Glyburide] 5 mg PO BID 01/17/18 RX: Lovastatin 20 mg PO BEDTIME 03/29/20 RX: Insulin Aspart [Novolog Flexpen] See Protocol SQ [facility] 11/19/20 RX: Gabapentin 300 mg PO BID 01/19/22 RX: Insulin Glargine Human [Lantus*] 22 units SQ BID 04/10/22 RX: Cholecalciferol (Vitamin D3) [Vitamin D 5,000 IU Cap*] 5,000 unit PO DAILY #30 cap 04/12/22 RX: Losartan/Hydrochlorothiazide [Losartan-Hctz 100-25 mg Tab] 1 each PO DAILY #30 tablet 04/12/22 RX: Furosemide [Lasix*] 40 mg PO DAILY 09/17/22 RX: Insulin -Regular Human [Novolin -R*] See Protocol SQ ACHS ml 09/17/22 RX: Metoprolol Succinate [Toprol Xl*] 25 mg PO BID 6AM 6PM tab 09/17/22 RX: Aspirin Chewable [Aspirin Chewable*] 81 mg PO DAILY tab.chew 10/06/22 Ticagrelor [Brilinta] 90 mg PO BID #1 10/06/22 New Medications: Ticagrelor [Brilinta] 90 mg PO BID #1 Physician Discharge Instructions: 1. Please call and schedule a follow-up appointment with your PCP in 3-5 days 2. Please call and schedule a follow-up appointment with your Senior Security Analyst (Dr. Ontiveros) in 3-5 days - He will likely schedule you for an outpatient cardiac stress test 3. Please call and schedule a follow-up appointment with your Funeral Planning Counselor (Dr. Mays) in 5-7 days Diet: Renal Activity: Ad hiren Followup: NONE,NONE [Primary Care Provider] - Stuart Ontiveros MD [ACTIVE - CAN ADMIT] - Tunde Mays DO [ACTIVE - CAN ADMIT] - Time spent managing pt's care (in minutes): 25
--- NOTE | 2022-10-06 14:34 | PN ---
Date of Progress Note: 10/06/2022 Subjective: Seen by bedside, doing clinically well. Does not have any chest pain. No further short ness of breath, orthopnea, cough, or nausea, vomiting. Physical Examination: Vital Signs: Reviewed. Head and Neck: Pupils are equal, reactive to light. Intact eye movements. No JVD. No cervical lym phadenopathy. Neck is supple. Thyroid is not enlarged. Lungs: Clear to auscultation bilaterally. No rhonchi, wheezing, or crackles. No accessory muscle u se. Heart: Regular rate and rhythm. No extra sounds. Abdomen: Soft, nontender. Bowel sounds positive. No organomegaly. No masses or hernia. No rigidi ty or rebound. Extremities: No edema, clubbing, or cyanosis. Intact pulses. Skin: No rash. Neurologic: Alert, awake, oriented x3. No acute focal deficits appreciated. Lymph Nodes: No cervical or axillary lymphadenopathy. Investigations: BUN is 40, creatinine 2.2, and hemoglobin is 10.4. Assessment And Recommendations: 1.Acute on chronic diastolic heart failure exacerbation. He appears to be euvolemic. Discontinue I V Lasix and put him on oral 40 mg once a day, which he can be released. 2.Elevated troponin. No chest pain and echo showed normal EF and normal wall motion. This is deman d ischemia. No further workup is needed as an inpatient; however, outpatient stress test is recommen ded and the patient was instructed to come the emergency room with any further chest pain. 3.Chronic kidney disease. Creatinine is slightly higher than baseline, so hold IV Lasix and switch to oral as outlined above and strict low-sodium diet and follow up with Nephrology. SR/MODL Voice ID: [id number] Report ID: [id number]
[2022-10-06 16:03] VITALS: BP 132/75
== END 2022-10-06 17:20 | disposition home or self-care (01) | DRG 280 ==
LOC: ER 04:34 → 2ND 07:12 → OBSVTOIN 10-05 13:06
PROVIDERS: ADMIT Internal Medicine; ATTEND Internal Medicine
DX: I13.0 Hypertensive heart and chronic kidney disease with heart failure and stage 1 through stage 4 chronic kidney disease, or unspecified chronic kidney disease (principal); I21.A1 Myocardial infarction type 2; I50.33 Acute on chronic diastolic (congestive) heart failure; N17.9 Acute kidney failure, unspecified; L97.519 Non-pressure chronic ulcer of other part of right foot with unspecified severity; E11.22 Type 2 diabetes mellitus with diabetic chronic kidney disease; E11.40 Type 2 diabetes mellitus with diabetic neuropathy, unspecified; E11.621 Type 2 diabetes mellitus with foot ulcer; N18.32 Chronic kidney disease, stage 3b; Z79.4 Long term (current) use of insulin; I11.0 Hypertensive heart disease with heart failure; E78.5 Hyperlipidemia, unspecified; I25.10 Atherosclerotic heart disease of native coronary artery without angina pectoris; Z85.830 Personal history of malignant neoplasm of bone; E66.9 Obesity, unspecified; Z68.31 Body mass index [BMI] 31.0-31.9, adult
CPT/HCPCS: 0240U; 36415; 71045; 71250; 80048; 80076; 81001; 82947; 83735; 83880; 84100; 84484; 85025; 85610; 85730; 87040; 93005; 93306; 94660; 96374; 99285; J1644; J1815; J1940